=== PATIENT | female | born 1995 | race Caucasian/White ===

== ENCOUNTER 2018-07-03 07:17 | Day surgery (SDC) | payer BC, OTHER, MEDICAID, SELFPAY ==
[2018-06-28 09:46] VITALS: BMI 36.1
[2018-07-03 07:42] VITALS: BP 108/73; PULSE 90; RESP 19; TEMP 36.6; O2SAT 97
[2018-07-03 07:43] VITALS: BMI 36.1
[2018-07-03] MEDS: LACTATED RINGERS 1,000 ML 42 ML IV ×2 (07:55→12:54)
--- NOTE | 2018-07-03 09:00 | PM.PREOP ---
Pre-operative Note Interval Note Pre-op Check: Yes History & Physical Reviewed by Physician Changes: No
--- NOTE | 2018-07-03 09:01 | PM.OP.1 ---
Operative Date/Time/Diagnoses Date of procedure: 07/03/18 Time of procedure: 09:02 Pre-op diagnosis: Left painful recurrent bunion, metatarsalgia Post-op diagnosis: same Procedure & Clinicians Procedure: 1. Left first metatarsophalangeal joint arthrodesis 2. Left second metatarsal osteotomy Same procedure as scheduled: Yes Indications: Ongoing drift with pain to the great toe and ball of the foot. Surgeon: Nandini Albert Click Yes if Unassisted: No Anesthesia Type: General and Peripheral nerve block Operative Notes Closure Type: primary Specimen(s): none sent Implants & Drains: [place] 1st MTP plate, 2.0 (1), 2.7 (3) and 3.5 (3) screws, 4.0 (1) screw Estimated Blood Loss (mL): 30 Blood products transfused: none Tourniquet time (min): 89 Procedure in detail: In the preoperative holding area, a lower extremity block was renedered by the anesthesiologist. Please see separate note for details. The patient was brought to the operating room and placed on the operating table in the supine position. A tourniquet was placed about the patient's thigh on the left. After induction of general anesthesia the foot and ankle were prepped and draped in the usual aseptic manner. The tourniquet was inflated to the left. Incision was made over the dorsal aspect of the left 1st metatarsophalangeal joint. The incision was deepened through subcutaneous tissues being careful to identify and retract all vital neurovascular structures. All bleeders were cauterized and ligated necessary. A significant amount of scar tissue was noted and the prior suture remaining from the distal anchor was removed. Prominent bony exostosis dorsomedial eminence and dorsal MT1 head were noted. The first metatarsophalangeal joint capsule was opened. A saw was used to resect the remaining medial eminence bony enlargement as well as some of the more prominent areas of spurring at the 1st metatarsophalangeal joint. A guidewire was placed in the 1st metatarsal head and a reamer was used to resect the cartilage from the 1st metatarsal head and prepare the joint. The same procedure was performed to the proximal phalanx base. These guidewires were then removed. Subchondral drilling was performed to either side with the guidewire as well as some fish scaling using a small osteotome. The area was irrigated with copious amount of normal sterile saline. Temporary fixation across the joint was placed with a k-wire and this was checked under C-arm to be in appropriate alignment. A plate was chosen and any further reduction of prominences dorsally was performed with a rasp and rongeur. Using the aid of fluoroscopy a guide wire was placed across the reduced joint and then used as cannulation for the drill for a lag screw from the distal medial to proximal lateral 1st metatarsal phalangeal joint. Confirmed appropriate in all 3 planes a partially threaded screw was placed and the guidewire removed. Good alignment and reduction. Plate was placed and with the aid of fluoroscopy the series of locking screws and a nonlocking screw were placed across the plate and steadied the joint well. This was checked on C-arm and there was good compression and alignment. The area was irrigated with copious amounts normal sterile saline. Next attention was directed to the 2nd metatarsal head where an incision was made over the dorsal 2nd metatarsophalangeal joint. The incision was deepened through subcutaneous tissues being careful to identify and retract all vital neural and vascular structures. All bleeders were cauterized and ligated as necessary. Once the capsule was entered the metatarsal head and neck were exposed and using the aid of C-arm, a saw was used to resect the head of the metatarsal and pushed back proximally to a point where there was more of an equal parabola of length. This was temporarily fixated with a guidewire and then using standard AO technique a 2 0 screw was placed across this. Guidewire was removed this was checked under C-arm and strength was good as well as compression. Tourniquet was deflated and prompt hyperemic response was seen to the foot. Deep closure was performed using 3 0 Vicryl, 4- O Vicryl to the subcutaneous tissues and nylon to the skin. She was dressed with a lightly compressive sterile dressing and placed in her postoperative boot. She was transferred to PACU with vital signs stable. Tourniquet was deflated and prompt hyperemic response was seen to the foot. And no motion was noted at the 1st MTPJ. Subcutaneous closure was performed using Vicryl and nylon was used to close the skin. A sterile lightly compressive dressing was placed on the foot and he was placed in his postoperative boot. He was transferred to the PACU with vital signs stable and vascular status intact. Complications: none Condition: stable Disposition: PACU Plan for aftercare: Plan: Following a period of postoperative monitoring, the patient will be discharged to home on written and postoperative instructions including keeping the dressing dry and intact, avoiding ambulation on the foot, icing and elevating the foot when seated home. DVT prevention techniques have been reviewed. For the 1st postoperative visit the dressing will be [changed] and close to the 3rd postoperative week we will likely remove the sutures. X-rays taken generally at the s/p week 4. Weightbearing commencing likely closer to the 4th to 6th week.
[2018-07-03] MEDS: fentaNYL 100 MCG/2 ML INJ 50 MCG IV (09:02)
[2018-07-03] MEDS: MIDAZOLAM 2 MG/2 ML VIAL 1 MG IV (09:03)
[2018-07-03] MEDS: CEFAZOLIN 2 GM/100 ML FROZ.PIGGY IV (09:09)
--- NOTE | 2018-07-03 09:11 | SUR.PREOP ---
Block start time 904[] . Monitoring initiated and maintained throughout procedure. Oxygen and medications given per anesthesiologist instructions. Patient remained stable throughout procedure, no adverse reactions noted. Block end time [907].left popliteal block per protocol - dr santos
--- NOTE | 2018-07-03 09:42 | SUR.OPER ---
Supine on padded OR bed, head on pillow, arms secured on padded arm boards at <90 degrees abduction, legs uncrossed, safety belt at thigh, tape over blanket over lower legs.
[2018-07-03] MEDS: BUPIVACAINE 0.5% (PF) VIAL 30 ML INJ (10:02)
[2018-07-03 11:40] VITALS: BP 116/81; PULSE 85; RESP 16; TEMP 36.3; O2SAT 98
[2018-07-03 11:45] VITALS: BP 114/79; PULSE 69; RESP 22; O2SAT 98
[2018-07-03 11:55] VITALS: BP 116/83; PULSE 80; RESP 16; TEMP 36.3; O2SAT 96
[2018-07-03 12:00] VITALS: BP 114/77; PULSE 89; RESP 12; TEMP 36.4; O2SAT 98
[2018-07-03] MEDS: OXYCODONE/ACETAMINOPHEN 5/325 TABLET 1 TAB PO (12:53)
[2018-07-03 13:03] VITALS: BP 101/63; PULSE 78; RESP 16; TEMP 36.4; O2SAT 98
--- NOTE | 2018-07-03 13:18 | SUR.PHASEII ---
1318: Pt d/c Phase II via W/C with escort and ride home. D/C instructions reviewed, Pt given one Percocet for c/o HENRY and Pt has met discharge criteria and left hospital in stable condition. All questions were answered and post op appointments X [address] Albert have already been made.
== END 2018-07-03 13:19 | disposition home or self-care (01) ==
PROVIDERS: Family Provider Nurse Practitioner Family; PCP Nurse Practitioner Family; Visit Provider Podiatrist
PROC: (CPT 28750; principal; 2018-07-03 08:45)
PROC: 0QBP0ZZ Excision of Left Metatarsal, Open Approach (ICD-10-PCS; CPT 28292; 2018-07-03 08:45)
DX: M20.12 Hallux valgus (acquired), left foot (principal); M19.072 Primary osteoarthritis, left ankle and foot; Z87.891 Personal history of nicotine dependence
CPT/HCPCS: 28750; 28308; 64450; J0690; J1100; J2250; J2405; J2704; J3010

== ENCOUNTER 2019-04-18 06:29 | Day surgery (SDC) | payer BC, OTHER, MEDICAID, SELFPAY ==
[2019-04-04 11:26] VITALS: BMI 36.9
[2019-04-18] VITALS (12 sets, daily range): BP systolic 95–114; BP diastolic 50–70; PULSE 70–100; RESP 12–18; TEMP 36.2–36.7; O2SAT 93–99; BMI 36.6
[2019-04-18] MEDS: LACTATED RINGERS 1,000 ML 100 ML IV ×2 (07:15→10:38)
--- NOTE | 2019-04-18 07:42 | PM.PREOP ---
Pre-operative Note Interval Note History & Physical reviewed/Exam performed by Physician: Yes Changes to H&P: No
--- NOTE | 2019-04-18 07:52 | P.OP_ITS ---
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 Surgeon: Nandini Albert Click Yes if Unassisted: Yes Anesthesia Type: General and Peripheral nerve block Operative Notes Closure Type: primary Specimen(s): none sent Prosthetic devices, grafts, tissues, transplants, or devices: [place] great toe fusion small plate, 4.0 cannulated screw, 3.5 locking screws (2), non-locking (1), 2.7 locking (2), 2.0 cannulated screw. DBM anahi. Estimated Blood Loss (mL): 30 Blood products transfused: none Tourniquet time (min): 90 Procedure in detail: The patient was brought to the operating room and placed on the operating table in the supine position. Prior to this she was given a popliteal block by the anesthesiologist in the pre-operative holding area. A tourniquet was placed about the patient's thigh on the right. After induction of general anesthesia the foot and ankle were prepped and draped in the usual aseptic manner. The tourniquet was inflated to the right thigh. Incision was made over the dorsal aspect of the right 1st metatarsophalangeal joint. The incision was deepened through subcutaneous tissues being careful to identify and retract all vital neurovascular structures. All bleeders were cauterized and ligated necessary. A moderate amount of scar tissue was noted. The first metatarsophalangeal joint capsule was opened. A saw was used to resect a little remaining dorsal eminence/bony enlargement to allow the contour of the dorsal joint to be more even at the 1st metatarsophalangeal joint. A guidewire was placed in the 1st metatarsal head and a reamer was used to resect the cartilage from the 1st metatarsal head and prepare the joint. The same procedure was performed to the proximal phalanx base. A little extra bone was removed plantar first metatarsal head on the medial due to the tight space of the reamer, but did not affect the fusion site. These guidewires were then removed. Subchondral drilling was performed to each side with the guidewire as well as some fish scaling using a small osteotome. The area was irrigated with copious amount of normal sterile saline. Temporary fixation across the joint was placed with a guidewire and this was checked under C-arm to be in appropriate alignment. A plate was chosen and any further reduction of prominences dorsally was performed with a rasp and rongeur. DBM putty was placed in the plantar medial former joint space to aid for small filler on the section that was reduced as mentioned above which filled well. Using the aid of fluoroscopy the guide wire used as cannulation for the drill for a lag screw from the distal medial to proximal lateral 1st metatarsal phalangeal joint. Confirmed appropriate in all 3 planes and a partially threaded screw was placed and the guidewire removed. Good alignment and reduction. Plate was placed and with the aid of fluoroscopy the series of locking screws and a nonlocking screws were placed across the plate and steadied the joint well. This was checked on C-arm and there was good compression and alignment. The area was irrigated with copious amounts normal sterile saline. Next attention was directed to the 2nd metatarsal head where an incision was made over the dorsal 2nd metatarsophalangeal joint. The incision was deepened through subcutaneous tissues being careful to identify and retract all vital neural and vascular structures. All bleeders were cauterized and ligated as necessary. Once the capsule was entered the metatarsal head and neck were exposed and using the aid of C-arm, a saw was used to resect the head of the metatarsal and pushed back proximally to a point where there was more of an equal parabola of length. A second cut was made to take a small wedge out of the metatarsal to further reduce length and height. This was temporarily fixated with a guidewire and then using standard AO technique a 2-0 screw was placed across this. Guidewire was removed this was checked under C-arm and strength was good as well as compression. Tourniquet was deflated and prompt hyperemic response was seen to the foot. Area irrigated with normal saline. Deep closure was performed using 3-0 Vicryl, 4-0 Vicryl to the subcutaneous tissues and nylon to the skin. She was dressed with a lightly compressive sterile dressing and placed in her postoperative boot. She was transferred to PACU with vital signs stable. Complications: none Condition: stable Disposition: PACU Plan for aftercare: Following a period of postoperative monitoring, the patient will be discharged home on written and and oral postoperative instructions including keeping the dressing dry and intact, no ambulation on the operative foot, icing and elevating the foot when seated home. DVT prevention techniques have been reviewed. For the 1st postoperative visit the dressing will be changed and close to the 3rd postoperative week we will likely remove the sutures. Post operative week 4 will be first set of x-rays.
[2019-04-18] MEDS: CEFAZOLIN 2 GM/100 ML FROZ.PIGGY IV (08:21)
--- NOTE | 2019-04-18 08:48 | SUR.OPER ---
Addendum entered by Fausto Mckeon R.N. 04/18/19 08:49: tape over lower left leg, gel bump under right hip Original Note: Supine on padded OR bed, head on pillow, arms secured on padded arm boards at <90 degrees abduction, legs uncrossed, safety belt at thigh, tape over blanket over lower legs.
[2019-04-18] MEDS: BUPIVACAINE 0.5% (PF) VIAL 30 ML INJ (08:59)
[2019-04-18] MEDS: HYDROMORPHONE 2 MG INJ 0.5 MG IV ×8 (11:05→11:55)
[2019-04-18] MEDS: LORazepam 2 MG/ML INJ 0.25 MG IV ×2 (11:06→11:21)
--- NOTE | 2019-04-18 12:21 | SUR.PHASEI ---
Block start time [1158] . Monitoring initiated and maintained throughout procedure. Oxygen and medications given per anesthesiologist instructions. Patient remained stable throughout procedure, no adverse reactions noted. Block end time [1208 ].
--- NOTE | 2019-04-18 14:59 | SUR.PHASEII ---
VS taken by ISRRAEL. WNL.
== END 2019-04-18 13:25 | disposition home or self-care (01) ==
PROVIDERS: Family Provider Nurse Practitioner Family; PCP Nurse Practitioner Family; Visit Provider Podiatrist
PROC: (CPT 26535; principal; 2019-04-18 07:45)
PROC: 0QBN0ZZ Excision of Right Metatarsal, Open Approach (ICD-10-PCS; CPT 28292; 2019-04-18 07:45)
DX: M20.11 Hallux valgus (acquired), right foot (principal); M21.611 Bunion of right foot; M79.674 Pain in right toe(s); G89.18 Other acute postprocedural pain; Z87.891 Personal history of nicotine dependence
CPT/HCPCS: 28750; 28308; 64445; 64450; J0690; J1100; J1170; J2060; J2250; J2405; J2704; J3010

== ENCOUNTER 2019-05-24 14:11 | Emergency (ER) | payer BC, OTHER, MEDICAID, SELFPAY ==
[2019-05-24 14:24] VITALS: BP 117/61; PULSE 102; RESP 15; TEMP 36.6; O2SAT 100; BMI 34.4
--- NOTE | 2019-05-24 14:33 | ED.EXTPRO ---
HPI - Extremity Problem <Tanvi Hurley PA-C - Last Filed: 05/24/19 17:32> General Chief complaint: Extremity Problem,Nontraumatic Stated complaint: Leg pain Time Seen by Provider: 05/24/19 14:14 Source: patient and family Mode of arrival: Ambulatory Limitations: no limitations History of Present Illness HPI Narrative: This 23-year-old female comes to ED due to progressively worsening right lower extremity pain. She had her 9th bunionectomy April 18. She had pain since then, was seen 05/07 due to concern for possible wound infection but was felt to be due to suture irritation. She has had pain in the calf and thigh area as well, had an ultrasound done then as well which may have shown a superficial clot that did not need treatment. She states that pain has continued to worsen radiating up all the way through her calf and thigh up into the gluteal area. She has not had any hip or back pain, but does hurt to move the leg anywhere. She is still using her a knee scooter since the surgery so has not been walking. She states that she was seen at another local ED, not felt to have any clot or infection, then was seen yesterday at Orthopedics and felt possibly infected, started on cephalexin. She states that wound culture was done at the hospital on . She states that pain is even worse today, calf is very painful. She and her mom have noted swelling in the calf. Has had some continued intermittent green/yellow discharge from her wound. She did start cephalexin. She was given a prescription for pain medication yesterday but has not filled that. She has been taking ibuprofen along with Percocet as needed. She denies any other new symptoms in the last 3 days such as paresthesia or weakness in the extremity, fever, chest pain or dyspnea. She denies possibility of Related Data Home Medications Medication Instructions Recorded Confirmed ibuprofen 800 mg PO PRN PRN #0 10/25/12 04/18/19 loratadine [Claritin] 10 mg PO DAILY 04/18/19 04/18/19 Previous Rx's Medication Instructions Recorded gabapentin 300 mg PO Q8H #15 cap 05/24/19 Allergies Allergy/AdvReac Type Severity Reaction Status Date / Time No Known Drug Allergies Allergy Verified 04/18/19 06:51 Review of Systems <Tanvi Hurley PA-C - Last Filed: 05/24/19 17:32> Review of Systems ROS Unobtainable: All systems reviewed & are unremarkable except as noted in HPI and below PFSH <Tanvi Hurley PA-C - Last Filed: 05/24/19 17:32> Medical History Fusion of toes of right foot (Acute) Sebaceous cyst (Acute) Surgical History History of bunionectomy of left great toe (Acute) History of bunionectomy of right great toe (Acute) Hx of cholecystectomy (Acute) Hx of eye surgery (Acute) S/P foot surgery, right (Acute) Social History household members: significant other, family and children Smoking Status: Former smoker Social History household members: significant other, family and children Smoking Status: Former smoker Exam <Tanvi Hurley PA-C - Last Filed: 05/24/19 17:32> Narrative Exam Narrative: GENERAL APPEARANCE: Patient sitting comfortably, in no distress. NECK/THYROID: Neck supple LUNGS: Clear to auscultation bilaterally. HEART: Regular rate and rhythm without murmur, normal S1, S2, no S3 or S4. EXTREMITIES: No cyanosis, trace edema on the right, none on the left. Pedal pulses 2+ bilaterally, feet are warm. Tender throughout the dorsal foot and posterior LE through the thigh, most at the calf NEUROLOGIC: Alert and oriented, normal speech, gait and coordination. Sensation grossly intact throughout the lower extremities DERMATOLOGIC: Multiple surgical scars on the feet. Wound on the right the metatarsal joint is dry, tender surrounding, no significant erythema noted MUSCULOSKELETAL: Right lower extremity no joint effusion, tender throughout with limited passive and active range of motion secondary to tenderness Initial Vital Signs Initial Vital Signs: Vital Signs Temperature 97.8 F 05/24/19 14:24 Pulse Rate 102 H 05/24/19 14:24 Respiratory Rate 15 05/24/19 14:24 Blood Pressure 117/61 05/24/19 14:24 Pulse Oximetry 100 05/24/19 14:24 <Jc Shelton DO - Last Filed: 05/25/19 07:46> Initial Vital Signs Initial Vital Signs: Vital Signs Temperature 97.8 F 05/24/19 14:24 Pulse Rate 102 H 05/24/19 14:24 Respiratory Rate 15 05/24/19 14:24 Blood Pressure 117/61 05/24/19 14:24 Pulse Oximetry 100 05/24/19 14:24 Course <Tanvi Hurley PA-C - Last Filed: 05/24/19 17:32> Course Additional Information: Outside records review, previous ultrasound shows no evidence of DVT. ED notes from earlier this this week reviewed. G stain negative. No culture. Reviewed findings on workup today with patient. She just started antibiotic yesterday, advised to continue this. It appears she may have some neuropathic pain as well so given gabapentin to start over the weekend to see if this is helpful for her pain, and she will follow up with her surgeon 1st of next week for further evaluation. Advised return to ED if acute changes over the weekend, i.e. new fever Orders Ordered: Discontinued Medications Gabapentin (Neurontin) 300 mg PO NOW ONE Stop: 05/24/19 15:41 Last Admin: 05/24/19 16:06 Dose: 300 mg Documented by: KIRA Sodium Chloride (Normal Saline 0.9%) 1,000 mls @ 1,000 mls/hr IV BOLUS ONE Stop: 05/24/19 15:54 Last Admin: 05/24/19 15:12 Dose: 1,000 mls/hr Documented by: TAJ Ketorolac Tromethamine (Toradol) 30 mg IV NOW ONE Stop: 05/24/19 14:56 Last Admin: 05/24/19 15:12 Dose: 30 mg Documented by: TAJ Oxycodone/Acetaminophen (Percocet 5/325) 2 tab PO NOW ONE Stop: 05/24/19 14:56 Last Admin: 05/24/19 15:12 Dose: 2 tab Documented by: TAJ Vital Signs Vital signs: Vital Signs - 8 hr 05/24/19 14:24 05/24/19 15:58 05/24/19 16:55 Temperature 97.8 F Pulse Rate 102 H 78 73 Respiratory Rate 15 16 Blood Pressure 117/61 Blood Pressure [Right Arm] 106/70 107/61 Pulse Oximetry 100 99 98 05/24/19 17:05 Temperature Pulse Rate 57 L Respiratory Rate 17 Blood Pressure Blood Pressure [Right Arm] 121/59 L Pulse Oximetry 98 <Jc Shelton DO - Last Filed: 05/25/19 07:46> Orders Ordered: Discontinued Medications Gabapentin (Neurontin) 300 mg PO NOW ONE Stop: 05/24/19 15:41 Last Admin: 05/24/19 16:06 Dose: 300 mg Documented by: KIRA Sodium Chloride (Normal Saline 0.9%) 1,000 mls @ 1,000 mls/hr IV BOLUS ONE Stop: 05/24/19 15:54 Last Admin: 05/24/19 15:12 Dose: 1,000 mls/hr Documented by: TAJ Ketorolac Tromethamine (Toradol) 30 mg IV NOW ONE Stop: 05/24/19 14:56 Last Admin: 05/24/19 15:12 Dose: 30 mg Documented by: TAJ Oxycodone/Acetaminophen (Percocet 5/325) 2 tab PO NOW ONE Stop: 05/24/19 14:56 Last Admin: 05/24/19 15:12 Dose: 2 tab Documented by: TAJ Vital Signs Vital signs: Vital Signs - 8 hr 05/24/19 14:24 05/24/19 15:58 05/24/19 16:55 Temperature 97.8 F Pulse Rate 102 H 78 73 Respiratory Rate 15 16 Blood Pressure 117/61 Blood Pressure [Right Arm] 106/70 107/61 Pulse Oximetry 100 99 98 05/24/19 17:05 Temperature Pulse Rate 57 L Respiratory Rate 17 Blood Pressure Blood Pressure [Right Arm] 121/59 L Pulse Oximetry 98 MDM - Extremity (Nontraumatic) <Tanvi Hurley PA-C - Last Filed: 05/24/19 17:32> Lab Data Result diagrams: 05/24/19 15:00 05/24/19 15:00 Labs: Lab Results 05/24/19 05/24/19 05/24/19 Range/Units 15:00 15:00 15:00 WBC 5.9 (4.5-11.0) X10^3/uL RBC 4.62 (4.0-5.2) X10^6/uL Hgb 12.8 (12.0-16.0) g/dL Hct 37.9 (36-46) % MCV 82.0 (80-100) fL MCH 27.6 (26-34) PG MCHC 33.7 (30-36) % RDW 14.5 (11.6-14.8) % Plt Count 253 (150-400) X10^3/uL Neut % (Auto) 62.4 (50-75) % Lymph % (Auto) 29.2 (25-40) % Payette % (Auto) 6.3 (3-14) % Eos % (Auto) 1.8 L (2-4) % Baso % (Auto) 0.3 (0-2) % Neut # (Auto) 3700 (9725-3554) /uL Lymph # (Auto) 1700 (1058-5853) /uL Payette # (Auto) 400 (0-900) /uL Eos # (Auto) 100 (0-450) /uL Baso # (Auto) 0 (0-100) /uL Sodium 141 (137-145) mmol/L Potassium 3.8 (3.4-5.1) mmol/L Chloride 103 (98-107) mmol/L Carbon Dioxide 30 (22-32) mmol/L BUN 9 (7-17) mg/dL Creatinine 0.60 (0.52-1.04) mg/dL Estimated GFR > 60.0 (>60) mL/min BUN/Creatinine Ratio 15.0 (6-22) Glucose 93 (70-100) mg/dL Lactate 1.6 (0.7-2.1) mmol/L Calcium 9.7 (8.4-10.2) mg/dL Total Bilirubin 0.4 (0.2-1.3) mg/dL AST 27 (14-36) IU/L ALT 16 (9-52) IU/L Alkaline Phosphatase 67 (38-126) U/L Total Protein 7.7 (6.3-8.2) g/dL Albumin 4.4 (3.5-5.0) g/dL Globulin 3.3 (1.7-4.1) g/dL Albumin/Globulin Ratio 1.3 (1.0-2.8) Imaging Data Venous US: Radiologist's impression: [address] [address] Ultrasound Report Signed Patient: [facility]#: [id number] : 1995Acct:[id number] Age/Sex: 23 / FDate of Service: 05/24/19 Loc: ED Accession Number: [id number] Procedure: US periph venous low extrem rt Ordering Provider: Tanvi Hurley P.A-C PROCEDURE: US PERIPH VENOUS LOW EXTREM RT INDICATIONS: POST OP PAIN/SWELLING/IMMOBILITY TECHNIQUE: Real-time imaging, as well as color and pulse Doppler interrogation, were performed of the lower extremity deep veins from the inguinal ligament to the popliteal fossa. COMPARISON: None. FINDINGS: The common femoral, femoral and popliteal veins are normally compressible, and free of intraluminal thrombus. Color and pulse Doppler demonstrate normal phasic intraluminal flow. There is normal augmentation response to distal compression maneuver. IMPRESSION: 1. No evidence of deep venous thrombosis in the right lower extremity. Dictated by: Joshua Cohen M.D. on 05/24/2019 at 14:36 Approved by: Joshua Cohen M.D. on 05/24/2019 at 14:37 <Jc Shelton DO - Last Filed: 05/25/19 07:46> Lab Data Labs: Lab Results 05/24/19 05/24/19 05/24/19 Range/Units 15:00 15:00 15:00 WBC 5.9 (4.5-11.0) X10^3/uL RBC 4.62 (4.0-5.2) X10^6/uL Hgb 12.8 (12.0-16.0) g/dL Hct 37.9 (36-46) % MCV 82.0 (80-100) fL MCH 27.6 (26-34) PG MCHC 33.7 (30-36) % RDW 14.5 (11.6-14.8) % Plt Count 253 (150-400) X10^3/uL Neut % (Auto) 62.4 (50-75) % Lymph % (Auto) 29.2 (25-40) % Payette % (Auto) 6.3 (3-14) % Eos % (Auto) 1.8 L (2-4) % Baso % (Auto) 0.3 (0-2) % Neut # (Auto) 3700 (0686-4856) /uL Lymph # (Auto) 1700 (9541-1970) /uL Payette # (Auto) 400 (0-900) /uL Eos # (Auto) 100 (0-450) /uL Baso # (Auto) 0 (0-100) /uL Sodium 141 (137-145) mmol/L Potassium 3.8 (3.4-5.1) mmol/L Chloride 103 (98-107) mmol/L Carbon Dioxide 30 (22-32) mmol/L BUN 9 (7-17) mg/dL Creatinine 0.60 (0.52-1.04) mg/dL Estimated GFR > 60.0 (>60) mL/min BUN/Creatinine Ratio 15.0 (6-22) Glucose 93 (70-100) mg/dL Lactate 1.6 (0.7-2.1) mmol/L Calcium 9.7 (8.4-10.2) mg/dL Total Bilirubin 0.4 (0.2-1.3) mg/dL AST 27 (14-36) IU/L ALT 16 (9-52) IU/L Alkaline Phosphatase 67 (38-126) U/L Total Protein 7.7 (6.3-8.2) g/dL Albumin 4.4 (3.5-5.0) g/dL Globulin 3.3 (1.7-4.1) g/dL Albumin/Globulin Ratio 1.3 (1.0-2.8) Discharge Plan Departure Patient Disposition: Home Clinical Impression: Lower extremity pain, right, Cellulitis of foot, right Discharge Date/Time: 05/24/19 17:13 Instructions: DI for Cellulitis -- Adult, Neuropathic Pain Activity Restrictions/Additional Instructions: The source of your pain today is not clear on testing. It could be a combination of nerve pain related to surgery or the nerve block and the wound infection. Your lab work did not show any acute problem, and there was no blood clot found on ultrasound. Since the typical pain medications that you have been taking have not been helpful for you, we have given you a dose of gabapentin here which can be helpful for nerve pain. Please try continuing this at home over the weekend, 300 mg every 8 hours, and you can increase to 600 mg at bedtime if not making you overly sleepy or not helping her pain. You can continue your other medicines as needed, and please continue the cephalexin as prescribed yesterday. Please make sure you call Dr. Albert's office 1st thing on Sunday and let them know you were seen in the emergency room and need to follow up there. As we talked about, please return to the ED if any acutely worsening symptoms or new symptoms over the weekend such as high fever. Prescriptions: New gabapentin 300 mg capsule 300 mg PO Q8H Qty: 15 RF: 0 No Action ibuprofen 200 MG tablet 800 mg PO PRN PRN (Reason: Pain (Scale Score 1-3)) Qty: 0 RF: 0 loratadine [Claritin] 10 mg Tablet 10 mg PO DAILY RF: 0 Referrals: Nandini Albert DPM [Physician] - Brittaney Bae ARNP [Primary Care Provider] - Toro Wheat MD [Non-Staff] -
--- NOTE | 2019-05-24 14:56 | DI.US.S_ITS ---
PROCEDURE: US PERIPH VENOUS LOW EXTREM RT INDICATIONS: POST OP PAIN/SWELLING/IMMOBILITY TECHNIQUE: Real-time imaging, as well as color and pulse Doppler interrogation, were performed of the lower extremity deep veins from the inguinal ligament to the popliteal fossa. COMPARISON: None. FINDINGS: The common femoral, femoral and popliteal veins are normally compressible, and free of intraluminal thrombus. Color and pulse Doppler demonstrate normal phasic intraluminal flow. There is normal augmentation response to distal compression maneuver. IMPRESSION: 1. No evidence of deep venous thrombosis in the right lower extremity. Dictated by: Joshua Cohen M.D. on 05/24/2019 at 14:36 Approved by: Joshua Cohen M.D. on 05/24/2019 at 14:37
--- NOTE | 2019-05-24 15:08 | PC.NURSE ---
Surgery April for bunion. Increase pain, weeping on toe. Increase severity in posterior leg from toe up into groin. Had a small superficial clot post op started on ABX. Received a block for pain, since injection patient has had increase shooting pain up leg into groin
[2019-05-24 15:11] LABS: Add Manual Diff / Slide Review NO; Basophils Absolute Auto 0 /uL (0-100); Basophils Percent Auto 0.3 % (0-2); Eosinophils Absolute Auto 100 /uL (0-450); Eosinophils Percent Auto 1.8 % (2-4); Hematocrit 37.9 % (36-46); Hemoglobin 12.8 g/dL (12.0-16.0); Lymphocytes Absolute Auto 1700 /uL (1100-4500); Lymphocytes Percent Auto 29.2 % (25-40); Mean Corpuscular HGB Conc 33.7 % (30-36); Mean Corpuscular Hemoglobin 27.6 PG (26-34); Monocytes Absolute Auto 400 /uL (0-900); Monocytes Percent Auto 6.3 % (3-14); Neutrophils Absolute Auto 3700 /uL (1500-7000); Neutrophils Percent Auto 62.4 % (50-75); Platelet Count 253 X10^3/uL (150-400); Red Blood Cell Count 4.62 X10^6/uL (4.0-5.2); Red Cell Distribution Width 14.5 % (11.6-14.8); White Blood Cell Count 5.9 X10^3/uL (4.5-11.0)
[2019-05-24] MEDS: OXYCODONE/ACETAMINOPHEN 5/325 TABLET 2 TAB PO (15:12)
[2019-05-24] MEDS: SODIUM CHLORIDE 0.9% 1,000 ML 1000 ML IV (15:12)
[2019-05-24] MEDS: KETOROLAC 60 MG/2 ML VIAL 30 MG IV (15:12)
[2019-05-24 15:48] LABS: Lactate (Lactic Acid) 1.6 mmol/L (0.7-2.1)
[2019-05-24 15:49] LABS: Alanine Aminotransferase 16 IU/L (9-52); Albumin 4.4 g/dL (3.5-5.0); Albumin Globulin Ratio 1.3 (1.0-2.8); Alkaline Phosphatase 67 U/L (38-126); Aspartate Aminotransferase 27 IU/L (14-36); Bilirubin Total 0.4 mg/dL (0.2-1.3); Blood Urea Nitrogen 9 mg/dL (7-17); Calcium 9.7 mg/dL (8.4-10.2); Carbon Dioxide 30 mmol/L (22-32); Chloride 103 mmol/L (98-107); Estimated Glomerular Filt Rate > 60.0 mL/min (>60); Globulin 3.3 g/dL (1.7-4.1); Glucose 93 mg/dL (70-100); HEMOLYSIS < 15 (0-50); Potassium 3.8 mmol/L (3.4-5.1); Sodium 141 mmol/L (137-145); Total Protein 7.7 g/dL (6.3-8.2)
[2019-05-24 15:58] VITALS: BP 106/70; PULSE 78; RESP 16; O2SAT 99
[2019-05-24] MEDS: GABAPENTIN 300 MG CAPSULE PO (16:06)
[2019-05-24 16:55] VITALS: BP 107/61; PULSE 73; O2SAT 98
[2019-05-24 17:05] VITALS: BP 121/59; PULSE 57; RESP 17; O2SAT 98
== END 2019-05-24 17:13 | disposition home or self-care (01) ==
PROVIDERS: Emergency Provider Internal Medicine; PCP Nurse Practitioner Family
DX: M79.661 Pain in right lower leg (principal); L03.115 Cellulitis of right lower limb
CPT/HCPCS: 36591; 80053; 83605; 85025; 93971; 96374; 99283; 99284; J1885

== ENCOUNTER → 2019-06-07 12:45 | Outpatient (CLI) | payer BC, OTHER, MEDICAID, SELFPAY ==
--- NOTE | 2019-06-07 | DI.MRI.S_ITS ---
PROCEDURE: MR KNEE RT WO CON INDICATIONS: Injury of sciatic nerve at hip and thigh level, ri TECHNIQUE: Noncontrast sagittal PD fast spin echo and T2 fast spin echo with fat saturation, sagittal 3-D FLASH with fat saturation; coronal T1 spin echo and PD fast spin echo with fat saturation, and axial PD fast spin echo with fat saturation through the knee. COMPARISON: None. FINDINGS: Image quality: Degraded by motion artifact Menisci: The medial and lateral menisci demonstrate normal morphology and internal signal. The meniscal root ligaments appear intact. Cruciate ligaments: The anterior and posterior cruciate ligaments appear intact. Medial structures: The medial collateral ligament appears intact. The posterior oblique ligament, semimembranosus tendon insertions, oblique popliteal ligament, and meniscocapsular junction appear intact. Visualized portions of the pes anserinus tendons appear normal. No abnormal bursal fluid. Lateral structures: The lateral collateral ligament, long and short heads of the biceps femoris tendon appear intact. The popliteus tendon appears normal; the popliteofibular ligament appears intact. The posterosuperior and anteroinferior popliteomeniscal fascicles appear intact. The arcuate and fabellofibular ligaments appear intact, on either side of the lateral inferior geniculate artery. Iliotibial band appears normal. Anterior structures: Quadriceps tendon intact. Low signal thickening and adjacent edema involving the patellar attachment of the medial patellofemoral ligament. The lateral patellofemoral ligament appears grossly intact There is mild patellar tendinopathy. Pretibial and superficial infrapatellar subcutaneous edema/fluid. Bones and cartilage: No bone marrow contusions or fractures. The cartilage of the medial and lateral femorotibial compartments, as well as the patellofemoral compartment, appears normal in thickness. Joint space: There is physiologic knee joint fluid. No Courtney's cyst. Normal appearing synovial plicae are incidentally noted. IMPRESSION: Patellar tendinopathy. Age-indeterminate sprain/partial tear of the patellar attachment of the medial patellofemoral ligament. This finding may be subacute. Please correlate clinically. Motion degraded examination. Dictated by: Miguelito Pollard M.D. on 06/09/2019 at 9:10 Approved by: Miguelito Pollard M.D. on 06/09/2019 at 9:14
== END ==
PROVIDERS: Family Provider Podiatrist; PCP Family Medicine; Visit Provider Physical Medicine & Rehabilitation
DX: S74.01XA Injury of sciatic nerve at hip and thigh level, right leg, initial encounter (principal); M67.961 Unspecified disorder of synovium and tendon, right lower leg
CPT/HCPCS: 73721

== ENCOUNTER 2019-06-20 23:12 | Emergency (ER) | payer BC, OTHER, MEDICAID, SELFPAY ==
[2019-06-20 23:32] VITALS: BP 131/92; PULSE 74; RESP 15; TEMP 36.4; O2SAT 100; BMI 37.5
[2019-06-21 00:12] LABS: Add Manual Diff / Slide Review NO; Basophils Absolute Auto 0 /uL (0-100); Basophils Percent Auto 0.5 % (0-2); Eosinophils Absolute Auto 0 /uL (0-450); Eosinophils Percent Auto 0.4 % (2-4); Hematocrit 38.4 % (36-46); Lymphocytes Absolute Auto 2600 /uL (1100-4500); Lymphocytes Percent Auto 31.1 % (25-40); Mean Corpuscular HGB Conc 33.8 % (30-36); Mean Corpuscular Hemoglobin 27.6 PG (26-34); Mean Corpuscular Volume 81.7 fL (80-100); Monocytes Absolute Auto 500 /uL (0-900); Monocytes Percent Auto 6.1 % (3-14); Neutrophils Absolute Auto 5200 /uL (1500-7000); Neutrophils Percent Auto 61.9 % (50-75); Platelet Count 265 X10^3/uL (150-400); Red Cell Distribution Width 13.9 % (11.6-14.8); White Blood Cell Count 8.4 X10^3/uL (4.5-11.0)
[2019-06-21 00:13] LABS: Prothrombin Time 11.9 SECONDS (10.1-12.7)
[2019-06-21 00:16] LABS: PTT Partial Thromboplastin Tim 35 SECONDS (26.4-36.2)
[2019-06-21 00:19] LABS: Alanine Aminotransferase 17 IU/L (9-52); Albumin 4.5 g/dL (3.5-5.0); Albumin Globulin Ratio 1.3 (1.0-2.8); Alkaline Phosphatase 83 U/L (38-126); Aspartate Aminotransferase 21 IU/L (14-36); Bilirubin Total 0.4 mg/dL (0.2-1.3); Blood Urea Nitrogen 8 mg/dL (7-17); Calcium 9.7 mg/dL (8.4-10.2); Carbon Dioxide 23 mmol/L (22-32); Chloride 106 mmol/L (98-107); Estimated Glomerular Filt Rate > 60.0 mL/min (>60); Globulin 3.5 g/dL (1.7-4.1); Glucose 91 mg/dL (70-100); HEMOLYSIS < 15 (0-50); Lipase 58 U/L (23-300); Potassium 3.6 mmol/L (3.4-5.1); Sodium 140 mmol/L (137-145)
--- NOTE | 2019-06-21 01:30 | DI.CT.S_ITS ---
PROCEDURE: CT ABDOMEN PELVIS W CON INDICATIONS: severe abdominal pain TECHNIQUE: After the administration of intravenous contrast, 5 mm thick sections acquired from the diaphragm to the symphysis. 5 mm coronal and sagittal reformats were acquired. For radiation dose reduction, the following was used: automated exposure control, adjustment of mA and/or kV according to patient size. COMPARISON: [facility], CT, CT ABDOMEN PELVIS WITH CONTRAST, 08/30/2018, 23:14. FINDINGS: Image quality: Excellent. ABDOMEN: Lung bases: Minimal bibasilar atelectasis. No focal consolidation or pleural effusion. Solid organs: Liver is normal in size and enhancement. Gallbladder is surgically absent. Biliary system is non dilated. Pancreas enhances normally. Spleen is normal in size and enhancement. No adrenal nodules. Kidneys demonstrate normal size and enhancement, without hydronephrosis. Peritoneum and bowel: Bowel loops demonstrate normal wall thickness and caliber. Normal appendix. No free fluid or air. Nodes and vessels: No retroperitoneal or mesenteric adenopathy by size criteria. Aorta and inferior vena cava are normal in size. Miscellaneous: No ventral hernias. Retroaortic left renal vein. PELVIS: Genitourinary: Bladder wall thickness is normal. Miscellaneous: No inguinal hernias or adenopathy. Bones: No suspicious bony lesions. No vertebral body compression fractures. Bilateral L5 pars defects with minimal grade 1 anterolisthesis. IMPRESSION: No acute intra-abdominal abnormality. Bilateral L5 pars defects with minimal grade 1 anterolisthesis. Note: These findings are concordant with the preliminary interpretation. Dictated by: Bill Sherman M.D. on 06/21/2019 at 7:08 Approved by: Bill Sherman M.D. on 06/21/2019 at 7:25
[2019-06-21] MEDS: PANTOPRAZOLE 40 MG VIAL IV (01:47)
[2019-06-21] MEDS: ONDANSETRON 4 MG/2 ML INJ IV (01:47)
[2019-06-21] MEDS: SODIUM CHLORIDE 0.9% 1,000 ML 1000 ML IV (01:48)
[2019-06-21] MEDS: LORazepam 2 MG/ML INJ 0.5 MG IV (01:48)
--- NOTE | 2019-06-21 02:53 | ED_ITS ---
HPI - Nausea/Vomiting/Diarrhea General Chief complaint: Urogenital-Female Stated complaint: throwing up blood/went to [facility]-no help Time Seen by Provider: 06/20/19 23:28 Source: patient Mode of arrival: Ambulatory Limitations: no limitations History of Present Illness HPI Narrative: 23F former smoker with history of abdominal pain presents to the emergency department with her mother in the chief complaint of ongoing, if not worsening generalized abdominal discomfort associated with and vomiting. She has had a few dark blood specks in her vomit. She has been seen and evaluated outside facility was recently diagnosed with pyelonephritis and given antibiotics. Over the course of the day she developed increasing nausea, vomiting and generalized abdominal pain and we turned to that emergency department but the wait was longer than she was comfortable with so she presented here. She denies any provocation, palliation or radiation. She is not dizzy nor weak or lightheaded. She has been taking her meds as directed. She states labs were unremarkable and no imaging was performed when at the [facility] MD complaint: nausea, vomiting and abdominal pain Onset (ago): day(s) Description of Vomiting: food contents Description of Diarrhea: none Associated Abdominal Pain: Yes Location of pain: diffuse Radiation: diffuse Severity: moderate Quality: cramping and aching Pain Consistency: intermittent Relieving factors: none Exacerbating factors: none Related Data Home Medications Medication Instructions Recorded Confirmed ibuprofen 800 mg PO PRN PRN #0 10/25/12 04/18/19 loratadine [Claritin] 10 mg PO DAILY 04/18/19 04/18/19 Previous Rx's Medication Instructions Recorded gabapentin 300 mg PO Q8H #15 cap 05/24/19 hyoscyamine sulfate 0.125 mg PO BID-QID PRN #20 tab 06/21/19 Allergies Allergy/AdvReac Type Severity Reaction Status Date / Time No Known Drug Allergies Allergy Verified 06/20/19 23:32 Review of Systems Constitutional Constitutional: Denies chills, Denies fatigue, Denies fever(s), Denies frequent falls, Denies lethargy and Denies weakness Eyes Eyes: Denies change in vision, Denies eye discharge, Denies irritation and Denies loss of vision ENT Ears, Nose, Mouth, and Throat: Denies change in voice, Denies dizziness, Denies neck pain, Denies sore throat and Denies throat swelling Cardiovascular Cardiovascular: Denies chest pain, Denies irregular heart rhythm, Denies lightheadedness, Denies palpitations, Denies dyspnea, Denies dyspnea on exertion and Denies orthopnea Respiratory Respiratory: Denies cough, Denies dyspnea, Denies dyspnea on exertion and Denies wheezing Gastrointestinal Gastrointestinal: Reports abdominal pain, Denies change in bowel habits, Denies diarrhea, Reports nausea and Reports vomiting Genitourinary Genitourinary: Denies hematuria, Denies flank pain, Denies urinary incontinence and Denies urinary urgency Musculoskeletal Musculoskeletal: Denies back pain, Denies muscle weakness, Denies neck pain, Denies numbness and Denies tingling Integumentary/Breasts Skin/Breast: Denies pruritus, Denies erythema, Denies rash and Denies wounds Neurologic Neurologic: Denies behavioral changes, Denies confusion, Denies dizziness, Denies frequent falls, Denies loss of vision, Denies numbness, Denies tingling and Denies weakness Psychiatric Psychiatric: Denies anxiety, Denies behavioral changes, Denies confusion, Denies depression, Denies homicidal ideation and Denies suicidal ideation Endocrine Endocrine: Denies fatigue, Denies flushing and Denies palpitations Hematologic/Lymphatic Hematologic/Lymphatic: Denies easy bruising Allergic/Immunologic Allergic/Immunologic: Denies urticaria, Denies throat swelling and Denies wheezing Patient History Medical History Fusion of toes of right foot (Acute) Sebaceous cyst (Acute) Surgical History History of bunionectomy of left great toe (Acute) History of bunionectomy of right great toe (Acute) Hx of cholecystectomy (Acute) Hx of eye surgery (Acute) S/P foot surgery, right (Acute) Social History household members: significant other, family and children Smoking Status: Former smoker Social History household members: significant other, family and children Smoking Status: Former smoker alcohol intake frequency: holidays/special occasions only Substance Use Type: marijuana Exam Narrative Exam Narrative: GENERAL: [23] year old patient appears stated age. Well- nourished, well-developed patient, in mild distress. Anxious, tearful, holding an emesis bag HEAD: Atraumatic. Normocephalic. EYES: Pupils equal round and reactive. Extraocular motions intact. No scleral icterus. No injection or drainage. ENT: Nose without bleeding, purulent drainage. Throat without erythema, tonsillar hypertrophy or exudate. Airway patent. NECK: Trachea midline. Non tender CARDIOVASCULAR: Regular rate and rhythm without murmurs, gallops, or rubs. RESPIRATORY: Clear to auscultation. Breath sounds equal bilaterally. No wheezes, rales, or rhonchi. GASTROINTESTINAL: Abdomen soft, mild generalized tenderness, nondistended. EXTREMITIES: No edema or joint tenderness. BACK: Nontender without deformity or crepitance. No flank tenderness. NEURO: AOx3. SKIN: No rash or erythema of visible areas Initial Vital Signs Initial Vital Signs: Vital Signs Temperature 97.5 F L 06/20/19 23:32 Pulse Rate 74 06/20/19 23:32 Respiratory Rate 15 06/20/19 23:32 Blood Pressure 131/92 H 06/20/19 23:32 Pulse Oximetry 100 06/20/19 23:32 Course Orders Ordered: ED Orders 06/21/19 00:03 Complete Blood Count AUTO DIFF Stat Comprehensive Metabolic Panel Stat Lipase Stat Partial Thromboplastin Time Stat Prothrombin Time INR Stat 06/21/19 00:25 EKG-12 Lead Stat 06/21/19 01:30 CT abdomen pelvis w con Stat Ondansetron HCl (Zofran) 4 mg IV Q4HR PRN PRN Reason: Nausea And Vomiting Last Admin: 06/21/19 01:47 Dose: 4 mg Documented by: LEN Discontinued Medications Sodium Chloride (Normal Saline 0.9%) 1,000 mls @ 1,000 mls/hr IV BOLUS ONE Stop: 06/21/19 02:27 Last Admin: 06/21/19 01:48 Dose: 1,000 mls/hr Documented by: LEN Lorazepam (Ativan) 0.5 mg IV NOW ONE Stop: 06/21/19 01:29 Last Admin: 06/21/19 01:48 Dose: 0.5 mg Documented by: LEN Pantoprazole Sodium (Protonix) 40 mg IV NOW ONE Stop: 06/21/19 01:29 Last Admin: 06/21/19 01:47 Dose: 40 mg Documented by: LEN Reevaluation(s) Reevaluation #1: patient has remarkable improvement after above stated medications Vital Signs Vital signs: Vital Signs - 8 hr 06/20/19 23:32 Temperature 97.5 F L Pulse Rate 74 Respiratory Rate 15 Blood Pressure 131/92 H Pulse Oximetry 100 MDM - Nausea/Vomiting/Diarrhea Lab Data Result diagrams: 06/20/19 23:57 06/20/19 23:57 Labs: Lab Results 06/20/19 06/20/19 06/20/19 Range/Units 23:57 23:57 23:57 WBC 8.4 (4.5-11.0) X10^3/uL RBC 4.70 (4.0-5.2) X10^6/uL Hgb 13.0 (12.0-16.0) g/dL Hct 38.4 (36-46) % MCV 81.7 (80-100) fL MCH 27.6 (26-34) PG MCHC 33.8 (30-36) % RDW 13.9 (11.6-14.8) % Plt Count 265 (150-400) X10^3/uL Neut % (Auto) 61.9 (50-75) % Lymph % (Auto) 31.1 (25-40) % Rains % (Auto) 6.1 (3-14) % Eos % (Auto) 0.4 L (2-4) % Baso % (Auto) 0.5 (0-2) % Neut # (Auto) 5200 (2079-3753) /uL Lymph # (Auto) 2600 (1815-0479) /uL Rains # (Auto) 500 (0-900) /uL Eos # (Auto) 0 (0-450) /uL Baso # (Auto) 0 (0-100) /uL PT 11.9 (10.1-12.7) SECONDS INR 1.0 (0.9-1.3) APTT 35 (26.4-36.2) SECONDS Sodium 140 (137-145) mmol/L Potassium 3.6 (3.4-5.1) mmol/L Chloride 106 (98-107) mmol/L Carbon Dioxide 23 (22-32) mmol/L BUN 8 (7-17) mg/dL Creatinine 0.50 L (0.52-1.04) mg/dL Estimated GFR > 60.0 (>60) mL/min BUN/Creatinine Ratio 16.0 (6-22) Glucose 91 (70-100) mg/dL Calcium 9.7 (8.4-10.2) mg/dL Total Bilirubin 0.4 (0.2-1.3) mg/dL AST 21 (14-36) IU/L ALT 17 (9-52) IU/L Alkaline Phosphatase 83 (38-126) U/L Total Protein 8.0 (6.3-8.2) g/dL Albumin 4.5 (3.5-5.0) g/dL Globulin 3.5 (1.7-4.1) g/dL Albumin/Globulin Ratio 1.3 (1.0-2.8) Lipase 58 (23-300) U/L Point of Care Testing Test Results Negative Urine Dip Bedside Urine Glucose Negative Bedside Urine Bilirubin - Negative Bedside Urine Ketone +++ 80 Urine Specific [place] 1.025 Bedside Urine Occult Blood - Negative Bedside Urine pH 6.0 Bedside Urine Protein +/- 15 Bedside Urine Urobilinogen - Negative Bedside Urine Nitrite - Negative Bedside Urine Leukocytes +/- [address] scan - abdomen: Radiologist's impression: No acute disease, no obstruction or free air, normal appendix MDM Narrative Medical decision making narrative: Multiple etiologies for patient's symptoms considered including: [appy vs. bowel obstruction vs. IBS vs. marijuana hyperemesis syndrome vs. other] Patient's symptoms improved or duration of stay with above-stated therapies. Findings and discharge diagnosis discussed with patient/family followed by verbalization of understanding Return precautions discussed with patient/family whom verbalize understanding. Discharge Plan Departure Patient Disposition: Home Clinical Impression: Abdominal pain Qualifiers: Abdominal location: generalized Qualified Code(s): R10.84 - Generalized abdominal pain Instructions: Acute Abdominal Pain Activity Restrictions/Additional Instructions: 1. Drink plenty of fluids with frequent small sips. 2. For the next 24 hours a clear liquid diet is advised. After that please employ a brat diet which would include bananas, rice, apples, toast. 3. Please take medications as directed. 4. Please follow-up with your doctor in the next 1-2 days. Call the office for an appointment. 5. Please return to the emergency Department for any worsening or persistent symptoms, such as increasing pain or fever. Prescriptions: New hyoscyamine sulfate 0.125 mg tablet 0.125 mg PO BID-QID PRN (Reason: dyspepsia) Qty: 20 RF: 0 No Action ibuprofen 200 MG tablet 800 mg PO PRN PRN (Reason: Pain (Scale Score 1-3)) Qty: 0 RF: 0 loratadine [Claritin] 10 mg Tablet 10 mg PO DAILY RF: 0 gabapentin 300 mg capsule 300 mg PO Q8H Qty: 15 RF: 0 Referrals: Toro Wheat MD [Primary Care Provider] -
[2019-06-21 04:49] VITALS: BP 102/54; PULSE 72; RESP 14; O2SAT 99
== END 2019-06-21 04:52 | disposition home or self-care (01) ==
PROVIDERS: Emergency Provider Emergency Medicine; PCP Family Medicine
DX: R10.84 Generalized abdominal pain (principal); R11.2 Nausea with vomiting, unspecified
CPT/HCPCS: 36415; 74177; 80053; 81003; 81025; 83690; 85025; 85610; 85730; 93005; 96361; 96374; 96375; 99283; 99285; C9113; J2060; J2405; Q9967

== ENCOUNTER 2019-09-12 06:00 | Day surgery (SDC) | payer BC, OTHER, MEDICAID, SELFPAY ==
[2019-09-02 15:05] VITALS: BMI 38.2
[2019-09-12] VITALS (8 sets, daily range): BP systolic 100–138; BP diastolic 55–89; PULSE 60–80; RESP 10–18; TEMP 36.3–37.1; O2SAT 97–99; BMI 38.2
[2019-09-12] MEDS: LACTATED RINGERS 1,000 ML 42 ML IV (06:35)
[2019-09-12] MEDS: GABAPENTIN 300 MG CAPSULE PO (07:26)
[2019-09-12] MEDS: ACETAMINOPHEN 325 MG TABLET 975 MG PO (07:26)
[2019-09-12] MEDS: SCOPOLAMINE 1 PATCH TOP (07:26)
--- NOTE | 2019-09-12 07:40 | PM.PREOP ---
Pre-operative Note Interval Note History & Physical reviewed/Exam performed by Physician: Yes Changes to H&P: No
--- NOTE | 2019-09-12 07:41 | PM.OP.1 ---
Operative Date/Time/Diagnoses Date of procedure: 09/12/19 Time of procedure: 07:41 Pre-op diagnosis: Right second and third hammertoes with pain Post-op diagnosis: same Procedure & Clinicians Procedure: Right second and third toes proximal and distal interphalangeal joint fusions Same procedure as scheduled: Yes Indications: Painful contracted hammertoes toes 2,3 right foot. Conservative measures failed to alleviate her pain and she wished to have surgical intervention at this time. Surgeon: Nandini Albert Click Yes if Unassisted: Yes Anesthesia Type: General Operative Notes Closure Type: primary Specimen(s): none sent Prosthetic devices, grafts, tissues, transplants, or devices: [place] 2.0 cannulated partially-threaded screw x 38 (2) Estimated Blood Loss (mL): 20 Blood products transfused: none Tourniquet time (min): 57 Procedure in detail: The patient was brought to the operating room and placed on the operating table in the supine position. A tourniquet was placed about the patient's right ankle. After induction of general anesthesia the foot and ankle were prepped and draped in the usual aseptic manner. The tourniquet was inflated. Incision was made over the dorsal aspect of the right 2nd toe at the level of the proximal and distal interphalangeal joints. The incision was deepened through subcutaneous tissues being careful to identify and retract all vital neurovascular structures. All bleeders were cauterized and ligated necessary. The extensor tendon was transected at each of these joints and reflected distally and proximally to reveal the underlying joints. A saw was used to resect the head of the proximal phalanx and base of the intermediate phalanx, as well as the head of the intermediate phalanx and the base of the distal phalanx. This was checked on C-arm and verified to be appropriate in length as well as alignment. The areas were irrigated with copious amounts of normal sterile saline. A guidewire was placed in the base of the intermediate phalanx and driven out distally through the toe tip. This was then retrograded across the intermediate and proximal phalanges. This was verified on C-arm to be in appropriate alignment. The measurement was taken of the guidewire and using standard AO technique, drilling was performed distal to proximal. The screw was placed and the compression was good. The wire was removed and this was verified to be in good alignment and compression on C-arm. The same procedure was performed to the 3rd toe, keeping sure that the parabola was appropriate. The tourniquet was deflated and prompt hyperemic response was seen to the foot. Extensor tendon repair performed with vicryl, and subcutaneous closure was performed using Vicryl. Nylon was used to close the skin. A sterile lightly compressive dressing was placed on the foot and she was placed in her postoperative shoe. She was transferred to the PACU with vital signs stable and vascular status intact. Complications: none Post-operative Condition: stable Disposition: PACU Plan for aftercare: Following a period of postoperative monitoring, the patient be discharged home on written and oral postoperative instructions including keeping the dressing dry and intact, avoiding ambulation on the foot, icing and elevating the foot when seated home. DVT prevention techniques have been reviewed. For the 1st postoperative visit the dressing will be changed and close to the 4th postoperative week we will likely take the first set of x-rays and begin some gentle weightbearing.
[2019-09-12] MEDS: CEFAZOLIN 2 GM/100 ML FROZ.PIGGY IV (07:43)
--- NOTE | 2019-09-12 08:17 | SUR.OPER ---
Supine on padded OR bed, head on pillow, arms secured on padded arm boards at <90 degrees abduction, legs uncrossed, safety belt at abdomen, gel bump under right hip, tape over blanket over left lower leg.
[2019-09-12] MEDS: BUPIVACAINE 0.5% (PF) VIAL 30 ML INJ (08:24)
[2019-09-12] MEDS: OXYCODONE IR 5 MG TABLET PO (10:01)
== END 2019-09-12 10:22 | disposition home or self-care (01) ==
PROVIDERS: PCP Family Medicine; Visit Provider Podiatrist
PROC: (CPT 28285; principal; 2019-09-12 07:45)
DX: M20.41 Other hammer toe(s) (acquired), right foot (principal)
CPT/HCPCS: 28285 ×2; J0690; J1100; J1885; J2250; J2405; J2704

== ENCOUNTER 2019-10-17 11:52 | Day surgery (SDC) | payer BC, OTHER, MEDICAID, SELFPAY ==
[2019-10-13 15:17] VITALS: BMI 38.2
[2019-10-17] VITALS (7 sets, daily range): BP systolic 88–110; BP diastolic 44–71; PULSE 69–90; RESP 12–20; TEMP 35.9–36.6; O2SAT 96–100; BMI 36.0
[2019-10-17] MEDS: LACTATED RINGERS 1,000 ML 42 ML IV ×2 (12:34→15:44)
--- NOTE | 2019-10-17 14:13 | PM.PREOP ---
Pre-operative Note Interval Note History & Physical reviewed/Exam performed by Physician: Yes Changes to H&P: No
--- NOTE | 2019-10-17 14:14 | PM.OP.1 ---
Operative Date/Time/Diagnoses Date of procedure: 10/17/19 Time of procedure: 14:14 Pre-op diagnosis: Right second toe screw prominent Post-op diagnosis: same Procedure & Clinicians Procedure: Right second toe hardware removal Same procedure as scheduled: Yes Indications: Noticeable screw tip prominent on top of proximal phalanx with pain, swelling, minor drainage. Decision made to remove the screw for safety and culture if any drainage apparent. Surgeon: Nandini Albert Click Yes if Unassisted: Yes Anesthesia Type: General Operative Notes Closure Type: primary Specimen(s): other (Culture aerobic/anaerobic swabs from dorsal second toe suture abscess) Estimated Blood Loss (mL): 5 Blood products transfused: none Procedure in detail: The patient was brought to the operating room and placed on the operating table in the supine position. Patient is well-padded and appropriately supported. After induction of general anesthesia the right foot and ankle were prepped and draped in the usual aseptic manner. After check of anesthesia, the dorsal 2 areas on the 2nd toe that she saw some drainage from were investigated and found to be little pieces of suture that were coming up that had not yet dissolved. There was a little bit of moisture from the most proximal 1 although it did not probe. This was where the swab was taken. She had an area she was questioning on the same foot on the 3rd toe and there was 1 stitch trying to come up there which I also was able to pick away the small piece of erupted suture but this was very superficial and did not open the area. These instruments were then passed from the area and the antibiotic was then given by IV. An Incision was made over the tip of the 2nd toe distally. The incision was deepened through subcutaneous tissues gently. All bleeders were cauterized and ligated as necessary. The head of the screw was easily seen and there was little bit of soft tissue in its center which was easily removed. The screw was then removed in total and passed from the field. No damage was noted to the screw. The toe was irrigated with copious amounts of normal sterile saline. The tip was closed with 4 0 nylon to the skin. a bandage was placed over the toes and feet. Under fluoroscopy I am moved the 2nd toe and attempted to move the joints at the proximal and distal interphalangeal. They were immobile and straight with good strength and no motion. Patient was then placed in a postoperative boot and transferred to PACU with vital signs stable. Complications: none Post-operative Condition: stable Disposition: PACU Plan for aftercare: Patient was given at her postoperative medication for pain control Percocet 7.5/325 mg tabs to be taken 1 every 6 hours as needed for pain postsurgically. I spoke with her mother about the surgery and reviewed that she was okay to put some weight on the foot this 1st week although I would not walk on it significantly due to the suture in place. We will review once again at her postoperative appointment, but if it appears that the toe itself is not showing any motion at the proximal or distal interphalangeal joints, it is okay to remove the suture when it is ready and she may begin weight-bearing. We will have the cultures back and if she shows any sign of outward infection, we can use that to help guide our treatment, but it appears that it was likely a suture abscess. We will likely begin gentle 2nd toe wrapping to reduce any swelling and certainly have her less prominently on the foot if it appears that there is motion at the former joint spaces.
--- NOTE | 2019-10-17 15:06 | SUR.OPER ---
Supine on padded OR bed, head on pillow, arms secured on padded arm boards at <90 degrees abduction, legs uncrossed, safety belt at abdomen, tape over blanket over nonoperative leg, bump under right hip.
[2019-10-17] MEDS: CEFAZOLIN 2 GM/100 ML FROZ.PIGGY IV (15:08)
[2019-10-17] MEDS: BUPIVACAINE 0.5% (PF) VIAL 30 ML INJ (15:13)
[2019-10-17] MEDS: OXYCODONE/ACETAMINOPHEN 5/325 TABLET 1 TAB PO (16:27)
--- NOTE | 2019-10-17 16:33 | SUR.PHASEII ---
Dr. Albert discussed in depth discharge instructions with patient's mother. Mother states she has all of the discharge teaching paperwork at home. Dr. Albert gave verbal order that patient may now discharge home. All instructions gone over with patient and mother. Both patient and mother deny any questions. All belongings returned to patient. Patient discharged home in good condition.
== END 2019-10-17 16:30 | disposition home or self-care (01) ==
PROVIDERS: PCP Family Medicine; Referring Provider Family Medicine; Visit Provider Podiatrist
PROC: (CPT 20680; principal; 2019-10-17 13:15)
DX: T84.84XA Pain due to internal orthopedic prosthetic devices, implants and grafts, initial encounter (principal); T84.126A Displacement of internal fixation device of bone of right lower leg, initial encounter
CPT/HCPCS: 20680; 87070; 87075; 87077; 87186; 87205; J0690; J1100; J1885; J2250; J2405; J2704; J3010

== ENCOUNTER 2019-12-31 23:02 | Emergency (ER) | payer BC, OTHER, MEDICAID, SELFPAY ==
--- NOTE | 2019-12-31 23:07 | DI.RAD.S_ITS ---
PROCEDURE: XR FOOT LT MIN 3V INDICATIONS: fall with pain, great toe TECHNIQUE: 3 views of the foot were acquired. COMPARISON: [facility], CR, XR FOOT 3 VIEWS WEIGHT BEARING LEFT, 07/11/2019, 10:15. FINDINGS: Bones: Extensive post fusion changes at first MTP joint, first TMT joint, and second PIP joint are again seen. Surgical hardware is also seen in second metatarsal head, unchanged from prior study. No gross hardware loosening or failure is noted. Alignment of left foot is not significantly changed from prior study. No gross acute fracture or dislocation. Moderate to severe osteoarthritic changes involving first interphalangeal joint is seen of the not significantly changed from previous study Soft tissues: No tibiotalar joint effusion. Achilles tendon appears normal. IMPRESSION: 1. No gross acute left foot fracture or dislocation. 2. Extensive post surgical changes in left great toe and second toe with complete bony fusion at first MTP joint, first TMT joint, and second PIP joint. 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 Dictated by: Adalberto Stacy M.D. on 01/01/2020 at 8:30 Approved by: Adalberto Stacy M.D. on 01/01/2020 at 8:33
[2019-12-31 23:10] VITALS: BP 139/90; PULSE 120; RESP 20; TEMP 36.8; O2SAT 99
--- NOTE | 2019-12-31 23:23 | ED_ITS ---
HPI - Extremity Injury (Lower) General Chief Complaint: Extremity Injury, Lower Stated Complaint: Left foot injury Time Seen by Provider: 12/31/19 23:03 Source: patient Mode of arrival: Ambulatory Limitations: no limitations History of Present Illness HPI Narrative: 24F nonsmoker with history of multiple foot surgeries presents with an injury to her left great toe just prior to arrival. She was walking down some stairs and had poor footwear on and she slipped, injuring her foot. She denies any other injury. She's had no numbness or tingling. She claims her toe is crooked. She has increased pain with ambulation and improvement with rest. MD complaint: foot injury Onset (ago): hour(s) Type of Injury: blunt Place: home Severity: moderate Relieving factors: rest Exacerbating factors: weight bearing and movement Context: fall and direct blow Other symptoms: none Related Data Home Medications Medication Instructions Recorded Confirmed ibuprofen 800 mg PO PRN PRN #0 10/25/12 10/17/19 oxycodone-acetaminophen [Percocet] 1 tab PO Q6H PRN 10/17/19 10/17/19 Previous Rx's Medication Instructions Recorded gabapentin 300 mg PO Q8H #15 cap 05/24/19 Allergies Allergy/AdvReac Type Severity Reaction Status Date / Time No Known Drug Allergies Allergy Verified 10/17/19 12:22 Review of Systems Constitutional Constitutional: Denies chills, Denies fatigue, Denies fever(s), Denies frequent falls, Denies lethargy and Denies weakness Eyes Eyes: Denies change in vision, Denies eye discharge, Denies irritation and Denies loss of vision ENT Ears, Nose, Mouth, and Throat: Denies change in voice, Denies dizziness, Denies neck pain, Denies sore throat and Denies throat swelling Cardiovascular Cardiovascular: Denies chest pain, Denies irregular heart rhythm, Denies lightheadedness, Denies palpitations, Denies dyspnea, Denies dyspnea on exertion and Denies orthopnea Respiratory Respiratory: Denies cough, Denies dyspnea, Denies dyspnea on exertion and Denies wheezing Gastrointestinal Gastrointestinal: Denies abdominal pain, Denies change in bowel habits, Denies diarrhea, Denies nausea and Denies vomiting Genitourinary Genitourinary: Denies hematuria, Denies flank pain, Denies urinary incontinence and Denies urinary urgency Musculoskeletal Musculoskeletal: Denies back pain, Reports joint swelling, Reports limited range of motion, Denies muscle weakness, Denies neck pain, Denies numbness and Denies tingling Integumentary/Breasts Skin/Breast: Denies pruritus, Denies erythema, Denies rash and Denies wounds Neurologic Neurologic: Denies behavioral changes, Denies confusion, Denies dizziness, Denies frequent falls, Denies loss of vision, Denies numbness, Denies tingling and Denies weakness Psychiatric Psychiatric: Denies anxiety, Denies behavioral changes, Denies confusion, Denies depression, Denies homicidal ideation and Denies suicidal ideation Endocrine Endocrine: Denies fatigue, Denies flushing and Denies palpitations Hematologic/Lymphatic Hematologic/Lymphatic: Denies easy bruising Allergic/Immunologic Allergic/Immunologic: Denies urticaria, Denies throat swelling and Denies wheezing Patient History Medical History Fusion of toes of right foot (Acute) Pyelonephritis (Acute ~06/2019) Sebaceous cyst (Acute) Surgical History History of bunionectomy of left great toe (Acute) History of bunionectomy of right great toe (Acute) Hx of cholecystectomy (Acute) Hx of eye surgery (Acute) S/P foot surgery, right (Acute) S/P foot surgery, right (Acute 09/12/19) Social History household members: family and children Smoking Status: Current some day smoker alcohol intake: current Smoking Status: Current some day smoker alcohol intake frequency: holidays/special occasions only Substance Use Type: marijuana Exam Narrative Exam Narrative: GEN: AOx3 and in mild distress EYES: Pupils are equal, round, and reactive to light and accommodation. Extraoccular muscles are intact bilaterally. There is no subconjunctival hemorrhage or exudate. CHEST: Lungs are clear to auscultation bilaterally and free of wheezes, rales, or rhonchi. Heart rate is regular rhythm, there are no murmurs, clicks, rubs, or gallops. There is no chest wall tenderness. ABD: Abdomen is soft and nontender. There is no guarding or rebound. Bowel sounds are normal in all 4 quadrants. There is no mass or organomegaly. EXT: Left great toe tender to palpation, no redness or warmth. Possible abnormal anatomic alignment per patient with lateral deviation of distal phalanx. Otherwise Full painless ROM of all extremities with no loss of sensation or strength. SKIN: Warm, pink, and dry. No erythema or rash Initial Vital Signs Initial Vital Signs: Vital Signs Temperature 98.3 F 12/31/19 23:10 Pulse Rate 120 H 12/31/19 23:10 Respiratory Rate 12/31/19 23:10 Blood Pressure 139/90 12/31/19 23:10 Pulse Oximetry 99 12/31/19 23:10 Procedures Nerve Block Nerve Block 1: Time out performed: Yes Local Anesthetic: bupivacaine 0.25% Amount of anesthesia used (mL): 6 Side: left Nerve Blocks: digital Complications: pain with procedure and inadequate anesthesia Orthopedic Splinting/Casting Injury #1: Side: left Lower Extremity Injury Location: foot Lower Extremity Immobilizer: post-op shoe Post splinting neuro exam: intact Post splinting vascular exam: intact Placed by: Nursing Course Course Course Narrative: discussed with vice president investor relations ortho, Dr. Pearce, who was able to view images and agrees that there is no obvious fracture, dislocation or problem with hardware. He does state that there is no reason not to attempt reduction of possible subluxation of distal phalanx Discussed digital block of toe with patient and she agrees. The procedure was very painful and she did not tolerate it and there is no attempt at reduction. This is reasonable as there is no neurovascular compromise and xray considered normal by ortho, and radiology. 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 Orders Ordered: ED Orders 12/31/19 23:07 XR foot LT min 3V Stat Discontinued Medications Hydrocodone Bitart/Acetaminophen (Vicodin 5/325 Prepack) 1 bottle MISC SEEINSTR ONE Stop: 01/01/20 00:08 Last Admin: 01/01/20 00:15 Dose: 1 bottle Documented by: HYUN Bupivacaine HCl (Sensorcaine 0.5% (Pf)) 5 ml SUBCUT NOW ONE Stop: 12/31/19 23:33 Last Admin: 01/01/20 00:17 Dose: 5 ml Documented by: HYUN Vital Signs Vital signs: Vital Signs - 8 hr 12/31/19 23:10 Temperature 98.3 F Pulse Rate 120 H Respiratory Rate 20 Blood Pressure [Left Arm] 139/90 Pulse Oximetry 99 MDM - Extremity Injury (Lower) Imaging Data Extremity x-ray #1: Attestation: I personally reviewed and interpreted this imaging study as follows: My Impression: No fracture or disclocation Radiologist's Impression: No fracture Discharge Plan Departure Patient Disposition: Home Clinical Impression: Great toe pain Qualifiers: Laterality: left Qualified Code(s): M79.675 - Pain in left toe(s) Discharge Date/Time: 01/01/20 00:20 Instructions: DI for Toe Sprain Activity Restrictions/Additional Instructions: *You have been diagnosed with [ left great toe injury ] *What to do: *Take medications as directed *Follow up with Dr. Albert, call tomorrow for an *Return to ER if you should have any new, worsening or concerning symptoms Prescriptions: No Action ibuprofen 200 MG tablet 800 mg PO PRN PRN (Reason: Pain (Scale Score 1-3)) Qty: 0 RF: 0 oxycodone-acetaminophen [Percocet] 5-325 mg Tablet 1 tab PO Q6H PRN (Reason: Pain (Scale Score 4-6)) RF: 0 gabapentin 300 mg capsule 300 mg PO Q8H Qty: 15 RF: 0 Referrals: Nandini Albert DPM [Physician] - Toro Wheat MD [Primary Care Provider] -
[2020-01-01] MEDS: HYDROCODONE/ACET 5/325 PREPACK 1 BOTTLE MISC (00:15)
[2020-01-01] MEDS: BUPIVACAINE 0.5% (PF) VIAL 5 ML SUBCUT (00:17)
== END 2020-01-01 00:20 | disposition home or self-care (01) ==
PROVIDERS: Emergency Provider Emergency Medicine; PCP Family Medicine
DX: S99.922A Unspecified injury of left foot, initial encounter (principal); M79.675 Pain in left toe(s); W19.XXXA Unspecified fall, initial encounter
CPT/HCPCS: 64450; 73630; 99283

== ENCOUNTER → 2020-01-12 11:40 | Outpatient (CLI) | payer BC, OTHER, MEDICAID, SELFPAY ==
[2020-01-12 13:34] LABS: COVID19 -Nasal RAPID Negative (Negative)
== END ==
PROVIDERS: PCP Family Medicine; Visit Provider Registered Nurse
DX: Z01.812 Encounter for preprocedural laboratory examination (principal)
CPT/HCPCS: 87635

== ENCOUNTER 2020-01-15 06:31 | Day surgery (SDC) | payer BC, OTHER, MEDICAID, SELFPAY ==
[2020-01-13 10:36] VITALS: BMI 38.2
[2020-01-15] VITALS (12 sets, daily range): BP systolic 108–131; BP diastolic 74–90; PULSE 79–102; RESP 12–20; TEMP 36–36.6; O2SAT 94–100; BMI 36.1
[2020-01-15] MEDS: LACTATED RINGERS 1,000 ML 42 ML IV ×2 (07:33→10:23)
--- NOTE | 2020-01-15 07:49 | PM.PREOP ---
Pre-operative Note COVID-19 COVID-19 status: Negative Result date/Date tested (Pos, Neg/Pending): 01/12/20 Interval Note History & Physical reviewed/Exam performed by Physician: Yes Changes to H&P: No
--- NOTE | 2020-01-15 07:50 | PM.OP.1 ---
Operative Date/Time/Diagnoses Date of procedure: 01/15/20 Time of procedure: 07:50 Pre-op diagnosis: Left hallux interphalangeal arthrodesis fracture Left first metatarsophalangeal joint retained hardware Post-op diagnosis: same Procedure & Clinicians Procedure: Left hallux interphalangeal arthrodesis fracture revision fusion Left first metatarsophalangeal joint hardware removal Same procedure as scheduled: Yes Indications: Painful fracture and sprain across the left hallux interphalangeal joint which was formally fused. Retained hardware in the area. Conservative measures failed to alleviate her pain and she wished to have surgical intervention at this time. We spoke of the risks potential complications as well as expected outcomes. Her COVID test was negative and she has met the surgical scheduling guidelines. Consent was reviewed and signed, no contraindication to the procedure at this time. Surgeon: Nandini Albert Click Yes if Unassisted: Yes Anesthesia Type: General Operative Notes Closure Type: primary Specimen(s): none sent Prosthetic devices, grafts, tissues, transplants, or devices: Hancock 3.0 partially-threaded cannulated screws x2 1cc DBM Estimated Blood Loss (mL): 30 Blood products transfused: none Tourniquet time (min): 78 Procedure in detail: The patient was brought to the operating room and placed on the operating table in the supine position. A tourniquet was placed about her left thigh. She was well padded and appropriately aligned. After induction of general anesthesia the foot was prepped and anesthesia using the recorded injectables was delivered to the foot. Foot and ankle were then prepped and draped in the usual aseptic manner. After performing a time-out, the tourniquet was inflated after exsanguination of the left leg. After check of anesthesia incision was made over the dorsal medial aspect of the 1st metatarsal phalangeal joint into the interphalangeal joint. The incision was deepened through subcutaneous tissues being careful to identify and retract all vital neural and vascular structures. All bleeders were cauterized and ligated as necessary. There was a fair amount of scar tissue present but as it went distally along the incision, there was more scar tissue with portion of bone spurring and some fragmentation of the former arthrodesis and now fracture site of the hallux interphalangeal joint. I encountered plate and 6 screws within the plate at the 1st metatarsophalangeal joint as well as the medial lag screw. These were all able to be removed in total with no areas that appeared broken. This was passed from the field. The arthrodesis site had healed well and the anchor stayed buried within the bone. Fibrous scar tissue was removed and former attachment site of the edge of the extensor was also removed from its place from the buried anchor. There was a significant amount of clearance that needed to be done but once this was accomplished I was able to see better the contour of the remaining bone. It appeared that the length was actually be pretty good and keeping in with the contour it was going to be the safer to not use a cortical graft and that would allow better coaptation especially with the amount of geography I had for the screw placement on the distal phalanx. After removal of any remaining fibrous scar tissue or bone from the base of the distal phalanx which was fairly chronically shaped as well as the head of the metatarsal, I was able to realign the toe. This also helped by reshaping the metatarsal head somewhat to allow for more conical shape. The area was irrigated with copious amounts of normal sterile saline and gentle subchondral drilling to place on either side of the preparing joint. 1 cc of DBM putty was placed in the former joint area and under the use of C-arm, the guidewires were placed down the medial and lateral aspect of the former interphalangeal joint percutaneously. In order to get the best purchase this had to be revised after reviewing all of the views on the various planes. Once this was appropriate following standard AO technique the lateral was drilled and placed and then the medial. Good coaptation appeared upon compression and alignment was good. Final views were taken under C-arm and the K-wires were removed. Any further lingering bony prominences were removed that may have been aspects of the sharp edge now that the hardware was removed. The area was irrigated with a copious amounts of normal sterile saline. The tourniquet was deflated, prompt hyperemic response was seen to the foot. Deep closure was performed using 3 0 Vicryl 4 0 Vicryl subcutaneously and 3 0 nylon to the skin. The foot was dressed with a sterile lightly compressive dressing and she was placed in her postsurgical boot. She was transferred to the PACU with vital signs stable and vascular status intact. Complications: none Post-operative Condition: stable Disposition: PACU Plan for aftercare: Following a period of postoperative monitoring, the patient will be discharged to home on written and oral postoperative instructions in the care of her mother. She understands to keep the dressing dry and intact, nonweightbearing to the left foot for approximately 6 weeks however range of motion techniques have been reviewed and should be started to the ankle and knee today. Ice and elevate when seated at home as well. She was given a prescription for Percocet 7.5/325 dispensed 45 today, instructions have been written and reviewed. For her 1st postoperative visit she will have a dressing change and likely her sutures will be removed closer to the 2nd to 3rd week or as healing permits. X-rays will be taken around the 3rd to 4th week and then around the 7th to 8th week.
[2020-01-15] MEDS: CEFAZOLIN 2 GM/100 ML FROZ.PIGGY IV (07:51)
[2020-01-15] MEDS: SCOPOLAMINE 1 PATCH TOP (08:00)
[2020-01-15] MEDS: BUPIVACAINE 0.5% (PF) VIAL 30 ML INJ (08:42)
--- NOTE | 2020-01-15 10:12 | DI.RAD.S_ITS ---
PROCEDURE: XR FOOT LT MIN 3V INDICATIONS: L HALLUX INTEL PHALENGEAL FRACTURE REVISION TECHNIQUE: Fluoroscopic images were obtained during an operative procedure and submitted for interpretation following the completion of the procedure. COMPARISON: [facility], , XR FOOT LT MIN 3V, 12/31/2019, 23:11. FINDINGS: These fluoroscopic images were performed for intraoperative localization. On these images, there is been removal of the previous fixation of the 1st metatarsophalangeal joint. Screw fixation is seen through the great toe. Please correlate with intraoperative findings. IMPRESSION: Normal intraoperative examination. Dictated by: Andrew Hodges M.D. on 01/15/2020 at 10:08 Approved by: Andrew Hodges M.D. on 01/15/2020 at 10:10
[2020-01-15] MEDS: fentaNYL 100 MCG/2 ML INJ IV ×2 (11:04→11:10)
[2020-01-15] MEDS: HYDROMORPHONE 2 MG INJ IV ×2 (11:15→11:25)
[2020-01-15] MEDS: OXYCODONE/ACETAMINOPHEN 5/325 TABLET 1 TAB PO (11:31)
== END 2020-01-15 12:33 | disposition home or self-care (01) ==
PROVIDERS: PCP Family Medicine; Referring Provider Podiatrist; Visit Provider Podiatrist
PROC: (CPT 28755; principal; 2020-01-15 07:45)
DX: S92.412K Displaced fracture of proximal phalanx of left great toe, subsequent encounter for fracture with nonunion (principal); S93.512A Sprain of interphalangeal joint of left great toe, initial encounter; T84.099A Other mechanical complication of unspecified internal joint prosthesis, initial encounter; M19.079 Primary osteoarthritis, unspecified ankle and foot
CPT/HCPCS: 28755; 20680; 73630; 76000; J0690; J1100; J1170; J2405; J2704; J3010

== ENCOUNTER 2020-02-22 14:55 | Emergency (ER) | payer BC, OTHER, MEDICAID, SELFPAY ==
[2020-02-22 15:14] VITALS: BP 161/107; PULSE 120; RESP 19; TEMP 36.9; O2SAT 98; BMI 35.2
--- NOTE | 2020-02-22 15:39 | DI.RAD.S_ITS ---
PROCEDURE: XR FOOT LT MIN 3V INDICATIONS: right great toe s/p surgery, concerns for infection TECHNIQUE: 3 views of the foot were acquired. [facility] FO[facility] 3+ VIEWS LEFT, 02/10/2020, 10:11. FINDINGS: Bones: Postoperative changes are present related to fusion of the interphalangeal joint of the great toe and the 1st tarsometatarsal joint. Prior bony fusion of the 1st metatarsophalangeal joint is evident. There is also orthopedic fusion of the proximal interphalangeal joint of the 2nd toe. Post surgical changes of the head of the 2nd toe are also evident. Orthopedic hardware appears to be intact and unchanged. No acute fractures or dislocations are identified. No suspicious osseous lesions are evident. No osseous erosions are appreciated. Soft tissues: Mild soft tissue swelling about the dorsal aspect of the foot is evident. No unexpected radiopaque foreign bodies are identified. IMPRESSION: 1. Expected postoperative changes of the left forefoot. 2. No fractures. 2. Mild soft tissue swelling of the forefoot. Dictated by: Oliver Vang M.D. on 02/22/2020 at 15:07 Approved by: Oliver Vang M.D. on 02/22/2020 at 15:09
[2020-02-22 16:39] LABS: Add Manual Diff / Slide Review NO; Basophils Absolute Auto 0 /uL (0-100); Basophils Percent Auto 0.4 % (0-2); Eosinophils Absolute Auto 100 /uL (0-450); Hemoglobin 13.5 g/dL (12.0-16.0); Lymphocytes Absolute Auto 1900 /uL (1100-4500); Lymphocytes Percent Auto 20.1 % (25-40); Mean Corpuscular HGB Conc 34.5 % (30-36); Mean Corpuscular Hemoglobin 28.6 PG (26-34); Mean Corpuscular Volume 82.9 fL (80-100); Monocytes Absolute Auto 600 /uL (0-900); Monocytes Percent Auto 6.5 % (3-14); Neutrophils Absolute Auto 6900 /uL (1500-7000); Platelet Count 241 X10^3/uL (150-400); Red Cell Distribution Width 13.9 % (11.6-14.8); White Blood Cell Count 9.5 X10^3/uL (4.5-11.0)
[2020-02-22 16:51] LABS: Lactate (Lactic Acid) 0.8 mmol/L (0.7-2.1)
[2020-02-22 16:55] LABS: C-Reactive Protein Quant 1.5 mg/dL (<1.0)
[2020-02-22 16:57] LABS: Erythrocyte Sedimentation Rate 20 MM/HR (0-20)
[2020-02-22 17:08] LABS: Procalcitonin < 0.05 ng/mL (<0.5)
[2020-02-22] MEDS: OXYCODONE/ACETAMINOPHEN 5/325 TABLET 2 TAB PO (17:29)
[2020-02-22 17:40] VITALS: BP 132/69; PULSE 85; RESP 16; O2SAT 99
--- NOTE | 2020-02-22 17:53 | ED.EXTPRO ---
HPI - Extremity Problem <PANCHO Herring - Last Filed: 02/22/20 23:36> General Chief complaint: Extremity Problem,Nontraumatic Stated complaint: states left foot pain, recent surgery, infection Time Seen by Provider: 02/22/20 15:04 Source: patient Mode of arrival: Family Vehicle Limitations: no limitations History of Present Illness HPI Narrative: This is a 24 year female, nonsmoker, who has history of multiple bunion surgeries in bilateral great toe presents to ED with chief complain increasing left great toe pain, warmth, redness. She had surgery done on 01/15/[address] Nandini Albert from fracture then this got infected and she was on Augmentin for 10 day course which she completed 3 days ago. Patient noticed since last night has recurring increasing redness travel up about 2-3 cm, severe pain, and warmth. Patient denies fever, chills, nausea or vomiting. Patient reports when she had completed antibiotic medication the redness, pain, warmth was minimal. Now the pain is very severe which she rates as 8/10 and she has been taking 2 Percocet instead of ibuprofen. Related Data Home Medications Medication Instructions Recorded Confirmed ibuprofen 1,200 mg PO Q6H PRN #0 10/25/12 01/13/20 acetaminophen [Tylenol Extra 1,000 mg PO Q6H PRN 01/13/20 01/13/20 Strength] gabapentin 300 mg PO DAILY 01/13/20 01/13/20 Previous Rx's Medication Instructions Recorded oxycodone-acetaminophen [Percocet] 1 tab PO Q6H PRN #45 tab 01/15/20 doxycycline hyclate 100 mg PO BID 7 Days #14 cap 02/22/20 oxycodone-acetaminophen [Percocet] 1 tab PO Q6H PRN #10 tab 02/22/20 Allergies Allergy/AdvReac Type Severity Reaction Status Date / Time No Known Drug Allergies Allergy Verified 02/22/20 15:06 Review of Systems <PANCHO Herring - Last Filed: 02/22/20 23:36> Review of Systems Narrative: General: Denies fever, chills, fatigue, malaise, sweats. HEENT: Denies sinus pain, ear pain, sore throat, difficulty swallowing, dizziness. Respiratory: Denies dyspnea, cough, wheezing, hemoptysis, sputum. Cardiovascular: Denies chest pain, palpitations, orthopnea, edema. Gastrointestinal: Denies nausea, vomiting, abdominal pain, diarrhea, constipation, melena. : Denies dysuria, frequency, incontinence, hematuria, urinary retention. Musculoskeletal: See HPI Skin: See HPI Neurologic: Denies weakness, headache, numbness, change in speech, confusion, seizures, incoordination. Psychiatric: No concerning psychosocial issues. 12-point review of systems is negative except for those stated above. Patient History <PANCHO Herring - Last Filed: 02/22/20 23:36> Medical History Fusion of toes of right foot (Acute) Pyelonephritis (Acute ~06/2019) Sebaceous cyst (Acute) Surgical History History of bunionectomy of left great toe (Acute) History of bunionectomy of right great toe (Acute) Hx of cholecystectomy (Acute) Hx of eye surgery (Acute) Hx of foot surgery (Acute) S/P foot surgery, right (Acute) S/P foot surgery, right (Acute 09/12/19) S/P hardware removal (Acute) Social History household members: family and children Smoking Status: Former smoker alcohol intake: current Smoking Status: Former smoker alcohol intake frequency: 0-2 drinks per day Substance Use Type: marijuana Exam <PANCHO Herring - Last Filed: 02/22/20 23:36> Narrative Exam Narrative: General appearance: well developed, well nourished, in no acute distress. Head: normocephalic, atraumatic, no scalp lesions, non-tender. ENT: Hearing grossly intact. Nose without bleeding, purulent discharge. Airway patent. Neck/Thyroid: neck supple, full range of motion, no visible masses or meningeal signs. No JVD, non-tender without lymphadenopathy. Skin: no suspicious rashes, lesions over visible areas. Warm and dry and appropriate color for ethnicity. Heart: no clubbing, no cyanosis, no edema. Lungs: Breathing even and unlabored. No stridor. No accessory muscles used. Able to speak in full sentences. Chest: normal shape and expansion. Abdomen: non-obese, non-distended. Neurologic: alert and oriented. Cognitive exam, LOSS PREVENTION LEAD and PNS grossly intact on informal exam. Psych: good eye contact, normal affect. Initial Vital Signs Initial Vital Signs: Vital Signs Temperature 98.5 F 02/22/20 15:14 Pulse Rate 120 H 02/22/20 15:14 Respiratory Rate 19 02/22/20 15:14 Blood Pressure 161/107 H 02/22/20 15:14 Pulse Oximetry 98 02/22/20 15:14 Extrem Left lower extremity: foot Details: normal capillary refill, abnormal to inspection, tenderness Location: of the great toe, abnormal ROM of toe Details: pain with active ROM and pain with passive ROM, warmth Location: of the great toe Location: at the MTP joint, at the proximal phalanx and along the dorsal aspect, edema, vascular exam Details: dorsalis pedis pulse present and posterior tibial pulse present and other (vertical surgical incision intact without drainage); no ecchymosis <Maxi Quigley MD - Last Filed: 02/23/20 08:07> Initial Vital Signs Initial Vital Signs: Vital Signs Temperature 98.5 F 02/22/20 15:14 Pulse Rate 120 H 02/22/20 15:14 Respiratory Rate 19 02/22/20 15:14 Blood Pressure 161/107 H 02/22/20 15:14 Pulse Oximetry 98 02/22/20 15:14 Scores <PANCHO Herring - Last Filed: 02/22/20 23:36> GCS [place] coma scale eye opening: Spontaneous Ricki coma scale verbal response: Orientated [place] coma scale motor response: Obey commands Ricki coma scale total score: 15 qSOFA Altered Mental Status (GCS <15): No Respiratory rate greater than/equal to 22: No Systolic blood pressure less than or equal to 100: No qSOFA Total: 0 0-1 Not High Risk 1-3 High risk Course <PANCHO Herring - Last Filed: 02/22/20 23:36> Orders Ordered: Discontinued Medications Doxycycline Hyclate (Vibramycin) 100 mg PO NOW ONE Stop: 02/22/20 18:06 Last Admin: 02/22/20 18:11 Dose: 100 mg Documented by: SUKHDEEP Oxycodone/Acetaminophen (Percocet 5/325) 2 tab PO NOW ONE Stop: 02/22/20 17:23 Last Admin: 02/22/20 17:29 Dose: 2 tab Documented by: SUKHDEEP Consultations Consultation #1: Dr. Albert consulted over the phone with physical exam fidings and test results. She agreed with antibiotic medication coverage with doxycycline 100 mg b.i.d. dose for 7 day course and to follow-up at the office on Sunday or Sunday. Time: 18:05 Vital Signs Vital signs: Vital Signs - 8 hr 02/22/20 17:40 Pulse Rate 85 Respiratory Rate 16 Blood Pressure [Right Arm] 132/69 Pulse Oximetry 99 <Maxi Quigley MD - Last Filed: 02/23/20 08:07> Orders Ordered: Discontinued Medications Doxycycline Hyclate (Vibramycin) 100 mg PO NOW ONE Stop: 02/22/20 18:06 Last Admin: 02/22/20 18:11 Dose: 100 mg Documented by: SUKHDEEP Oxycodone/Acetaminophen (Percocet 5/325) 2 tab PO NOW ONE Stop: 02/22/20 17:23 Last Admin: 02/22/20 17:29 Dose: 2 tab Documented by: SUKHDEEP Vital Signs Vital signs: Vital Signs - 8 hr 02/22/20 17:40 Pulse Rate 85 Respiratory Rate 16 Blood Pressure [Right Arm] 132/69 Pulse Oximetry 99 MDM - Extremity (Nontraumatic) <PANCHO Herring - Last Filed: 02/22/20 23:36> Differential Diagnosis Differential diagnosis: Likely gout, cellulitis and other (Post surgical infection in left great toe) Medical Records Attestation: I reviewed the patient's medical records. Lab Data Attestation: I reviewed the patient's lab results. Result diagrams: 02/22/20 16:30 Labs: Lab Results 02/22/20 02/22/20 02/22/20 Range/Units 16:30 16:30 16:30 WBC 9.5 (4.5-11.0) X10^3/uL RBC 4.70 (4.0-5.2) X10^6/uL Hgb 13.5 (12.0-16.0) g/dL Hct 39.0 (36-46) % MCV 82.9 (80-100) fL MCH 28.6 (26-34) PG MCHC 34.5 (30-36) % RDW 13.9 (11.6-14.8) % Plt Count 241 (150-400) X10^3/uL Neut % (Auto) 72.0 (50-75) % Lymph % (Auto) 20.1 L (25-40) % [place] % (Auto) 6.5 (3-14) % Eos % (Auto) 1.0 L (2-4) % Baso % (Auto) 0.4 (0-2) % Neut # (Auto) 6900 (9038-0632) /uL Lymph # (Auto) 1900 (8239-8246) /uL [place] # (Auto) 600 (0-900) /uL Eos # (Auto) 100 (0-450) /uL Baso # (Auto) 0 (0-100) /uL ESR 20 (0-20) MM/HR Lactate 0.8 (0.7-2.1) mmol/L Uric Acid (2.5-6.2) mg/dL Magnesium C-Reactive Protein (<1.0) mg/dL Procalcitonin < 0.05 (<0.5) ng/mL 02/22/20 02/22/20 02/22/20 Range/Units 16:30 16:30 16:36 WBC (4.5-11.0) X10^3/uL RBC (4.0-5.2) X10^6/uL Hgb (12.0-16.0) g/dL Hct (36-46) % MCV (80-100) fL MCH (26-34) PG MCHC (30-36) % RDW (11.6-14.8) % Plt Count (150-400) X10^3/uL Neut % (Auto) (50-75) % Lymph % (Auto) (25-40) % [place] % (Auto) (3-14) % Eos % (Auto) (2-4) % Baso % (Auto) (0-2) % Neut # (Auto) (5544-1167) /uL Lymph # (Auto) (4391-7350) /uL [place] # (Auto) (0-900) /uL Eos # (Auto) (0-450) /uL Baso # (Auto) (0-100) /uL ESR (0-20) MM/HR Lactate (0.7-2.1) mmol/L Uric Acid 5.9 (2.5-6.2) mg/dL Magnesium Cancelled C-Reactive Protein 1.5 H (<1.0) mg/dL Procalcitonin (<0.5) ng/mL Imaging Data XR-Foot LT: Radiologist's Impression: [address] [address] XRay Report Signed Patient: Asia Vera MMR#: [id number] : 1995Acct:[id number] Age/Sex: 24 / FDate of Service: 02/22/20 Loc: ED Accession Number: [id number] Procedure: XR foot LT min 3V Ordering Provider: Edson Bowman PROCEDURE: XR FOOT LT MIN 3V INDICATIONS: right great toe s/p surgery, concerns for infection TECHNIQUE: 3 views of the foot were acquired. COMPARISON: [facility], , XR FOOT 3+ VIEWS LEFT, 02/10/2020, 10:11. FINDINGS: Bones: Postoperative changes are present related to fusion of the interphalangeal joint of the great toe and the 1st tarsometatarsal joint. Prior bony fusion of the 1st metatarsophalangeal joint is evident. There is also orthopedic fusion of the proximal interphalangeal joint of the 2nd toe. Post surgical changes of the head of the 2nd toe are also evident. Orthopedic hardware appears to be intact and unchanged. No acute fractures or dislocations are identified. No suspicious osseous lesions are evident. No osseous erosions are appreciated. Soft tissues: Mild soft tissue swelling about the dorsal aspect of the foot is evident. No unexpected radiopaque foreign bodies are identified. IMPRESSION: 1. Expected postoperative changes of the left forefoot. 2. No fractures. 2. Mild soft tissue swelling of the forefoot. Dictated by: Oliver Vang M.D. on 02/22/2020 at 15:07 Approved by: Oliver Vang M.D. on 02/22/2020 at 15:09 [facility] Narrative Medical decision making narrative: Left foot x-ray shows postoperative changes of the interphalangeal joint of the great toe and the 1st tarsometatarsal joint. Orthopedic hardware appears to be intact without changes. There is no acute fractures or dislocations were appreciated. No suspicious osseous lesions are evident. No osseous erosions were appreciated. There is mild soft tissue swelling about the dorsal aspect of the foot without radio plaque foreign bodies identified. Normal lactate of 0.8 with normal procalcitonin < 0.05. CRP was mildly elevated as 1.5 with normal ESR of 20. Uric acid was 5.9 (2.5-6.2) which was within normal limits. The patient was medicated with 2 tabs of Percocet while she was waiting for lab results. Physical finding is consistent with cellulitis/postop infection with increased redness, exquisite tenderness, and warmth. Dr. Albert was consulted over the phone with physical findings and test results. Plan of treatment discussed with Dr. Albert of treating patient with doxycycline 100 mg b.i.d. for 7 day course and to have patient follow-up with her at the office in 2-3 days with her agreements. Return precautions were discussed with patient and patient discharged to home with remaining course of doxycycline after 1st dose was given in ED, higher strength of Percocet which patient advised to take only 1 tab or with additional 1 regular strength of Tylenol, ibuprofen, nonweightbearing on affected leg. Patient verbalized understanding and in agreement with treatment plan. <Maxi Quigley MD - Last Filed: 02/23/20 08:07> Lab Data Labs: Lab Results 02/22/20 02/22/20 02/22/20 Range/Units 16:30 16:30 16:30 WBC 9.5 (4.5-11.0) X10^3/uL RBC 4.70 (4.0-5.2) X10^6/uL Hgb 13.5 (12.0-16.0) g/dL Hct 39.0 (36-46) % MCV 82.9 (80-100) fL MCH 28.6 (26-34) PG MCHC 34.5 (30-36) % RDW 13.9 (11.6-14.8) % Plt Count 241 (150-400) X10^3/uL Neut % (Auto) 72.0 (50-75) % Lymph % (Auto) 20.1 L (25-40) % [place] % (Auto) 6.5 (3-14) % Eos % (Auto) 1.0 L (2-4) % Baso % (Auto) 0.4 (0-2) % Neut # (Auto) 6900 (1707-5489) /uL Lymph # (Auto) 1900 (1374-5253) /uL [place] # (Auto) 600 (0-900) /uL Eos # (Auto) 100 (0-450) /uL Baso # (Auto) 0 (0-100) /uL ESR 20 (0-20) MM/HR Lactate 0.8 (0.7-2.1) mmol/L Uric Acid (2.5-6.2) mg/dL Magnesium C-Reactive Protein (<1.0) mg/dL Procalcitonin < 0.05 (<0.5) ng/mL 02/22/20 02/22/20 02/22/20 Range/Units 16:30 16:30 16:36 WBC (4.5-11.0) X10^3/uL RBC (4.0-5.2) X10^6/uL Hgb (12.0-16.0) g/dL Hct (36-46) % MCV (80-100) fL MCH (26-34) PG MCHC (30-36) % RDW (11.6-14.8) % Plt Count (150-400) X10^3/uL Neut % (Auto) (50-75) % Lymph % (Auto) (25-40) % [place] % (Auto) (3-14) % Eos % (Auto) (2-4) % Baso % (Auto) (0-2) % Neut # (Auto) (1406-1657) /uL Lymph # (Auto) (5575-8670) /uL [place] # (Auto) (0-900) /uL Eos # (Auto) (0-450) /uL Baso # (Auto) (0-100) /uL ESR (0-20) MM/HR Lactate (0.7-2.1) mmol/L Uric Acid 5.9 (2.5-6.2) mg/dL Magnesium Cancelled C-Reactive Protein 1.5 H (<1.0) mg/dL Procalcitonin (<0.5) ng/mL Discharge Plan Departure Patient Disposition: Home Clinical Impression: Wound, surgical, infected Discharge Date/Time: 02/22/20 18:51 Instructions: DI for Wound Infection Activity Restrictions/Additional Instructions: You have been diagnosed with [surgical infection on left great toe. Lab tests were unremarkable except mildly elevated CRP. Normal lactate and procalcitonin without increased in white count. ESR was within normal limits. You were treated with 1st dose of doxycycline while in ED which is antibiotic medication. Please continue doxycycline twice a day for next 7 days.]. What to do: *Take your medications as directed. Dr. Albert recommended taking Vistaril as needed for pain management. This medication can cause drowsiness so please take precautions especially when her taking this medicine with narcotic pain medication. Doxycycline and Percocet have been transmitted to [facility] in [place]. This time, Percocet strength is stronger dose than previous Percocet. Please take only 1 tab up to 4 times a day as needed with additional 1 Tylenol. Narcotic medication can cause drowsiness so please do not drive, drink alcohol, operate heavy equipments. It Can also cause constipation so please take precautions. You can continue to take ibuprofen 400 mg to 600 mg up to 3 times a day as needed for pain. Please take it with food to decrease GI irritation. Nonweightbearing on affected leg. *Follow up with your primary care provider in 2-3 days, call for an appointment. Dr. Albert will be working on Sunday and Sunday this week. Please contact the office to make follow-up appointment. Let them know you were seen in the ED and that we asked you to be seen in follow up. *Return to ED if you have any new, worsening, or concerning symptoms, such as [worsening pain, fever, chest pain, breathing difficulty, unable to tolerate fluids or any acute concerns.]. Prescriptions: New doxycycline hyclate 100 mg capsule 100 mg PO BID 7 Days Qty: 14 RF: 0 oxycodone-acetaminophen [Percocet] 7.5-325 mg tablet 1 tab PO Q6H PRN (Reason: pain) Qty: 10 RF: 0 No Action ibuprofen 200 MG tablet 1,200 mg PO Q6H PRN (Reason: Pain (Scale Score 1-3)) Qty: 0 RF: 0 acetaminophen [Tylenol Extra Strength] 500 mg Tablet 1,000 mg PO Q6H PRN (Reason: Pain) RF: 0 gabapentin 300 mg capsule 300 mg PO DAILY RF: 0 oxycodone-acetaminophen [Percocet] 7.5-325 mg tablet 1 tab PO Q6H PRN (Reason: pain) Qty: 45 RF: 0 Referrals: Nandini Albert DPM [Physician] - Toro Wheat MD [Primary Care Provider] -
[2020-02-22 17:56] LABS: Uric Acid 5.9 mg/dL (2.5-6.2)
[2020-02-22] MEDS: DOXYCYCLINE HYCLATE 100 MG TABLET PO (18:11)
== END 2020-02-22 18:51 | disposition home or self-care (01) ==
PROVIDERS: Emergency Provider Nurse Practitioner Family; PCP Family Medicine
DX: T81.49XA Infection following a procedure, other surgical site, initial encounter (principal)
CPT/HCPCS: 36415; 73630; 83605; 84145; 84550; 85025; 85651; 86140; 99283

== ENCOUNTER 2020-02-26 08:25 | Day surgery (SDC) | payer BC, OTHER, MEDICAID, SELFPAY ==
[2020-02-24 12:38] VITALS: BMI 38.2
--- NOTE | 2020-02-25 14:55 | SUR.PREOP ---
spoke with pt regarding test. She stated test was done at [facility] office. I checked with them and they are waiting on results and will fax as soon as they get them.
[2020-02-26] VITALS (8 sets, daily range): BP systolic 101–122; BP diastolic 41–75; PULSE 71–87; RESP 10–24; TEMP 35.7–36.4; O2SAT 93–99; BMI 38.2
[2020-02-26] MEDS: LACTATED RINGERS 1,000 ML 42 ML IV (09:03)
--- NOTE | 2020-02-26 09:11 | PM.PREOP ---
Pre-operative Note COVID-19 COVID-19 status: Negative Result date/Date tested (Pos, Neg/Pending): 02/24/20 Interval Note History & Physical reviewed/Exam performed by Physician: Yes Changes to H&P: No
--- NOTE | 2020-02-26 09:22 | PM.OP.1 ---
Operative Date/Time/Diagnoses Date of procedure: 02/26/20 Time of procedure: 09:23 Pre-op diagnosis: Left great toe cellulitis Post-op diagnosis: same Procedure & Clinicians Procedure: Left great toe incision and drainage Left great toenail avulsion Same procedure as scheduled: No (Additional procedure was added) Indications: Redness and pain along the great toe along incision of recent surgery where a interphalangeal fusion was performed with hardware removal of the hallux and first metatarsophalangeal joint. Conservative measures do not appear to be reducing the pain or symptoms and desired to perform and open evaluation and irrigation, possible debridement/biopsy. Consent is signed. Surgeon: Nandini Albert Click Yes if Unassisted: Yes Anesthesia Type: General Operative Notes Closure Type: primary Specimen(s): other (culture aerobic/anaerobic of the deep tissue in the hallux interphalangeal joint and first metatarsophalangeal joint area) Estimated Blood Loss (mL): 10 Blood products transfused: none Tourniquet time (min): 0 Procedure in detail: The patient was brought to the operating room and placed on the operating table in the supine position. Well padded appropriately aligned. After induction of general anesthesia the 1st metatarsophalangeal joint and hallux was prepped and injected with 12 cc of 0.5% Marcaine plain. Foot and ankle were prepped and draped in the usual aseptic manner. After noting the looseness of the hallux nail and the discharge from the medial aspect of the nail, the decision was made to perform an avulsion of the nail. After checking for anesthesia to the digit, a [place] elevator was used to remove the nail from the hallux in total. The base of proximal nail fold is clean and clear and no hardware is noted in the area exposed. No tunneling and no additional purulence is noted. Next following the former surgical incisional scar, an incision was made over the dorsal interphalangeal joint fusion extending just into the former metatarsophalangeal joint fusion. The incision was deepened through subcutaneous tissues being careful to identify and retract neurovascular structures. All bleeders were cauterized and ligated as necessary. There was little bit of thickened scar tissue present but no purulent discharge was noted. Getting down to the bone itself there was no crepitus and no abscess noted. I did not note any areas that were feeling loose and at this time and aerobic and anaerobic culture was performed. This was then passed from the field. Pressure from the hallux and also pressure from the proximal aspect of the 1st ray was provided and no purulent discharge noted. The area was irrigated with copious amounts of normal sterile saline. Closure was performed using subcutaneous 5 0 Vicryl and a running suture technique and 3 0 nylon to the skin. The area was dressed with triple antibiotic ointment and a little bit of Xeroform to the former nail area and Adaptic to the incision. Sterile lightly compressive dressing is placed and she is also placed in her postoperative boot. She is transferred to the PACU with vital signs stable and vascular status intact. Complications: none Post-operative Condition: stable Disposition: PACU Plan for aftercare: Following a period of postoperative monitoring, the patient will be discharged home on written and oral postoperative instructions including keeping the dressing dry and intact, avoiding ambulation to the foot, elevating the foot when seated at home. DVT prevention techniques have been reviewed. She shall continue along with her medication for the course of her antibiotics that she was originally given and then we will await the culture results and healing to see if additional medication is needed in that realm. She is given a refill prescription for Percocet 5/325 mg tabs with safety instructions given. Her 1st postoperative visit will be a dressing change next week and plans beyond that for removal of suture and monitoring her continued progress on healing of her arthrodesis. No weight-bearing until further healing has been determined.
[2020-02-26] MEDS: SCOPOLAMINE 1 PATCH TOP (10:56)
[2020-02-26] MEDS: BUPIVACAINE 0.5% W/ EPI (PF) 10 ML VIAL INJ (11:51)
[2020-02-26] MEDS: fentaNYL 100 MCG/2 ML INJ IV ×2 (12:25→12:30)
[2020-02-26] MEDS: OXYCODONE/ACETAMINOPHEN 5/325 TABLET 1 TAB PO ×2 (12:34→13:20)
--- NOTE | 2020-02-26 12:54 | SUR.PHASEI ---
Bedside report given to Linette Velasquez RN at this time. Pt sitting up in bed resting at this time. pt denies any nausea. Transferred care of pt to Linette Velasquez RN at this time.
== END 2020-02-26 13:45 | disposition home or self-care (01) ==
PROVIDERS: PCP Family Medicine; Referring Provider Podiatrist; Visit Provider Podiatrist
PROC: (CPT 10060; principal; 2020-02-26 09:45)
DX: L03.032 Cellulitis of left toe (principal)
CPT/HCPCS: 10060; 11730; 87070; 87075; 87077; 87147; 87186; 87205; J1100; J2250; J2405; J2704; J3010

== ENCOUNTER 2020-05-23 22:36 | Emergency (ER) | payer BC, OTHER, MEDICAID, SELFPAY ==
[2020-05-23 22:48] VITALS: BP 125/75; PULSE 103; RESP 18; TEMP 37; O2SAT 99; BMI 38.3
--- NOTE | 2020-05-23 23:45 | ED.LOWEXIN ---
HPI - Extremity Injury (Lower) General Chief Complaint: Extremity Injury, Lower Stated Complaint: Ripped off toenail, R foot, big toe, bleeding Time Seen by Provider: 05/23/20 23:21 Source: patient Mode of arrival: Ambulatory Limitations: no limitations History of Present Illness HPI Narrative: Patient complains of injury to the right big toe/toenail 2 days ago. Her large dog stepped on it. Patient does have the supervisor billposting in sees regularly, Dr. Nandini Albert, has not called the office. No fever chills. Able to ambulate and bear weight. Related Data Home Medications Medication Instructions Recorded Confirmed ibuprofen 800 mg PO Q6H PRN #0 10/25/12 02/26/20 acetaminophen [Tylenol Extra 1,000 mg PO Q6H PRN 01/13/20 02/26/20 Strength] gabapentin 300 mg PO DAILY 01/13/20 02/26/20 oxycodone-acetaminophen [Percocet] 1 tab PO Q4H PRN 02/26/20 02/26/20 Previous Rx's Medication Instructions Recorded cephalexin 500 mg PO QID #28 cap 05/23/20 Allergies Allergy/AdvReac Type Severity Reaction Status Date / Time No Known Drug Allergies Allergy Verified 05/23/20 22:48 Review of Systems Review of Systems Narrative: GENERAL: Denies chills, fatigue, malaise, fever, sweats. . MUSCULOSKELETAL: denies weakness, joint pain, complains bony pain SKIN: Denies rash, skin lesions NEUROLOGIC: Denies weakness, headache, numbness, change in speech, confusion, seizures, incoordination. PSYCHIATRIC: No concerning psychosocial issues. ROS Unobtainable: All systems reviewed & are unremarkable except as noted in HPI and below Patient History Medical History Fusion of toes of right foot (Acute) Pyelonephritis (Acute ~06/2019) Sebaceous cyst (Acute) Surgical History History of bunionectomy of left great toe (Acute) History of bunionectomy of right great toe (Acute) Hx of cholecystectomy (Acute) Hx of eye surgery (Acute) Hx of foot surgery (Acute) S/P foot surgery, right (Acute) S/P foot surgery, right (Acute 09/12/19) S/P hardware removal (Acute) Social History household members: family and children Smoking Status: Former smoker alcohol intake: current Smoking Status: Former smoker alcohol intake frequency: a few times a week Substance Use Type: marijuana Exam Narrative Exam Narrative: GENERAL: patient appears stated age. Well-nourished, well-developed patient, in no distress, not toxic HEAD: Atraumatic. Normocephalic. . EXTREMITIES: Examination right foot. There is avulsion of the toenail of the great toe. No active bleeding no discharge. Mild tenderness to the toe. Toe was otherwise warm soft and pink. NEURO: AOx4. SKIN: No rash or erythema of visible areas PSYCH: Not anxious, is cooperative Initial Vital Signs Initial Vital Signs: Vital Signs Temperature 98.6 F 05/23/20 22:48 Pulse Rate 103 H 05/23/20 22:48 Respiratory Rate 18 05/23/20 22:48 Blood Pressure 125/75 05/23/20 22:48 Pulse Oximetry 99 05/23/20 22:48 Course Orders Ordered: ED Orders 05/23/20 23:46 XR toe RT min 2V Stat Discontinued Medications Bacitracin (Bacitracin) 1 applic TOP NOW ONE Stop: 05/24/20 00:40 Cephalexin HCl (Keflex) 500 mg PO NOW ONE Stop: 05/23/20 23:46 Last Admin: 05/23/20 23:52 Dose: 500 mg Documented by: HYUN Reevaluation(s) Reevaluation #1: Toe has been clean and irrigated. Patient agrees with treatment plan and follow-up with her supervisor [employer] for toe nail removal Time: 00:37 Vital Signs Vital signs: Vital Signs - 8 hr 05/23/20 22:48 Temperature 98.6 F Pulse Rate 103 H Respiratory Rate 18 Blood Pressure 125/75 Pulse Oximetry 99 MDM - Extremity Injury (Lower) Imaging Data Extremity x-ray #1: My Impression: X-ray right great toe, no acute process. Hardware intact MDM Narrative Medical decision making narrative: Appropriate for discharge home. Patient does have established supervisor billposting. Discharge Plan Departure Patient Disposition: Home Clinical Impression: Avulsed toenail Qualifiers: Encounter type: initial encounter Qualified Code(s): S91.209A - Unspecified open wound of unspecified toe(s) with damage to nail, initial encounter Discharge Date/Time: 05/24/20 00:44 Instructions: DI for Wound Infection Activity Restrictions/Additional Instructions: Call your supervisor [employer]post[employer] in the morning for office recheck this week. You will need to have the toenail removed in the office. Prescription has been sent to your pharmacy of choice. Change dressing twice a day with warm soap and water. Return if worse or if any questions concerns. Prescriptions: New cephalexin 500 mg capsule 500 mg PO QID Qty: 28 RF: 0 No Action ibuprofen 200 MG tablet 800 mg PO Q6H PRN (Reason: Pain (Scale Score 1-3)) Qty: 0 RF: 0 acetaminophen [Tylenol Extra Strength] 500 mg Tablet 1,000 mg PO Q6H PRN (Reason: Pain) RF: 0 gabapentin 300 mg capsule 300 mg PO DAILY RF: 0 oxycodone-acetaminophen [Percocet] 5-325 mg Tablet 1 tab PO Q4H PRN (Reason: Pain, Mild) RF: 0 Referrals: Toro Wheat MD [Primary Care Provider] -
--- NOTE | 2020-05-23 23:46 | DI.RAD.S_ITS ---
PROCEDURE: XR TOE RT MIN 2V INDICATIONS: Pain/injury to right 1st digit TECHNIQUE: 3 views of the right 1st toe(s) acquired. [facility] FOOT 3+ VIEWS RIGHT, 10/08/2019, 9:30. FINDINGS: Bones: Postsurgical changes compatible with 1st MTP, 1st DIP, 2nd PIP, 2nd DIP, 3rd PIP and 3rd DIP arthrodesis. Postsurgical changes compatible with 2nd metatarsal osteotomy. Orthopedic hardware is intact. No lucencies at the bone hardware interface. No fracture or dislocation. Cortical irregularity noted in the 1st MTP joint which could represent chronic reactive change or osteomyelitis. Soft tissues: No suspicious soft tissue densities. IMPRESSION: 1. Postsurgical changes. 2. Cortical irregularity involving the 1st MTP joint which could represent osteoarthritis versus osteomyelitis. Please correlate with clinical findings. 3. No fracture. No acute osseous lesion. If symptoms and/or clinical suspicion for pathology persists, further assessment with repeat radiographs (7-10 days) or advanced imaging (e.g. CT, MRI or bone scan) may be helpful. Dictated by: Mildred Rodríguez MD, PhD on 05/24/2020 at 8:45 Approved by: Mildred Rodríguez MD, PhD on 05/24/2020 at 8:49
[2020-05-23] MEDS: cephALEXin 250 MG CAPSULE 500 MG PO (23:52)
--- NOTE | 2020-05-24 00:08 | PC.NURSE ---
Toe cleaned with CHG
== END 2020-05-24 00:44 | disposition home or self-care (01) ==
PROVIDERS: Emergency Provider Emergency Medicine; PCP Family Medicine
DX: S91.209A Unspecified open wound of unspecified toe(s) with damage to nail, initial encounter (principal); W54.8XXA Other contact with dog, initial encounter
CPT/HCPCS: 73660; 99283

== ENCOUNTER → 2020-08-23 15:45 | Outpatient (CLI) | payer BC, OTHER, MEDICAID, SELFPAY ==
[2020-08-23 16:51] LABS: COVID19 -Nasal RAPID Negative (Negative)
== END ==
PROVIDERS: PCP Family Medicine; Visit Provider Nurse Practitioner
DX: Z20.828 Contact with and (suspected) exposure to other viral communicable diseases (principal)
CPT/HCPCS: 87635

== ENCOUNTER 2020-08-25 07:45 | Day surgery (SDC) | payer BC, OTHER, MEDICAID, SELFPAY ==
[2020-08-23 12:08] VITALS: BMI 38.7
[2020-08-25] VITALS (13 sets, daily range): BP systolic 100–123; BP diastolic 62–74; PULSE 60–83; RESP 9–19; TEMP 36.8–37; O2SAT 95–100; BMI 38.7
[2020-08-25] MEDS: LACTATED RINGERS 1,000 ML 100 ML IV ×3 (08:48→13:13)
--- NOTE | 2020-08-25 09:21 | PM.PREOP ---
Pre-operative Note COVID-19 COVID-19 status: Negative Interval Note History & Physical reviewed/Exam performed by Physician: Yes Changes to H&P: No
[2020-08-25] MEDS: SCOPOLAMINE 1 PATCH TOP (09:30)
[2020-08-25] MEDS: CEFAZOLIN 2 GM/100 ML FROZ.PIGGY IV (09:32)
--- NOTE | 2020-08-25 09:32 | PM.OP.1 ---
Operative Date/Time/Diagnoses Date of procedure: 08/25/20 Time of procedure: 09:33 Pre-op diagnosis: Right first metatarsophalangeal joint broken hardware, nonunion versus fracture Post-op diagnosis: same Procedure & Clinicians Procedure: Right first metatarsophalangeal joint revision arthrodesis with broken hardware removal Same procedure as scheduled: Yes Indications: Painful broken hardware with suspected nonunion first metatarsophalangeal joint right foot. Surgeon: Nandini Albert Click Yes if Unassisted: Yes Anesthesia Type: General Operative Notes Closure Type: primary Specimen(s): none sent Prosthetic devices, grafts, tissues, transplants, or devices: PRO3-C Amniotic membrane graft, [employer] DBM putty, [place] 4.0 (1), 3.5 (5) screws, [place] revision MTP plate Estimated Blood Loss (mL): 30 Blood products transfused: none Tourniquet time (min): 89 Procedure in detail: The patient was brought to the operating room and placed on the operating table in the supine position. A tourniquet was placed about the patient's right thigh. After induction of general anesthesia the foot and ankle were prepped and draped in the usual aseptic manner. The tourniquet was inflated. Local anesthesia was rendered to the first ray. Incision was made over the dorsal aspect of the right 1st metatarsophalangeal joint. The incision was deepened through subcutaneous tissues being careful to identify and retract all vital neurovascular structures. All bleeders were cauterized and ligated necessary. A significant amount of scarring was apparent to the soft tissues at the first metatarsophalangeal joint and distal and proximal along the ray. The tissues themselves were also just enlarged in general and the extensor was mostly invested within the scar tissue. The plate had bony covering over much of the dorsal portion of it, which was champfered away and gently removed which showed the underlying screws and the broken plate. The plate and screws were removed, and the medial lag screw appeared to have also broken with the plate at the runout. I resected either side of the former first metatarsophalangeal joint down to clean and bleeding bone. The first metatarsal shaft contained the remainder of the screw but it was not in the way of the resection and it was buried enough that it was appropriate to leave in place. Either side of the former joint was drilled a few times just a couple mm to allow for enhanced healing. A saw was also used to plane and resect some spurring from the dorsal 1st metatarsal shaft where the plate was and buildup of bone around it's edges and end, and the same to the proximal phalanx. Once the appropriate alignment was noted for the joint, it was checked under fluoroscopy and appeared to not require a cortical graft. The length was minorly short, but the ability to achieve a higher potential of union of the bone outweighed the very small amount of shortening seen. Area was irrigiated with normal saline. Demineralized bone putty was placed in the area of the new MTPJ. Temporary fixation across the joint was placed with a guidewire and this was checked under C-arm to be in appropriate alignment. A plate was chosen and any further reduction of prominences dorsally was performed with a rasp and rongeur. Using the aid of fluoroscopy, the guide wire was used as cannulation for the drill for a lag screw from the proximal medial to distal lateral 1st metatarsal phalangeal joint. Confirmed appropriate in all 3 planes, a partially threaded screw was placed and the guidewire removed. Good strength and reduction of the former joint. The tourniquet was deflated and prompt hyperemic response was seen to the foot. Plate was placed and with the aid of fluoroscopy a series of locking screws and a nonlocking screw were placed across the plate once again the joint showed no motion and good strength and alignment. This was checked on C-arm. The area is irrigated with copious amounts normal sterile saline. Reduction of significantly thickened subcutaneous tissue performed sharply. Addition of soft tissue graft placed dorsally over the plate prior to closure. Subcutaneous closure was performed using Vicryl and nylon was used to close the skin. A sterile lightly compressive dressing was placed on the foot and she was placed in the postoperative boot. Transferred to the PACU with vital signs stable and vascular status intact. Complications: none Post-operative Condition: stable Disposition: PACU Plan for aftercare: Following a period of postoperative monitoring, the patient be discharged home on written and oral postoperative instructions including keeping the dressing dry and intact, no weight on the foot, icing and elevating the foot when seated home. DVT prevention techniques have been reviewed. For the 1st postoperative visit the dressing will be changed and close to the 3rd postoperative week we will likely remove the sutures. First x-rays approx s/p 4 weeks, and some initial WB may occur s/p week six, dependent onrecovery status.
--- NOTE | 2020-08-25 10:04 | SUR.OPER ---
Supine on padded OR bed, head on pillow, arms secured on padded arm boards at <90 degrees abduction, bump under right hip, legs uncrossed, right leg under control of surgeon, safety belt at thigh, tape over blanket over left lower leg.
[2020-08-25] MEDS: BUPIVACAINE 0.5% (PF) VIAL 30 ML INJ (10:15)
[2020-08-25] MEDS: LIDOCAINE 2% INJ SDV 5 ML INJ (10:16)
--- NOTE | 2020-08-25 12:22 | SUR.OPER ---
Patient has an abrasion on the back of her right lower leg which was observed after induction, during prep, after positioning.
[2020-08-25] MEDS: fentaNYL 100 MCG/2 ML INJ IV (13:44)
[2020-08-25] MEDS: HYDROMORPHONE 2 MG INJ IV (13:46)
--- NOTE | 2020-08-25 14:13 | SUR.PHASEI ---
Pt arrived to PACU s\p R foot surger. VSS. Pt very active and squirming on arrival. C/O significant pain, unable to hold still. Medicated with fentqanyl & dilaudid with good relief. Able to eat snack and drink fluids without difficulty. No problems to report. Plan: Discuss discharge instructions and discharge pt to home.
[2020-08-25] MEDS: OXYCODONE/ACETAMINOPHEN 5/325 TABLET 1 TAB PO (14:17)
== END 2020-08-25 14:41 | disposition home or self-care (01) ==
PROVIDERS: PCP Family Medicine; Referring Provider Podiatrist; Visit Provider Podiatrist
PROC: (CPT 28750; principal; 2020-08-25 09:15)
DX: T84.498A Other mechanical complication of other internal orthopedic devices, implants and grafts, initial encounter (principal); M96.0 Pseudarthrosis after fusion or arthrodesis; E66.9 Obesity, unspecified; Z68.38 Body mass index [BMI] 38.0-38.9, adult
CPT/HCPCS: 28750; J0690; J1100; J1170; J1885; J2250; J2405; J2704; J3010

== ENCOUNTER → 2021-04-27 09:33 | Outpatient (CLI) | payer BC, OTHER, MEDICAID, SELFPAY ==
[2021-04-27 11:08] LABS: COVID19 -Nasal RAPID Negative (Negative)
== END ==
PROVIDERS: PCP Family Medicine; Visit Provider Physician Assistant
DX: Z20.822 Contact with and (suspected) exposure to COVID-19 (principal); Z01.812 Encounter for preprocedural laboratory examination
CPT/HCPCS: 87635

== ENCOUNTER 2021-04-29 06:03 | Day surgery (SDC) | payer BC, OTHER, MEDICAID, SELFPAY ==
[2021-04-25 08:22] VITALS: BMI 36.8
[2021-04-29] VITALS (9 sets, daily range): BP systolic 106–135; BP diastolic 64–83; PULSE 72–87; RESP 12–24; TEMP 36.4–36.8; O2SAT 98–99; BMI 36.8
[2021-04-29] MEDS: LACTATED RINGERS 1,000 ML 100 ML IV (07:07)
[2021-04-29] MEDS: SCOPOLAMINE 1 PATCH TOP (07:30)
--- NOTE | 2021-04-29 07:40 | PM.PREOP ---
Pre-operative Note COVID-19 COVID-19 status: Negative Interval Note History & Physical reviewed/Exam performed by Physician: Yes Changes to H&P: No
[2021-04-29] MEDS: CEFAZOLIN 1 GM VIAL 2 GM IV (07:52)
--- NOTE | 2021-04-29 08:03 | SUR.OPER ---
Supine on padded OR bed, head on pillow, arms secured on padded arm boards at <90 degrees abduction, legs uncrossed, safety belt at thigh, tape over blanket over lower legs.
[2021-04-29] MEDS: BUPIVACAINE 0.5% (PF) VIAL 30 ML INJ (08:11)
--- NOTE | 2021-04-29 10:16 | P.OP_ITS ---
Operative Date/Time/Diagnoses Date of procedure: 04/29/21 Time of procedure: 10:16 Pre-op diagnosis: Right great toe painful retained orthopedic hardware Post-op diagnosis: same Procedure & Clinicians Procedure: Right first toe and metatarsophalangeal joint partial hardware removal Same procedure as scheduled: Yes Indications: Pain in the area of the great toe right foot, suspected to be the retained hardware in this location. Conservative measures failed to alleviate her pain and she wished to have surgical intervention at this time. No c ontraindications to the procedure at this time. Surgeon: Nandini Albert Click Yes if Unassisted: Yes Anesthesia Type: General Operative Notes Closure Type: primary Specimen(s): none sent Estimated Blood Loss (mL): 20 Blood products transfused: none Tourniquet time (min): 88 Procedure in detail: The patient was brought to the operating room and placed on the operating table in a supine position. A tourniquet was placed about her right ankle. She was well padded and appropriately aligned. After induction of general anesthesia the foot was prepped and draped in the usual aseptic manner. The tourniquet was inflated. After a check of anesthesia and incision was made over the dorsal medial 1st metatarsal in the region of screw that we were to remove. The incision was deepened through subcutaneous tissues being careful to identify and retract all vital neural and vascular structures. All bleeders were cauterized and ligated as necessary. Preparation around the screw at the bone was used to secure a clean way of removing the screw. I was able to remove it only just about half a cm and it would not move anymore. We attempted using a guidewire and checked under fluoroscopy to determine if there was anything impinging this but we could not see anything. The decision was made at that point to return to it and instead focus on the staple in the hallux. An incision was made over the dorsal hallux and into the former metatarsophalangeal joint. The most central lateral staple at the hallux was shown to be having s ome bone up and around it as well as scar tissue which was reduced for easier access. The most proximal aspect of that staple was next to the plate but was not pressured by the plate. Due to the amount of bone under and around the area it took quite some time to gently remove the staple but it was able to be removed and could have been 1 of the reasons why she was feeling the discomfort she complained about as to why she wanted the surgery. Looking into the interspace I did not note any unusual prominences or fluid collections, and the hallux IPJ fusion was solid as was the metatarsophalangeal joint fusion. I was still unable to retrieve the screw so the decision was made to take 2 of the screws near by the course of 4-0 screw, and partially loosen them. It was at that point that very slowly and carefully we were able to remove the entirety of the 4-0 screw. As it was removed, it appeared that the screw was slightly bent and did have some markings on it to suggest that it had been up against other hardware but was intact. The decision was made at that point to not remove the 2nd staple as it did not appear to be an influence to why she was having some of the soreness but also it was at an access point that was more difficult to retrieve. The 2 screws were then tightened back into secure positions and the plate was secure and a mobile. The area was irrigated with copious amounts of normal sterile saline and final pictures on C-arm were taken. The tourniquet was deflated, a prompt hyperemic response was seen to the foot. Subcutaneous closure was performed with 4-0 Vicryl and skin was closed with 3-0 nylon. The foot was dressed with a sterile lightly compressive dressing and she was placed in her postoperative shoe and transferred to the PACU with vital signs stable and vascular status intact foot. Post-operative Condition: stable Disposition: PACU Plan for aftercare: Following a period of postoperative monitoring, the patient be discharged home on written and oral postoperative instructions including keeping the dressing dry and intact, avoiding significant ambulation on the foot, icing and elevating the foot when seated home. DVT prevention techniques have been reviewed. For the 1st postoperative visit the dressing will be changed and close to the 3rd postoperative week we will likely remove the sutures.
[2021-04-29] MEDS: OXYCODONE IR 5 MG TABLET PO (10:20)
[2021-04-29] MEDS: METOCLOPRAMIDE 10 MG/2 ML INJ IV (10:20)
[2021-04-29] MEDS: hydrOXYzine 50 MG/ML INJ 25 MG IM (10:21)
[2021-04-29] MEDS: ACETAMINOPHEN 325 MG TABLET 975 MG PO (10:21)
[2021-04-29] MEDS: fentaNYL 100 MCG/2 ML INJ IV (10:30)
[2021-04-29] MEDS: ONDANSETRON 4 MG/2 ML INJ IV (10:36)
--- NOTE | 2021-04-29 12:05 | SUR.PHASEII ---
Pt remained in here pending arrival of her ride. D/C'd to ED entrance via wc in stable condition.
== END 2021-04-29 11:58 | disposition home or self-care (01) ==
PROVIDERS: PCP Family Medicine; Referring Provider Podiatrist; Visit Provider Podiatrist
PROC: (CPT 20680; principal; 2021-04-29 07:45)
DX: T84.84XA Pain due to internal orthopedic prosthetic devices, implants and grafts, initial encounter (principal); Z98.1 Arthrodesis status
CPT/HCPCS: 20680; 81025; J0690; J1100; J2250; J2405; J2704; J2765; J3010; J3410

== ENCOUNTER 2021-05-27 14:35 | Emergency (ER) | payer BC, OTHER, MEDICAID, SELFPAY ==
[2021-05-27] VITALS (12 sets, daily range): BP systolic 107–122; BP diastolic 55–78; PULSE 48–96; RESP 20; TEMP 36.3–37.2; O2SAT 96–100; BMI 41.7
[2021-05-27] MEDS: ONDANSETRON 4 MG/2 ML INJ IV (14:59)
[2021-05-27] MEDS: SODIUM CHLORIDE 0.9% 1,000 ML 125 ML IV (14:59)
--- NOTE | 2021-05-27 15:01 | ED.GENADULT ---
HPI - General Adult General Chief complaint: Fever Stated complaint: Kidney Stone, Can't Keep Anything Down, Fever Time Seen by Provider: 05/27/21 14:51 Source: patient Mode of arrival: Wheelchair Limitations: no limitations History of Present Illness HPI narrative: Patient is a 25-year-old female. A couple days ago she started to develop right-sided abdominal/flank pain. She went to an outside facility. Had labs drawn and a CT scan performed. She states she was told that she potentially had passed a kidney stone. She was told she had blood in her urine. States that her right kidney was swollen. She was sent home with nausea medicine and pain medicine. She was also sent home with Flomax. States that since that time she has had continued discomfort. Quite a bit of dysuria. Feel that she is not emptying her bladder. Increasing pain in the right abdomen and in her right flank. Had subjective fevers yesterday. No vaginal bleeding. No discharge. Reports no concern about sexually transmitted infections. No change in bowel habits. No rashes. Related Data Home Medications Medication Instructions Recorded Confirmed acetaminophen 500 mg tablet 1,000 mg PO Q6H PRN 01/13/20 05/27/21 (Tylenol Extra Strength) ketorolac 10 mg tablet 10 mg PO TID PRN 05/27/21 05/27/21 ondansetron 4 mg disintegrating 4 mg PO TID PRN 05/27/21 05/27/21 tablet tamsulosin 0.4 mg capsule 0.4 mg PO DAILY 05/27/21 05/27/21 Previous Rx's Medication Instructions Recorded metoclopramide HCl 10 mg tablet 10 mg PO Q6H PRN #12 tab 05/27/21 (Reglan) Allergies Allergy/AdvReac Type Severity Reaction Status Date / Time No Known Drug Allergies Allergy Verified 05/27/21 14:53 Review of Systems Constitutional Constitutional: Reports as per HPI and Reports system reviewed and no additional complaints, except as documented Cardiovascular Cardiovascular: Reports system reviewed and no additional complaints, except as documented Respiratory Respiratory: Reports system reviewed and no additional complaints, except as documented Gastrointestinal Gastrointestinal: Reports as per HPI and Reports system reviewed and no additional complaints, except as documented Genitourinary Genitourinary: Reports system reviewed and no additional complaints, except as documented and Reports as per HPI Musculoskeletal Musculoskeletal: Reports back pain Integumentary/Breasts Skin/Breast: Reports system reviewed and no additional complaints, except as documented Neurologic Neurologic: Reports system reviewed and no additional complaints, except as documented Hematologic/Lymphatic On Anticoagulants: No Patient History Medical History Fusion of toes of right foot Pyelonephritis (~06/2019) Sebaceous cyst Surgical History (Updated 04/25/21 @ 08:26 by Carol Alfaro RN) History of bunionectomy of left great toe History of bunionectomy of right great toe Hx of cholecystectomy Hx of eye surgery Hx of foot surgery Hx of foot surgery (08/25/20) S/P foot surgery, right S/P foot surgery, right (09/12/19) S/P hardware removal Social History household members: family and children Smoking Status: Former smoker alcohol intake: current Smoking Status: Former smoker alcohol intake frequency: a few times a week Substance Use Type: marijuana Exam Initial Vital Signs Initial Vital Signs: Vital Signs Temperature 98.9 F 05/27/21 14:45 Pulse Rate 96 H 05/27/21 14:45 Respiratory Rate 20 05/27/21 14:45 Blood Pressure 122/74 05/27/21 14:45 Pulse Oximetry 99 05/27/21 14:45 Const General: cooperative HENMT Head: normal to inspection and normocephalic Resp Effort & Inspection: normal respiratory effort Auscultation: clear to auscultation bilaterally Cardio Rate: regular rate Rhythm: regular rhythm GI Inspection: normal to inspection Palpation: soft and tender (Right-sided abdomen) Back/Spine/Pelvis Back: CVA tenderness right Skin General: no rashes or lesions noted Neuro General: patient alert, patient awake and moves all extremities Extrem General: normal to inspection and capillary refill normal Psych Appearance: grossly normal and well kempt Course Orders Ordered: ED Orders 05/27/21 15:00 Complete Blood Count AUTO DIFF Stat Comprehensive Metabolic Panel Stat Lactate (Lactic Acid) Stat Lipase Stat 05/27/21 15:17 CT abdomen pelvis w con Stat 05/27/21 15:30 Urinalysis and Microscopic Stat Urine Culture Stat 05/27/21 15:40 Blood Culture Stat Sodium Chloride (Normal Saline 0.9%) 1,000 mls @ 125 mls/hr IV CONT MARÍA Last Admin: 05/27/21 14:59 Dose: 125 mls/hr Documented by: MARK Discontinued Medications Ketorolac Tromethamine (Ketorolac 30 Mg/Ml Vial) 30 mg IV NOW ONE Stop: 05/27/21 15:03 Last Admin: 05/27/21 15:15 Dose: 30 mg Documented by: BREE Metoclopramide HCl (Metoclopramide 10 Mg/2 Ml Inj) 10 mg IV NOW ONE Stop: 05/27/21 15:36 Last Admin: 05/27/21 15:39 Dose: 10 mg Documented by: BREE Ondansetron HCl (Ondansetron 4 Mg/2 Ml Inj) 4 mg IV NOW ONE Stop: 05/27/21 14:53 Last Admin: 05/27/21 14:59 Dose: 4 mg Documented by: MARK Vital Signs Vital signs: Vital Signs - 8 hr 05/27/21 14:45 05/27/21 14:49 05/27/21 14:50 Temperature 98.9 F Pulse Rate 96 H 86 82 Respiratory Rate 20 Blood Pressure 122/74 122/74 Pulse Oximetry 99 98 98 05/27/21 15:00 05/27/21 15:56 05/27/21 15:59 Temperature Pulse Rate 91 H 65 78 Respiratory Rate Blood Pressure 122/78 107/55 L Pulse Oximetry 96 99 98 05/27/21 16:00 05/27/21 16:30 05/27/21 16:31 Temperature Pulse Rate 66 64 64 Respiratory Rate Blood Pressure 108/61 118/63 Pulse Oximetry 98 99 98 Medical Decision Making Lab Data Lab results reviewed: Yes I reviewed the patient's lab results. Result diagrams: 05/27/21 15:00 05/27/21 15:00 Labs: Lab Results 05/27/21 05/27/21 05/27/21 Range/Units 15:00 15:00 15:00 WBC 7.4 (4.5-11.0) X10^3/uL RBC 4.59 (4.0-5.2) X10^6/uL Hgb 12.8 (12.0-16.0) g/dL Hct 39.0 (36-46) % MCV 85.0 (80-100) fL MCH 27.9 (26-34) PG MCHC 32.8 (30-36) % RDW 14.7 (11.6-14.8) % Plt Count 238 (150-400) X10^3/uL Neut % (Auto) 75.3 H (50-75) % Lymph % (Auto) 19.6 L (25-40) % Glenn % (Auto) 4.5 (3-14) % Eos % (Auto) 0.3 L (2-4) % Baso % (Auto) 0.3 (0-2) % Neut # (Auto) 5600 (5190-1957) /uL Lymph # (Auto) 1500 (9087-9160) /uL Glenn # (Auto) 300 (0-900) /uL Eos # (Auto) 0 (0-450) /uL Baso # (Auto) 0 (0-100) /uL Sodium 140 (137-145) mmol/L Potassium 4.7 (3.4-5.1) mmol/L Chloride 109 H (98-107) mmol/L Carbon Dioxide 25 (22-32) mmol/L BUN 8 (7-17) mg/dL Creatinine 0.57 (0.52-1.04) mg/dL Estimated GFR > 60.0 (>60) mL/min BUN/Creatinine Ratio 14.0 (6-22) Glucose 104 H (70-100) mg/dL Lactate 0.8 (0.7-2.1) mmol/L Calcium 9.5 (8.4-10.2) mg/dL Total Bilirubin 0.6 (0.2-1.3) mg/dL AST 38 H (14-36) IU/L ALT 21 (<35) IU/L Alkaline Phosphatase 65 (38-126) U/L Total Protein 7.7 (6.3-8.2) g/dL Albumin 4.4 (3.5-5.0) g/dL Globulin 3.3 (1.7-4.1) g/dL Albumin/Globulin Ratio 1.3 (1.0-2.8) Lipase (23-300) U/L Serum , Qual Urine Color Urine Appearance Urine pH (4.5-8.0) Ur Specific Rincon (1.000-1.035) Urine Protein (Negative) Urine Glucose (UA) (Negative) g/dL Urine Ketones (NEGATIVE) Urine Occult Blood (Negative) Urine Nitrate (Negative) Urine Bilirubin (NEGATIVE) Urine Urobilinogen (0.2) E.U./dL Ur Leukocyte Esterase (NEGATIVE) Urine RBC (0-5/HPF) Urine WBC (0-5/HPF) Ur Squamous Epith Cells (0-5/HPF) Urine Bacteria (None) Ur Culture Indicated? 05/27/21 05/27/21 05/27/21 Range/Units 15:00 15:30 15:35 WBC (4.5-11.0) X10^3/uL RBC (4.0-5.2) X10^6/uL Hgb (12.0-16.0) g/dL Hct (36-46) % MCV (80-100) fL MCH (26-34) PG MCHC (30-36) % RDW (11.6-14.8) % Plt Count (150-400) X10^3/uL Neut % (Auto) (50-75) % Lymph % (Auto) (25-40) % Glenn % (Auto) (3-14) % Eos % (Auto) (2-4) % Baso % (Auto) (0-2) % Neut # (Auto) (7163-0000) /uL Lymph # (Auto) (8682-5418) /uL Glenn # (Auto) (0-900) /uL Eos # (Auto) (0-450) /uL Baso # (Auto) (0-100) /uL Sodium (137-145) mmol/L Potassium (3.4-5.1) mmol/L Chloride (98-107) mmol/L Carbon Dioxide (22-32) mmol/L BUN (7-17) mg/dL Creatinine (0.52-1.04) mg/dL Estimated GFR (>60) mL/min BUN/Creatinine Ratio (6-22) Glucose (70-100) mg/dL Lactate (0.7-2.1) mmol/L Calcium (8.4-10.2) mg/dL Total Bilirubin (0.2-1.3) mg/dL AST (14-36) IU/L ALT (<35) IU/L Alkaline Phosphatase (38-126) U/L Total Protein (6.3-8.2) g/dL Albumin (3.5-5.0) g/dL Globulin (1.7-4.1) g/dL Albumin/Globulin Ratio (1.0-2.8) Lipase 50 (23-300) U/L Serum , Qual Cancelled Urine Color Yellow Urine Appearance Clear Urine pH 7.0 (4.5-8.0) Ur Specific Rincon 1.010 (1.000-1.035) Urine Protein Negative (Negative) Urine Glucose (UA) Negative (Negative) g/dL Urine Ketones Negative (NEGATIVE) Urine Occult Blood Negative (Negative) Urine Nitrate Negative (Negative) Urine Bilirubin Negative (NEGATIVE) Urine Urobilinogen 0.2 (0.2) E.U./dL Ur Leukocyte Esterase Negative (NEGATIVE) Urine RBC None seen (0-5/HPF) Urine WBC 1-5/hpf (0-5/HPF) Ur Squamous Epith Cells 1-5 /hpf (0-5/HPF) Urine Bacteria Occasional (0-1) (None) Ur Culture Indicated? Culture not indicate Point of Care Testing Test Results Negative Point of care testing: Point of Care Testing Test Results Negative Imaging Data CT scan - abdomen/pelvis: Radiologist's Impression: [address] [address] [address] Scan Report Signed Patient: Asia Vera MR#: [id number] : 1995 Acct:[id number] Age/Sex: 25 / F Date of Service: 05/27/21 Loc: ED Accession Number: [id number] ?? Procedure: CT abdomen pelvis w con Ordering Provider: Jaswant Sethi D.O. PROCEDURE:? CT ABDOMEN PELVIS W CON ? INDICATIONS:? Right-sided pain ? TECHNIQUE:? After the administration of oral and IV contrast, axial sections were acquired from the lung bases to the pubic symphysis.? Coronal and sagittal reformats were performed.? For radiation dose reduction, the following was used:? automated exposure control, adjustment of mA and/or kV according to patient size. ? COMPARISON:? [facility], CT, CT ABDOMEN PELVIS W CON, 06/21/2019, 1:31. ? FINDINGS: ? Lower thorax: The lung bases are clear.? Heart size normal.? No hiatal hernia. ? Liver:? Normal in size and attenuation. No contour deformity present. ? Biliary system:? Cholecystectomy.? No intra or extrahepatic bile duct dilation. ? Pancreas:? Unremarkable without mass or inflammation evident. ? Spleen:? The spleen is enlarged at 13.2 cm.? No intrinsic mass lesion. ? Adrenals:? Normal morphology and density. ? Reproductive system:? Unremarkable as visualized. ? Urinary system:? Normal renal size and attenuation. No renal calculi, hydronephrosis, or solid mass present.? Urinary bladder unremarkable. ? Gastrointestinal system:? The bowel appears unremarkable with no evidence of bowel obstruction or inflammation. The stomach appears unremarkable. ? Appendix:? Normal appendix identified.? No evidence of appendicitis. ? Peritoneal spaces:? No mesenteric or retroperitoneal adenopathy.? No free air.? No free fluid.? ? Vasculature:? The IVC, aorta and iliac vasculature are unremarkable. ? Musculoskeletal:? Normal bone mineralization.? No acute fractures.? Abdominal wall intact without evidence of ventral or inguinal hernias.? Incidental L5 spondylolysis, disc bulge and severe right L5 foraminal stenosis ? IMPRESSION: ? 1. No acute CT findings in the abdomen and pelvis. 2. Cholecystectomy and L5-S1 degenerative disc disease ? ? Approved by: Alfred Duff M.D. on 05/27/2021 at 15:14? MDM Narrative Medical decision making narrative: Labs and CT scan oral reassuring. No signs of kidney stone. No signs of pyelonephritis. No signs of appendicitis. I was able to eventually review the CT scan from a couple days ago. There were no ureteral/kidney stones noted however she did have right-sided hydroureter and hydronephrosis. She also had microscopic hematuria. This is consistent with a recently passed stone. All of that is now resolved. She reports and almost complete resolution of her symptoms after having Reglan. Considered other etiologies such as and PID but the patient declined any possibility of a sexually transmitted infection in her test was negative. I feel that we can hold on further workup for now. Will send home with a prescription for Reglan. She was given return precautions. She expressed understanding and agreement. Discharge Plan Departure Patient Disposition: Home Clinical Impression: Abdominal pain, Nausea Instructions: DI for Abdominal Pain-Adult, DI for Nausea -- Adult Activity Restrictions/Additional Instructions: Your CT scan and labs today are all reassuring. There is no signs of any kidney stone. You can stop taking the tamsulosin that was prescribed to you a couple days ago. There is also no signs of a urinary tract infection. There was a urine culture pending at the time your discharge we will contact you if this is positive we need to start you on antibiotics. Contact your primary doctor for a follow-up. Return to the emergency department for any new or worsening symptoms. Prescriptions: New metoclopramide HCl [Reglan] 10 mg tablet 10 mg PO Q6H PRN (Reason: nausea and vomiting) Qty: 12 RF: 0 No Action acetaminophen [Tylenol Extra Strength] 500 mg Tablet 1,000 mg PO Q6H PRN (Reason: Pain) RF: 0 ketorolac 10 mg tablet 10 mg PO TID PRN (Reason: Pain (Scale Score 7-10)) RF: 0 tamsulosin 0.4 mg capsule 0.4 mg PO DAILY RF: 0 ondansetron 4 mg tablet,disintegrating 4 mg PO TID PRN (Reason: nausea/vomiting) RF: 0 Referrals: Toro Wheat MD [Primary Care Provider] -
[2021-05-27 15:10] LABS: Add Manual Diff / Slide Review NO; Basophils Absolute Auto 0 /uL (0-100); Basophils Percent Auto 0.3 % (0-2); Eosinophils Absolute Auto 0 /uL (0-450); Eosinophils Percent Auto 0.3 % (2-4); Hemoglobin 12.8 g/dL (12.0-16.0); Lymphocytes Absolute Auto 1500 /uL (1100-4500); Lymphocytes Percent Auto 19.6 % (25-40); Mean Corpuscular HGB Conc 32.8 % (30-36); Mean Corpuscular Hemoglobin 27.9 PG (26-34); Monocytes Absolute Auto 300 /uL (0-900); Monocytes Percent Auto 4.5 % (3-14); Neutrophils Absolute Auto 5600 /uL (1500-7000); Neutrophils Percent Auto 75.3 % (50-75); Platelet Count 238 X10^3/uL (150-400); Red Blood Cell Count 4.59 X10^6/uL (4.0-5.2); Red Cell Distribution Width 14.7 % (11.6-14.8); White Blood Cell Count 7.4 X10^3/uL (4.5-11.0)
[2021-05-27] MEDS: KETOROLAC 30 MG/ML VIAL IV (15:15)
--- NOTE | 2021-05-27 15:17 | DI.CT.S_ITS ---
PROCEDURE: CT ABDOMEN PELVIS W CON INDICATIONS: Right-sided pain TECHNIQUE: After the administration of oral and IV contrast, axial sections were acquired from the lung bases to the pubic symphysis. Coronal and sagittal reformats were performed. For radiation dose reduction, the following was used: automated exposure control, adjustment of mA and/or kV according to patient size. COMPARISON: [facility], CT, CT ABDOMEN PELVIS W CON, 06/21/2019, 1:31. FINDINGS: Lower thorax: The lung bases are clear. Heart size normal. No hiatal hernia. Liver: Normal in size and attenuation. No contour deformity present. Biliary system: Cholecystectomy. No intra or extrahepatic bile duct dilation. Pancreas: Unremarkable without mass or inflammation evident. Spleen: The spleen is enlarged at 13.2 cm. No intrinsic mass lesion. Adrenals: Normal morphology and density. Reproductive system: Unremarkable as visualized. Urinary system: Normal renal size and attenuation. No renal calculi, hydronephrosis, or solid mass present. Urinary bladder unremarkable. Gastrointestinal system: The bowel appears unremarkable with no evidence of bowel obstruction or inflammation. The stomach appears unremarkable. Appendix: Normal appendix identified. No evidence of appendicitis. Peritoneal spaces: No mesenteric or retroperitoneal adenopathy. No free air. No free fluid. Vasculature: The IVC, aorta and iliac vasculature are unremarkable. Musculoskeletal: Normal bone mineralization. No acute fractures. Abdominal wall intact without evidence of ventral or inguinal hernias. Incidental L5 spondylolysis, disc bulge and severe right L5 foraminal stenosis IMPRESSION: 1. No acute CT findings in the abdomen and pelvis. 2. Cholecystectomy and L5-S1 degenerative disc disease Approved by: Alfred Duff M.D. on 05/27/2021 at 15:14
[2021-05-27 15:24] LABS: Lipase 50 U/L (23-300)
[2021-05-27 15:25] LABS: Lactate (Lactic Acid) 0.8 mmol/L (0.7-2.1)
[2021-05-27 15:26] LABS: Alanine Aminotransferase 21 IU/L (<35); Albumin 4.4 g/dL (3.5-5.0); Albumin Globulin Ratio 1.3 (1.0-2.8); Alkaline Phosphatase 65 U/L (38-126); Aspartate Aminotransferase 38 IU/L (14-36); Bilirubin Total 0.6 mg/dL (0.2-1.3); Blood Urea Nitrogen 8 mg/dL (7-17); Calcium 9.5 mg/dL (8.4-10.2); Carbon Dioxide 25 mmol/L (22-32); Chloride 109 mmol/L (98-107); Estimated Glomerular Filt Rate > 60.0 mL/min (>60); Globulin 3.3 g/dL (1.7-4.1); Glucose 104 mg/dL (70-100); Sodium 140 mmol/L (137-145); Total Protein 7.7 g/dL (6.3-8.2)
[2021-05-27 15:28] LABS: HEMOLYSIS 104 (0-50); Potassium 4.7 mmol/L (3.4-5.1)
[2021-05-27] MEDS: METOCLOPRAMIDE 10 MG/2 ML INJ IV (15:39)
[2021-05-27 15:46] LABS: Appearance Urine UA CLEAR; Bilirubin Urine UA NEGATIVE (NEGATIVE); Color Urine UA YELLOW; Glucose Urine UA NEGATIVE (Negative); Ketones Urine UA NEGATIVE (NEGATIVE); Leukocyte Esterase Urine UA NEGATIVE (NEGATIVE); Nitrite Urine UA NEGATIVE (Negative); Occult Blood Urine UA NEGATIVE (Negative); Protein Urine UA NEGATIVE (Negative); Urobilinogen Urine UA 0.2 E.U./dL (0.2)
--- NOTE | 2021-05-27 15:59 | PC.NURSE ---
VOmting resolved after Reglan, pt still endorses nausea.
[2021-05-27 16:09] LABS: Bacteria Urine Occasional (0-1); RBC Urine None Seen (0-5/HPF); Squamous Epithelial Cell Urine 1-5 /HPF (0-5/HPF); WBC Urine 1-5/HPF (0-5/HPF)
== END 2021-05-27 17:35 | disposition home or self-care (01) ==
PROVIDERS: Emergency Provider Emergency Medicine; PCP Family Medicine
DX: R10.9 Unspecified abdominal pain (principal); R11.0 Nausea; R30.0 Dysuria; R50.9 Fever, unspecified; Z87.442 Personal history of urinary calculi
CPT/HCPCS: 36415; 74177; 80053; 81001; 81025; 83605; 83690; 85025; 87040; 87077; 87086; 87147; 96361; 96374; 96375; 99284; 99285; J1885; J2405; J2765; Q9967

== ENCOUNTER 2021-11-24 22:42 | Emergency (ER) | payer OTHER, SELFPAY ==
[2021-11-24 22:51] VITALS: BP 135/78; PULSE 130; RESP 16; TEMP 37.1; O2SAT 99; BMI 38.3
[2021-11-24 23:10] VITALS: PULSE 112
[2021-11-24 23:48] VITALS: PULSE 94; RESP 21; O2SAT 96
[2021-11-25] VITALS: PULSE 96; RESP 25; O2SAT 97
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
[2021-11-25 01:54] VITALS: BP 148/78; PULSE 92; RESP 16; O2SAT 98
== END 2021-11-25 01:55 | disposition home or self-care (01) ==
PROVIDERS: Emergency Provider Emergency Medicine; PCP Family Medicine
DX: S00.33XA Contusion of nose, initial encounter (principal); Z87.891 Personal history of nicotine dependence; W50.0XXA Accidental hit or strike by another person, initial encounter; Y93.89 Activity, other specified; Y92.128 Other place in nursing home as the place of occurrence of the external cause; Y99.0 Civilian activity done for income or pay
CPT/HCPCS: 93005; 99281

== ENCOUNTER 2021-12-31 21:08 | Emergency (ER) | payer OTHER, MEDICAID, SELFPAY ==
[2021-12-31] VITALS (9 sets, daily range): BP systolic 110–139; BP diastolic 58–77; PULSE 73–141; RESP 18–37; TEMP 36.8; O2SAT 97–100; BMI 42.3
[2021-12-31 21:38] LABS: Add Manual Diff / Slide Review NO; Basophils Absolute Auto 0 /uL (0-100); Basophils Percent Auto 0.5 % (0-2); Eosinophils Absolute Auto 100 /uL (0-450); Eosinophils Percent Auto 0.7 % (2-4); Hematocrit 39.9 % (36-46); Hemoglobin 13.3 g/dL (12.0-16.0); Lymphocytes Absolute Auto 2300 /uL (1100-4500); Lymphocytes Percent Auto 23.4 % (25-40); Mean Corpuscular HGB Conc 33.3 % (30-36); Mean Corpuscular Hemoglobin 27.7 PG (26-34); Monocytes Absolute Auto 500 /uL (0-900); Monocytes Percent Auto 4.9 % (3-14); Neutrophils Absolute Auto 6800 /uL (1500-7000); Neutrophils Percent Auto 70.5 % (50-75); Platelet Count 285 X10^3/uL (150-400); Red Cell Distribution Width 13.9 % (11.6-14.8); White Blood Cell Count 9.7 X10^3/uL (4.5-11.0)
[2021-12-31] MEDS: LACTATED RINGERS 1,000 ML 1000 ML IV (21:39)
[2021-12-31] MEDS: ONDANSETRON 4 MG/2 ML INJ IV (21:40)
[2021-12-31 21:42] LABS: Alanine Aminotransferase 21 IU/L (<35); Albumin 4.6 g/dL (3.5-5.0); Albumin Globulin Ratio 1.3 (1.0-2.8); Alkaline Phosphatase 72 U/L (38-126); Aspartate Aminotransferase 26 IU/L (14-36); BUN Creatinine Ratio 10.5 (6-22); Bilirubin Total 0.5 mg/dL (0.2-1.3); Blood Urea Nitrogen 8 mg/dL (7-17); Calcium 9.4 mg/dL (8.4-10.2); Carbon Dioxide 26 mmol/L (22-32); Chloride 105 mmol/L (98-107); Estimated Glomerular Filt Rate > 60 mL/min (>60); Globulin 3.6 g/dL (1.7-4.1); Glucose 106 mg/dL (70-100); HEMOLYSIS < 15 (0-50); Lactate (Lactic Acid) 0.7 mmol/L (0.7-2.1); Potassium 3.5 mmol/L (3.4-5.1); Sodium 141 mmol/L (137-145); Total Protein 8.2 g/dL (6.3-8.2)
--- NOTE | 2021-12-31 21:53 | ED.ABDPAIN ---
HPI - Abdominal Pain General Chief Complaint: Abdominal Pain Stated Complaint: pain in sides, dizzy, shaky Time Seen by Provider: 12/31/21 21:13 Source: patient Mode of arrival: Ambulatory History of Present Illness HPI narrative: 26-year-old female nonsmoker without any significant medical history presents with a chief complaint of a few days of urinary frequency, urgency and dysuria and now complains of body aches and bilateral flank pain. She is nauseated but denies any vomiting. She denies any change in bowel habits such as diarrhea or constipation. She denies any vaginal bleeding or discharge. She is actively trying to become but thinks she currently is not. She denies any headache, blurred vision or trouble speech but does admit to being dizzy, particularly upon standing, she does admit to a poor appetite. She denies any injury or trauma. She denies recent antibiotic use or exposure to ill persons. She denies midline back pain, radiation of pain into her lower extremities, loss of control of bowel or bladder or lower extremity numbness, tingling or weakness. Related Data Home Medications Medication Instructions Recorded Confirmed acetaminophen 500 mg tablet 1,000 mg PO Q6H PRN 01/13/20 05/27/21 (Tylenol Extra Strength) ketorolac 10 mg tablet 10 mg PO TID PRN 05/27/21 05/27/21 ondansetron 4 mg disintegrating 4 mg PO TID PRN 05/27/21 05/27/21 tablet tamsulosin 0.4 mg capsule 0.4 mg PO DAILY 05/27/21 05/27/21 Previous Rx's Medication Instructions Recorded metoclopramide HCl 10 mg tablet 10 mg PO Q6H PRN #12 tab 05/27/21 (Reglan) cefpodoxime 200 mg tablet 200 mg PO BID 10 Days #20 tab 01/01/22 hydrocodone 5 mg-acetaminophen 325 1 tab PO Q4-6H PRN #10 tab 01/01/22 mg tablet ondansetron 4 mg disintegrating 4 mg PO TID-QID PRN #10 tab 01/01/22 tablet Allergies Allergy/AdvReac Type Severity Reaction Status Date / Time No Known Drug Allergies Allergy Verified 05/27/21 14:53 Review of Systems Review of Systems Narrative: GENERAL: See HPI HEENT: Denies sinus pain, ear pain, sore throat, difficulty swallowing, dizziness. RESPIRATORY: Denies dyspnea, cough, wheezing, hemoptysis, sputum. CARDIOVASCULAR: Denies chest pain, palpitations, orthopnea, edema, GASTROINTESTINAL: See HPI : See HPI MUSCULOSKELETAL: denies weakness, joint pain, or bony pain SKIN: Denies rash, skin lesions, or other NEUROLOGIC: Denies weakness, headache, numbness, change in speech, confusion, seizures, incoordination. PSYCHIATRIC: No concerning psychosocial issues. 12 point review of systems is negative except for those stated above Patient History Medical History Fusion of toes of right foot Pyelonephritis (~06/2019) Sebaceous cyst Surgical History History of bunionectomy of left great toe History of bunionectomy of right great toe Hx of cholecystectomy Hx of eye surgery Hx of foot surgery Hx of foot surgery (08/25/20) S/P foot surgery, right S/P foot surgery, right (09/12/19) S/P hardware removal Social History household members: family and children Smoking Status: Former smoker alcohol intake: current Smoking Status: Former smoker alcohol intake frequency: a few times a week Substance Use Type: marijuana Exam Narrative Exam Narrative: GENERAL: [26] year old patient appears stated age. Well-developed patient, in mild distress. HEAD: Atraumatic. Normocephalic. EYES: Pupils equal round and reactive. Extraocular motions intact. No scleral icterus. No injection or drainage. ENT: Nose without bleeding, purulent drainage. Throat without erythema, tonsillar hypertrophy or exudate. Airway patent. NECK: Trachea midline. Non tender CARDIOVASCULAR: Tachycardic but regular rhythm without murmurs, gallops, or rubs. RESPIRATORY: Clear to auscultation. Breath sounds equal bilaterally. No wheezes, rales, or rhonchi. GASTROINTESTINAL: Abdomen soft, suprapubic tenderness, nondistended. Bowel sounds present EXTREMITIES: No edema or joint tenderness. BACK: Bilateral CVA tenderness, no midline tenderness, step-offs or crepitance NEURO: AOx3. SKIN: No rash or erythema of visible areas Initial Vital Signs Initial Vital Signs: Vital Signs Pulse Rate 113 H 12/31/21 21:14 Pulse Oximetry 99 12/31/21 21:14 Course Orders Ordered: ED Orders 12/31/21 21:15 Complete Blood Count AUTO DIFF Stat Comprehensive Metabolic Panel Stat Lactate (Lactic Acid) Stat 12/31/21 21:40 Urine Microscopic Stat 12/31/21 21:44 Blood Culture Stat 12/31/21 23:02 CT abdomen pelvis w con Stat Discontinued Medications Hydrocodone Bitart/Acetaminophen (Hydrocodone/Acet 5/325 Prepack) 1 bottle MISC SEEINSTR ONE Stop: 01/01/22 00:39 Last Admin: 01/01/22 00:47 Dose: 1 bottle Documented by: KAYLIN Hydromorphone HCl (Hydromorphone 0.5 Mg Inj) 0.5 mg IV NOW ONE Stop: 12/31/21 23:03 Last Admin: 12/31/21 23:06 Dose: 0.5 mg Documented by: JUAN Hydromorphone HCl (Hydromorphone 0.5 Mg Inj) 0.5 mg IV NOW ONE Stop: 01/01/22 00:39 Last Admin: 01/01/22 00:47 Dose: 0.5 mg Documented by: KAYLIN Lactated Ringer's (Lactated Ringers) 1,000 mls @ 1,000 mls/hr IV BOLUS ONE Stop: 12/31/21 22:27 Last Infusion: 12/31/21 23:23 Dose: 0 mls/hr Documented by: Admin: 12/31/21 21:39 Dose: 1,000 mls/hr Documented by: JUAN Ceftriaxone Sodium 2,000 mg/ (Sodium Chloride) 100 mls @ 200 mls/hr IV NOW ONE Stop: 12/31/21 21:57 Last Infusion: 12/31/21 22:41 Dose: 0 mls/hr Documented by: Admin: 12/31/21 22:01 Dose: 200 mls/hr Documented by: PURA Lidocaine HCl 9.2 ml/ Sodium (Chloride) 59.2 mls @ 355.2 mls/hr IV NOW ONE Stop: 12/31/21 22:40 Last Infusion: 12/31/21 23:01 Dose: 0 mls/hr Documented by: Admin: 12/31/21 22:46 Dose: 355.2 mls/hr Documented by: JUAN Lactated Ringer's (Lactated Ringers) 1,000 mls @ 1,000 mls/hr IV BOLUS ONE Stop: 01/01/22 00:01 Last Infusion: 01/01/22 00:54 Dose: 0 mls/hr Documented by: Admin: 01/01/22 00:03 Dose: 1,000 mls/hr Documented by: KAYLIN Ketorolac Tromethamine (Ketorolac 30 Mg/Ml Vial) 15 mg IV NOW ONE Stop: 12/31/21 21:46 Last Admin: 12/31/21 21:58 Dose: 15 mg Documented by: PURA Metoclopramide HCl (Metoclopramide 10 Mg/2 Ml Inj) 10 mg IV NOW ONE Stop: 12/31/21 23:03 Last Admin: 12/31/21 23:06 Dose: 10 mg Documented by: JUAN Ondansetron HCl (Ondansetron 4 Mg/2 Ml Inj) 4 mg IV NOW ONE Stop: 12/31/21 21:29 Last Admin: 12/31/21 21:40 Dose: 4 mg Documented by: JUAN Ondansetron HCl (Ondansetron 4 Mg Odt Prepack) 1 bottle [facility] [place] Stop: 01/01/22 00:39 Last Admin: 01/01/22 00:47 Dose: 1 bottle Documented by: KAYLIN Vital Signs Vital signs: Vital Signs - 8 hr 12/31/21 21:14 12/31/21 21:15 12/31/21 21:30 Temperature 98.3 F Pulse Rate 113 H 141 H 99 H Respiratory Rate 18 27 H Blood Pressure 139/77 Pulse Oximetry 99 100 98 12/31/21 22:00 12/31/21 22:30 12/31/21 23:00 Temperature Pulse Rate 76 84 73 Respiratory Rate 23 24 26 H Blood Pressure Pulse Oximetry 97 98 99 12/31/21 23:18 12/31/21 23:34 12/31/21 23:37 Temperature Pulse Rate 91 H 83 87 Respiratory Rate 31 H 37 H Blood Pressure 114/75 110/58 L Pulse Oximetry 97 98 97 01/01/22 00:05 01/01/22 00:06 01/01/22 00:30 Temperature Pulse Rate 82 68 Respiratory Rate 18 25 H Blood Pressure 114/59 L 132/64 Pulse Oximetry 97 97 98 MDM - Abdominal Pain Lab Data Result diagrams: 12/31/21 21:15 12/31/21 21:15 Labs: Lab Results 12/31/21 12/31/21 12/31/21 Range/Units 21:15 21:15 21:15 WBC 9.7 (4.5-11.0) X10^3/uL RBC 4.80 (4.0-5.2) X10^6/uL Hgb 13.3 (12.0-16.0) g/dL Hct 39.9 (36-46) % MCV 83.0 (80-100) fL MCH 27.7 (26-34) PG MCHC 33.3 (30-36) % RDW 13.9 (11.6-14.8) % Plt Count 285 (150-400) X10^3/uL Neut % (Auto) 70.5 (50-75) % Lymph % (Auto) 23.4 L (25-40) % Edmunds % (Auto) 4.9 (3-14) % Eos % (Auto) 0.7 L (2-4) % Baso % (Auto) 0.5 (0-2) % Neut # (Auto) 6800 (8475-1699) /uL Lymph # (Auto) 2300 (9563-9354) /uL Edmunds # (Auto) 500 (0-900) /uL Eos # (Auto) 100 (0-450) /uL Baso # (Auto) 0 (0-100) /uL Sodium 141 (137-145) mmol/L Potassium 3.5 (3.4-5.1) mmol/L Chloride 105 (98-107) mmol/L Carbon Dioxide 26 (22-32) mmol/L BUN 8 (7-17) mg/dL Creatinine 0.76 (0.52-1.04) mg/dL Estimated GFR > 60 (>60) mL/min BUN/Creatinine Ratio 10.5 (6-22) Glucose 106 H (70-100) mg/dL Lactate 0.7 (0.7-2.1) mmol/L Calcium 9.4 (8.4-10.2) mg/dL Total Bilirubin 0.5 (0.2-1.3) mg/dL AST 26 (14-36) IU/L ALT 21 (<35) IU/L Alkaline Phosphatase 72 (38-126) U/L Total Protein 8.2 (6.3-8.2) g/dL Albumin 4.6 (3.5-5.0) g/dL Globulin 3.6 (1.7-4.1) g/dL Albumin/Globulin Ratio 1.3 (1.0-2.8) Urine RBC (0-5/HPF) Urine WBC (0-5/HPF) Ur Squamous Epith Cells (0-5/HPF) Urine Bacteria (None) Hyaline Casts (None) Urine Mucus (Negative) Ur Culture Indicated? 12/31/21 Range/Units 21:40 WBC (4.5-11.0) X10^3/uL RBC (4.0-5.2) X10^6/uL Hgb (12.0-16.0) g/dL Hct (36-46) % MCV (80-100) fL MCH (26-34) PG MCHC (30-36) % RDW (11.6-14.8) % Plt Count (150-400) X10^3/uL Neut % (Auto) (50-75) % Lymph % (Auto) (25-40) % Edmunds % (Auto) (3-14) % Eos % (Auto) (2-4) % Baso % (Auto) (0-2) % Neut # (Auto) (3739-2913) /uL Lymph # (Auto) (0618-2591) /uL Edmunds # (Auto) (0-900) /uL Eos # (Auto) (0-450) /uL Baso # (Auto) (0-100) /uL Sodium (137-145) mmol/L Potassium (3.4-5.1) mmol/L Chloride (98-107) mmol/L Carbon Dioxide (22-32) mmol/L BUN (7-17) mg/dL Creatinine (0.52-1.04) mg/dL Estimated GFR (>60) mL/min BUN/Creatinine Ratio (6-22) Glucose (70-100) mg/dL Lactate (0.7-2.1) mmol/L Calcium (8.4-10.2) mg/dL Total Bilirubin (0.2-1.3) mg/dL AST (14-36) IU/L ALT (<35) IU/L Alkaline Phosphatase (38-126) U/L Total Protein (6.3-8.2) g/dL Albumin (3.5-5.0) g/dL Globulin (1.7-4.1) g/dL Albumin/Globulin Ratio (1.0-2.8) Urine RBC 1-5/hpf (0-5/HPF) Urine WBC 10-30/hpf H (0-5/HPF) Ur Squamous Epith Cells 10-30 /hpf H D (0-5/HPF) Urine Bacteria Many (>30) H (None) Hyaline Casts 0-1/lpf (None) Urine Mucus 3+ H (Negative) Ur Culture Indicated? Cult not indicated Point of care testing: Point of Care Testing Test Results Negative Urine Dip Bedside Urine Glucose Negative Bedside Urine Bilirubin - Negative Bedside Urine Ketone - Negative Urine Specific [place] 1.030 Bedside Urine Occult Blood +++ Bedside Urine pH 6.0 Bedside Urine Protein + 30 Bedside Urine Urobilinogen - Negative Bedside Urine Nitrite - Negative Bedside Urine Leukocytes + [address] scan - abdomen/pelvis: Radiologist's Impression: Launch?[place] [address] CT Scan Report Signed Patient: Asia Vera MR#: [id number] : 1995 Acct:[id number] Age/Sex: 26 / F Date of Service: 12/31/21 Loc: ED Accession Number: [id number] ?? Procedure: CT abdomen pelvis w con Ordering Provider: Jc Shelton D.O. PROCEDURE:? CT ABDOMEN PELVIS W CON ? INDICATIONS:? severe abdominal pain, N/V, septic ? TECHNIQUE:? After the administration of intravenous contrast, axial sections acquired from the lung bases to the pubic symphysis.? Coronal and sagittal reformats were performed.? For radiation dose reduction, the following was used:? automated exposure control, adjustment of mA and/or kV according to patient size.? ? COMPARISON:? [facility], CT, CT ABDOMEN PELVIS W CON, 05/27/2021, 15:50.? [facility], CT, CT ABDOMEN PELVIS W CON, 06/21/2019, 1:31. ? FINDINGS:? Image quality:? Excellent.? ? Lung bases:? Unremarkable. Heart:? No significant findings. ? ABDOMEN: Liver:? Unremarkable.? ? Gallbladder:? Previously resected.? ? Biliary ducts:? Unremarkable.? ? Pancreas:? Unremarkable.? ? Spleen:? Unremarkable.? ? Adrenal Glands:? Unremarkable.? ? Kidneys and Ureters:? Unremarkable.? ? ? Stomach and Bowel:? Stomach, small bowel loops, and colon are unremarkable.? Peritoneum:? No abnormal intraperitoneal fluid.? No free air.? ? Ventral Wall: ? No hernias.? Abdominal Nodes:? No retroperitoneal or mesenteric adenopathy by size criteria.? Vessels:? Aorta and inferior vena cava are normal in size.? ? PELVIS: Pelvic Organs:? Unremarkable.? ? Bladder:? Unremarkable.? ? Pelvic Nodes: No enlarged lymph nodes.? Miscellaneous: No hernias are seen. ? ? ? Bones:? Unremarkable.? IMPRESSION:? Prior cholecystectomy.? No acute disease found.? Source of sepsis syndrome is not identified. ? ? Dictated by: Saul Villavicencio M.D. on 01/01/2022 at 0:10 ? ? Approved by: Saul Villavicencio M.D. on 01/01/2022 at 0:11 ? MDM Narrative Medical decision making narrative: History and physical exam are very reassuring. Patient has had urinary frequency, urgency and dysuria for the past few days and now bilateral flank pain. Labs are reassuring and response to therapy is appropriate. She had little relief after Toradol and lidocaine but symptoms were greatly improved and pain was well controlled with opioids which included dilaudid and a prepack of hydrocodone. Though still nauseated she is tolerating oral hydration. There is no evidence of an obstructive uropathy or other significant findings on imaging, she is not septic, as stated pain well controlled tolerating orals, so she has been given extensive return precautions and questions have been answered to her apparent satisfaction Discharge Plan Departure Patient Disposition: Home Clinical Impression: Pyelonephritis Instructions: DI for Kidney Infection Activity Restrictions/Additional Instructions: *You have been diagnosed with [Pyelonephritis ] *What to do: *Please continue to take your regular medications as directed. [x ] New medication prescriptions sent to your pharmacy: [[facility] ] [ ] New medication written as a paper prescription [ ] No new medications given *Please follow up with your primary care provider in 2-3 days, call for an appointment. Let them know you were seen in the Emergency Department and that we ask that you be seen in follow up. We will electronically transmit a record of today's note if your PCP is in our system *If you do not have a primary care provider please contact the [facility] Resource line at [phone]. They will ask some questions about your medical history and help get you set up with a doctor in the community. *Return to Emergency Department if you should have any new, worsening or concerning symptoms, such as [fever greater than 101 F, shaking chills, worsening pain, persistent vomiting or other bothersome symptoms] You have been prescribed a short course of narcotic medications. These are potentially dangerous and addictive medications that should be used carefully. While on these medications you cannot drive or operate heavy machinery. Additionally, you cannot sign legal documents or perform any duties such as this. 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 Please understand that we cannot provide further refills of narcotics or controlled substances through the ED and your pain management will need to be through your Primary Care Provider Prescriptions: New cefpodoxime 200 mg tablet 200 mg PO BID 10 Days Qty: 20 0RF Rx Instructions: must administer with a meal/food hydrocodone-acetaminophen 5-325 mg tablet 1 tab PO Q4-6H PRN (Reason: pain) Qty: 10 0RF ondansetron 4 mg tablet,disintegrating 4 mg PO TID-QID PRN (Reason: nausea and vomiting) Qty: 10 0RF No Action acetaminophen [Tylenol Extra Strength] 500 mg Tablet 1,000 mg PO Q6H PRN (Reason: Pain) 0RF ketorolac 10 mg tablet 10 mg PO TID PRN (Reason: Pain (Scale Score 7-10)) 0RF tamsulosin 0.4 mg capsule 0.4 mg PO DAILY 0RF Rx Instructions: x 14 days ondansetron 4 mg tablet,disintegrating 4 mg PO TID PRN (Reason: nausea/vomiting) 0RF metoclopramide HCl [Reglan] 10 mg tablet 10 mg PO Q6H PRN (Reason: nausea and vomiting) Qty: 12 0RF Referrals: Ploudre,Toro, MD [Primary Care Provider] - Stand Alone Forms: Work Release Note
[2021-12-31] MEDS: KETOROLAC 30 MG/ML VIAL 15 MG IV (21:58)
[2021-12-31 22:01] LABS: RBC Urine 1-5/HPF (0-5/HPF)
[2021-12-31] MEDS: cefTRIAXone 2,000 MG in SODIUM CHLORIDE 0.9% 100 ML 200 ML IV (22:01)
[2021-12-31 22:02] LABS: Bacteria Urine Many (>30); Culture Indicated Urine Cult Not Indicated; Hyaline Casts Urine 0-1/LPF; Mucus Urine 3+ (Negative); Squamous Epithelial Cell Urine 10-30 /HPF (0-5/HPF); WBC Urine 10-30/HPF (0-5/HPF)
[2021-12-31] MEDS: SODIUM CHLORIDE 0.9% IV (22:46)
[2021-12-31] MEDS: LIDOCAINE 2% IV (22:46)
--- NOTE | 2021-12-31 23:02 | DI.CT.S_ITS ---
PROCEDURE: CT ABDOMEN PELVIS W CON INDICATIONS: severe abdominal pain, N/V, septic TECHNIQUE: After the administration of intravenous contrast, axial sections acquired from the lung bases to the pubic symphysis. Coronal and sagittal reformats were performed. For radiation dose reduction, the following was used: automated exposure control, adjustment of mA and/or kV according to patient size. COMPARISON: [facility], CT, CT ABDOMEN PELVIS W CON, 05/27/2021, 15:50. [facility], CT, CT ABDOMEN PELVIS W CON, 06/21/2019, 1:31. FINDINGS: Image quality: Excellent. Lung bases: Unremarkable. Heart: No significant findings. ABDOMEN: Liver: Unremarkable. Gallbladder: Previously resected. Biliary ducts: Unremarkable. Pancreas: Unremarkable. Spleen: Unremarkable. Adrenal Glands: Unremarkable. Kidneys and Ureters: Unremarkable. Stomach and Bowel: Stomach, small bowel loops, and colon are unremarkable. Peritoneum: No abnormal intraperitoneal fluid. No free air. Ventral Wall: No hernias. Abdominal Nodes: No retroperitoneal or mesenteric adenopathy by size criteria. Vessels: Aorta and inferior vena cava are normal in size. PELVIS: Pelvic Organs: Unremarkable. Bladder: Unremarkable. Pelvic Nodes: No enlarged lymph nodes. Miscellaneous: No hernias are seen. Bones: Unremarkable. IMPRESSION: Prior cholecystectomy. No acute disease found. Source of sepsis syndrome is not identified. Dictated by: Saul Villavicencio M.D. on 01/01/2022 at 0:10 Approved by: Saul Villavicencio M.D. on 01/01/2022 at 0:11
[2021-12-31] MEDS: METOCLOPRAMIDE 10 MG/2 ML INJ IV (23:06)
[2021-12-31] MEDS: HYDROMORPHONE 0.5 MG INJ IV (23:06)
[2022-01-01] MEDS: LACTATED RINGERS 1,000 ML 1000 ML IV (00:03)
[2022-01-01 00:05] VITALS: O2SAT 97
[2022-01-01 00:06] VITALS: BP 114/59; PULSE 82; RESP 18; O2SAT 97
[2022-01-01 00:30] VITALS: BP 132/64; PULSE 68; RESP 25; O2SAT 98
[2022-01-01] MEDS: HYDROCODONE/ACET 5/325 PREPACK 1 BOTTLE MISC (00:47)
[2022-01-01] MEDS: HYDROMORPHONE 0.5 MG INJ IV (00:47)
[2022-01-01] MEDS: ONDANSETRON 4 MG ODT PREPACK 1 BOTTLE MISC (00:47)
== END 2022-01-01 00:57 | disposition home or self-care (01) ==
PROVIDERS: Emergency Provider Emergency Medicine; PCP Family Medicine
DX: N12 Tubulo-interstitial nephritis, not specified as acute or chronic (principal); R00.0 Tachycardia, unspecified
CPT/HCPCS: 36415; 74177; 80053; 81003; 81015; 81025; 83605; 85025; 87040; 93005; 93010; 96365; 96375; 96376; 99284; J0696; J1170; J1885; J2405; J2765; Q9967

== ENCOUNTER 2022-01-07 23:23 | Emergency (ER) | payer OTHER, MEDICAID, SELFPAY ==
[2022-01-07 23:34] VITALS: BP 138/90; PULSE 80; RESP 18; TEMP 36.9; O2SAT 100; BMI 37.5
--- NOTE | 2022-01-07 23:48 | ED.GENADULT ---
HPI - General Adult General Chief complaint: Urogenital-Female Stated complaint: X7 days kidney pain w/medicine Time Seen by Provider: 01/07/22 23:30 Source: patient Mode of arrival: Ambulatory History of Present Illness HPI narrative: Patient is a 26-year-old female who is here in the emergency department for evaluation of continued kidney pain and abdominal pain. She was seen here in the emergency department several days ago. Was diagnosed with pyelonephritis. Was sent home with antibiotics. His taking the antibiotics as directed however she states that her symptoms are still present. She is still having urinary frequency and urgency. Has having back pain and now lower abdominal pain. Is also having nausea and vomiting. No subjective fevers. She did take all the antibiotics as directed. Related Data Home Medications Medication Instructions Recorded Confirmed acetaminophen 500 mg tablet 1,000 mg PO Q6H PRN 01/13/20 05/27/21 (Tylenol Extra Strength) ketorolac 10 mg tablet 10 mg PO TID PRN 05/27/21 05/27/21 ondansetron 4 mg disintegrating 4 mg PO TID PRN 05/27/21 05/27/21 tablet tamsulosin 0.4 mg capsule 0.4 mg PO DAILY 05/27/21 05/27/21 Previous Rx's Medication Instructions Recorded metoclopramide HCl 10 mg tablet 10 mg PO Q6H PRN #12 tab 05/27/21 (Reglan) cefpodoxime 200 mg tablet 200 mg PO BID 10 Days #20 tab 01/01/22 hydrocodone 5 mg-acetaminophen 325 1 tab PO Q4-6H PRN #10 tab 01/01/22 mg tablet ondansetron 4 mg disintegrating 4 mg PO TID-QID PRN #10 tab 01/01/22 tablet Allergies Allergy/AdvReac Type Severity Reaction Status Date / Time No Known Drug Allergies Allergy Verified 01/07/22 23:34 Review of Systems Constitutional Constitutional: Reports system reviewed and no additional complaints, except as documented Cardiovascular Cardiovascular: Reports system reviewed and no additional complaints, except as documented Respiratory Respiratory: Reports system reviewed and no additional complaints, except as documented Gastrointestinal Gastrointestinal: Reports system reviewed and no additional complaints, except as documented Genitourinary Genitourinary: Reports system reviewed and no additional complaints, except as documented Musculoskeletal Musculoskeletal: Reports system reviewed and no additional complaints, except as documented Integumentary/Breasts Skin/Breast: Reports system reviewed and no additional complaints, except as documented Hematologic/Lymphatic On Anticoagulants: No Patient History Medical History Fusion of toes of right foot Pyelonephritis (~06/2019) Sebaceous cyst Surgical History History of bunionectomy of left great toe History of bunionectomy of right great toe Hx of cholecystectomy Hx of eye surgery Hx of foot surgery Hx of foot surgery (08/25/20) S/P foot surgery, right S/P foot surgery, right (09/12/19) S/P hardware removal Social History household members: family and children Smoking Status: Former smoker alcohol intake: current Smoking Status: Former smoker alcohol intake frequency: a few times a week Substance Use Type: marijuana Exam Initial Vital Signs Initial Vital Signs: Vital Signs Temperature 98.4 F 01/07/22 23:34 Pulse Rate 80 01/07/22 23:34 Respiratory Rate 18 01/07/22 23:34 Blood Pressure 138/90 01/07/22 23:34 Pulse Oximetry 100 01/07/22 23:34 Const General: cooperative and healthy appearing HENMT Head: normal to inspection and normocephalic Resp Effort & Inspection: normal respiratory effort Auscultation: clear to auscultation bilaterally Cardio Rate: regular rate Rhythm: regular rhythm GI Inspection: non-distended Palpation: soft, No firm and tender Back/Spine/Pelvis Back: CVA tenderness Skin General: no rashes or lesions noted Neuro General: patient alert, patient awake and moves all extremities Extrem General: normal to inspection and capillary refill normal Course Orders Ordered: ED Orders 01/07/22 23:46 Urine Culture Stat Urine Microscopic Stat 01/07/22 23:49 CT abdomen pelvis w con Stat Complete Blood Count AUTO DIFF Stat Comprehensive Metabolic Panel Stat Lipase Stat Discontinued Medications Sodium Chloride (Normal Saline 0.9%) 1,000 mls @ 1,000 mls/hr IV BOLUS ONE Stop: 01/08/22 00:47 Last Admin: 01/08/22 00:07 Dose: 1,000 mls/hr Documented by: LIA Ketorolac Tromethamine (Ketorolac 30 Mg/Ml Vial) 30 mg IV NOW ONE Stop: 01/07/22 23:49 Last Admin: 01/08/22 00:07 Dose: 30 mg Documented by: LIA Ondansetron HCl (Ondansetron 4 Mg/2 Ml Inj) 4 mg IV NOW ONE Stop: 01/07/22 23:49 Last Admin: 01/08/22 00:07 Dose: 4 mg Documented by: LIA Ondansetron HCl (Ondansetron 4 Mg/2 Ml Inj) 4 mg IV NOW ONE Stop: 01/08/22 00:49 Last Admin: 01/08/22 00:54 Dose: 4 mg Documented by: GINETTE Vital Signs Vital signs: Vital Signs - 8 hr 01/07/22 23:34 Temperature 98.4 F Pulse Rate 80 Respiratory Rate 18 Blood Pressure 138/90 Pulse Oximetry 100 Medical Decision Making Medical Records Medical records reviewed: Yes I reviewed the patient's medical records. Lab Data Lab results reviewed: Yes I reviewed the patient's lab results. Result diagrams: 01/08/22 00:05 01/08/22 00:05 Labs: Lab Results 01/07/22 01/08/22 01/08/22 Range/Units 23:46 00:05 00:05 WBC 6.9 (4.5-11.0) X10^3/uL RBC 4.60 (4.0-5.2) X10^6/uL Hgb 12.9 (12.0-16.0) g/dL Hct 37.8 (36-46) % MCV 82.1 (80-100) fL MCH 28.1 (26-34) PG MCHC 34.2 (30-36) % RDW 14.0 (11.6-14.8) % Plt Count 246 (150-400) X10^3/uL Neut % (Auto) 63.9 (50-75) % Lymph % (Auto) 26.8 (25-40) % [place] % (Auto) 7.3 (3-14) % Eos % (Auto) 1.6 L (2-4) % Baso % (Auto) 0.4 (0-2) % Neut # (Auto) 4400 (0912-3664) /uL Lymph # (Auto) 1800 (2574-6875) /uL [place] # (Auto) 500 (0-900) /uL Eos # (Auto) 100 (0-450) /uL Baso # (Auto) 0 (0-100) /uL Sodium 139 (137-145) mmol/L Potassium 3.8 (3.4-5.1) mmol/L Chloride 106 (98-107) mmol/L Carbon Dioxide 25 (22-32) mmol/L BUN 8 (7-17) mg/dL Creatinine 0.66 (0.52-1.04) mg/dL Estimated GFR > 60 (>60) mL/min BUN/Creatinine Ratio 12.1 (6-22) Glucose 122 H (70-100) mg/dL Calcium 9.2 (8.4-10.2) mg/dL Total Bilirubin 0.7 (0.2-1.3) mg/dL AST 26 (14-36) IU/L ALT 22 (<35) IU/L Alkaline Phosphatase 71 (38-126) U/L Total Protein 7.8 (6.3-8.2) g/dL Albumin 4.3 (3.5-5.0) g/dL Globulin 3.5 (1.7-4.1) g/dL Albumin/Globulin Ratio 1.2 (1.0-2.8) Lipase 57 (23-300) U/L Urine RBC None seen (0-5/HPF) Urine WBC 0-1/hpf (0-5/HPF) Ur Squamous Epith Cells 10-30 /hpf H (0-5/HPF) Urine Bacteria Few (2-10) H (None) Urine Mucus 2+ H (Negative) Ur Culture Indicated? Culture not indicate Micro UA Comment * Point of Care Testing Test Results Negative Urine Dip Bedside Urine Glucose Negative Bedside Urine Bilirubin - Negative Bedside Urine Ketone - Negative Urine Specific [place] 1.03 Bedside Urine Occult Blood - Negative Bedside Urine pH 6 Bedside Urine Protein + 30 Bedside Urine Urobilinogen - Negative Bedside Urine Nitrite - Negative Bedside Urine Leukocytes - Negative Esterase Point of care testing: Point of Care Testing Test Results Negative Urine Dip Bedside Urine Glucose Negative Bedside Urine Bilirubin - Negative Bedside Urine Ketone - Negative Urine Specific [place] 1.03 Bedside Urine Occult Blood - Negative Bedside Urine pH 6 Bedside Urine Protein + 30 Bedside Urine Urobilinogen - Negative Bedside Urine Nitrite - Negative Bedside Urine Leukocytes - Negative Esterase Imaging Data CT scan - abdomen/pelvis: Radiologist's Impression: [address] [address] [address] Scan Report Signed Patient: Asia Vera MR#: [id number] : 1995 Acct:[id number] Age/Sex: 26 / F Date of Service: 01/07/22 Loc: ED Accession Number: [id number] ?? Procedure: CT abdomen pelvis w con Ordering Provider: Jaswant Sethi D.O. PROCEDURE:? CT ABDOMEN PELVIS W CON ? INDICATIONS:? Bilateral back and lower abdominal pain ? TECHNIQUE:? After the administration of intravenous contrast, axial sections acquired from the lung bases to the pubic symphysis.? Coronal and sagittal reformats were performed.? For radiation dose reduction, the following was used:? automated exposure control, adjustment of mA and/or kV according to patient size.? ? COMPARISON:? [facility], CT, CT ABDOMEN PELVIS W CON, 12/31/2021, 23:32.? [facility], CT, CT ABDOMEN PELVIS W CON, 05/27/2021, 15:50. ? FINDINGS:? Image quality:? Excellent.? ? Lung bases:? Unremarkable. Heart:? No significant findings. ? ABDOMEN: Liver:? Unremarkable.? ? Gallbladder:? Previously resected? ? Biliary ducts:? Unremarkable.? ? Pancreas:? Unremarkable.? ? Spleen:? Unremarkable.? ? Adrenal Glands:? Unremarkable.? ? Kidneys and Ureters:? Unremarkable.? ? ? Stomach and Bowel:? Stomach, small bowel loops, and colon are unremarkable.? Peritoneum:? No abnormal intraperitoneal fluid.? No free air.? ? Ventral Wall: ? No hernias.? Abdominal Nodes:? No retroperitoneal or mesenteric adenopathy by size criteria.? Vessels:? Aorta and inferior vena cava are normal in size.? ? PELVIS: Pelvic Organs:? Unremarkable.? ? Bladder:? Unremarkable.? ? Pelvic Nodes: No enlarged lymph nodes.? Miscellaneous: No hernias are seen. ? ? ? Bones:? Unremarkable except for moderate degenerative disc disease with mild grade 1 anterolisthesis of L5 on S1..? IMPRESSION:? Prior cholecystectomy, no acute disease. Chronic L5-S1 degenerative disc disease that is moderate, with associated grade 1 anterolisthesis of L5 in relationship to S1.? ? Dictated by: Saul Villavicencio M.D. on 01/08/2022 at 1:21 ? ? Approved by: Saul Villavicencio M.D. on 01/08/2022 at 1:23?? [facility] Narrative Medical decision making narrative: Patient's urinalysis today does have bacteria but also has quite a few epi cells. It was cultured today. The CT scan of her abdomen pelvis shows no acute pathology. I do have low suspicion for pyelonephritis. Patient states she has no concern about sexually transmitted infections. Review of her record shows that in May last year she presents with very similar symptoms as today. I did discuss this with the patient he stated that she has had abdominal pain for some time. She has seen Gastroenterology. She states she has not had a colonoscopy. I did inform her of the lack of a definitive diagnosis today. We did discuss her labs. Told her that I did not think that she had a urinary tract infection or kidney infection. No indication for surgical consultation. 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 She will also contact her primary doctor for follow-up. Discharge Plan Departure Patient Disposition: Home Clinical Impression: Abdominal pain Instructions: DI for Abdominal Pain-Adult Activity Restrictions/Additional Instructions: Your workup today is very reassuring. There is no signs of any infection or surgical process. I do recommend that you contact the GI doctor who you of seen in the past to discuss a follow-up appointment. Also contact your primary doctor for follow-up as well. Prescriptions: No Action acetaminophen [Tylenol Extra Strength] 500 mg Tablet 1,000 mg PO Q6H PRN (Reason: Pain) 0RF ketorolac 10 mg tablet 10 mg PO TID PRN (Reason: Pain (Scale Score 7-10)) 0RF tamsulosin 0.4 mg capsule 0.4 mg PO DAILY 0RF Rx Instructions: x 14 days ondansetron 4 mg tablet,disintegrating 4 mg PO TID PRN (Reason: nausea/vomiting) 0RF metoclopramide HCl [Reglan] 10 mg tablet 10 mg PO Q6H PRN (Reason: nausea and vomiting) Qty: 12 0RF cefpodoxime 200 mg tablet 200 mg PO BID 10 Days Qty: 20 0RF Rx Instructions: must administer with a meal/food hydrocodone-acetaminophen 5-325 mg tablet 1 tab PO Q4-6H PRN (Reason: pain) Qty: 10 0RF ondansetron 4 mg tablet,disintegrating 4 mg PO TID-QID PRN (Reason: nausea and vomiting) Qty: 10 0RF Referrals: Toro Wheat MD [Primary Care Provider] -
--- NOTE | 2022-01-07 23:49 | DI.CT.S_ITS ---
PROCEDURE: CT ABDOMEN PELVIS W CON INDICATIONS: Bilateral back and lower abdominal pain TECHNIQUE: After the administration of intravenous contrast, axial sections acquired from the lung bases to the pubic symphysis. Coronal and sagittal reformats were performed. For radiation dose reduction, the following was used: automated exposure control, adjustment of mA and/or kV according to patient size. COMPARISON: [facility], CT, CT ABDOMEN PELVIS W CON, 12/31/2021, 23:32. [facility], CT, CT ABDOMEN PELVIS W CON, 05/27/2021, 15:50. FINDINGS: Image quality: Excellent. Lung bases: Unremarkable. Heart: No significant findings. ABDOMEN: Liver: Unremarkable. Gallbladder: Previously resected Biliary ducts: Unremarkable. Pancreas: Unremarkable. Spleen: Unremarkable. Adrenal Glands: Unremarkable. Kidneys and Ureters: Unremarkable. Stomach and Bowel: Stomach, small bowel loops, and colon are unremarkable. Peritoneum: No abnormal intraperitoneal fluid. No free air. Ventral Wall: No hernias. Abdominal Nodes: No retroperitoneal or mesenteric adenopathy by size criteria. Vessels: Aorta and inferior vena cava are normal in size. PELVIS: Pelvic Organs: Unremarkable. Bladder: Unremarkable. Pelvic Nodes: No enlarged lymph nodes. Miscellaneous: No hernias are seen. Bones: Unremarkable except for moderate degenerative disc disease with mild grade 1 anterolisthesis of L5 on S1.. IMPRESSION: Prior cholecystectomy, no acute disease. Chronic L5-S1 degenerative disc disease that is moderate, with associated grade 1 anterolisthesis of L5 in relationship to S1. Dictated by: Saul Villavicencio M.D. on 01/08/2022 at 1:21 Approved by: Saul Villavicencio M.D. on 01/08/2022 at 1:23
[2022-01-08] MEDS: SODIUM CHLORIDE 0.9% 1,000 ML 1000 ML IV (00:07)
[2022-01-08] MEDS: ONDANSETRON 4 MG/2 ML INJ IV ×2 (00:07→00:54)
[2022-01-08] MEDS: KETOROLAC 30 MG/ML VIAL IV (00:07)
[2022-01-08 00:10] LABS: RBC Urine None Seen (0-5/HPF); Squamous Epithelial Cell Urine 10-30 /HPF (0-5/HPF); WBC Urine 0-1/HPF (0-5/HPF)
[2022-01-08 00:11] LABS: Bacteria Urine Few (2-10); Mucus Urine 2+ (Negative)
[2022-01-08 00:23] LABS: Add Manual Diff / Slide Review NO; Basophils Absolute Auto 0 /uL (0-100); Basophils Percent Auto 0.4 % (0-2); Eosinophils Absolute Auto 100 /uL (0-450); Eosinophils Percent Auto 1.6 % (2-4); Hematocrit 37.8 % (36-46); Hemoglobin 12.9 g/dL (12.0-16.0); Lymphocytes Absolute Auto 1800 /uL (1100-4500); Lymphocytes Percent Auto 26.8 % (25-40); Mean Corpuscular HGB Conc 34.2 % (30-36); Mean Corpuscular Hemoglobin 28.1 PG (26-34); Mean Corpuscular Volume 82.1 fL (80-100); Monocytes Absolute Auto 500 /uL (0-900); Monocytes Percent Auto 7.3 % (3-14); Neutrophils Absolute Auto 4400 /uL (1500-7000); Neutrophils Percent Auto 63.9 % (50-75); Platelet Count 246 X10^3/uL (150-400); White Blood Cell Count 6.9 X10^3/uL (4.5-11.0)
[2022-01-08 00:32] LABS: Alanine Aminotransferase 22 IU/L (<35); Albumin 4.3 g/dL (3.5-5.0); Albumin Globulin Ratio 1.2 (1.0-2.8); Alkaline Phosphatase 71 U/L (38-126); Aspartate Aminotransferase 26 IU/L (14-36); BUN Creatinine Ratio 12.1 (6-22); Bilirubin Total 0.7 mg/dL (0.2-1.3); Blood Urea Nitrogen 8 mg/dL (7-17); Calcium 9.2 mg/dL (8.4-10.2); Carbon Dioxide 25 mmol/L (22-32); Chloride 106 mmol/L (98-107); Estimated Glomerular Filt Rate > 60 mL/min (>60); Globulin 3.5 g/dL (1.7-4.1); Glucose 122 mg/dL (70-100); HEMOLYSIS < 15 (0-50); Lipase 57 U/L (23-300); Potassium 3.8 mmol/L (3.4-5.1); Sodium 139 mmol/L (137-145); Total Protein 7.8 g/dL (6.3-8.2)
[2022-01-08 01:44] VITALS: BP 122/84; PULSE 74; RESP 18; O2SAT 100
== END 2022-01-08 01:45 | disposition home or self-care (01) ==
PROVIDERS: Emergency Provider Emergency Medicine; PCP Family Medicine
DX: R10.30 Lower abdominal pain, unspecified (principal); R35.0 Frequency of micturition; R39.15 Urgency of urination; R11.2 Nausea with vomiting, unspecified; R82.71 Bacteriuria
CPT/HCPCS: 36415; 74177; 80053; 81003; 81015; 81025; 83690; 85025; 87086; 96374; 96375; 96376; 99284; J1885; J2405

== ENCOUNTER 2022-01-14 23:04 | Emergency (ER) | payer OTHER, MEDICAID, SELFPAY ==
[2022-01-14 23:14] VITALS: BP 143/69; PULSE 117; RESP 18; TEMP 36.8; O2SAT 98; BMI 41.5
[2022-01-14 23:24] LABS: Add Manual Diff / Slide Review NO; Basophils Absolute Auto 0 /uL (0-100); Basophils Percent Auto 0.6 % (0-2); Eosinophils Absolute Auto 100 /uL (0-450); Eosinophils Percent Auto 1.5 % (2-4); Hematocrit 38.2 % (36-46); Hemoglobin 12.8 g/dL (12.0-16.0); Lymphocytes Absolute Auto 2300 /uL (1100-4500); Lymphocytes Percent Auto 28.7 % (25-40); Mean Corpuscular HGB Conc 33.6 % (30-36); Mean Corpuscular Hemoglobin 27.8 PG (26-34); Mean Corpuscular Volume 82.8 fL (80-100); Monocytes Absolute Auto 600 /uL (0-900); Monocytes Percent Auto 7.3 % (3-14); Neutrophils Absolute Auto 5000 /uL (1500-7000); Neutrophils Percent Auto 61.9 % (50-75); Platelet Count 255 X10^3/uL (150-400); Red Blood Cell Count 4.62 X10^6/uL (4.0-5.2); Red Cell Distribution Width 14.2 % (11.6-14.8)
[2022-01-14 23:33] VITALS: PULSE 104; O2SAT 99
[2022-01-14 23:34] VITALS: BP 149/77; PULSE 105; O2SAT 99
[2022-01-14 23:34] LABS: Lactate (Lactic Acid) 1.4 mmol/L (0.7-2.1)
[2022-01-14] MEDS: SODIUM CHLORIDE 0.9% 1,000 ML 1000 ML IV (23:35)
[2022-01-14] MEDS: ONDANSETRON 4 MG/2 ML INJ IV (23:35)
[2022-01-14 23:36] LABS: Alanine Aminotransferase 22 IU/L (<35); Albumin 4.4 g/dL (3.5-5.0); Albumin Globulin Ratio 1.2 (1.0-2.8); Alkaline Phosphatase 62 U/L (38-126); Aspartate Aminotransferase 28 IU/L (14-36); BUN Creatinine Ratio 16.1 (6-22); Bilirubin Total 0.3 mg/dL (0.2-1.3); Blood Urea Nitrogen 14 mg/dL (7-17); Calcium 9.4 mg/dL (8.4-10.2); Carbon Dioxide 25 mmol/L (22-32); Chloride 105 mmol/L (98-107); Estimated Glomerular Filt Rate > 60 mL/min (>60); Globulin 3.7 g/dL (1.7-4.1); Glucose 116 mg/dL (70-100); HEMOLYSIS < 15 (0-50); Lipase 88 U/L (23-300); Sodium 139 mmol/L (137-145); Total Protein 8.1 g/dL (6.3-8.2)
[2022-01-14] MEDS: PANTOPRAZOLE 40 MG VIAL IV (23:36)
--- NOTE | 2022-01-14 23:36 | ED_ITS ---
HPI - Abdominal Pain General Chief Complaint: Abdominal Pain Stated Complaint: Severe pain Time Seen by Provider: 01/14/22 23:07 Source: patient Mode of arrival: Ambulatory History of Present Illness HPI narrative: 26-year-old female former smoker presents for the 3rd time to evaluate severe left lower quadrant and left flank pain. She states that her symptoms continue to be present if not worse. She has pain in her left lower quadrant and along her left flank into her left upper back. She denies any trauma or injury. She has had no fever or chills. She has a poor appetite and complains that any motion causes her significant pain. She has had the occasional cough but denies any chest pain or production of sputum. She states that she recently had her menses that lasted 2 days which is normal for her. She denies any ongoing vaginal bleeding or discharge. She denies any obvious dysuria, frequency or urgency. Had been treated for suspected pyelonephritis initially and had been on a 10 day course of cefdinir, urine culture subsequently developed findings consistent with presumptive Gardnerella and a prescription of Flagyl was called in. She has taken all these medications as directed and has no improvement in her symptoms. She denies any rash or discoloration of the skin but states very subtle palpation of the skin causes a burning pain on her left side. She had extensive workup including CT scan for both of her previous visits Related Data Home Medications Medication Instructions Recorded Confirmed acetaminophen 500 mg tablet 1,000 mg PO Q6H PRN 01/13/20 05/27/21 (Tylenol Extra Strength) ketorolac 10 mg tablet 10 mg PO TID PRN 05/27/21 05/27/21 ondansetron 4 mg disintegrating 4 mg PO TID PRN 05/27/21 05/27/21 tablet tamsulosin 0.4 mg capsule 0.4 mg PO DAILY 05/27/21 05/27/21 Previous Rx's Medication Instructions Recorded metoclopramide HCl 10 mg tablet 10 mg PO Q6H PRN #12 tab 05/27/21 (Reglan) hydrocodone 5 mg-acetaminophen 325 1 tab PO Q4-6H PRN #10 tab 01/01/22 mg tablet ondansetron 4 mg disintegrating 4 mg PO TID-QID PRN #10 tab 01/01/22 tablet metronidazole 500 mg tablet 500 mg PO BID #14 tab 01/10/22 gabapentin 300 mg capsule 300 mg PO BEDTIME #14 cap 01/15/22 lidocaine 5 % topical patch 1 patch TOP DAILY #15 each 01/15/22 (Lidoderm) Allergies Allergy/AdvReac Type Severity Reaction Status Date / Time No Known Drug Allergies Allergy Verified 01/07/22 23:34 Review of Systems Review of Systems Narrative: GENERAL: Denies chills, fatigue, malaise, fever, sweats. HEENT: Denies sinus pain, ear pain, sore throat, difficulty swallowing, dizziness. RESPIRATORY: Denies dyspnea, cough, wheezing, hemoptysis, sputum. CARDIOVASCULAR: See HPI GASTROINTESTINAL: See HPI : Denies dysuria, frequency, incontinence, hematuria, urinary retention. MUSCULOSKELETAL: denies weakness, joint pain, or bony pain SKIN: Denies rash, skin lesions, or other NEUROLOGIC: Denies weakness, headache, numbness, change in speech, confusion, seizures, incoordination. PSYCHIATRIC: No concerning psychosocial issues. 12 point review of systems is negative except for those stated above Patient History Medical History Fusion of toes of right foot Pyelonephritis (~06/2019) Sebaceous cyst Surgical History History of bunionectomy of left great toe History of bunionectomy of right great toe Hx of cholecystectomy Hx of eye surgery Hx of foot surgery Hx of foot surgery (08/25/20) S/P foot surgery, right S/P foot surgery, right (09/12/19) S/P hardware removal Social History household members: family and children Smoking Status: Former smoker alcohol intake: current Smoking Status: Former smoker alcohol intake frequency: a few times a week Substance Use Type: marijuana Exam Narrative Exam Narrative: GENERAL: [26 year old patient appears stated age. Well-developed patient, in mild distress. Obviously in discomfort, rubbing her left side HEAD: Atraumatic. Normocephalic. EYES: Pupils equal round and reactive. Extraocular motions intact. No scleral icterus. No injection or drainage. ENT: Nose without bleeding, purulent drainage. Throat without erythema, tonsillar hypertrophy or exudate. Airway patent. NECK: Trachea midline. Non tender CARDIOVASCULAR: Regular rate and rhythm without murmurs, gallops, or rubs. RESPIRATORY: Clear to auscultation. Breath sounds equal bilaterally. No wheezes, rales, or rhonchi. GASTROINTESTINAL: Abdomen soft, n to palpation in the left lower quadrant, left flank with left CVA tenderness. No obvious external manifestation, no rash, erythema but very light touch illicits pain PELVIC: No discharge or cervical motion tenderness, no pain on bimanual. Performed with female nursing concrete wall grinder operator at the bedside and patient permission EXTREMITIES: No edema or joint tenderness. BACK: Nontender without deformity or crepitance. No flank tenderness. NEURO: AOx3. SKIN: No rash or erythema of visible areas Initial Vital Signs Initial Vital Signs: Vital Signs Temperature 98.2 F 01/14/22 23:14 Pulse Rate 117 H 01/14/22 23:14 Respiratory Rate 18 01/14/22 23:14 Blood Pressure 143/69 H 01/14/22 23:14 Pulse Oximetry 98 01/14/22 23:14 Course Orders Ordered: ED Orders 01/14/22 23:13 EKG-12 Lead Stat 01/14/22 23:15 Complete Blood Count AUTO DIFF Stat Comprehensive Metabolic Panel Stat Lactate (Lactic Acid) Stat Lipase Stat Magnesium Stat 01/14/22 23:26 Blood Culture Stat 01/15/22 00:06 COVID19 -Nasal RAPID/Pre-Proc Stat 01/15/22 01:42 Genital Culture Stat Wet Prep Tric BV Anitra Stat Discontinued Medications Hydrocodone Bitart/Acetaminophen (Hydrocodone/Acet 5/325 Prepack) 1 bottle MISC SEEINSTR ONE Stop: 01/15/22 01:42 Gabapentin (Gabapentin 300 Mg Capsule) 300 mg PO NOW ONE Stop: 01/15/22 00:59 Last Admin: 01/15/22 01:02 Dose: 300 mg Documented by: YSABEL Sodium Chloride (Normal Saline 0.9%) 1,000 mls @ 1,000 mls/hr IV BOLUS ONE Stop: 01/15/22 00:11 Last Infusion: 01/15/22 01:08 Dose: 0 mls/hr Documented by: Admin: 01/14/22 23:35 Dose: 1,000 mls/hr Documented by: YSABEL Lidocaine (Lidocaine Patch 1 Each Adh..Patch) 1 each TOP NOW ONE Stop: 01/15/22 00:59 Last Admin: 01/15/22 01:02 Dose: 1 each Documented by: YSABEL Ondansetron HCl (Ondansetron 4 Mg/2 Ml Inj) 4 mg IV NOW ONE Stop: 01/14/22 23:13 Last Admin: 01/14/22 23:35 Dose: 4 mg Documented by: YSABEL Pantoprazole Sodium (Pantoprazole 40 Mg Vial) 40 mg IV NOW ONE Stop: 01/14/22 23:13 Last Admin: 01/14/22 23:36 Dose: 40 mg Documented by: YSABEL Vital Signs Vital signs: Vital Signs - 8 hr 01/14/22 23:14 01/14/22 23:33 01/14/22 23:34 Temperature 98.2 F Pulse Rate 117 H 104 H 105 H Respiratory Rate 18 Blood Pressure 143/69 H 149/77 H Pulse Oximetry 98 99 99 01/15/22 00:00 01/15/22 00:01 01/15/22 00:30 Temperature Pulse Rate 95 H 95 H 92 H Respiratory Rate Blood Pressure 139/65 Pulse Oximetry 96 97 99 01/15/22 01:00 Temperature Pulse Rate 94 H Respiratory Rate Blood Pressure Pulse Oximetry 98 MDM - Abdominal Pain Lab Data Result diagrams: 01/14/22 23:15 01/14/22 23:15 Labs: Lab Results 01/14/22 01/14/22 01/14/22 Range/Units 23:15 23:15 23:15 WBC 8.0 (4.5-11.0) X10^3/uL RBC 4.62 (4.0-5.2) X10^6/uL Hgb 12.8 (12.0-16.0) g/dL Hct 38.2 (36-46) % MCV 82.8 (80-100) fL MCH 27.8 (26-34) PG MCHC 33.6 (30-36) % RDW 14.2 (11.6-14.8) % Plt Count 255 (150-400) X10^3/uL Neut % (Auto) 61.9 (50-75) % Lymph % (Auto) 28.7 (25-40) % [place] % (Auto) 7.3 (3-14) % Eos % (Auto) 1.5 L (2-4) % Baso % (Auto) 0.6 (0-2) % Neut # (Auto) 5000 (0064-8723) /uL Lymph # (Auto) 2300 (0313-1883) /uL [place] # (Auto) 600 (0-900) /uL Eos # (Auto) 100 (0-450) /uL Baso # (Auto) 0 (0-100) /uL Sodium 139 (137-145) mmol/L Potassium 4.0 (3.4-5.1) mmol/L Chloride 105 (98-107) mmol/L Carbon Dioxide 25 (22-32) mmol/L BUN 14 (7-17) mg/dL Creatinine 0.87 (0.52-1.04) mg/dL Estimated GFR > 60 (>60) mL/min BUN/Creatinine Ratio 16.1 (6-22) Glucose 116 H (70-100) mg/dL Lactate 1.4 (0.7-2.1) mmol/L Calcium 9.4 (8.4-10.2) mg/dL Magnesium (1.6-2.3) mg/dL Total Bilirubin 0.3 (0.2-1.3) mg/dL AST 28 (14-36) IU/L ALT 22 (<35) IU/L Alkaline Phosphatase 62 (38-126) U/L Total Protein 8.1 (6.3-8.2) g/dL Albumin 4.4 (3.5-5.0) g/dL Globulin 3.7 (1.7-4.1) g/dL Albumin/Globulin Ratio 1.2 (1.0-2.8) Lipase (23-300) U/L SARS-CoV-2 (PCR) (Negative) 01/14/22 01/15/22 Range/Units 23:15 00:06 WBC (4.5-11.0) X10^3/uL RBC (4.0-5.2) X10^6/uL Hgb (12.0-16.0) g/dL Hct (36-46) % MCV (80-100) fL MCH (26-34) PG MCHC (30-36) % RDW (11.6-14.8) % Plt Count (150-400) X10^3/uL Neut % (Auto) (50-75) % Lymph % (Auto) (25-40) % [place] % (Auto) (3-14) % Eos % (Auto) (2-4) % Baso % (Auto) (0-2) % Neut # (Auto) (1163-6359) /uL Lymph # (Auto) (0211-7036) /uL [place] # (Auto) (0-900) /uL Eos # (Auto) (0-450) /uL Baso # (Auto) (0-100) /uL Sodium (137-145) mmol/L Potassium (3.4-5.1) mmol/L Chloride (98-107) mmol/L Carbon Dioxide (22-32) mmol/L BUN (7-17) mg/dL Creatinine (0.52-1.04) mg/dL Estimated GFR (>60) mL/min BUN/Creatinine Ratio (6-22) Glucose (70-100) mg/dL Lactate (0.7-2.1) mmol/L Calcium (8.4-10.2) mg/dL Magnesium 2.0 (1.6-2.3) mg/dL Total Bilirubin (0.2-1.3) mg/dL AST (14-36) IU/L ALT (<35) IU/L Alkaline Phosphatase (38-126) U/L Total Protein (6.3-8.2) g/dL Albumin (3.5-5.0) g/dL Globulin (1.7-4.1) g/dL Albumin/Globulin Ratio (1.0-2.8) Lipase 88 D (23-300) U/L SARS-CoV-2 (PCR) Negative (Negative) Point of care testing: Point of Care Testing Test Results Negative Urine Dip Bedside Urine Glucose Negative Bedside Urine Bilirubin - Negative Bedside Urine Ketone - Negative Urine Specific [place] 1.025 Bedside Urine Occult Blood - Negative Bedside Urine pH 6.0 Bedside Urine Protein - Negative Bedside Urine Urobilinogen - Negative Bedside Urine Nitrite - Negative Bedside Urine Leukocytes - Negative Esterase MDM Narrative Medical decision making narrative: Patient returns with ongoing, if not worse left flank pain in the absence of injury or trauma. She denies systemic findings such as fever chills nor nausea or vomiting. She denies dysuria, frequency, vaginal bleeding or discharge. She had been seen a few times recently, initially thought to have pyelonephritis and put on antibiotics, culture showed potential Gardnerella and a prescription for Flagyl was called in. Her labs are very reassuring, urine shows no sign of infection. Her pain is very superficial and elicited by even the most subtle touch of her skin, it wraps around her flank and though no rash is noted elements of this are consistent with shingles or post herpetic type pain. Her abdomen is soft, repeat imaging in the setting of this presentation seems unwarranted and given multiple recent CT scans could even put her at risk. We talked at length about my concern about neuropathic type pain, she feels signi ficant improvement after lidocaine and gabapentin, she is taking gabapentin before and tolerated well. I stressed the importance of close follow-up with her primary care provider and talked about elements that would prompt a return to the emergency department. Return precautions discussed and questions answered to her apparent satisfaction Discharge Plan Departure Patient Disposition: Home Clinical Impression: Acute flank pain, Nerve pain Instructions: Neuropathic Pain Activity Restrictions/Additional Instructions: *You have been diagnosed with [left flank pain, possibly due to neuropathic pain. As we discussed your labs, history and physical continued to be very reassuring. *What to do: *Please continue to take your regular medications as directed. [x ] New medication prescriptions sent to your pharmacy: [ [facility]] [ ] New medication written as a paper prescription [ ] No new medications given *Please follow up with your primary care provider in 2-3 days, call for an appointment. Let them know you were seen in the Emergency Department and that we ask that you be seen in follow up. We will electronically transmit a record of today's note if your PCP is in our system *If you do not have a primary care provider please contact the [facility] Resource line at [phone]. They will ask some questions about your medical history and help get you set up with a doctor in the community. *Return to Emergency Department if you should have any new, worsening or concerning symptoms, such as [fever greater than 101 F, shaking chills, worsening pain, persistent vomiting or other bothersome symptoms] Prescriptions: New lidocaine [Lidoderm] 5 % adhesive patch,medicated 1 patch TOP DAILY Qty: 15 0RF Rx Instructions: leave on most painful area for 12 hrs gabapentin 300 mg capsule 300 mg PO BEDTIME Qty: 14 0RF No Action acetaminophen [Tylenol Extra Strength] 500 mg Tablet 1,000 mg PO Q6H PRN (Reason: Pain) 0RF ketorolac 10 mg tablet 10 mg PO TID PRN (Reason: Pain (Scale Score 7-10)) 0RF tamsulosin 0.4 mg capsule 0.4 mg PO DAILY 0RF Rx Instructions: x 14 days ondansetron 4 mg tablet,disintegrating 4 mg PO TID PRN (Reason: nausea/vomiting) 0RF metoclopramide HCl [Reglan] 10 mg tablet 10 mg PO Q6H PRN (Reason: nausea and vomiting) Qty: 12 0RF hydrocodone-acetaminophen 5-325 mg tablet 1 tab PO Q4-6H PRN (Reason: pain) Qty: 10 0RF ondansetron 4 mg tablet,disintegrating 4 mg PO TID-QID PRN (Reason: nausea and vomiting) Qty: 10 0RF metronidazole 500 mg tablet 500 mg PO BID Qty: 14 0RF Referrals: Toro Wheat MD [Primary Care Provider] -
[2022-01-15] VITALS: PULSE 95; O2SAT 96
[2022-01-15 00:01] VITALS: BP 139/65; PULSE 95; O2SAT 97
[2022-01-15 00:24] LABS: COVID19 -Nasal RAPID Negative (Negative)
[2022-01-15 00:30] VITALS: PULSE 92; O2SAT 99
[2022-01-15 01:00] VITALS: PULSE 94; O2SAT 98
[2022-01-15] MEDS: LIDOCAINE PATCH 1 EACH ADH..PATCH TOP (01:02)
[2022-01-15] MEDS: GABAPENTIN 300 MG CAPSULE PO (01:02)
[2022-01-15 01:54] VITALS: BP 117/60; PULSE 84; O2SAT 99
[2022-01-15] MEDS: HYDROCODONE/ACET 5/325 PREPACK 1 BOTTLE MISC (01:58)
== END 2022-01-15 02:01 | disposition home or self-care (01) ==
PROVIDERS: Emergency Provider Emergency Medicine; PCP Family Medicine
DX: R10.9 Unspecified abdominal pain (principal); M79.2 Neuralgia and neuritis, unspecified; M54.6 Pain in thoracic spine; Z20.822 Contact with and (suspected) exposure to COVID-19
CPT/HCPCS: 36415; 80053; 81003; 81025; 83605; 83690; 83735; 85025; 87040; 87070; 87205; 87252; 87635; 93005; 96374; 96375; 99284; 99285; C9803; C9113; J2405

== ENCOUNTER 2022-02-04 01:30 | Emergency (ER) | payer OTHER, MEDICAID, SELFPAY ==
[2022-02-04 01:39] VITALS: BP 124/87; PULSE 95; RESP 20; TEMP 36.3; O2SAT 95; BMI 41.5
--- NOTE | 2022-02-04 01:53 | ED_ITS ---
HPI - URI/Sore Throat General Chief Complaint: Upper Respiratory Symptoms Stated Complaint: COUGHING, SORE THROAT Time Seen by Provider: 02/04/22 01:41 Source: patient Mode of arrival: Ambulatory History of Present Illness HPI Narrative: Patient is a 26-year-old female who presents with sore throat and cough. She says been ongoing for couple of weeks. However tonight she can not sleep because the coughing so bad in her throat hurts.i fever chills. She has been using her mother's nebulizer machine which sometimes helps. She has also tried multiple [id number] medications to also help with her sore throat and cough. She says nothing is working. She does admit to smoking to marijuana but not not tobacco. His Related Data Home Medications Medication Instructions Recorded Confirmed acetaminophen 500 mg tablet 1,000 mg PO Q6H PRN 01/13/20 05/27/21 (Tylenol Extra Strength) ketorolac 10 mg tablet 10 mg PO TID PRN 05/27/21 05/27/21 ondansetron 4 mg disintegrating 4 mg PO TID PRN 05/27/21 05/27/21 tablet tamsulosin 0.4 mg capsule 0.4 mg PO DAILY 05/27/21 05/27/21 Previous Rx's Medication Instructions Recorded metoclopramide HCl 10 mg tablet 10 mg PO Q6H PRN #12 tab 05/27/21 (Reglan) hydrocodone 5 mg-acetaminophen 325 1 tab PO Q4-6H PRN #10 tab 01/01/22 mg tablet ondansetron 4 mg disintegrating 4 mg PO TID-QID PRN #10 tab 01/01/22 tablet metronidazole 500 mg tablet 500 mg PO BID #14 tab 01/10/22 gabapentin 300 mg capsule 300 mg PO BEDTIME #14 cap 01/15/22 lidocaine 5 % topical patch 1 patch TOP DAILY #15 each 01/15/22 (Lidoderm) Allergies Allergy/AdvReac Type Severity Reaction Status Date / Time No Known Drug Allergies Allergy Verified 01/07/22 23:34 Review of Systems Review of Systems Narrative: GENERAL: Denies chills, fatigue, malaise, fever, sweats, travel HEENT: See HPI RESPIRATORY: Denies dyspnea, cough, wheezing, hemoptysis, sputum. CARDIOVASCULAR: Denies chest pain, palpitations, orthopnea, edema GASTROINTESTINAL: Denies nausea, vomiting, abdominal pain, diarrhea, constipation, melena. : Denies dysuria, frequency, incontinence, hematuria, urinary retention, flank pain. MUSCULOSKELETAL: Denies weakness, joint pain, or bony pain SKIN: No rash, no erythema, no pruritus NEUROLOGIC: Denies weakness, dizziness, headache, numbness, change in speech, confusion PSYCHIATRIC: No concerning psychosocial issues. 12 point review of systems is negative except for those stated above and HPI Patient History Medical History Fusion of toes of right foot Pyelonephritis (~06/2019) Sebaceous cyst Surgical History History of bunionectomy of left great toe History of bunionectomy of right great toe Hx of cholecystectomy Hx of eye surgery Hx of foot surgery Hx of foot surgery (08/25/20) S/P foot surgery, right S/P foot surgery, right (09/12/19) S/P hardware removal Social History household members: family and children Smoking Status: Former smoker alcohol intake: current Smoking Status: Former smoker alcohol intake frequency: a few times a week Substance Use Type: marijuana Exam Initial Vital Signs Initial Vital Signs: Vital Signs Temperature 97.4 F L 02/04/22 01:39 Pulse Rate 95 H 02/04/22 01:39 Respiratory Rate 20 02/04/22 01:39 Blood Pressure 124/87 02/04/22 01:39 Pulse Oximetry 95 02/04/22 01:39 GENERAL: A well-appearing 26-year-old female and in no acute distress. HEENT: Head atraumatic,EOMI, pupils reactive, face symmetric, moist mucous membranes PHARYNX: Mild erythema no exudate no uvula deviation airway intact CARDIOVASCULAR: Regular rate and rhythm without murmurs, rubs or gallops. RESPIRATORY: Breath sounds equal bilaterally, no wheezes rales or rhonchi. EXTREMITIES: Normal range of motion, no clubbing or edema. Neurovascularly intact NEUROLOGICAL: Alert and oriented x4.N SKIN: Warm, dry, no laceration, no petechiae, no rashes or lesions. Course Orders Ordered: ED Orders 02/04/22 01:40 Covid-19 + FLU A/B by PCR Stat Discontinued Medications Albuterol (Albuterol Hfa Prepack) 1 box MISC SEEINSTR ONE Stop: 02/04/22 02:48 Last Admin: 02/04/22 02:54 Dose: 1 box Documented by: Albuterol/Ipratropium (Albuterol/Ipratropium 3 Ml Ampul) 3 ml INH NOW ONE Stop: 02/04/22 01:42 Last Admin: 02/04/22 02:54 Dose: 3 ml Documented by: Vital Signs Vital signs: Vital Signs - 8 hr 02/04/22 01:39 02/04/22 02:55 Temperature 97.4 F L Pulse Rate 95 H Respiratory Rate 20 Blood Pressure 124/87 Pulse Oximetry 95 94 MDM - URI/Sore Throat Lab Data Labs: Lab Results 02/04/22 Range/Units 01:40 SARS-CoV-2 (PCR) Negative (Negative) Influenza A (RT-PCR) Flu a negative (NEGATIVE) Influenza B (RT-PCR) Flu b negative (NEGATIVE) Point of Care Testing Rapid Strep A Negative MDM Narrative Medical decision making narrative: Patient overall appears well. Testing here in the emergency department is negative. No indication for antibiotics. Discussed with her supportive care only. She did have some mild improvement with albuterol. She is given an in haler and spacer. Discharge Plan Departure Patient Disposition: Home Clinical Impression: Upper respiratory infection Instructions: DI for Viral Upper Respiratory Infection -- Adult Activity Restrictions/Additional Instructions: *You have been diagnosed with upper respiratory infection *What to do: At this time no need for antibiotics. Please continue supportive care. Try honey and [id number] medications for your sore throat. *Continue to take medications as directed Tylenol 1000 mg every 6 hours if needed for [id number]-[id number] Albuterol inhaler 1-2 puffs every 4 hours if needed for coughing spell *Follow up with your primary care provider in 2-3 days or call [phone] *Return to ER if you should have increasing shortness of breath, fever or any new, worsening or concerning symptoms Prescriptions: No Action acetaminophen [Tylenol Extra Strength] 500 mg Tablet 1,000 mg PO Q6H PRN (Reason: Pain) 0RF ketorolac 10 mg tablet 10 mg PO TID PRN (Reason: Pain (Scale Score 7-10)) 0RF tamsulosin 0.4 mg capsule 0.4 mg PO DAILY 0RF Rx Instructions: x 14 days ondansetron 4 mg tablet,disintegrating 4 mg PO TID PRN (Reason: nausea/vomiting) 0RF metoclopramide HCl [Reglan] 10 mg tablet 10 mg PO Q6H PRN (Reason: nausea and vomiting) Qty: 12 0RF hydrocodone-acetaminophen 5-325 mg tablet 1 tab PO Q4-6H PRN (Reason: pain) Qty: 10 0RF ondansetron 4 mg tablet,disintegrating 4 mg PO TID-QID PRN (Reason: nausea and vomiting) Qty: 10 0RF metronidazole 500 mg tablet 500 mg PO BID Qty: 14 0RF lidocaine [Lidoderm] 5 % adhesive patch,medicated 1 patch TOP DAILY Qty: 15 0RF Rx Instructions: leave on most painful area for 12 hrs gabapentin 300 mg capsule 300 mg PO BEDTIME Qty: 14 0RF Referrals: Toro Wheat MD [Primary Care Provider] - Stand Alone Forms: Work Release Note
[2022-02-04 02:30] LABS: Influenza A - CEPHEID Flu A NEGATIVE (NEGATIVE); Influenza B - CEPHEID Flu B NEGATIVE (NEGATIVE)
[2022-02-04 02:43] LABS: COVID-19 CEPHEID PCR (VTM/NP) Negative (Negative)
[2022-02-04] MEDS: ALBUTEROL/IPRATROPIUM 3 ML AMPUL INH (02:54)
[2022-02-04] MEDS: ALBUTEROL HFA PREPACK 1 BOX MISC (02:54)
[2022-02-04 02:55] VITALS: O2SAT 94
[2022-02-04 03:02] VITALS: PULSE 87; RESP 18; O2SAT 95
== END 2022-02-04 03:03 | disposition home or self-care (01) ==
PROVIDERS: Emergency Provider Emergency Medicine; PCP Family Medicine
DX: J06.9 Acute upper respiratory infection, unspecified (principal); R05.9 Cough, unspecified; Z20.822 Contact with and (suspected) exposure to COVID-19
CPT/HCPCS: 87635; 87880; 94640; 99283; C9803

== ENCOUNTER 2022-02-23 22:45 | Emergency (ER) | payer OTHER, MEDICAID, SELFPAY ==
[2022-02-23 22:50] VITALS: BP 143/70; PULSE 101; RESP 18; TEMP 36.4; O2SAT 100; BMI 41.5
--- NOTE | 2022-02-24 00:01 | ED.SKABFB ---
HPI - Skin/Abscess/Foreign Bdy General Chief complaint: Skin/Abscess/Foreign Body Stated complaint: painful lump on lt inner thigh Time Seen by Provider: 02/23/22 23:54 Source: patient Mode of arrival: Ambulatory Limitations: no limitations History of Present Illness HPI narrative: Patient denies does not want a test. Patient states she does have a family doctor. Patient complains redness swelling and pain to the left upper medial thigh that started today. No prior history of cellulitis or abscess or MRSA. Denies any skin injury. Related Data Home Medications Medication Instructions Recorded Confirmed acetaminophen 500 mg tablet 1,000 mg PO Q6H PRN Pain 01/13/20 05/27/21 (Tylenol Extra Strength) ketorolac 10 mg tablet 10 mg PO TID PRN Pain (Scale Score 05/27/21 05/27/21 7-10) ondansetron 4 mg disintegrating 4 mg PO TID PRN nausea/vomiting 05/27/21 05/27/21 tablet tamsulosin 0.4 mg capsule 0.4 mg PO DAILY 05/27/21 05/27/21 Previous Rx's Medication Instructions Recorded metoclopramide HCl 10 mg tablet 10 mg PO Q6H PRN nausea and 05/27/21 (Reglan) vomiting #12 tabs hydrocodone 5 mg-acetaminophen 325 1 tab PO Q4-6H PRN pain #10 tabs 01/01/22 mg tablet ondansetron 4 mg disintegrating 4 mg PO TID-QID PRN nausea and 01/01/22 tablet vomiting #10 tabs metronidazole 500 mg tablet 500 mg PO BID #14 tabs 01/10/22 gabapentin 300 mg capsule 300 mg PO BEDTIME #14 caps 01/15/22 lidocaine 5 % topical patch 1 patch topical DAILY #15 ea 01/15/22 (Lidoderm) doxycycline monohydrate 100 mg 100 mg PO BID #14 caps 02/24/22 capsule cetirizine 10 mg tablet 10 mg PO BEDTIME #30 tabs 02/27/22 mupirocin 2 % topical ointment 1 applic topical BID 1 week #15 02/27/22 grams ondansetron 4 mg disintegrating 4 mg PO Q8H PRN nausea and 02/27/22 tablet vomiting #10 tabs pseudoephedrine HCl 30 mg tablet 30 mg PO Q8HR #14 tabs 02/27/22 (Sudafed) Allergies Allergy/AdvReac Type Severity Reaction Status Date / Time No Known Drug Allergies Allergy Verified 02/27/22 17:57 Review of Systems Review of Systems Narrative: GENERAL: Denies chills, fatigue, malaise, fever, sweats. HEENT: Denies sinus pain, ear pain, sore throat RESPIRATORY: Denies dyspnea, cough CARDIOVASCULAR: Denies chest pain, palpitations GASTROINTESTINAL: Denies nausea, vomiting, abdominal pain : Denies dysuria, frequency, hematuria MUSCULOSKELETAL: denies muscle or bony pain SKIN: Denies rash, skin lesions, positive for skin wound/erythema NEUROLOGIC: Denies weakness, numbness ROS Unobtainable: All systems reviewed & are unremarkable except as noted in HPI and below Patient History Medical History Fusion of toes of right foot Pyelonephritis (~06/2019) Sebaceous cyst Surgical History History of bunionectomy of left great toe History of bunionectomy of right great toe Hx of cholecystectomy Hx of eye surgery Hx of foot surgery Hx of foot surgery (08/25/20) S/P foot surgery, right S/P foot surgery, right (09/12/19) S/P hardware removal Social History household members: family and children Smoking Status: Former smoker alcohol intake: current Smoking Status: Former smoker alcohol intake frequency: a few times a week Substance Use Type: marijuana Exam Narrative Exam Narrative: GENERAL: in no distress, not toxic not dyspneic HEAD: Normocephalic. EYES: Pupils equal round No scleral icterus. EXTREMITIES: No gross deformities. Nurse Hannah, at bedside to pediatric neuropsychologist. There is area of erythema measuring 4 cm in diameter with central induration but no fluctuance on the medial upper left thigh. No red streaking. NEURO: AOx4. SKIN: Warm and dry PSYCH: Not anxious, is cooperative Initial Vital Signs Initial Vital Signs: Vital Signs Temperature 97.6 F 02/23/22 22:50 Pulse Rate 101 H 02/23/22 22:50 Respiratory Rate 18 02/23/22 22:50 Blood Pressure 143/70 H 02/23/22 22:50 Pulse Oximetry 100 02/23/22 22:50 Oxygen Delivery Method 02/23/22 22:50 Course Course Course Narrative: No new issues during course of stay Orders Ordered: Discontinued Medications Doxycycline Hyclate (Doxycycline Hyclate 100 Mg Tablet) 100 mg PO NOW ONE Stop: 02/24/22 00:02 Last Admin: 02/24/22 00:07 Dose: 100 mg Documented By: STELLA Reevaluation(s) Reevaluation #1: Return precautions reviewed patient. Patient agrees with treatment plan. She does have a family doctor to follow up with. Time: 00:07 Vital Signs Vital signs: Vital Signs - 8 hr 02/23/22 22:50 Temperature 97.6 F Pulse Rate 101 H Respiratory Rate 18 Blood Pressure 143/70 H Pulse Oximetry 100 Oxygen Delivery Method Room Air MDM - Skin/Abscess/Foreign Bdy Differential Diagnosis Differential diagnosis: Likely abscess of skin or subcutaneous tissue, cellulitis, eczema, insect bites and contact dermatitis MDM Narrative Medical decision making narrative: Appropriate for discharge home. Surgical pen used to outline margins for today. Antibiotics started. No incision drainage indicated at this time as no fluctuance to drain. Return precautions reviewed with patient. Antibiotics started here. Patient does have a family doctor follow-up with. No blood work indicated. Exam reassuring. Discharge Plan Departure Patient Disposition: Home Clinical Impression: Cellulitis Instructions: DI for Cellulitis -- Adult Activity Restrictions/Additional Instructions: See your family doctor next week for recheck of your skin wound. Be sure to continue antibiotic today. Be sure to complete the prescribed doxycycline prescription. May use warm compresses 20 minutes at a time as needed for pain and swelling. May use [id number] Tylenol or ibuprofen for pain. Return if worse if any questions or concerns or increase pain or redness to the skin area. Prescriptions: New doxycycline monohydrate 100 mg capsule 100 mg PO BID Qty: 14 0RF No Action acetaminophen [Tylenol Extra Strength] 500 mg Tablet 1,000 mg PO Q6H PRN (Reason: Pain) ketorolac 10 mg tablet 10 mg PO TID PRN (Reason: Pain (Scale Score 7-10)) tamsulosin 0.4 mg capsule 0.4 mg PO DAILY Rx Instructions: x 14 days ondansetron 4 mg tablet,disintegrating 4 mg PO TID PRN (Reason: nausea/vomiting) metoclopramide HCl [Reglan] 10 mg tablet 10 mg PO Q6H PRN (Reason: nausea and vomiting) Qty: 12 0RF hydrocodone-acetaminophen 5-325 mg tablet 1 tab PO Q4-6H PRN (Reason: pain) Qty: 10 0RF ondansetron 4 mg tablet,disintegrating 4 mg PO TID-QID PRN (Reason: nausea and vomiting) Qty: 10 0RF metronidazole 500 mg tablet 500 mg PO BID Qty: 14 0RF lidocaine [Lidoderm] 5 % adhesive patch,medicated 1 patch TOP DAILY Qty: 15 0RF Rx Instructions: leave on most painful area for 12 hrs gabapentin 300 mg capsule 300 mg PO BEDTIME Qty: 14 0RF mupirocin 2 % ointment 1 applic topical BID 7 Days Qty: 15 0RF pseudoephedrine HCl [Sudafed] 30 mg tablet 30 mg PO Q8HR Qty: 14 0RF cetirizine 10 mg tablet 10 mg PO BEDTIME Qty: 30 0RF ondansetron 4 mg tablet,disintegrating 4 mg PO Q8H PRN (Reason: nausea and vomiting) Qty: 10 0RF Referrals: Toro Wheat MD [Primary Care Provider] - Visit Report Forms: Patient Portal/API
[2022-02-24] MEDS: DOXYCYCLINE HYCLATE 100 MG TABLET PO (00:07)
--- NOTE | 2022-02-24 00:08 | PC.NURSE ---
reddened area to left inner thigh marked
== END 2022-02-24 00:09 | disposition home or self-care (01) ==
PROVIDERS: Emergency Provider Emergency Medicine; PCP Family Medicine
DX: L03.116 Cellulitis of left lower limb (principal)
CPT/HCPCS: 99283

== ENCOUNTER 2022-02-27 17:06 | Emergency (ER) | payer OTHER, MEDICAID, SELFPAY ==
[2022-02-27 17:54] VITALS: BP 129/82; PULSE 88; RESP 18; TEMP 36.7; O2SAT 99; BMI 41.5
[2022-02-27] MEDS: ONDANSETRON 4 MG ODT SL (18:47)
[2022-02-27 19:00] LABS: COVID19 -Nasal RAPID Negative (Negative)
[2022-02-27 19:36] VITALS: BP 124/77; PULSE 75; O2SAT 100
--- NOTE | 2022-02-27 21:16 | ED_ITS ---
HPI - Nausea/Vomiting/Diarrhea <Zeynep Arteaga, [facility] - Last Filed: 02/27/22 21:23> General Chief complaint: Nausea/Vomiting/Diarrhea Stated complaint: SOB THROAT HURTS EAR PAIN FEVER Time Seen by Provider: 02/27/22 19:13 History of Present Illness HPI Narrative: This is a 26 year female presents to the emergency department for upper respiratory illness symptoms which started yesterday and concern for COVID. Patient states that both of her ears her, she has felt hot and cold without measured fever, sore throat, muscle aches, and headache. She states that she has had a cough for about two weeks, has not had any of the symptoms until yesterday other than the cough, came into the emergency department for concern about nausea vomiting today, diarrhea, congestion and she is currently on antibiotics for a left groin abscess which is draining. She states that she is on doxycycline, day four, states that her wound is still draining, she is doing warm compresses without any worsening of it at this time. She states it is still painful. Patient denies any wheezing, chest tightness, difficulty breathing but states that she is winded easily and short of breath after simple exertion. Patient states that she has small children, one of them has had a vi ral illness and a cough. Related Data Home Medications Medication Instructions Recorded Confirmed acetaminophen 500 mg tablet 1,000 mg PO Q6H PRN Pain 01/13/20 05/27/21 (Tylenol Extra Strength) ketorolac 10 mg tablet 10 mg PO TID PRN Pain (Scale Score 05/27/21 05/27/21 7-10) ondansetron 4 mg disintegrating 4 mg PO TID PRN nausea/vomiting 05/27/21 05/27/21 tablet tamsulosin 0.4 mg capsule 0.4 mg PO DAILY 05/27/21 05/27/21 Previous Rx's Medication Instructions Recorded metoclopramide HCl 10 mg tablet 10 mg PO Q6H PRN nausea and 05/27/21 (Reglan) vomiting #12 tabs hydrocodone 5 mg-acetaminophen 325 1 tab PO Q4-6H PRN pain #10 tabs 01/01/22 mg tablet ondansetron 4 mg disintegrating 4 mg PO TID-QID PRN nausea and 01/01/22 tablet vomiting #10 tabs metronidazole 500 mg tablet 500 mg PO BID #14 tabs 01/10/22 gabapentin 300 mg capsule 300 mg PO BEDTIME #14 caps 01/15/22 lidocaine 5 % topical patch 1 patch topical DAILY #15 ea 01/15/22 (Lidoderm) doxycycline monohydrate 100 mg 100 mg PO BID #14 caps 02/24/22 capsule cetirizine 10 mg tablet 10 mg PO BEDTIME #30 tabs 02/27/22 mupirocin 2 % topical ointment 1 applic topical BID 1 week #15 02/27/22 grams ondansetron 4 mg disintegrating 4 mg PO Q8H PRN nausea and 02/27/22 tablet vomiting #10 tabs pseudoephedrine HCl 30 mg tablet 30 mg PO Q8HR #14 tabs 02/27/22 (Sudafed) Allergies Allergy/AdvReac Type Severity Reaction Status Date / Time No Known Drug Allergies Allergy Verified 02/27/22 17:57 Review of Systems <PANCHO Weinstein - Last Filed: 02/27/22 21:23> Review of Systems Narrative: General: denies fever, chills, malaise, sweats, fatigue Head/Neck: denies headache, neck pain, dizziness Eyes: denies visual changes, eye pain Cardio: denies chest pain, palpitations, edema Respiratory: Endorses shortness of breath with exertion, dyspnea, cough, denies any orthopnea GI: denies abdominal pain, endorses nausea vomiting, and diarrhea today : denies dysuria, hematuria, urinary retention, frequency or incontinence MSK: denies joint pain, muscle weakness Skin: denies rash, itching, skin lesions or other Neuro: denies numbness, tingling Patient History <PANCHO Weinsetin - Last Filed: 02/27/22 21:23> Medical History Fusion of toes of right foot Pyelonephritis (~06/2019) Sebaceous cyst Surgical History History of bunionectomy of left great toe History of bunionectomy of right great toe Hx of cholecystectomy Hx of eye surgery Hx of foot surgery Hx of foot surgery (08/25/20) S/P foot surgery, right S/P foot surgery, right (09/12/19) S/P hardware removal Social History household members: family and children Smoking Status: Former smoker alcohol intake: current Smoking Status: Former smoker alcohol intake frequency: a few times a week Substance Use Type: does not use Exam <PANCHO Weinstein - Last Filed: 02/27/22 21:23> Narrative Exam Narrative: Independently reviewed vitals signs and nursing notes. General: cooperative, comfortable, in no acute distress, well groomed Head: atraumatic, symmetrical facial expressions Neck: supple Eyes: equal round and reactive, EOMI, conjunctiva normal Nose: nares patent, no rhinorrhea Mouth/Throat: moist mucus membranes Cardiovascular: regular rate and rhythm, no peripheral edema, warm extremities Respiratory: normal effort, able to speak in complete sentences, no audible wheezing, stridor, or rales. No retractions, hypoxia, increased respiratory effort but she is mildly tachypneic. GI: abdomen soft, nontender to palpation, nondistended, no masses, no exquisite tenderness with exam, without guarding or rebound. MSK: moves all extremities, neurovascularly intact, no weakness, normal tone Skin: brisk capillary refill, no rash, no erythema Neuro: normal speech and cognition, A&O x3 Psych: mental status is grossly normal, congruent mood, normal affect, pleasant and cooperative Initial Vital Signs Initial Vital Signs: Vital Signs Temperature 98.0 F 02/27/22 17:54 Pulse Rate 88 02/27/22 17:54 Respiratory Rate 18 02/27/22 17:54 Blood Pressure 129/82 02/27/22 17:54 Pulse Oximetry 99 02/27/22 17:54 Oxygen Delivery Method 02/27/22 17:54 <Gerda Jennings DO - Last Filed: 02/28/22 08:47> Initial Vital Signs Initial Vital Signs: Vital Signs Temperature 98.0 F 02/27/22 17:54 Pulse Rate 88 02/27/22 17:54 Respiratory Rate 18 02/27/22 17:54 Blood Pressure 129/82 02/27/22 17:54 Pulse Oximetry 99 02/27/22 17:54 Oxygen Delivery Method 02/27/22 17:54 Course <PANCHO Weinstein - Last Filed: 02/27/22 21:23> Orders Ordered: Discontinued Medications Ondansetron HCl (Ondansetron 4 Mg Odt) 4 mg SL NOW ONE Stop: 02/27/22 17:58 Last Admin: 02/27/22 18:47 Dose: 4 mg Documented By: [facility] Vital Signs Vital signs: Vital Signs - 8 hr 02/27/22 17:54 02/27/22 19:36 Temperature 98.0 F Pulse Rate 88 75 Respiratory Rate 18 Blood Pressure 129/82 124/77 Pulse Oximetry 99 100 Oxygen Delivery Method Room Air Room Air <Gerda Jennings DO - Last Filed: 02/28/22 08:47> Orders Ordered: Discontinued Medications Ondansetron HCl (Ondansetron 4 Mg Odt) 4 mg SL NOW ONE Stop: 02/27/22 17:58 Last Admin: 02/27/22 18:47 Dose: 4 mg Documented By: [facility] Vital Signs Vital signs: Vital Signs - 8 hr 02/27/22 17:54 02/27/22 19:36 Temperature 98.0 F Pulse Rate 88 75 Respiratory Rate 18 Blood Pressure 129/82 124/77 Pulse Oximetry 99 100 Oxygen Delivery Method Room Air Room Air MDM - Nausea/Vomiting/Diarrhea <PANCHO Weinstein - Last Filed: 02/27/22 21:23> Lab Data Labs: Lab Results 02/27/22 Range/Units 17:58 SARS-CoV-2 (PCR) Negative (Negative) MDM Narrative Medical decision making narrative: This is a 26-year-old female presents to the emergency department on day two over upper respiratory symptoms and reports that she has had a cough for two weeks, felt hot and cold, had nausea, vomiting, diarrhea since yesterday, endorses a sore throat, muscle aches, and shortness of breath with exertion. She states that one of her children has a upper respiratory viral illness and is starting to get better from her cough now. Patient took a COVID test at home and this is negative, COVID PCR is negative here, she is without any hypoxia, fever, tachycardia, she is mildly tachypneic when she is talking but this may be related to exertion. Breath sounds are clear throughout all [place] without any adventitious sounds. Discussed symptomatic treatment and care at home with Zyrtec, Sudafed, Tylenol, ibuprofen as needed for her symptoms. She was given Zofran in the emergency department without any further vomiting, she was prescribed Zofran for home, cetirizine for congestion, Sudafed for signs symptoms and encouraged to stay hydrated, take Tylenol and ibuprofen as needed for her symptoms. Continue retesting for the next few days and return to the emergency department for any new or worsening symptoms, shortness of breath, chest pain or difficulty breathing. Patient is appropriate and amenable to dis charge home. Vital signs are stable on repeat examination is unremarkable. Patient has been informed of results. Patient has been given strict return to ER precautions for any new or worsening symptoms. Patient understands to follow up closely with outpatient providers as instructed. Patient understands plan and agrees to discharge home. All questions and concerns answered at this time. <Gerda Jennings DO - Last Filed: 02/28/22 08:47> Lab Data Labs: Lab Results 02/27/22 Range/Units 17:58 SARS-CoV-2 (PCR) Negative (Negative) Discharge Plan Departure Patient Disposition: Home Clinical Impression: Upper respiratory infection, viral Instructions: DI for Viral Upper Respiratory Infection -- Adult, DI for Vomiting -- Adult Activity Restrictions/Additional Instructions: *You have been diagnosed with a viral upper respiratory infection that did not test positive for COVID. Please continue to test herself for the next two or three days for COVID. Please stay hydrated, take Zofran as needed for nausea vomiting, take Zyrtec at night, Sudafed decongestant during the day, Tylenol and ibuprofen as needed for fever and chills for pain. Hydrate frequently, rest 20 any two, continue warm compresses on your left thigh and use the mupirocin ointment twice a day until it improves. It appears that you are getting better slowly with a few hiccups. Hope you feel better soon. *What to do: *Please continue to take your regular medications as directed. [ x] New medication prescriptions sent to your pharmacy: [[facility] ] [ ] New medication written as a paper prescription [ ] No new medications given *Please follow up with your primary care provider in 2-3 days, call for an appointment. Let them know you were seen in the Emergency Department and that we asked that you be seen for follow-up. We will electronically transmit a record of today's note if your PCP is in our system *If you do not have a primary care provider please contact [phone] to establish care with one of the [facility] primary care providers. *Return to Emergency Department if you should have any new, worsening or concerning symptoms, such as [fever greater than 101F, chills, worsening pain, persistent vomiting or other bothersome symptoms] Prescriptions: New mupirocin 2 % ointment 1 applic topical BID 7 Days Qty: 15 0RF pseudoephedrine HCl [Sudafed] 30 mg tablet 30 mg PO Q8HR Qty: 14 0RF cetirizine 10 mg tablet 10 mg PO BEDTIME Qty: 30 0RF ondansetron 4 mg tablet,disintegrating 4 mg PO Q8H PRN (Reason: nausea and vomiting) Qty: 10 0RF No Action acetaminophen [Tylenol Extra Strength] 500 mg Tablet 1,000 mg PO Q6H PRN (Reason: Pain) ketorolac 10 mg tablet 10 mg PO TID PRN (Reason: Pain (Scale Score 7-10)) tamsulosin 0.4 mg capsule 0.4 mg PO DAILY Rx Instructions: x 14 days ondansetron 4 mg tablet,disintegrating 4 mg PO TID PRN (Reason: nausea/vomiting) metoclopramide HCl [Reglan] 10 mg tablet 10 mg PO Q6H PRN (Reason: nausea and vomiting) Qty: 12 0RF hydrocodone-acetaminophen 5-325 mg tablet 1 tab PO Q4-6H PRN (Reason: pain) Qty: 10 0RF ondansetron 4 mg tablet,disintegrating 4 mg PO TID-QID PRN (Reason: nausea and vomiting) Qty: 10 0RF metronidazole 500 mg tablet 500 mg PO BID Qty: 14 0RF lidocaine [Lidoderm] 5 % adhesive patch,medicated 1 patch TOP DAILY Qty: 15 0RF Rx Instructions: leave on most painful area for 12 hrs gabapentin 300 mg capsule 300 mg PO BEDTIME Qty: 14 0RF doxycycline monohydrate 100 mg capsule 100 mg PO BID Qty: 14 0RF Referrals: Toro Wheat MD [Primary Care Provider] - Stand Alone Forms: Work Release Note Visit Report Forms: Patient Portal/API <Gerda Jennings DO - Last Filed: 02/28/22 08:47> Cosign ED Attending Cosrohithature Attestation: I was immediately available in the department for consultation. Documentation has been reviewed. I agree with assessment and plan.
== END 2022-02-27 19:54 | disposition home or self-care (01) ==
PROVIDERS: Emergency Medicine; Emergency Provider Nurse Practitioner Critical Care Medicine; PCP Family Medicine
DX: J06.9 Acute upper respiratory infection, unspecified (principal); R11.2 Nausea with vomiting, unspecified; Z20.822 Contact with and (suspected) exposure to COVID-19
CPT/HCPCS: 87635; 99282; 99283; C9803

== ENCOUNTER 2022-03-13 03:55 | Emergency (ER) | payer OTHER, MEDICAID, SELFPAY ==
[2022-03-13 04:11] VITALS: BP 168/88; PULSE 109; RESP 16; TEMP 37.1; O2SAT 97; BMI 40.1
--- NOTE | 2022-03-13 04:19 | ED_ITS ---
HPI - Fall General Chief Complaint: Fall Stated Complaint: stomach hurts right side slipped and fell Time Seen by Provider: 03/13/22 03:57 Source: patient Mode of arrival: Ambulatory History of Present Illness HPI Narrative: 26-year-old female who is here for evaluation of injuries that she sustained earlier this evening when she slipped in the bathroom and landing on the corner of the tub. She sustained some bruising to her right lower abdomen and discomfort in this area since that time. She is had issues with abdominal pain in the past but this is different than her normal abdominal pain. No other injuries from the event. Has not tried anything for the symptoms prior to arrival. Related Data Home Medications Medication Instructions Recorded Confirmed acetaminophen 500 mg tablet 1,000 mg PO Q6H PRN Pain 01/13/20 05/27/21 (Tylenol Extra Strength) ketorolac 10 mg tablet 10 mg PO TID PRN Pain (Scale Score 05/27/21 05/27/21 7-10) ondansetron 4 mg disintegrating 4 mg PO TID PRN nausea/vomiting 05/27/21 05/27/21 tablet tamsulosin 0.4 mg capsule 0.4 mg PO DAILY 05/27/21 05/27/21 Previous Rx's Medication Instructions Recorded metoclopramide HCl 10 mg tablet 10 mg PO Q6H PRN nausea and 05/27/21 (Reglan) vomiting #12 tabs hydrocodone 5 mg-acetaminophen 325 1 tab PO Q4-6H PRN pain #10 tabs 01/01/22 mg tablet ondansetron 4 mg disintegrating 4 mg PO TID-QID PRN nausea and 01/01/22 tablet vomiting #10 tabs metronidazole 500 mg tablet 500 mg PO BID #14 tabs 01/10/22 gabapentin 300 mg capsule 300 mg PO BEDTIME #14 caps 01/15/22 lidocaine 5 % topical patch 1 patch topical DAILY #15 ea 01/15/22 (Lidoderm) doxycycline monohydrate 100 mg 100 mg PO BID #14 caps 02/24/22 capsule cetirizine 10 mg tablet 10 mg PO BEDTIME #30 tabs 02/27/22 ondansetron 4 mg disintegrating 4 mg PO Q8H PRN nausea and 02/27/22 tablet vomiting #10 tabs pseudoephedrine HCl 30 mg tablet 30 mg PO Q8HR #14 tabs 02/27/22 (Sudafed) Allergies Allergy/AdvReac Type Severity Reaction Status Date / Time No Known Drug Allergies Allergy Verified 02/27/22 17:57 Review of Systems Constitutional Constitutional: Reports system reviewed and no additional complaints, except as documented Gastrointestinal Gastrointestinal: Reports system reviewed and no additional complaints, except as documented Integumentary/Breasts Comments: Bruising right lower abdomen Hematologic/Lymphatic On Anticoagulants: No Patient History Medical History Fusion of toes of right foot Pyelonephritis (~06/2019) Sebaceous cyst Surgical History History of bunionectomy of left great toe History of bunionectomy of right great toe Hx of cholecystectomy Hx of eye surgery Hx of foot surgery Hx of foot surgery (08/25/20) S/P foot surgery, right S/P foot surgery, right (09/12/19) S/P hardware removal Social History household members: family and children Smoking Status: Former smoker alcohol intake: current Smoking Status: Former smoker alcohol intake frequency: a few times a week Substance Use Type: former substance user and marijuana Exam Initial Vital Signs Initial Vital Signs: Vital Signs Temperature 98.8 F 03/13/22 04:11 Pulse Rate 109 H 03/13/22 04:11 Respiratory Rate 16 03/13/22 04:11 Blood Pressure 168/88 H 03/13/22 04:11 Pulse Oximetry 97 03/13/22 04:11 Oxygen Delivery Method 03/13/22 04:11 HENTX Head: normal to inspection Resp Effort & Inspection: normal respiratory effort Cardio Rate: regular rate GI Other: Tenderness to palpation right lower abdomen over the areas of the bruising. Skin Other: Areas of bruising in her right lower abdomen that is tender to palpation. There are no breaks in the skin. Neuro General: patient alert, patient awake, patient oriented x3 and moves all extremities Procedures FAST Exam FAST Exam 1: Fluid in Morison's pouch: No Fluid in Splenorenal Junction: No Fluid around bladder, Transverse view: No Fluid around bladder, Sagittal view: No Fluid in Pericardial Sac: No Gross Wall Motion Abnormality: No Study normal for this patient: Yes Images saved for further review: No Course Vital Signs Vital signs: Vital Signs - 8 hr 03/13/22 04:11 03/13/22 04:48 Temperature 98.8 F Pulse Rate 109 H 92 H Respiratory Rate 16 16 Blood Pressure 168/88 H Pulse Oximetry 97 98 Oxygen Delivery Method Room Air Room Air MDM - Fall MDM Narrative Medical decision making narrative: Patient does have bruising in her right lower abdomen on the skin which she states happened this evening however they do have some periods of potentially being older than just a few hours. There is no signs of any infection. She is tender with very superficial palpation to her abdomen. Fast exam is negative. She reports no other injuries from the event. Patient has had multiple CT scans in the past of her abdomen given her prior GI issues. Given the fact that the discomfort seems to be very superficial and with a negative fast exam in the nature of her injury I feel holding on a CT scan for now is appropriate. I discussed this with her and she expressed agreement with this. We will hold on further workup for now. She was given return precautions and follow-up instructions. She expressed understanding and agreement. Discharge Plan Departure Patient Disposition: Home Clinical Impression: Abdominal wall contusion Instructions: DI for Abdominal Pain-Adult Activity Restrictions/Additional Instructions: You can take Tylenol/ibuprofen for any discomfort. I would not be surprised if you get some continued bruising your abdomen over the next couple days. Contact your primary doctor for follow-up. Return to the emergency department for any new or worsening symptoms. Prescriptions: No Action acetaminophen [Tylenol Extra Strength] 500 mg Tablet 1,000 mg PO Q6H PRN (Reason: Pain) ketorolac 10 mg tablet 10 mg PO TID PRN (Reason: Pain (Scale Score 7-10)) tamsulosin 0.4 mg capsule 0.4 mg PO DAILY Rx Instructions: x 14 days ondansetron 4 mg tablet,disintegrating 4 mg PO TID PRN (Reason: nausea/vomiting) metoclopramide HCl [Reglan] 10 mg tablet 10 mg PO Q6H PRN (Reason: nausea and vomiting) Qty: 12 0RF hydrocodone-acetaminophen 5-325 mg tablet 1 tab PO Q4-6H PRN (Reason: pain) Qty: 10 0RF ondansetron 4 mg tablet,disintegrating 4 mg PO TID-QID PRN (Reason: nausea and vomiting) Qty: 10 0RF metronidazole 500 mg tablet 500 mg PO BID Qty: 14 0RF lidocaine [Lidoderm] 5 % adhesive patch,medicated 1 patch TOP DAILY Qty: 15 0RF Rx Instructions: leave on most painful area for 12 hrs gabapentin 300 mg capsule 300 mg PO BEDTIME Qty: 14 0RF doxycycline monohydrate 100 mg capsule 100 mg PO BID Qty: 14 0RF pseudoephedrine HCl [Sudafed] 30 mg tablet 30 mg PO Q8HR Qty: 14 0RF cetirizine 10 mg tablet 10 mg PO BEDTIME Qty: 30 0RF ondansetron 4 mg tablet,disintegrating 4 mg PO Q8H PRN (Reason: nausea and vomiting) Qty: 10 0RF Referrals: Toro Wheat MD [Primary Care Provider] - Visit Report Forms: Patient Portal/API
[2022-03-13 04:48] VITALS: PULSE 92; RESP 16; O2SAT 98
== END 2022-03-13 04:49 | disposition home or self-care (01) ==
PROVIDERS: Emergency Provider Emergency Medicine; PCP Family Medicine
DX: S30.1XXA Contusion of abdominal wall, initial encounter (principal); W01.198A Fall on same level from slipping, tripping and stumbling with subsequent striking against other object, initial encounter
CPT/HCPCS: 99281

== ENCOUNTER 2022-04-08 18:25 | Emergency (ER) | payer OTHER, MEDICAID, SELFPAY ==
[2022-04-08 18:36] VITALS: BP 137/67; PULSE 98; RESP 18; TEMP 36.9; O2SAT 100; BMI 42.3
--- NOTE | 2022-04-08 18:39 | ED.BURNSMOKE ---
HPI - Burn/Smoke Inhalation General Chief complaint: Burn/Smoke Inhalation Stated complaint: Burn Right Hand, Can't Bend Time Seen by Provider: 04/08/22 18:28 Source: patient Mode of arrival: Ambulatory History of Present Illness HPI Narrative: 26-year-old female nonsmoker with noncontributory medical history presents with a chief complaint of an accidental burn to her right hand. She was reaching and an of an and grabbed a hot ross and now has pain on the volar surface the fingers of her right hand. She is right-hand dominant. The case are not circumferential, did not cross the joint and there are no blisters that have developed. She immediately cooled it with cold water and a bag of frozen vegetables. Her tetanus is up-to-date. She denies any other case and is otherwise well and free of complaint Related Data Home Medications Medication Instructions Recorded Confirmed acetaminophen 500 mg tablet 1,000 mg PO Q6H PRN Pain 01/13/20 05/27/21 (Tylenol Extra Strength) ketorolac 10 mg tablet 10 mg PO TID PRN Pain (Scale Score 05/27/21 05/27/21 7-10) ondansetron 4 mg disintegrating 4 mg PO TID PRN nausea/vomiting 05/27/21 05/27/21 tablet tamsulosin 0.4 mg capsule 0.4 mg PO DAILY 05/27/21 05/27/21 Previous Rx's Medication Instructions Recorded metoclopramide HCl 10 mg tablet 10 mg PO Q6H PRN nausea and 05/27/21 (Reglan) vomiting #12 tabs hydrocodone 5 mg-acetaminophen 325 1 tab PO Q4-6H PRN pain #10 tabs 01/01/22 mg tablet ondansetron 4 mg disintegrating 4 mg PO TID-QID PRN nausea and 01/01/22 tablet vomiting #10 tabs metronidazole 500 mg tablet 500 mg PO BID #14 tabs 01/10/22 gabapentin 300 mg capsule 300 mg PO BEDTIME #14 caps 01/15/22 lidocaine 5 % topical patch 1 patch topical DAILY #15 ea 01/15/22 (Lidoderm) doxycycline monohydrate 100 mg 100 mg PO BID #14 caps 02/24/22 capsule cetirizine 10 mg tablet 10 mg PO BEDTIME #30 tabs 02/27/22 ondansetron 4 mg disintegrating 4 mg PO Q8H PRN nausea and 02/27/22 tablet vomiting #10 tabs pseudoephedrine HCl 30 mg tablet 30 mg PO Q8HR #14 tabs 02/27/22 (Sudafed) hydrocodone 5 mg-acetaminophen 325 1 tab PO Q4-6H PRN pain #20 tabs 04/08/22 mg tablet Allergies Allergy/AdvReac Type Severity Reaction Status Date / Time No Known Drug Allergies Allergy Verified 04/08/22 18:39 Review of Systems Review of Systems Narrative: GENERAL: Denies chills, fatigue, malaise, fever, sweats. HEENT: Denies sinus pain, ear pain, sore throat, difficulty swallowing, dizziness. RESPIRATORY: Denies dyspnea, cough, wheezing, hemoptysis, sputum. CARDIOVASCULAR: Denies chest pain, palpitations, orthopnea, edema, GASTROINTESTINAL: Denies nausea, vomiting, abdominal pain, diarrhea, constipation, melena. : Denies dysuria, frequency, incontinence, hematuria, urinary retention. MUSCULOSKELETAL: denies weakness, joint pain, or bony pain SKIN: See HPI NEUROLOGIC: Denies weakness, headache, numbness, change in speech, confusion, seizures, incoordination. PSYCHIATRIC: No concerning psychosocial issues. 12 point review of systems is negative except for those stated above Patient History Medical History Fusion of toes of right foot Pyelonephritis (~06/2019) Sebaceous cyst Surgical History History of bunionectomy of left great toe History of bunionectomy of right great toe Hx of cholecystectomy Hx of eye surgery Hx of foot surgery Hx of foot surgery (08/25/20) S/P foot surgery, right S/P foot surgery, right (09/12/19) S/P hardware removal Social History household members: family and children Smoking Status: Former smoker alcohol intake: current Smoking Status: Former smoker alcohol intake frequency: a few times a week Substance Use Type: former substance user and marijuana Exam Narrative Exam Narrative: GEN: AOx3 and in mild distress EYES: Pupils are equal, round, and reactive to light and accommodation. Extraoccular muscles are intact bilaterally. There is no subconjunctival hemorrhage or exudate. CHEST: Lungs are clear to auscultation bilaterally and free of wheezes, rales, or rhonchi. Heart rate is regular rhythm, there are no murmurs, clicks, rubs, or gallops. There is no chest wall tenderness. ABD: Abdomen is soft and nontender. There is no guarding or rebound. Bowel sounds are normal in all 4 quadrants. There is no mass or organomegaly. EXT: Minimal erythema on volar surface of right hand, most notably 1st 2nd and 3rd fingers there is apparent sparing the joints, there is no circumferential involvement, minimal if any swelling and no blisters. SKIN: Warm, pink, and dry. No erythema or rash Initial Vital Signs Initial Vital Signs: Vital Signs Temperature 98.5 F 04/08/22 18:36 Pulse Rate 98 H 04/08/22 18:36 Respiratory Rate 18 04/08/22 18:36 Blood Pressure 137/67 04/08/22 18:36 Pulse Oximetry 100 04/08/22 18:36 Oxygen Delivery Method 04/08/22 18:36 Course Vital Signs Vital signs: Vital Signs - 8 hr 04/08/22 18:36 Temperature 98.5 F Pulse Rate 98 H Respiratory Rate 18 Blood Pressure 137/67 Pulse Oximetry 100 Oxygen Delivery Method Room Air Discharge Plan Departure Patient Disposition: Home Clinical Impression: Burn of upper extremity, Burn of hand Instructions: DI for Case Activity Restrictions/Additional Instructions: *You have been diagnosed with [minimal superficial partial-thickness case to right hand. As we discussed your history and physical exam are reassuring and thankfully there are no circumferential case or blisters developing.] *What to do: *Please continue to take your regular medications as directed. [x ] New medication prescriptions sent to your pharmacy: [ [facility]] [ ] New medication written as a paper prescription [ ] No new medications given *Please follow up with your primary care provider in 2-3 days, call for an appointment. Let them know you were seen in the Emergency Department and that we ask that you be seen in follow up. We will electronically transmit a record of today's note if your PCP is in our system *If you do not have a primary care provider please contact the [facility] Resource line at [phone]. They will ask some questions about your medical history and help get you set up with a doctor in the community. * as we discussed please go to you tube and search for Case [id number]. This will take it to a video that has been put out by the [facility] and [facility] Burn unit and shows stretches that can help maintain the range of motion of your hand. * please wash your hand daily with warm soapy water and gently blot dry. *Return to Emergency Department if you should have any new, worsening or concerning symptoms, such as [fever greater than 101 F, shaking chills, worsening pain, persistent vomiting, development of large fluid-filled blisters or other bothersome symptoms] You have been prescribed a short course of narcotic medications. These are potentially dangerous and addictive medications that should be used carefully. While on these medications you cannot drive or operate heavy machinery. Additionally, you cannot sign legal documents or perform any duties such as this. Many people get constipated on narcotic medications so it would be advisable to discuss stool softeners with the pharmacist when you product picker your prescription. Please understand that we cannot provide further refills of narcotics or controlled substances through the ED and your pain management will need to be through your Primary Care Provider Prescriptions: New hydrocodone-acetaminophen 5-325 mg tablet 1 tab PO Q4-6H PRN (Reason: pain) Qty: 20 0RF No Action acetaminophen [Tylenol Extra Strength] 500 mg Tablet 1,000 mg PO Q6H PRN (Reason: Pain) ketorolac 10 mg tablet 10 mg PO TID PRN (Reason: Pain (Scale Score 7-10)) tamsulosin 0.4 mg capsule 0.4 mg PO DAILY Rx Instructions: x 14 days ondansetron 4 mg tablet,disintegrating 4 mg PO TID PRN (Reason: nausea/vomiting) metoclopramide HCl [Reglan] 10 mg tablet 10 mg PO Q6H PRN (Reason: nausea and vomiting) Qty: 12 0RF hydrocodone-acetaminophen 5-325 mg tablet 1 tab PO Q4-6H PRN (Reason: pain) Qty: 10 0RF ondansetron 4 mg tablet,disintegrating 4 mg PO TID-QID PRN (Reason: nausea and vomiting) Qty: 10 0RF metronidazole 500 mg tablet 500 mg PO BID Qty: 14 0RF lidocaine [Lidoderm] 5 % adhesive patch,medicated 1 patch TOP DAILY Qty: 15 0RF Rx Instructions: leave on most painful area for 12 hrs gabapentin 300 mg capsule 300 mg PO BEDTIME Qty: 14 0RF doxycycline monohydrate 100 mg capsule 100 mg PO BID Qty: 14 0RF pseudoephedrine HCl [Sudafed] 30 mg tablet 30 mg PO Q8HR Qty: 14 0RF cetirizine 10 mg tablet 10 mg PO BEDTIME Qty: 30 0RF ondansetron 4 mg tablet,disintegrating 4 mg PO Q8H PRN (Reason: nausea and vomiting) Qty: 10 0RF Referrals: Miscellaneous,Doctor, MD [Primary Care Provider] - Visit Report Forms: Patient Portal/API
== END 2022-04-08 19:12 | disposition home or self-care (01) ==
PROVIDERS: Emergency Provider Emergency Medicine
DX: T23.001A Burn of unspecified degree of right hand, unspecified site, initial encounter (principal); X16.XXXA Contact with hot heating appliances, radiators and pipes, initial encounter
CPT/HCPCS: 99282

== ENCOUNTER 2022-06-01 16:08 | Emergency (ER) | payer OTHER, MEDICAID, SELFPAY ==
[2022-06-01] VITALS (9 sets, daily range): BP systolic 109–134; BP diastolic 56–84; PULSE 59–80; RESP 18; TEMP 36.8; O2SAT 96–100; BMI 43.0
[2022-06-01] MEDS: ONDANSETRON 4 MG/2 ML INJ IV (16:40)
[2022-06-01 16:48] LABS: Add Manual Diff / Slide Review NO; Basophils Absolute Auto 0 /uL (0-100); Basophils Percent Auto 0.4 % (0-2); Eosinophils Absolute Auto 300 /uL (0-450); Eosinophils Percent Auto 3.3 % (2-4); Hematocrit 38.9 % (36-46); Hemoglobin 13.2 g/dL (12.0-16.0); Lymphocytes Absolute Auto 2300 /uL (1100-4500); Lymphocytes Percent Auto 27.9 % (25-40); Mean Corpuscular HGB Conc 33.9 % (30-36); Mean Corpuscular Hemoglobin 27.5 PG (26-34); Mean Corpuscular Volume 81.1 fL (80-100); Monocytes Absolute Auto 500 /uL (0-900); Monocytes Percent Auto 6.1 % (3-14); Neutrophils Absolute Auto 5100 /uL (1500-7000); Neutrophils Percent Auto 62.3 % (50-75); Platelet Count 251 X10^3/uL (150-400); Red Blood Cell Count 4.79 X10^6/uL (4.0-5.2); Red Cell Distribution Width 13.8 % (11.6-14.8); White Blood Cell Count 8.2 X10^3/uL (4.5-11.0)
[2022-06-01 17:02] LABS: Alanine Aminotransferase 16 IU/L (<35); Albumin 4.2 g/dL (3.5-5.0); Albumin Globulin Ratio 1.1 (1.0-2.8); Alkaline Phosphatase 68 U/L (38-126); Aspartate Aminotransferase 22 IU/L (14-36); BUN Creatinine Ratio 16.7 (6-22); Bilirubin Total 0.3 mg/dL (0.2-1.3); Blood Urea Nitrogen 10 mg/dL (7-17); Calcium 9.5 mg/dL (8.4-10.2); Carbon Dioxide 26 mmol/L (22-32); Chloride 106 mmol/L (98-107); Estimated Glomerular Filt Rate > 60 mL/min (>60); Globulin 3.7 g/dL (1.7-4.1); Glucose 101 mg/dL (70-100); HEMOLYSIS < 15 (0-50); Lipase 54 U/L (23-300); Potassium 4.3 mmol/L (3.4-5.1); Sodium 140 mmol/L (137-145); Total Protein 7.9 g/dL (6.3-8.2)
--- NOTE | 2022-06-01 17:08 | ED.GENADULT ---
HPI - General Adult General Chief complaint: Abdominal Pain Stated complaint: stomach pain, vomiting Time Seen by Provider: 06/01/22 17:00 Source: patient Mode of arrival: Ambulatory History of Present Illness HPI narrative: Patient is a 26-year-old female who is here for evaluation of stomach discomfort for the past 4 days and diarrhea for the past 4 days but now has developed vomiting. She is had symptoms similar to this in the past. In the past month she was seen by a GI provider. Had a colonoscopy and an upper endoscopy. She was told everything appeared normal. She was referred to another specialist to evaluate for endometriosis. She has GI medications at home and also Zofran. A couple days ago she started to have abdominal discomfort that is similar to her prior discomfort however has persisted longer than what it normally does she started vomiting this morning. She denies any urinary symptoms. No vaginal bleeding. No blood in her stool. No recent travel. She states she is still nauseous. Sharp discomfort left side of abdomen. Related Data Previous Rx's Medication Instructions Recorded metoclopramide HCl 10 mg tablet 10 mg PO Q6H PRN nausea and 06/01/22 (Reglan) vomiting #20 tabs Allergies Allergy/AdvReac Type Severity Reaction Status Date / Time No Known Drug Allergies Allergy Verified 06/01/22 16:29 Review of Systems Constitutional Constitutional: Reports system reviewed and no additional complaints, except as documented Cardiovascular Cardiovascular: Reports as per HPI and Reports system reviewed and no additional complaints, except as documented Respiratory Respiratory: Reports as per HPI and Reports system reviewed and no additional complaints, except as documented Gastrointestinal Gastrointestinal: Reports as per HPI and Reports system reviewed and no additional complaints, except as documented Genitourinary Genitourinary: Reports system reviewed and no additional complaints, except as documented and Reports as per HPI Integumentary/Breasts Skin/Breast: Reports system reviewed and no additional complaints, except as documented Neurologic Neurologic: Reports system reviewed and no additional complaints, except as documented Hematologic/Lymphatic On Anticoagulants: No Patient History Medical History Abdominal pain Social History Smoking Status: Never smoker Smoking Status: Never smoker alcohol intake frequency: holidays/special occasions only Substance Use Type: does not use Exam Initial Vital Signs Initial Vital Signs: Vital Signs Temperature 98.3 F 06/01/22 16:25 Pulse Rate 80 06/01/22 16:25 Respiratory Rate 18 06/01/22 16:25 Blood Pressure 112/66 06/01/22 16:25 Pulse Oximetry 97 06/01/22 16:25 Oxygen Delivery Method 06/01/22 16:25 [facility] Head: normal to inspection and normocephalic Resp Effort & Inspection: normal respiratory effort Auscultation: clear to auscultation bilaterally Cardio Rate: regular rate Rhythm: regular rhythm GI Inspection: normal to inspection Palpation: soft, No firm, No guarding and tender (The side of abdomen) Back/Spine/Pelvis Back: No CVA tenderness Skin General: no rashes or lesions noted Neuro General: patient alert, patient awake, patient oriented x3 and moves all extremities Cognition: normal cognition Speech: speech normal Extrem General: normal to inspection and capillary refill normal Psych Appearance: grossly normal and well kempt Course Orders Ordered: ED Orders 06/01/22 16:36 Complete Blood Count AUTO DIFF Stat Comprehensive Metabolic Panel Stat Lipase Stat Discontinued Medications Sodium Chloride (Normal Saline 0.9%) 1,000 mls @ 1,000 mls/hr IV BOLUS ONE Stop: 06/01/22 18:11 Last Admin: 06/01/22 17:20 Dose: 1,000 mls/hr Documented By: DEYVI Metoclopramide HCl (Metoclopramide 10 Mg/2 Ml Inj) 10 mg IV NOW ONE Stop: 06/01/22 17:10 Last Admin: 06/01/22 17:20 Dose: 10 mg Documented By: DEYVI Ondansetron HCl (Ondansetron 4 Mg/2 Ml Inj) 4 mg IV NOW ONE Stop: 06/01/22 16:30 Last Admin: 06/01/22 16:40 Dose: 4 mg Documented By: ZYARA Vital Signs Vital signs: Vital Signs - 8 hr 06/01/22 16:25 06/01/22 16:54 06/01/22 16:53 Temperature 98.3 F Pulse Rate 80 80 72 Respiratory Rate 18 18 Blood Pressure 112/66 130/78 Pulse Oximetry 97 99 98 Oxygen Delivery Method Room Air Room Air Room Air 06/01/22 17:00 06/01/22 17:01 06/01/22 17:01 Temperature Pulse Rate 64 67 Respiratory Rate Blood Pressure 134/60 Pulse Oximetry 96 96 Oxygen Delivery Method Room Air Room Air 06/01/22 17:30 06/01/22 17:30 06/01/22 18:00 Temperature Pulse Rate 65 73 Respiratory Rate Blood Pressure 128/84 Pulse Oximetry 97 98 Oxygen Delivery Method Room Air Room Air 06/01/22 18:01 06/01/22 18:01 Temperature Pulse Rate 73 Respiratory Rate Blood Pressure 109/56 L Pulse Oximetry 97 Oxygen Delivery Method Room Air Medical Decision Making Lab Data Lab results reviewed: Yes I reviewed the patient's lab results. Result diagrams: 06/01/22 16:36 06/01/22 16:36 Labs: Lab Results 06/01/22 06/01/22 Range/Units 16:36 16:36 WBC 8.2 (4.5-11.0) X10^3/uL RBC 4.79 (4.0-5.2) X10^6/uL Hgb 13.2 (12.0-16.0) g/dL Hct 38.9 (36-46) % MCV 81.1 (80-100) fL MCH 27.5 (26-34) PG MCHC 33.9 (30-36) % RDW 13.8 (11.6-14.8) % Plt Count 251 (150-400) X10^3/uL Neut % (Auto) 62.3 (50-75) % Lymph % (Auto) 27.9 (25-40) % [place] % (Auto) 6.1 (3-14) % Eos % (Auto) 3.3 (2-4) % Baso % (Auto) 0.4 (0-2) % Neut # (Auto) 5100 (1133-6259) /uL Lymph # (Auto) 2300 (7810-6191) /uL [place] # (Auto) 500 (0-900) /uL Eos # (Auto) 300 (0-450) /uL Baso # (Auto) 0 (0-100) /uL Sodium 140 (137-145) mmol/L Potassium 4.3 (3.4-5.1) mmol/L Chloride 106 (98-107) mmol/L Carbon Dioxide 26 (22-32) mmol/L BUN 10 (7-17) mg/dL Creatinine 0.60 (0.52-1.04) mg/dL Estimated GFR > 60 (>60) mL/min BUN/Creatinine Ratio 16.7 (6-22) Glucose 101 H (70-100) mg/dL Calcium 9.5 (8.4-10.2) mg/dL Total Bilirubin 0.3 (0.2-1.3) mg/dL AST 22 (14-36) IU/L ALT 16 (<35) IU/L Alkaline Phosphatase 68 (38-126) U/L Total Protein 7.9 (6.3-8.2) g/dL Albumin 4.2 (3.5-5.0) g/dL Globulin 3.7 (1.7-4.1) g/dL Albumin/Globulin Ratio 1.1 (1.0-2.8) Lipase 54 (23-300) U/L Point of Care Testing Test Results Negative Urine Dip Bedside Urine Glucose Negative Bedside Urine Bilirubin - Negative Bedside Urine Ketone - Negative Urine Specific [place] 1.01 Bedside Urine Occult Blood - Negative Bedside Urine pH 6.5 Bedside Urine Protein - Negative Bedside Urine Urobilinogen +/- 1mg Bedside Urine Nitrite - Negative Bedside Urine Leukocytes - Negative Esterase Point of care testing: Point of Care Testing Test Results Negative Urine Dip Bedside Urine Glucose Negative Bedside Urine Bilirubin - Negative Bedside Urine Ketone - Negative Urine Specific [place] 1.01 Bedside Urine Occult Blood - Negative Bedside Urine pH 6.5 Bedside Urine Protein - Negative Bedside Urine Urobilinogen +/- 1mg Bedside Urine Nitrite - Negative Bedside Urine Leukocytes - Negative Esterase MDM Narrative Medical decision making narrative: Benign abdominal exam. Labs unremarkable. Patient has had multiple CT scans in the past and within the past month has had an upper endoscopy and colonoscopy. I do have low suspicion for an intra-abdominal surgical issue going on today given her presentation so we will hold on any radiologic studies. The patient agrees with this. She does feel better after Reglan. Will discharge home with a prescription for Reglan. She was given return precautions. She expressed understanding and agreement. Discharge Plan Departure Patient Disposition: Home Clinical Impression: Abdominal pain, Vomiting Instructions: DI for Abdominal Pain-Adult Activity Restrictions/Additional Instructions: I do recommend that you continue all medications as directed. A prescription for a 2nd nausea medication was sent to [facility] per your request. You can use this as needed. Contact your primary doctor for a follow-up. Return to the emergency department for any new or worsening symptoms. Prescriptions: New metoclopramide HCl [Reglan] 10 mg tablet 10 mg PO Q6H PRN (Reason: nausea and vomiting) Qty: 20 0RF
[2022-06-01] MEDS: METOCLOPRAMIDE 10 MG/2 ML INJ IV (17:20)
[2022-06-01] MEDS: SODIUM CHLORIDE 0.9% 1,000 ML 1000 ML IV (17:20)
== END 2022-06-01 18:32 | disposition home or self-care (01) ==
PROVIDERS: Emergency Provider Emergency Medicine
DX: R10.9 Unspecified abdominal pain (principal); R11.10 Vomiting, unspecified; R19.7 Diarrhea, unspecified
CPT/HCPCS: 36415; 80053; 81003; 81025; 83690; 85025; 96361; 96374; 96375; 99284; J2405; J2765

== ENCOUNTER 2022-06-22 10:52 | Emergency (ER) | payer OTHER, MEDICAID, SELFPAY ==
[2022-06-22 10:55] VITALS: BP 125/67; PULSE 91; RESP 15; TEMP 37.3; O2SAT 98; BMI 36.0
[2022-06-22] MEDS: ONDANSETRON 4 MG ODT SL (11:03)
[2022-06-22 11:47] LABS: Amorphous Sediment Urine 2+; Bacteria Urine Few (2-10); Mucus Urine 1+ (Negative); RBC Urine None Seen (0-5/HPF); Squamous Epithelial Cell Urine 10-30 /HPF (0-5/HPF); WBC Urine 1-5/HPF (0-5/HPF)
--- NOTE | 2022-06-22 14:05 | PC.NURSE ---
pt not found in either waiting area.
== END 2022-06-22 14:05 | disposition left against medical advice (07) ==
PROVIDERS: Emergency Provider Emergency Medicine
DX: R11.2 Nausea with vomiting, unspecified (principal); R10.9 Unspecified abdominal pain; R35.0 Frequency of micturition
CPT/HCPCS: 81003; 81015; 81025; 87086; 99283

== ENCOUNTER 2022-06-28 01:23 | Emergency (ER) | payer OTHER, MEDICAID, SELFPAY ==
[2022-06-28 01:33] VITALS: BP 134/74; PULSE 118; RESP 22; TEMP 36.7; O2SAT 100; BMI 42.3
[2022-06-28 01:48] LABS: Add Manual Diff / Slide Review NO; Basophils Absolute Auto 0 /uL (0-100); Basophils Percent Auto 0.5 % (0-2); Eosinophils Absolute Auto 200 /uL (0-450); Eosinophils Percent Auto 2.6 % (2-4); Hematocrit 37.8 % (36-46); Hemoglobin 12.7 g/dL (12.0-16.0); Lymphocytes Absolute Auto 3000 /uL (1100-4500); Lymphocytes Percent Auto 34.6 % (25-40); Mean Corpuscular HGB Conc 33.5 % (30-36); Mean Corpuscular Hemoglobin 27.3 PG (26-34); Mean Corpuscular Volume 81.3 fL (80-100); Monocytes Absolute Auto 500 /uL (0-900); Monocytes Percent Auto 5.7 % (3-14); Neutrophils Absolute Auto 5000 /uL (1500-7000); Neutrophils Percent Auto 56.6 % (50-75); Platelet Count 283 X10^3/uL (150-400); Red Blood Cell Count 4.64 X10^6/uL (4.0-5.2); Red Cell Distribution Width 13.7 % (11.6-14.8); White Blood Cell Count 8.8 X10^3/uL (4.5-11.0)
[2022-06-28 01:55] LABS: Alanine Aminotransferase 27 IU/L (<35); Albumin 4.3 g/dL (3.5-5.0); Albumin Globulin Ratio 1.1 (1.0-2.8); Alkaline Phosphatase 80 U/L (38-126); Aspartate Aminotransferase 29 IU/L (14-36); BUN Creatinine Ratio 15.9 (6-22); Bilirubin Total 0.2 mg/dL (0.2-1.3); Blood Urea Nitrogen 11 mg/dL (7-17); Calcium 9.1 mg/dL (8.4-10.2); Carbon Dioxide 23 mmol/L (22-32); Chloride 105 mmol/L (98-107); Estimated Glomerular Filt Rate > 60 mL/min (>60); Globulin 3.8 g/dL (1.7-4.1); Glucose 130 mg/dL (70-100); HEMOLYSIS < 15 (0-50); Lipase 89 U/L (23-300); Potassium 3.7 mmol/L (3.4-5.1); Sodium 140 mmol/L (137-145); Total Protein 8.1 g/dL (6.3-8.2)
[2022-06-28 01:57] LABS: Pregnancy Test Serum,Qual Negative (Negative)
--- NOTE | 2022-06-28 02:15 | DI.CT.S_ITS ---
PROCEDURE: CT ABDOMEN PELVIS W CON INDICATIONS: IV contrast only/umbilical pain TECHNIQUE: After the administration of intravenous contrast, axial sections acquired from the lung bases to the pubic symphysis. Coronal and sagittal reformats were performed. For radiation dose reduction, the following was used: automated exposure control, adjustment of mA and/or kV according to patient size. COMPARISON: [facility], CT, CT ABDOMEN PELVIS W CON, 01/08/2022, 0:36. FINDINGS: Image quality: Excellent. Lung bases: Lung bases are clear. Heart: No significant findings. ABDOMEN: Liver: Unremarkable. Gallbladder: Status post cholecystectomy. Biliary ducts: Unremarkable. Pancreas: Unremarkable. Spleen: Unremarkable. Adrenal Glands: Unremarkable. Kidneys and Ureters: Kidneys are symmetric in size and enhancement, and there is no obstructive uropathy. No perinephric inflammatory changes. Ureters are normal in course and caliber. Stomach and Bowel: Stomach, small bowel loops, and colon are unremarkable. Normal appendix. Peritoneum: No abnormal intraperitoneal fluid. No free air. Ventral Wall: There is a fat-containing umbilical hernia without acute inflammation. Abdominal Nodes: No retroperitoneal or mesenteric adenopathy by size criteria. Vessels: Aorta and inferior vena cava are normal in size. PELVIS: Pelvic Organs: Unremarkable. Bladder: Unremarkable. Pelvic Nodes: No enlarged lymph nodes. Miscellaneous: No hernias are seen. Bones: No acute compression fracture. Stable appearance grade 1 anterolisthesis of L5 on S1 secondary to bilateral L5 pars defects. Associated spondylosis. No suspicious osseous lesions. IMPRESSION: CT abdomen and pelvis without acute abnormalities to explain patient's symptoms. Normal appendix. Small fat containing umbilical hernia without acute inflammation. Other chronic findings as above. No significant discrepancy with the steward/stewardess night radiology preliminary report. Dictated by: Joel Kellogg M.D. on 06/28/2022 at 7:15 Approved by: Joel Kellogg M.D. on 06/28/2022 at 7:19
[2022-06-28] MEDS: KETOROLAC 30 MG/ML VIAL 15 MG IV (02:26)
[2022-06-28] MEDS: SODIUM CHLORIDE 0.9% 1,000 ML 1000 ML IV (02:26)
[2022-06-28 02:42] LABS: COVID19 -Nasal RAPID Negative (Negative)
--- NOTE | 2022-06-28 02:45 | ED.ABDPAIN ---
HPI - Abdominal Pain General Chief Complaint: Abdominal Pain Stated Complaint: ABD PAIN Time Seen by Provider: 06/28/22 01:38 Source: patient Mode of arrival: Ambulatory History of Present Illness HPI narrative: Patient brought here by boyfriend from work. Just prior to arrival had periumbilical sharp pain. Worse with movement and walking. Never had this pain before. No nausea or vomiting. No diarrhea. No urinary complaints. No chest pain or back pain. History of cholecystectomy in the past. No appendectomy. Denies . Related Data Previous Rx's Medication Instructions Recorded metoclopramide HCl 10 mg tablet 10 mg PO Q6H PRN nausea and 06/01/22 (Reglan) vomiting #20 tabs Allergies Allergy/AdvReac Type Severity Reaction Status Date / Time No Known Drug Allergies Allergy Verified 06/28/22 01:33 Review of Systems Review of Systems Narrative: GENERAL: Denies chills, fatigue, malaise, fever, sweats. HEENT: Denies sinus pain, ear pain, sore throat RESPIRATORY: Denies dyspnea, cough CARDIOVASCULAR: Denies chest pain, palpitations GASTROINTESTINAL: Denies nausea, vomiting, positive abdominal pain : Denies dysuria, frequency, hematuria MUSCULOSKELETAL: denies muscle or bony pain SKIN: Denies rash, skin lesions NEUROLOGIC: Denies weakness, numbness ROS Unobtainable: All systems reviewed & are unremarkable except as noted in HPI and below Patient History Medical History Abdominal pain Social History Smoking Status: Never smoker Smoking Status: Never smoker alcohol intake frequency: holidays/special occasions only Substance Use Type: does not use Exam Narrative Exam Narrative: GENERAL: in no distress, not toxic not dyspneic HEAD: Normocephalic. EYES: Pupils equal round No scleral icterus. ENT: Mucous membranes moist. NECK: Trachea midline. CARDIOVASCULAR: Regular rate and rhythm without murmurs RESPIRATORY: Clear to auscultation. Breath sounds equal bilaterally. No wheezes, rales, or rhonchi. GASTROINTESTINAL: Abdomen soft, reproducible periumbilical tenderness, no peritoneal signs, bowel sounds are present. No CVA tenderness. EXTREMITIES: No gross deformities. BACK: No flank tenderness. NEURO: AOx4. SKIN: Warm and dry PSYCH: Not anxious, is cooperative Initial Vital Signs Initial Vital Signs: Vital Signs Temperature 98.0 F 06/28/22 01:33 Pulse Rate 118 H 06/28/22 01:33 Respiratory Rate 22 06/28/22 01:33 Blood Pressure 134/74 06/28/22 01:33 Pulse Oximetry 100 06/28/22 01:33 Oxygen Delivery Method 06/28/22 01:33 Course Course Course Narrative: No new issues during course of stay Orders Ordered: ED Orders 06/28/22 01:30 COVID19 -Nasal RAPID/Pre-Proc Stat 06/28/22 01:35 Complete Blood Count AUTO DIFF Stat Comprehensive Metabolic Panel Stat Lipase Stat Test Serum,Qual Stat 06/28/22 02:15 CT abdomen pelvis w con Stat 06/28/22 03:55 Urinalysis and Microscopic Stat Discontinued Medications Sodium Chloride (Normal Saline 0.9%) 1,000 mls @ 1,000 mls/hr IV BOLUS ONE Stop: 06/28/22 03:14 Last Infusion: 06/28/22 03:50 Dose: 0 mls/hr Documented By: Admin: 06/28/22 02:26 Dose: 1,000 mls/hr Documented By: SU Ketorolac Tromethamine (Ketorolac 30 Mg/Ml Vial) 15 mg IV NOW ONE Stop: 06/28/22 02:16 Last Admin: 06/28/22 02:26 Dose: 15 mg Documented By: SU Morphine Sulfate (Morphine 4 Mg/Ml Inj) 4 mg IV NOW ONE Stop: 06/28/22 03:43 Last Admin: 06/28/22 03:48 Dose: 4 mg Documented By: SU Reevaluation(s) Reevaluation #1: Reviewed results with patient. At this time laboratory studies and imaging are reassuring. Work note provided for patient. Morphine has been ordered for pain. 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 Return precautions reviewed patient Time: 03:49 Vital Signs Vital signs: Vital Signs - 8 hr 06/28/22 01:33 06/28/22 03:39 06/28/22 03:39 Temperature 98.0 F Pulse Rate 118 H 80 Respiratory Rate 22 Blood Pressure 134/74 127/76 Pulse Oximetry 100 99 Oxygen Delivery Method Room Air MDM - Abdominal Pain Differential Diagnosis Differential diagnosis: Likely abdominal pain, acute appendicitis, calculus of kidney, constipation, diverticulitis, pancreatitis and small bowel obstruction Lab Data Result diagrams: 06/28/22 01:35 06/28/22 01:35 Labs: Lab Results 06/28/22 06/28/22 06/28/22 Range/Units 01:30 01:35 01:35 WBC 8.8 (4.5-11.0) X10^3/uL RBC 4.64 (4.0-5.2) X10^6/uL Hgb 12.7 (12.0-16.0) g/dL Hct 37.8 (36-46) % MCV 81.3 (80-100) fL MCH 27.3 (26-34) PG MCHC 33.5 (30-36) % RDW 13.7 (11.6-14.8) % Plt Count 283 (150-400) X10^3/uL Neut % (Auto) 56.6 (50-75) % Lymph % (Auto) 34.6 (25-40) % [place] % (Auto) 5.7 (3-14) % Eos % (Auto) 2.6 (2-4) % Baso % (Auto) 0.5 (0-2) % Neut # (Auto) 5000 (3517-2666) /uL Lymph # (Auto) 3000 (0909-5171) /uL [place] # (Auto) 500 (0-900) /uL Eos # (Auto) 200 (0-450) /uL Baso # (Auto) 0 (0-100) /uL Sodium 140 (137-145) mmol/L Potassium 3.7 (3.4-5.1) mmol/L Chloride 105 (98-107) mmol/L Carbon Dioxide 23 (22-32) mmol/L BUN 11 (7-17) mg/dL Creatinine 0.69 (0.52-1.04) mg/dL Estimated GFR > 60 (>60) mL/min BUN/Creatinine Ratio 15.9 (6-22) Glucose 130 H (70-100) mg/dL Calcium 9.1 (8.4-10.2) mg/dL Total Bilirubin 0.2 (0.2-1.3) mg/dL AST 29 (14-36) IU/L ALT 27 (<35) IU/L Alkaline Phosphatase 80 (38-126) U/L Total Protein 8.1 (6.3-8.2) g/dL Albumin 4.3 (3.5-5.0) g/dL Globulin 3.8 (1.7-4.1) g/dL Albumin/Globulin Ratio 1.1 (1.0-2.8) Lipase 89 (23-300) U/L Serum , Qual (Negative) Urine Color Urine Appearance Urine pH (4.5-8.0) Ur Specific [place] (1.000-1.035) Urine Protein (Negative) Urine Glucose (UA) (Negative) g/dL Urine Ketones (NEGATIVE) Urine Occult Blood (Negative) Urine Nitrate (Negative) Urine Bilirubin (NEGATIVE) Urine Urobilinogen (0.2) E.U./dL Ur Leukocyte Esterase (NEGATIVE) SARS-CoV-2 (PCR) Negative (Negative) 06/28/22 06/28/22 Range/Units 01:35 03:55 WBC (4.5-11.0) X10^3/uL RBC (4.0-5.2) X10^6/uL Hgb (12.0-16.0) g/dL Hct (36-46) % MCV (80-100) fL MCH (26-34) PG MCHC (30-36) % RDW (11.6-14.8) % Plt Count (150-400) X10^3/uL Neut % (Auto) (50-75) % Lymph % (Auto) (25-40) % [place] % (Auto) (3-14) % Eos % (Auto) (2-4) % Baso % (Auto) (0-2) % Neut # (Auto) (2528-4843) /uL Lymph # (Auto) (7949-0775) /uL [place] # (Auto) (0-900) /uL Eos # (Auto) (0-450) /uL Baso # (Auto) (0-100) /uL Sodium (137-145) mmol/L Potassium (3.4-5.1) mmol/L Chloride (98-107) mmol/L Carbon Dioxide (22-32) mmol/L BUN (7-17) mg/dL Creatinine (0.52-1.04) mg/dL Estimated GFR (>60) mL/min BUN/Creatinine Ratio (6-22) Glucose (70-100) mg/dL Calcium (8.4-10.2) mg/dL Total Bilirubin (0.2-1.3) mg/dL AST (14-36) IU/L ALT (<35) IU/L Alkaline Phosphatase (38-126) U/L Total Protein (6.3-8.2) g/dL Albumin (3.5-5.0) g/dL Globulin (1.7-4.1) g/dL Albumin/Globulin Ratio (1.0-2.8) Lipase (23-300) U/L Serum , Qual Negative (Negative) Urine Color Yellow Urine Appearance Clear Urine pH 5.0 (4.5-8.0) Ur Specific [place] <=1.005 (1.000-1.035) Urine Protein Negative (Negative) Urine Glucose (UA) Negative (Negative) g/dL Urine Ketones Negative (NEGATIVE) Urine Occult Blood Negative (Negative) Urine Nitrate Negative (Negative) Urine Bilirubin Negative (NEGATIVE) Urine Urobilinogen 0.2 (0.2) E.U./dL Ur Leukocyte Esterase Negative (NEGATIVE) SARS-CoV-2 (PCR) (Negative) Imaging Data CT scan - abdomen/pelvis: Radiologist's Impression: No evidence of colitis diverticulitis bowel obstruction obstructive uropathy or appendicitis MDM Narrative Medical decision making narrative: Appropriate for discharge home. Exam and laboratory studies and imaging are reassuring. Reviewed with patient could be early appendicitis home observation return instructions provided. 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 Not toxic at discharge. Discharge Plan Departure Patient Disposition: Home Clinical Impression: Abdominal pain Activity Restrictions/Additional Instructions: No driving or operating machinery tonight. Please see family doctor or call provided general surgery office tomorrow for re-evaluation of your abdominal pain. Keep well hydrated. Return if worse or for any questions or concerns. Call provided primary care referral phone number to establish family doctor. Call [phone] Prescriptions: No Action metoclopramide HCl [Reglan] 10 mg tablet 10 mg PO Q6H PRN (Reason: nausea and vomiting) Qty: 20 0RF Referrals: Marcelino Williamson MD [Physician] - Stand Alone Forms: Work Release Note
[2022-06-28 03:39] VITALS: BP 127/76; PULSE 80; O2SAT 99
[2022-06-28] MEDS: MORPHINE 4 MG/ML INJ IV (03:48)
[2022-06-28 04:35] LABS: Appearance Urine UA CLEAR; Bilirubin Urine UA NEGATIVE (NEGATIVE); Color Urine UA YELLOW; Glucose Urine UA NEGATIVE (Negative); Ketones Urine UA NEGATIVE (NEGATIVE); Leukocyte Esterase Urine UA NEGATIVE (NEGATIVE); Nitrite Urine UA NEGATIVE (Negative); Occult Blood Urine UA NEGATIVE (Negative); Protein Urine UA NEGATIVE (Negative); Specific Gravity Urine UA <=1.005 (1.000-1.035); Urobilinogen Urine UA 0.2 E.U./dL (0.2)
[2022-06-28 04:40] LABS: Bacteria Urine None Seen; Culture Indicated Urine Cult Not Indicated; RBC Urine None Seen (0-5/HPF); Squamous Epithelial Cell Urine 0-1 /HPF (0-5/HPF); WBC Urine None Seen (0-5/HPF)
== END 2022-06-28 03:55 | disposition home or self-care (01) ==
PROVIDERS: Emergency Provider Emergency Medicine
DX: R10.33 Periumbilical pain (principal); Z20.822 Contact with and (suspected) exposure to COVID-19
CPT/HCPCS: 36415; 74177; 80053; 81001; 83690; 84703; 85025; 87635; 96361; 96374; 96375; 99284; C9803; J1885; J2270; Q9967

== ENCOUNTER 2022-07-02 18:46 | Emergency (ER) | payer OTHER, MEDICAID, SELFPAY ==
[2022-07-02 18:53] VITALS: BP 160/90; PULSE 115; RESP 22; TEMP 36.4; O2SAT 98
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
[2022-07-02] MEDS: KETOROLAC 30 MG/ML VIAL IM (21:28)
== END 2022-07-02 21:34 | disposition home or self-care (01) ==
PROVIDERS: Emergency Provider Emergency Medicine
DX: M54.50 Low back pain, unspecified (principal); V89.2XXA Person injured in unspecified motor-vehicle accident, traffic, initial encounter
CPT/HCPCS: 96372; 99283; J1885

== ENCOUNTER 2022-07-16 23:01 | Emergency (ER) | payer OTHER, MEDICAID, SELFPAY ==
[2022-07-16 23:05] VITALS: BP 132/77; PULSE 95; RESP 28; TEMP 35.8; O2SAT 98; BMI 42.3
--- NOTE | 2022-07-16 23:19 | ED.GENADULT ---
HPI - General Adult General Chief complaint: Abdominal Pain Stated complaint: vomiting , abd pain, can't keep food down Time Seen by Provider: 07/16/22 23:16 Source: patient Mode of arrival: Ambulatory History of Present Illness HPI narrative: 26-year-old female who has been seen in the emergency department in the past for abdominal pain and vomiting who is here for evaluation of abdominal pain and also vomiting. Symptoms started earlier today. She did try her home Zofran and suppositories without any improvement. Did have some diarrhea earlier today. No urinary symptoms. Related Data Home Medications Medication Instructions Recorded Confirmed acetaminophen 500 mg tablet 1,000 mg PO Q6H PRN Pain 01/13/20 05/27/21 (Tylenol Extra Strength) ketorolac 10 mg tablet 10 mg PO TID PRN Pain (Scale Score 05/27/21 05/27/21 7-10) ondansetron 4 mg disintegrating 4 mg PO TID PRN nausea/vomiting 05/27/21 05/27/21 tablet tamsulosin 0.4 mg capsule 0.4 mg PO DAILY 05/27/21 05/27/21 Previous Rx's Medication Instructions Recorded metoclopramide HCl 10 mg tablet 10 mg PO Q6H PRN nausea and 05/27/21 (Reglan) vomiting #12 tabs hydrocodone 5 mg-acetaminophen 325 1 tab PO Q4-6H PRN pain #10 tabs 01/01/22 mg tablet ondansetron 4 mg disintegrating 4 mg PO TID-QID PRN nausea and 01/01/22 tablet vomiting #10 tabs metronidazole 500 mg tablet 500 mg PO BID #14 tabs 01/10/22 gabapentin 300 mg capsule 300 mg PO BEDTIME #14 caps 01/15/22 lidocaine 5 % topical patch 1 patch topical DAILY #15 ea 01/15/22 (Lidoderm) doxycycline monohydrate 100 mg 100 mg PO BID #14 caps 02/24/22 capsule cetirizine 10 mg tablet 10 mg PO BEDTIME #30 tabs 02/27/22 ondansetron 4 mg disintegrating 4 mg PO Q8H PRN nausea and 02/27/22 tablet vomiting #10 tabs pseudoephedrine HCl 30 mg tablet 30 mg PO Q8HR #14 tabs 02/27/22 (Sudafed) hydrocodone 5 mg-acetaminophen 325 1 tab PO Q4-6H PRN pain #20 tabs 04/08/22 mg tablet metoclopramide HCl 10 mg tablet 10 mg PO Q6H PRN nausea and 06/01/22 (Reglan) vomiting #20 tabs diazepam 5 mg tablet (Valium) 5 mg PO TID PRN muscle spasm #10 07/02/22 tabs metoclopramide HCl 10 mg tablet 10 mg PO Q6H PRN nausea and 07/17/22 (Reglan) vomiting #14 tabs Allergies Allergy/AdvReac Type Severity Reaction Status Date / Time No Known Drug Allergies Allergy Verified 06/28/22 07:30 Review of Systems Constitutional Constitutional: Reports system reviewed and no additional complaints, except as documented Gastrointestinal Gastrointestinal: Reports system reviewed and no additional complaints, except as documented Genitourinary Genitourinary: Reports system reviewed and no additional complaints, except as documented Integumentary/Breasts Skin/Breast: Reports system reviewed and no additional complaints, except as documented Patient History Medical History Abdominal pain Fusion of toes of right foot Pyelonephritis (~06/2019) Sebaceous cyst Surgical History History of bunionectomy of left great toe History of bunionectomy of right great toe Hx of cholecystectomy Hx of eye surgery Hx of foot surgery Hx of foot surgery (08/25/20) S/P foot surgery, right S/P foot surgery, right (09/12/19) S/P hardware removal Social History household members: family and children Smoking Status: Former smoker alcohol intake: current Smoking Status: Former smoker alcohol intake frequency: a few times a week Substance Use Type: does not use, former substance user and marijuana Exam Initial Vital Signs Initial Vital Signs: Vital Signs Temperature 96.4 F L 07/16/22 23:05 Pulse Rate 95 H 07/16/22 23:05 Respiratory Rate 28 H 07/16/22 23:05 Blood Pressure 132/77 07/16/22 23:05 Pulse Oximetry 98 07/16/22 23:05 Oxygen Delivery Method 07/16/22 23:05 HENNM Head: normal to inspection and normocephalic Resp Effort & Inspection: normal respiratory effort Auscultation: clear to auscultation bilaterally Cardio Rate: regular rate Rhythm: regular rhythm GI Inspection: non-distended Palpation: soft Skin General: no rashes or lesions noted Course Orders Ordered: ED Orders 07/16/22 23:15 Urine Culture Stat Urine Microscopic Stat 07/16/22 23:17 Complete Blood Count AUTO DIFF Stat Comprehensive Metabolic Panel Stat Lipase Stat Discontinued Medications Sodium Chloride (Normal Saline 0.9%) 1,000 mls @ 1,000 mls/hr IV BOLUS ONE Stop: 07/17/22 00:17 Last Infusion: 07/17/22 01:38 Dose: 0 mls/hr Documented By: Admin: 07/16/22 23:24 Dose: 1,000 mls/hr Documented By: BRII Lorazepam (Lorazepam 2 Mg/Ml Inj) 1 mg IV NOW ONE Stop: 07/17/22 00:21 Last Admin: 07/17/22 00:26 Dose: 1 mg Documented By: BRII Metoclopramide HCl (Metoclopramide 10 Mg/2 Ml Inj) 10 mg IV NOW ONE Stop: 07/16/22 23:19 Last Admin: 07/16/22 23:23 Dose: 10 mg Documented By: BRII Vital Signs Vital signs: Vital Signs - 8 hr 07/16/22 23:05 07/17/22 00:31 Temperature 96.4 F L Pulse Rate 95 H 85 Respiratory Rate 28 H 18 Blood Pressure 132/77 122/73 Pulse Oximetry 98 95 Oxygen Delivery Method Room Air Room Air Medical Decision Making Lab Data Result diagrams: 07/16/22 23:17 07/16/22 23:17 Labs: Lab Results 07/16/22 07/16/22 07/16/22 Range/Units 23:15 23:17 23:17 WBC 12.5 H (4.5-11.0) X10^3/uL RBC 5.30 H (4.0-5.2) X10^6/uL Hgb 14.4 (12.0-16.0) g/dL Hct 42.8 (36-46) % MCV 80.7 (80-100) fL MCH 27.2 (26-34) PG MCHC 33.7 (30-36) % RDW 14.4 (11.6-14.8) % Plt Count 303 (150-400) X10^3/uL Neut % (Auto) 92.3 H (50-75) % Lymph % (Auto) 4.2 L (25-40) % [place] % (Auto) 2.4 L (3-14) % Eos % (Auto) 0.4 L (2-4) % Baso % (Auto) 0.7 (0-2) % Neut # (Auto) 78859 H (7274-9252) /uL Lymph # (Auto) 500 L (1690-2470) /uL [place] # (Auto) 300 (0-900) /uL Eos # (Auto) 100 (0-450) /uL Baso # (Auto) 100 (0-100) /uL Sodium 138 (137-145) mmol/L Potassium 4.3 (3.4-5.1) mmol/L Chloride 106 (98-107) mmol/L Carbon Dioxide 20 L (22-32) mmol/L BUN 9 (7-17) mg/dL Creatinine 0.62 (0.52-1.04) mg/dL Estimated GFR > 60 (>60) mL/min BUN/Creatinine Ratio 14.5 (6-22) Glucose 143 H (70-100) mg/dL Calcium 9.4 (8.4-10.2) mg/dL Total Bilirubin 0.4 (0.2-1.3) mg/dL AST 23 (14-36) IU/L ALT 26 (<35) IU/L Alkaline Phosphatase 89 (38-126) U/L Total Protein 8.6 H (6.3-8.2) g/dL Albumin 4.6 (3.5-5.0) g/dL Globulin 4.0 (1.7-4.1) g/dL Albumin/Globulin Ratio 1.2 (1.0-2.8) Lipase 50 (23-300) U/L Urine RBC None seen (0-5/HPF) Urine WBC 0-1/hpf (0-5/HPF) Ur Squamous Epith Cells 10-30 /hpf H D (0-5/HPF) Amorphous Sediment 3+ Urine Bacteria Few (2-10) H (None) Urine Mucus 1+ H (Negative) Point of Care Testing Test Results Negative Urine Dip Bedside Urine Glucose Negative Bedside Urine Bilirubin - Negative Bedside Urine Ketone +++ 80 Urine Specific [place] 1.030 Bedside Urine Occult Blood - Negative Bedside Urine pH 6.0 Bedside Urine Protein + 30 Bedside Urine Urobilinogen - Negative Bedside Urine Nitrite - Negative Bedside Urine Leukocytes + 70 Esterase Point of care testing: Point of Care Testing Test Results Negative Urine Dip Bedside Urine Glucose Negative Bedside Urine Bilirubin - Negative Bedside Urine Ketone +++ 80 Urine Specific [place] 1.030 Bedside Urine Occult Blood - Negative Bedside Urine pH 6.0 Bedside Urine Protein + 30 Bedside Urine Urobilinogen - Negative Bedside Urine Nitrite - Negative Bedside Urine Leukocytes + 70 Esterase MDM Narrative Medical decision making narrative: Improvement of symptoms after above treatments. Hold on any radiologic studies for now given her presenting symptoms and also her history. Will send home with a prescription for Reglan as the Reglan and Ativan seem to improve her symptoms here. She was tolerating oral intake. She was given return precautions. Discharge Plan Departure Patient Disposition: Home Clinical Impression: Abdominal pain, Nausea and vomiting Instructions: DI for Abdominal Pain-Adult, Nausea and Vomiting-Adult Activity Restrictions/Additional Instructions: I do recommend a bland diet for the next couple days and using the medication as needed. Contact your primary doctor for a follow-up. Prescriptions: New metoclopramide HCl [Reglan] 10 mg tablet 10 mg PO Q6H PRN (Reason: nausea and vomiting) Qty: 14 0RF No Action acetaminophen [Tylenol Extra Strength] 500 mg Tablet 1,000 mg PO Q6H PRN (Reason: Pain) ketorolac 10 mg tablet 10 mg PO TID PRN (Reason: Pain (Scale Score 7-10)) tamsulosin 0.4 mg capsule 0.4 mg PO DAILY Rx Instructions: x 14 days ondansetron 4 mg tablet,disintegrating 4 mg PO TID PRN (Reason: nausea/vomiting) metoclopramide HCl [Reglan] 10 mg tablet 10 mg PO Q6H PRN (Reason: nausea and vomiting) Qty: 12 0RF hydrocodone-acetaminophen 5-325 mg tablet 1 tab PO Q4-6H PRN (Reason: pain) Qty: 10 0RF ondansetron 4 mg tablet,disintegrating 4 mg PO TID-QID PRN (Reason: nausea and vomiting) Qty: 10 0RF metronidazole 500 mg tablet 500 mg PO BID Qty: 14 0RF hydrocodone-acetaminophen 5-325 mg tablet 1 tab PO Q4-6H PRN (Reason: pain) Qty: 20 0RF lidocaine [Lidoderm] 5 % adhesive patch,medicated 1 patch TOP DAILY Qty: 15 0RF Rx Instructions: leave on most painful area for 12 hrs gabapentin 300 mg capsule 300 mg PO BEDTIME Qty: 14 0RF doxycycline monohydrate 100 mg capsule 100 mg PO BID Qty: 14 0RF pseudoephedrine HCl [Sudafed] 30 mg tablet 30 mg PO Q8HR Qty: 14 0RF cetirizine 10 mg tablet 10 mg PO BEDTIME Qty: 30 0RF ondansetron 4 mg tablet,disintegrating 4 mg PO Q8H PRN (Reason: nausea and vomiting) Qty: 10 0RF metoclopramide HCl [Reglan] 10 mg tablet 10 mg PO Q6H PRN (Reason: nausea and vomiting) Qty: 20 0RF diazepam [Valium] 5 mg tablet 5 mg PO TID PRN (Reason: muscle spasm) Qty: 10 0RF Referrals: Miscellaneous,Doctor, MD [Primary Care Provider] -
[2022-07-16] MEDS: METOCLOPRAMIDE 10 MG/2 ML INJ IV (23:23)
[2022-07-16] MEDS: SODIUM CHLORIDE 0.9% 1,000 ML 1000 ML IV (23:24)
[2022-07-16 23:28] LABS: Add Manual Diff / Slide Review NO; Basophils Absolute Auto 100 /uL (0-100); Basophils Percent Auto 0.7 % (0-2); Eosinophils Absolute Auto 100 /uL (0-450); Eosinophils Percent Auto 0.4 % (2-4); Hematocrit 42.8 % (36-46); Hemoglobin 14.4 g/dL (12.0-16.0); Lymphocytes Absolute Auto 500 /uL (1100-4500); Lymphocytes Percent Auto 4.2 % (25-40); Mean Corpuscular HGB Conc 33.7 % (30-36); Mean Corpuscular Hemoglobin 27.2 PG (26-34); Mean Corpuscular Volume 80.7 fL (80-100); Monocytes Absolute Auto 300 /uL (0-900); Monocytes Percent Auto 2.4 % (3-14); Neutrophils Absolute Auto 11500 /uL (1500-7000); Neutrophils Percent Auto 92.3 % (50-75); Platelet Count 303 X10^3/uL (150-400); Red Cell Distribution Width 14.4 % (11.6-14.8); White Blood Cell Count 12.5 X10^3/uL (4.5-11.0)
[2022-07-16 23:39] LABS: Amorphous Sediment Urine 3+; Bacteria Urine Few (2-10); RBC Urine None Seen (0-5/HPF); Squamous Epithelial Cell Urine 10-30 /HPF (0-5/HPF); WBC Urine 0-1/HPF (0-5/HPF)
[2022-07-16 23:40] LABS: Alanine Aminotransferase 26 IU/L (<35); Albumin 4.6 g/dL (3.5-5.0); Albumin Globulin Ratio 1.2 (1.0-2.8); Alkaline Phosphatase 89 U/L (38-126); Aspartate Aminotransferase 23 IU/L (14-36); BUN Creatinine Ratio 14.5 (6-22); Bilirubin Total 0.4 mg/dL (0.2-1.3); Blood Urea Nitrogen 9 mg/dL (7-17); Calcium 9.4 mg/dL (8.4-10.2); Carbon Dioxide 20 mmol/L (22-32); Chloride 106 mmol/L (98-107); Estimated Glomerular Filt Rate > 60 mL/min (>60); Glucose 143 mg/dL (70-100); HEMOLYSIS < 15 (0-50); Lipase 50 U/L (23-300); Potassium 4.3 mmol/L (3.4-5.1); Sodium 138 mmol/L (137-145); Total Protein 8.6 g/dL (6.3-8.2)
[2022-07-16 23:40] LABS: Mucus Urine 1+ (Negative)
[2022-07-17] MEDS: LORazepam 2 MG/ML INJ 1 MG IV (00:26)
[2022-07-17 00:31] VITALS: BP 122/73; PULSE 85; RESP 18; O2SAT 95
[2022-07-17 01:59] VITALS: BP 115/74; PULSE 85; RESP 18; O2SAT 100
== END 2022-07-17 02:03 | disposition home or self-care (01) ==
PROVIDERS: Emergency Provider Emergency Medicine
DX: R10.9 Unspecified abdominal pain (principal); R11.2 Nausea with vomiting, unspecified
CPT/HCPCS: 36415; 80053; 81003; 81015; 81025; 83690; 85025; 87086; 87147; 96361; 96374; 96375; 99284; J2060; J2765

== ENCOUNTER 2022-07-19 11:20 | Emergency (ER) | payer OTHER, MEDICAID, SELFPAY ==
[2022-07-19 11:49] VITALS: BP 120/68; PULSE 74; RESP 15; TEMP 36.6; O2SAT 99; BMI 42.3
[2022-07-19] MEDS: ONDANSETRON 4 MG/2 ML INJ IV (11:56)
[2022-07-19 12:13] LABS: Add Manual Diff / Slide Review NO; Basophils Absolute Auto 0 /uL (0-100); Basophils Percent Auto 0.3 % (0-2); Eosinophils Absolute Auto 200 /uL (0-450); Eosinophils Percent Auto 1.9 % (2-4); Hematocrit 39.7 % (36-46); Hemoglobin 13.3 g/dL (12.0-16.0); Lymphocytes Absolute Auto 1600 /uL (1100-4500); Lymphocytes Percent Auto 16.6 % (25-40); Mean Corpuscular HGB Conc 33.6 % (30-36); Mean Corpuscular Hemoglobin 27.1 PG (26-34); Mean Corpuscular Volume 80.6 fL (80-100); Monocytes Absolute Auto 700 /uL (0-900); Monocytes Percent Auto 7.2 % (3-14); Neutrophils Absolute Auto 7200 /uL (1500-7000); Platelet Count 267 X10^3/uL (150-400); Red Blood Cell Count 4.92 X10^6/uL (4.0-5.2); Red Cell Distribution Width 13.9 % (11.6-14.8); White Blood Cell Count 9.7 X10^3/uL (4.5-11.0)
[2022-07-19 12:23] LABS: Alanine Aminotransferase 25 IU/L (<35); Albumin 4.4 g/dL (3.5-5.0); Albumin Globulin Ratio 1.1 (1.0-2.8); Alkaline Phosphatase 69 U/L (38-126); Aspartate Aminotransferase 26 IU/L (14-36); BUN Creatinine Ratio 14.5 (6-22); Bilirubin Total 0.3 mg/dL (0.2-1.3); Blood Urea Nitrogen 9 mg/dL (7-17); Carbon Dioxide 21 mmol/L (22-32); Chloride 105 mmol/L (98-107); Estimated Glomerular Filt Rate > 60 mL/min (>60); Globulin 3.9 g/dL (1.7-4.1); Glucose 108 mg/dL (70-100); HEMOLYSIS < 15 (0-50); Lipase 55 U/L (23-300); Potassium 3.9 mmol/L (3.4-5.1); Sodium 139 mmol/L (137-145); Total Protein 8.3 g/dL (6.3-8.2)
[2022-07-19 12:30] LABS: Bacteria Urine Few (2-10); Culture Indicated Urine Specimen Cultured; RBC Urine 1-5/HPF (0-5/HPF); WBC Urine 1-5/HPF (0-5/HPF)
--- NOTE | 2022-07-19 14:28 | ED_ITS ---
HPI - Nausea/Vomiting/Diarrhea General Chief complaint: Nausea/Vomiting/Diarrhea Stated complaint: abdominal pain, extreme diarrhea, vomiting Time Seen by Provider: 07/19/22 14:15 Source: patient Mode of arrival: Ambulatory History of Present Illness HPI Narrative: 26-year-old female former smoker with history of chronic abdominal pain is currently being worked up for endometriosis presents with a chief complaint of generalized abdominal cramping and pain and frequent loose stools. She had C diff about 2 years ago and states this feels quite similar. She was recently seen and evaluated in our emergency department and found to have urinary tract infection and that started Keflex. She states that she has no urinary symptoms, just abdominal pain and cramping. She denies any blood in her stool. She is had no fever but does have chills. Related Data Home Medications Medication Instructions Recorded Confirmed acetaminophen 500 mg tablet 1,000 mg PO Q6H PRN Pain 01/13/20 05/27/21 (Tylenol Extra Strength) ketorolac 10 mg tablet 10 mg PO TID PRN Pain (Scale Score 05/27/21 05/27/21 7-10) ondansetron 4 mg disintegrating 4 mg PO TID PRN nausea/vomiting 05/27/21 05/27/21 tablet tamsulosin 0.4 mg capsule 0.4 mg PO DAILY 05/27/21 05/27/21 Previous Rx's Medication Instructions Recorded metoclopramide HCl 10 mg tablet 10 mg PO Q6H PRN nausea and 05/27/21 (Reglan) vomiting #12 tabs hydrocodone 5 mg-acetaminophen 325 1 tab PO Q4-6H PRN pain #10 tabs 01/01/22 mg tablet ondansetron 4 mg disintegrating 4 mg PO TID-QID PRN nausea and 01/01/22 tablet vomiting #10 tabs metronidazole 500 mg tablet 500 mg PO BID #14 tabs 01/10/22 gabapentin 300 mg capsule 300 mg PO BEDTIME #14 caps 01/15/22 lidocaine 5 % topical patch 1 patch topical DAILY #15 ea 01/15/22 (Lidoderm) doxycycline monohydrate 100 mg 100 mg PO BID #14 caps 02/24/22 capsule cetirizine 10 mg tablet 10 mg PO BEDTIME #30 tabs 02/27/22 ondansetron 4 mg disintegrating 4 mg PO Q8H PRN nausea and 02/27/22 tablet vomiting #10 tabs pseudoephedrine HCl 30 mg tablet 30 mg PO Q8HR #14 tabs 02/27/22 (Sudafed) hydrocodone 5 mg-acetaminophen 325 1 tab PO Q4-6H PRN pain #20 tabs 04/08/22 mg tablet metoclopramide HCl 10 mg tablet 10 mg PO Q6H PRN nausea and 06/01/22 (Reglan) vomiting #20 tabs diazepam 5 mg tablet (Valium) 5 mg PO TID PRN muscle spasm #10 07/02/22 tabs metoclopramide HCl 10 mg tablet 10 mg PO Q6H PRN nausea and 07/17/22 (Reglan) vomiting #14 tabs hyoscyamine sulfate 0.125 mg tablet 0.125 mg PO BID-QID PRN dyspepsia 07/19/22 #20 tabs ondansetron 4 mg disintegrating 4 mg PO TID-QID PRN nausea and 07/19/22 tablet vomiting #10 tabs Allergies Allergy/AdvReac Type Severity Reaction Status Date / Time No Known Drug Allergies Allergy Verified 07/19/22 11:49 Review of Systems Review of Systems Narrative: GENERAL: See HPI HEENT: Denies sinus pain, ear pain, sore throat, difficulty swallowing, dizziness. RESPIRATORY: Denies dyspnea, cough, wheezing, hemoptysis, sputum. CARDIOVASCULAR: Denies chest pain, palpitations, orthopnea, edema, GASTROINTESTINAL: See HPI : Denies dysuria, frequency, incontinence, hematuria, urinary retention. MUSCULOSKELETAL: denies weakness, joint pain, or bony pain SKIN: Denies rash, skin lesions, or other NEUROLOGIC: Denies weakness, headache, numbness, change in speech, confusion, seizures, incoordination. PSYCHIATRIC: No concerning psychosocial issues. 12 point review of systems is negative except for those stated above Patient History Medical History Abdominal pain Fusion of toes of right foot Pyelonephritis (~06/2019) Sebaceous cyst Surgical History History of bunionectomy of left great toe History of bunionectomy of right great toe Hx of cholecystectomy Hx of eye surgery Hx of foot surgery Hx of foot surgery (08/25/20) S/P foot surgery, right S/P foot surgery, right (09/12/19) S/P hardware removal Social History household members: family and children Smoking Status: Former smoker alcohol intake: current Smoking Status: Former smoker alcohol intake frequency: a few times a week Substance Use Type: does not use and former substance user Exam Narrative Exam Narrative: GENERAL: 26 year old patient appears stated age. Well-developed patient, in mild distress. HEAD: Atraumatic. Normocephalic. EYES: Pupils equal round and reactive. Extraocular motions intact. No scleral icterus. No injection or drainage. ENT: Nose without bleeding, purulent drainage. Throat without erythema, tonsillar hypertrophy or exudate. Airway patent. NECK: Trachea midline. Non tender CARDIOVASCULAR: Regular rate and rhythm without murmurs, gallops, or rubs. RESPIRATORY: Clear to auscultation. Breath sounds equal bilaterally. No wheezes, rales, or rhonchi. GASTROINTESTINAL: Abdomen soft, generalized abdominal discomfort, no rebound r, nondistended. Bowel sounds present in all 4 quadrants EXTREMITIES: No edema or joint tenderness. BACK: Nontender without deformity or crepitance. No flank tenderness. NEURO: AOx3. SKIN: No rash or erythema of visible areas Initial Vital Signs Initial Vital Signs: Vital Signs Temperature 97.9 F 07/19/22 11:49 Pulse Rate 74 07/19/22 11:49 Respiratory Rate 15 07/19/22 11:49 Blood Pressure 120/68 07/19/22 11:49 Pulse Oximetry 99 07/19/22 11:49 Oxygen Delivery Method 07/19/22 11:49 Course Orders Ordered: ED Orders 07/19/22 11:58 Urine Culture Stat Urine Microscopic Stat 07/19/22 12:00 Complete Blood Count AUTO DIFF Stat Comprehensive Metabolic Panel Stat Lipase Stat 07/19/22 13:51 GI Panel (Film Array) Stat 07/19/22 14:01 COVID19 -Nasal RAPID/Pre-Proc Stat Discontinued Medications Ondansetron HCl (Ondansetron 4 Mg/2 Ml Inj) 4 mg IV NOW ONE Stop: 07/19/22 11:53 Last Admin: 07/19/22 11:56 Dose: 4 mg Documented By: ASIM Vital Signs Vital signs: Vital Signs - 8 hr 11/16/22 11:49 07/19/22 14:41 07/19/22 16:33 Temperature 97.9 F Pulse Rate 74 81 61 Respiratory Rate 15 12 23 Blood Pressure 120/68 118/67 114/69 Pulse Oximetry 99 98 99 Oxygen Delivery Method Room Air Room Air Room Air MDM - Nausea/Vomiting/Diarrhea Lab Data Result diagrams: 07/19/22 12:00 07/19/22 12:00 Labs: Lab Results 07/19/22 07/19/22 07/19/22 Range/Units 11:58 12:00 12:00 WBC 9.7 (4.5-11.0) X10^3/uL RBC 4.92 (4.0-5.2) X10^6/uL Hgb 13.3 (12.0-16.0) g/dL Hct 39.7 (36-46) % MCV 80.6 (80-100) fL MCH 27.1 (26-34) PG MCHC 33.6 (30-36) % RDW 13.9 (11.6-14.8) % Plt Count 267 (150-400) X10^3/uL Neut % (Auto) 74.0 (50-75) % Lymph % (Auto) 16.6 L (25-40) % [place] % (Auto) 7.2 (3-14) % Eos % (Auto) 1.9 L (2-4) % Baso % (Auto) 0.3 (0-2) % Neut # (Auto) 7200 H (6206-6177) /uL Lymph # (Auto) 1600 (0074-2734) /uL [place] # (Auto) 700 (0-900) /uL Eos # (Auto) 200 (0-450) /uL Baso # (Auto) 0 (0-100) /uL Sodium 139 (137-145) mmol/L Potassium 3.9 (3.4-5.1) mmol/L Chloride 105 (98-107) mmol/L Carbon Dioxide 21 L (22-32) mmol/L BUN 9 (7-17) mg/dL Creatinine 0.62 (0.52-1.04) mg/dL Estimated GFR > 60 (>60) mL/min BUN/Creatinine Ratio 14.5 (6-22) Glucose 108 H (70-100) mg/dL Calcium 9.0 (8.4-10.2) mg/dL Total Bilirubin 0.3 (0.2-1.3) mg/dL AST 26 (14-36) IU/L ALT 25 (<35) IU/L Alkaline Phosphatase 69 (38-126) U/L Total Protein 8.3 H (6.3-8.2) g/dL Albumin 4.4 (3.5-5.0) g/dL Globulin 3.9 (1.7-4.1) g/dL Albumin/Globulin Ratio 1.1 (1.0-2.8) Lipase 55 (23-300) U/L Urine RBC 1-5/hpf (0-5/HPF) Urine WBC 1-5/hpf (0-5/HPF) Urine Bacteria Few (2-10) H (None) Ur Culture Indicated? Specimen cultured Stl C. cayetanensis PCR (Not Detect) Stool Rotavirus (PCR) (Not Detect) Stool Adenovirus (PCR) (Not Detect) Stool Astrovirus (PCR) (Not Detect) Stool Cryptosporidium PCR (Not Detect) Stl E.coli Shiga Tox PCR (Not Detect) St Sh/Enteroin Ecoli PCR (Not Detect) Stool E coli O157 PCR Stl Enterotoxigenic E PCR (Not Detect) Stool EPEC (PCR) (Not Detect) Stl E. histolytica PCR (Not Detect) Stool Giardia Lamblia PCR (Not Detect) Stool Sapovirus (PCR) (Not Detect) Stl P. shigelloides PCR (Not Detect) St Y.enterocolitica PCR (Not Detect) Stool Vibrio (PCR) (Not Detect) Stl Vibrio cholerae PCR (Not Detect) Stl Enteroaggr Ecoli PCR (Not Detect) Stl Norovirus GI/GII PCR (Not Detect) Campylobacter (PCR) (Not Detect) C. difficile Tox (PCR) (Not Detect) SARS-CoV-2 (PCR) (Negative) Salmonella (PCR) (Not Detect) 07/19/22 07/19/22 Range/Units 13:51 14:01 WBC (4.5-11.0) X10^3/uL RBC (4.0-5.2) X10^6/uL Hgb (12.0-16.0) g/dL Hct (36-46) % MCV (80-100) fL MCH (26-34) PG MCHC (30-36) % RDW (11.6-14.8) % Plt Count (150-400) X10^3/uL Neut % (Auto) (50-75) % Lymph % (Auto) (25-40) % [place] % (Auto) (3-14) % Eos % (Auto) (2-4) % Baso % (Auto) (0-2) % Neut # (Auto) (2002-2665) /uL Lymph # (Auto) (7470-5218) /uL [place] # (Auto) (0-900) /uL Eos # (Auto) (0-450) /uL Baso # (Auto) (0-100) /uL Sodium (137-145) mmol/L Potassium (3.4-5.1) mmol/L Chloride (98-107) mmol/L Carbon Dioxide (22-32) mmol/L BUN (7-17) mg/dL Creatinine (0.52-1.04) mg/dL Estimated GFR (>60) mL/min BUN/Creatinine Ratio (6-22) Glucose (70-100) mg/dL Calcium (8.4-10.2) mg/dL Total Bilirubin (0.2-1.3) mg/dL AST (14-36) IU/L ALT (<35) IU/L Alkaline Phosphatase (38-126) U/L Total Protein (6.3-8.2) g/dL Albumin (3.5-5.0) g/dL Globulin (1.7-4.1) g/dL Albumin/Globulin Ratio (1.0-2.8) Lipase (23-300) U/L Urine RBC (0-5/HPF) Urine WBC (0-5/HPF) Urine Bacteria (None) Ur Culture Indicated? Stl C. cayetanensis PCR Not detected (Not Detect) Stool Rotavirus (PCR) Not detected (Not Detect) Stool Adenovirus (PCR) Not detected (Not Detect) Stool Astrovirus (PCR) Not detected (Not Detect) Stool Cryptosporidium PCR Not detected (Not Detect) Stl E.coli Shiga Tox PCR Not detected (Not Detect) St Sh/Enteroin Ecoli PCR Not detected (Not Detect) Stool E coli O157 PCR Not Reportable Stl Enterotoxigenic E PCR Not detected (Not Detect) Stool EPEC (PCR) Not detected (Not Detect) Stl E. histolytica PCR Not detected (Not Detect) Stool Giardia Lamblia PCR Not detected (Not Detect) Stool Sapovirus (PCR) Detected H (Not Detect) Stl P. shigelloides PCR Not detected (Not Detect) St Y.enterocolitica PCR Not detected (Not Detect) Stool Vibrio (PCR) Not detected (Not Detect) Stl Vibrio cholerae PCR Not detected (Not Detect) Stl Enteroaggr Ecoli PCR Not detected (Not Detect) Stl Norovirus GI/GII PCR Not detected (Not Detect) Campylobacter (PCR) Not detected (Not Detect) C. difficile Tox (PCR) Not detected (Not Detect) SARS-CoV-2 (PCR) Negative (Negative) Salmonella (PCR) Not detected (Not Detect) Point of Care Testing Test Results Negative Urine Dip Bedside Urine Glucose Negative Bedside Urine Bilirubin - Negative Bedside Urine Ketone - Negative Urine Specific [facility] 1.03 Bedside Urine Occult Blood - Negative Bedside Urine pH 6.0 Bedside Urine Protein +/- 15 Bedside Urine Urobilinogen - Negative Bedside Urine Nitrite - Negative Bedside Urine Leukocytes - Negative Esterase MDM Narrative Medical decision making narrative: Multiple etiologies for patient's symptoms considered include, but not limited to: [Bowel obstruction versus kidney stone versus diverticulitis versus other Patient's symptoms improved over duration of stay with above-stated therapies. History, physical exam, labs, and response to therapies have been reassuring. Findings and discharge diagnosis discussed with patient/family followed by verbalization of understanding Return precautions discussed with patient/family whom verbalize understanding. Pain has been well controlled and patient is tolerating oral hydration. Discharge Plan Departure Patient Disposition: Home Clinical Impression: Abdominal pain, Diarrhea Instructions: Diarrhea Activity Restrictions/Additional Instructions: *You have been diagnosed with [abdominal pain due to diarrhea, as we discussed your C diff test was negative] * As we discussed your history and physical exam as well as labs and imaging are very reassuring. There is no evidence of any severe diagnoses that would require a specific or immediate intervention. *What to do: *Please continue to take your regular medications as directed. [x ] New medication prescriptions sent to your pharmacy: [[facility] ] *Please follow up with your primary care provider in 2-3 days, call for an appointment. Let them know you were seen in the Emergency Department and that we ask that you be seen in follow up. We will electronically transmit a record of today's note if your PCP is in our system *Please consider a clear liquid diet for the next 24-48 hours and then slowly advance to regular as tolerated. Also, try to avoid alcohol, nicotine, caffeine, spicy, acidic or fatty foods as this may worsen your symptoms *If you do not have a primary care provider please contact the [facility] Resource line at [phone]. They will ask some questions about your medical history and help get you set up with a doctor in the community. *Return to Emergency Department if you should have any new, worsening or concerning symptoms, such as [fever greater than 101 F, shaking chills, worsening pain, persistent vomiting or other bothersome symptoms] Prescriptions: New hyoscyamine sulfate 0.125 mg tablet 0.125 mg PO BID-QID PRN (Reason: dyspepsia) Qty: 20 0RF ondansetron 4 mg tablet,disintegrating 4 mg PO TID-QID PRN (Reason: nausea and vomiting) Qty: 10 0RF No Action acetaminophen [Tylenol Extra Strength] 500 mg Tablet 1,000 mg PO Q6H PRN (Reason: Pain) ketorolac 10 mg tablet 10 mg PO TID PRN (Reason: Pain (Scale Score 7-10)) tamsulosin 0.4 mg capsule 0.4 mg PO DAILY Rx Instructions: x 14 days ondansetron 4 mg tablet,disintegrating 4 mg PO TID PRN (Reason: nausea/vomiting) metoclopramide HCl [Reglan] 10 mg tablet 10 mg PO Q6H PRN (Reason: nausea and vomiting) Qty: 12 0RF hydrocodone-acetaminophen 5-325 mg tablet 1 tab PO Q4-6H PRN (Reason: pain) Qty: 10 0RF ondansetron 4 mg tablet,disintegrating 4 mg PO TID-QID PRN (Reason: nausea and vomiting) Qty: 10 0RF metronidazole 500 mg tablet 500 mg PO BID Qty: 14 0RF hydrocodone-acetaminophen 5-325 mg tablet 1 tab PO Q4-6H PRN (Reason: pain) Qty: 20 0RF metoclopramide HCl [Reglan] 10 mg tablet 10 mg PO Q6H PRN (Reason: nausea and vomiting) Qty: 14 0RF lidocaine [Lidoderm] 5 % adhesive patch,medicated 1 patch TOP DAILY Qty: 15 0RF Rx Instructions: leave on most painful area for 12 hrs gabapentin 300 mg capsule 300 mg PO BEDTIME Qty: 14 0RF doxycycline monohydrate 100 mg capsule 100 mg PO BID Qty: 14 0RF pseudoephedrine HCl [Sudafed] 30 mg tablet 30 mg PO Q8HR Qty: 14 0RF cetirizine 10 mg tablet 10 mg PO BEDTIME Qty: 30 0RF ondansetron 4 mg tablet,disintegrating 4 mg PO Q8H PRN (Reason: nausea and vomiting) Qty: 10 0RF metoclopramide HCl [Reglan] 10 mg tablet 10 mg PO Q6H PRN (Reason: nausea and vomiting) Qty: 20 0RF diazepam [Valium] 5 mg tablet 5 mg PO TID PRN (Reason: muscle spasm) Qty: 10 0RF Referrals: Miscellaneous,Doctor, MD [Primary Care Provider] - Visit Report Forms: Patient Portal/API
[2022-07-19 14:41] VITALS: BP 118/67; PULSE 81; RESP 12; O2SAT 98
[2022-07-19 15:37] LABS: COVID19 -Nasal RAPID Negative (Negative)
[2022-07-19 16:10] LABS: Campylobacter Not Detected (Not Detect); Clostridium difficile toxin AB Not Detected (Not Detect); Enteroaggregative E.coli Not Detected (Not Detect); Enteropathogenic E.coli Not Detected (Not Detect); Enterotoxigenic E.coli It/st Not Detected (Not Detect); Plesiomonsa shigelloides Not Detected (Not Detect); Salmonella Not Detected (Not Detect); Shiga-like toxin-prod E.coli Not Detected (Not Detect); Vibrio Not Detected (Not Detect); Vibrio cholerae Not Detected (Not Detect); Yersinia enterocolitica Not Detected (Not Detect)
[2022-07-19 16:11] LABS: Adenovirus F 40/41 Not Detected (Not Detect); Astrovirus Not Detected (Not Detect); Cryptosporidium Not Detected (Not Detect); Cyclospora cayetanensis Not Detected (Not Detect); Entamoeba histolytica Not Detected (Not Detect); Giardia lamblia Not Detected (Not Detect); Norovirus GI/GII Not Detected (Not Detect); Rotavirus A Not Detected (Not Detect); Sapovirus Detected (Not Detect); Shigella/Enteroinvasive E.coli Not Detected (Not Detect)
[2022-07-19 16:33] VITALS: BP 114/69; PULSE 61; RESP 23; O2SAT 99
== END 2022-07-19 16:35 | disposition home or self-care (01) ==
PROVIDERS: Emergency Provider Emergency Medicine
DX: R10.84 Generalized abdominal pain (principal); R19.7 Diarrhea, unspecified; Z20.822 Contact with and (suspected) exposure to COVID-19
CPT/HCPCS: 36415; 80053; 81003; 81015; 81025; 83690; 85025; 87077; 87086; 87186; 87507; 87635; 96374; 99284; C9803; J2405

== ENCOUNTER 2022-08-10 02:58 | Emergency (ER) | payer OTHER, MEDICAID, SELFPAY ==
[2022-08-10 03:09] VITALS: BP 149/65; PULSE 120; RESP 20; TEMP 37.4; O2SAT 98; BMI 42.3
--- NOTE | 2022-08-10 03:17 | DI.RAD.S_ITS ---
PROCEDURE: XR ANKLE LT MIN 3V INDICATIONS: injury and pain TECHNIQUE: Three views of the ankle were acquired. COMPARISON: None. FINDINGS: Bones: No acute fractures or dislocation. There is smooth undulation of the medial talar dome margin with questionable slight flattening. Mild spurring at the tibiotalar articulation. Soft tissues: No tibiotalar joint effusion. Achilles tendon appears normal. Mild lateral soft tissue swelling. IMPRESSION: 1. No acute fracture or joint effusion. 2. Mild lateral soft tissue swelling. 3. Mild marginal spurring and possible medial talar dome flattening. Changes appear chronic. Correlate clinically and consider MRI on a routine basis if potentially significant. Dictated by: Cecy Kent M.D. on 08/10/2022 at 9:30 Approved by: Cecy Kent M.D. on 08/10/2022 at 9:33
--- NOTE | 2022-08-10 03:17 | DI.RAD.S_ITS ---
PROCEDURE: XR FOOT LT MIN 3V INDICATIONS: injury and pain TECHNIQUE: Three views of the foot were acquired. COMPARISON: [facility], , XR FOOT LT MIN 3V, 02/22/2020, 15:46. FINDINGS: Bones: No acute fracture or dislocation. There are chronic, healed surgical changes of 1st digit bunionectomy, arthrodesis, fusion, and hallux valgus correction. Surgical changes of 2nd digit arthrodesis. No hardware abnormalities. Soft tissues: No tibiotalar joint effusion. Achilles tendon appears normal. IMPRESSION: 1. No acute fracture or hardware failure. 2. Healed surgical changes in the 1st and 2nd digit as described. 3. Final interpretation is concordant with preliminary report. Dictated by: Cecy Kent M.D. on 08/10/2022 at 9:28 Approved by: Cecy Kent M.D. on 08/10/2022 at 9:30
--- NOTE | 2022-08-10 03:17 | DI.RAD.S_ITS ---
PROCEDURE: XR TIBIA FIBULA LT 2V INDICATIONS: injury and pain TECHNIQUE: 2 views of the tibia and fibula were acquired. COMPARISON: None. FINDINGS: Bones: No fractures or dislocations. No suspicious bony lesions. Soft tissues: No suspicious soft tissue calcifications or masses. Mild swelling of the lateral malleolus. IMPRESSION: 1. Mild lateral ankle swelling without underlying fracture visible. 2. Final interpretation is concordant with preliminary report. Dictated by: Cecy Kent M.D. on 08/10/2022 at 9:27 Approved by: Cecy Kent M.D. on 08/10/2022 at 9:28
[2022-08-10] MEDS: OXYCODONE IR 5 MG TABLET 10 MG PO (05:48)
--- NOTE | 2022-08-10 05:51 | ED_ITS ---
HPI - Extremity Injury (Lower) General Chief Complaint: Extremity Injury, Lower Stated Complaint: SLIPPED LEFT ANKLE SNAPPED Time Seen by Provider: 08/10/22 05:28 Source: patient Mode of arrival: Ambulatory History of Present Illness HPI Narrative: 26-year-old woman with a history of multiple foot surgeries was stepping off a stair lost her footing had an inward role of her foot felt a snap on the lateral aspect and is experiencing enough pain that she is having difficulty placing any weight on her foot. She noticed swelling immediately without any obvious bruising. She comes in for further evaluation. Related Data Home Medications Medication Instructions Recorded Confirmed acetaminophen 500 mg tablet 1,000 mg PO Q6H PRN Pain 01/13/20 05/27/21 (Tylenol Extra Strength) ketorolac 10 mg tablet 10 mg PO TID PRN Pain (Scale Score 05/27/21 05/27/21 7-10) ondansetron 4 mg disintegrating 4 mg PO TID PRN nausea/vomiting 05/27/21 05/27/21 tablet tamsulosin 0.4 mg capsule 0.4 mg PO DAILY 05/27/21 05/27/21 Previous Rx's Medication Instructions Recorded metoclopramide HCl 10 mg tablet 10 mg PO Q6H PRN nausea and 05/27/21 (Reglan) vomiting #12 tabs hydrocodone 5 mg-acetaminophen 325 1 tab PO Q4-6H PRN pain #10 tabs 01/01/22 mg tablet ondansetron 4 mg disintegrating 4 mg PO TID-QID PRN nausea and 01/01/22 tablet vomiting #10 tabs metronidazole 500 mg tablet 500 mg PO BID #14 tabs 01/10/22 gabapentin 300 mg capsule 300 mg PO BEDTIME #14 caps 01/15/22 lidocaine 5 % topical patch 1 patch topical DAILY #15 ea 01/15/22 (Lidoderm) doxycycline monohydrate 100 mg 100 mg PO BID #14 caps 02/24/22 capsule cetirizine 10 mg tablet 10 mg PO BEDTIME #30 tabs 02/27/22 ondansetron 4 mg disintegrating 4 mg PO Q8H PRN nausea and 02/27/22 tablet vomiting #10 tabs pseudoephedrine HCl 30 mg tablet 30 mg PO Q8HR #14 tabs 02/27/22 (Sudafed) hydrocodone 5 mg-acetaminophen 325 1 tab PO Q4-6H PRN pain #20 tabs 04/08/22 mg tablet metoclopramide HCl 10 mg tablet 10 mg PO Q6H PRN nausea and 06/01/22 (Reglan) vomiting #20 tabs diazepam 5 mg tablet (Valium) 5 mg PO TID PRN muscle spasm #10 07/02/22 tabs metoclopramide HCl 10 mg tablet 10 mg PO Q6H PRN nausea and 07/17/22 (Reglan) vomiting #14 tabs hyoscyamine sulfate 0.125 mg tablet 0.125 mg PO BID-QID PRN dyspepsia 07/19/22 #20 tabs ondansetron 4 mg disintegrating 4 mg PO TID-QID PRN nausea and 07/19/22 tablet vomiting #10 tabs oxycodone-acetaminophen 5 mg-325 1 tab PO Q6H PRN pain #14 tabs 08/10/22 mg tablet Allergies Allergy/AdvReac Type Severity Reaction Status Date / Time No Known Drug Allergies Allergy Verified 07/19/22 11:49 Review of Systems Review of Systems Narrative: Pertinent positive and negative findings as per HPI Remainder of review of systems is otherwise unremarkable for Constitutional: Fevers, chills, weakness ENT: No sore throat, neck pain, ear pain CV: Chest pain, palpitations, Respiratory: Cough, wheeze, Patient History Medical History Abdominal pain Fusion of toes of right foot Pyelonephritis (~06/2019) Sebaceous cyst Surgical History History of bunionectomy of left great toe History of bunionectomy of right great toe Hx of cholecystectomy Hx of eye surgery Hx of foot surgery Hx of foot surgery (08/25/20) S/P foot surgery, right S/P foot surgery, right (09/12/19) S/P hardware removal Social History household members: family and children Smoking Status: Former smoker alcohol intake: current Smoking Status: Former smoker alcohol intake frequency: a few times a week Substance Use Type: does not use and former substance user Exam Initial Vital Signs Initial Vital Signs: Vital Signs Temperature 99.3 F 08/10/22 03:09 Pulse Rate 120 H 08/10/22 03:09 Respiratory Rate 20 08/10/22 03:09 Blood Pressure 149/65 H 08/10/22 03:09 Pulse Oximetry 98 08/10/22 03:09 Oxygen Delivery Method 08/10/22 03:09 General: Alert appropriate in no acute distress Respiratory: Able to speak in full sentences, no obvious respiratory distress Skin: No obvious rashes, warm and dry Neurologic: Grossly intact no obvious asymmetries or abnormalities Psych: appropriate insight and affect, cooperative Extremity: Left ankle has moderate amount of swelling over the lateral malleolus without significant bruising appreciated. She is tender to the touch however does not have any bony point tenderness. She is not able to bear weight. She has multiple well-healed surgical scars over the dorsum of the foot. She is neurovascularly intact. Course Orders Ordered: ED Orders 08/10/22 03:17 XR ankle LT min 3V Stat XR foot LT min 3V Stat XR tibia fibula LT 2V Stat Discontinued Medications Oxycodone HCl (Oxycodone Ir 5 Mg Tablet) 10 mg PO NOW ONE Stop: 08/10/22 05:36 Last Admin: 08/10/22 05:48 Dose: 10 mg Documented By: BRII Vital Signs Vital signs: Vital Signs - 8 hr 08/10/22 03:09 Temperature 99.3 F Pulse Rate 120 H Respiratory Rate 20 Blood Pressure 149/65 H Pulse Oximetry 98 Oxygen Delivery Method Room Air MDM - Extremity Injury (Lower) Imaging Data X-rays of left tib-fib, ankle and foot: Radiologist's Impression: Soft tissue swelling overlying the lateral malleolus without fracture, Destini Silva.MD [facility] Narrative Medical decision making narrative: 26-year-old woman with an inversion ankle injury no bony abnormalities a ppreciated but quite a bit of swelling over the lateral malleolus with significant tenderness. An Shorty wrap is placed. She has already taken ibuprofen and Tylenol so she is given a dose of oxycodone to complement that. She is fitted with crutches. Explain the nature an ankle sprain, reviewed negative x- rays, reviewed anticipated course of recovery and questions are answered. She is safe for discharge home Discharge Plan Departure Patient Disposition: Home Clinical Impression: Ankle sprain and strain Instructions: DI for Ankle Sprain Activity Restrictions/Additional Instructions: Thank you for coming in today Your x-rays did not show any broken bones. Clearly you have a significant sprained her ankle with the swelling appreciated. I have given you an Shorty wrap to help with support and try to reduce swelling a bit. Keeping the foot elevated as much as possible will help. Using 400 mg of ibuprofen (2 [id number] pills) and 1 Tylenol every 6 hours can be very helpful in controlling pain. For severe pain using 400 mg of ibuprofen and 1 Percocet may be helpful. Please do expect the pain to be worse over the next 48 hours and then continue to improve. Use the crutches in the Shorty wrap as needed for pain control. Prescription for Percocet has been electronically transmitted to [facility] for you to machine pecan picker later today. If you are continuing to have ankle issues or feel that you are experiencing ankle instability, I would encourage you to follow-up with your primary care doctor. Prescriptions: New oxycodone-acetaminophen 5-325 mg tablet 1 tab PO Q6H PRN (Reason: pain) Qty: 14 0RF No Action acetaminophen [Tylenol Extra Strength] 500 mg Tablet 1,000 mg PO Q6H PRN (Reason: Pain) ketorolac 10 mg tablet 10 mg PO TID PRN (Reason: Pain (Scale Score 7-10)) tamsulosin 0.4 mg capsule 0.4 mg PO DAILY Rx Instructions: x 14 days ondansetron 4 mg tablet,disintegrating 4 mg PO TID PRN (Reason: nausea/vomiting) metoclopramide HCl [Reglan] 10 mg tablet 10 mg PO Q6H PRN (Reason: nausea and vomiting) Qty: 12 0RF hydrocodone-acetaminophen 5-325 mg tablet 1 tab PO Q4-6H PRN (Reason: pain) Qty: 10 0RF ondansetron 4 mg tablet,disintegrating 4 mg PO TID-QID PRN (Reason: nausea and vomiting) Qty: 10 0RF metronidazole 500 mg tablet 500 mg PO BID Qty: 14 0RF hydrocodone-acetaminophen 5-325 mg tablet 1 tab PO Q4-6H PRN (Reason: pain) Qty: 20 0RF metoclopramide HCl [Reglan] 10 mg tablet 10 mg PO Q6H PRN (Reason: nausea and vomiting) Qty: 14 0RF lidocaine [Lidoderm] 5 % adhesive patch,medicated 1 patch TOP DAILY Qty: 15 0RF Rx Instructions: leave on most painful area for 12 hrs gabapentin 300 mg capsule 300 mg PO BEDTIME Qty: 14 0RF doxycycline monohydrate 100 mg capsule 100 mg PO BID Qty: 14 0RF pseudoephedrine HCl [Sudafed] 30 mg tablet 30 mg PO Q8HR Qty: 14 0RF cetirizine 10 mg tablet 10 mg PO BEDTIME Qty: 30 0RF ondansetron 4 mg tablet,disintegrating 4 mg PO Q8H PRN (Reason: nausea and vomiting) Qty: 10 0RF metoclopramide HCl [Reglan] 10 mg tablet 10 mg PO Q6H PRN (Reason: nausea and vomiting) Qty: 20 0RF diazepam [Valium] 5 mg tablet 5 mg PO TID PRN (Reason: muscle spasm) Qty: 10 0RF hyoscyamine sulfate 0.125 mg tablet 0.125 mg PO BID-QID PRN (Reason: dyspepsia) Qty: 20 0RF ondansetron 4 mg tablet,disintegrating 4 mg PO TID-QID PRN (Reason: nausea and vomiting) Qty: 10 0RF Referrals: Miscellaneous,Doctor, MD [Primary Care Provider] -
[2022-08-10 06:14] VITALS: BP 124/76; PULSE 87; RESP 18; O2SAT 98
== END 2022-08-10 06:15 | disposition home or self-care (01) ==
PROVIDERS: Emergency Provider Emergency Medicine
DX: S93.402A Sprain of unspecified ligament of left ankle, initial encounter (principal); X50.1XXA Overexertion from prolonged static or awkward postures, initial encounter
CPT/HCPCS: 73590; 73610; 73630; 99283

== ENCOUNTER 2022-08-16 17:11 | Emergency (ER) | payer OTHER, MEDICAID, SELFPAY ==
[2022-08-16 17:35] VITALS: BP 159/78; PULSE 102; RESP 20; TEMP 37.1; O2SAT 97; BMI 42.3
[2022-08-16 18:52] LABS: COVID-19 CEPHEID 4-PLEX PCR Negative (Negative); Influenza A - CEPHEID Flu A POSITIVE (NEGATIVE); Influenza B - CEPHEID Flu B NEGATIVE (NEGATIVE); Respiratory Syncytial Virus Negative (Negative)
--- NOTE | 2022-08-16 21:13 | PC.NURSE ---
called for pt twice in waiting room, no answer. called pt cell phone, she said she went home, gave her the swab results.
== END 2022-08-16 21:15 | disposition left against medical advice (07) ==
PROVIDERS: Emergency Medicine; Emergency Provider Emergency Medicine
DX: J11.1 Influenza due to unidentified influenza virus with other respiratory manifestations (principal); Z20.822 Contact with and (suspected) exposure to COVID-19
CPT/HCPCS: 0241U; 99281

== ENCOUNTER 2022-08-18 19:29 | Emergency (ER) | payer OTHER, MEDICAID, SELFPAY ==
[2022-08-18 19:39] VITALS: BP 119/58; PULSE 95; RESP 18; TEMP 37.6; O2SAT 98; BMI 42.3
--- NOTE | 2022-08-18 20:45 | DI.RAD.S_ITS ---
PROCEDURE: XR CHEST 1V INDICATIONS: Flu like symptoms TECHNIQUE: One view of the chest was acquired. COMPARISON: [facility], CR, XR CHEST 2 VIEWS, 05/16/2022, 18:24. FINDINGS: Surgical changes and devices: None. Lungs and pleura: Lungs are clear. No pleural effusions or pneumothorax. Mediastinum: Mediastinal contours appear normal. Heart size is normal. Bones and chest wall: No suspicious bony lesions. Overlying soft tissues appear unremarkable. IMPRESSION: 1. No acute cardiopulmonary disease. Dictated by: Joshua Cohen M.D. on 08/18/2022 at 21:16 Approved by: Joshua Cohen M.D. on 08/18/2022 at 21:20
[2022-08-18 20:52] LABS: Add Manual Diff / Slide Review NO; Basophils Absolute Auto 0 /uL (0-100); Basophils Percent Auto 0.4 % (0-2); Eosinophils Absolute Auto 0 /uL (0-450); Eosinophils Percent Auto 0.2 % (2-4); Hematocrit 41.5 % (36-46); Lymphocytes Absolute Auto 1800 /uL (1100-4500); Lymphocytes Percent Auto 31.2 % (25-40); Mean Corpuscular HGB Conc 33.8 % (30-36); Mean Corpuscular Hemoglobin 27.1 PG (26-34); Mean Corpuscular Volume 80.2 fL (80-100); Monocytes Absolute Auto 500 /uL (0-900); Monocytes Percent Auto 9.3 % (3-14); Neutrophils Absolute Auto 3400 /uL (1500-7000); Neutrophils Percent Auto 58.9 % (50-75); Platelet Count 249 X10^3/uL (150-400); Red Blood Cell Count 5.17 X10^6/uL (4.0-5.2); Red Cell Distribution Width 14.4 % (11.6-14.8); White Blood Cell Count 5.8 X10^3/uL (4.5-11.0)
[2022-08-18 20:57] LABS: Alanine Aminotransferase 28 IU/L (<35); Albumin 4.4 g/dL (3.5-5.0); Alkaline Phosphatase 75 U/L (38-126); Aspartate Aminotransferase 32 IU/L (14-36); BUN Creatinine Ratio 12.3 (6-22); Bilirubin Total 0.3 mg/dL (0.2-1.3); Blood Urea Nitrogen 7 mg/dL (7-17); Calcium 9.3 mg/dL (8.4-10.2); Carbon Dioxide 22 mmol/L (22-32); Chloride 99 mmol/L (98-107); Estimated Glomerular Filt Rate > 60 mL/min (>60); Globulin 4.2 g/dL (1.7-4.1); Glucose 111 mg/dL (70-100); HEMOLYSIS < 15 (0-50); Lipase 80 U/L (23-300); Potassium 3.4 mmol/L (3.4-5.1); Sodium 136 mmol/L (137-145); Total Protein 8.6 g/dL (6.3-8.2)
--- NOTE | 2022-08-18 21:02 | ED_ITS ---
HPI - General Adult General Chief complaint: Upper Respiratory Symptoms Stated complaint: Influenza 5 days, fatigue Time Seen by Provider: 08/18/22 20:24 Source: patient and EMS Mode of arrival: EMS Limitations: no limitations History of Present Illness HPI narrative: This is a 26-year-old female with history of multiple foot surgeries, states presumed endometriosis she has not yet had laparoscopic surgery but states it is scheduled to confirm this diagnosis and intermittent issues with emesis on Zofran and promethazine at home. Patient tested positive for influenza A on 08/16/2022, patient presents today persistent symptoms she states symptoms started on 08/14/2022. She is had fevers, sweats, she describes chest pain and persistent cough that is nonproductive, some nausea and vomiting which has been persistent, some mild diarrhea she states several times daily, patient states she is been vomiting 20 times daily on average, she does not describe any blood or black in her stools but states her stool has been dark. She states she has not been urinating as much but is urinating. She states she has generalized muscle aches. She states today she felt dizzy. Patient has had foot surgeries, denies other medical issues. She has been using her home Zofran and promethazine which she states has not been helpful. She is a former smoker, occasional alcohol, states she used THC until recently she denies any other illicit or IV drug history. Related Data Home Medications Medication Instructions Recorded Confirmed acetaminophen 500 mg tablet 1,000 mg PO Q6H PRN Pain 01/13/20 05/27/21 (Tylenol Extra Strength) ketorolac 10 mg tablet 10 mg PO TID PRN Pain (Scale Score 05/27/21 05/27/21 7-10) ondansetron 4 mg disintegrating 4 mg PO TID PRN nausea/vomiting 05/27/21 05/27/21 tablet tamsulosin 0.4 mg capsule 0.4 mg PO DAILY 05/27/21 05/27/21 Previous Rx's Medication Instructions Recorded metoclopramide HCl 10 mg tablet 10 mg PO Q6H PRN nausea and 05/27/21 (Reglan) vomiting #12 tabs hydrocodone 5 mg-acetaminophen 325 1 tab PO Q4-6H PRN pain #10 tabs 01/01/22 mg tablet ondansetron 4 mg disintegrating 4 mg PO TID-QID PRN nausea and 01/01/22 tablet vomiting #10 tabs metronidazole 500 mg tablet 500 mg PO BID #14 tabs 01/10/22 gabapentin 300 mg capsule 300 mg PO BEDTIME #14 caps 01/15/22 lidocaine 5 % topical patch 1 patch topical DAILY #15 ea 01/15/22 (Lidoderm) doxycycline monohydrate 100 mg 100 mg PO BID #14 caps 02/24/22 capsule cetirizine 10 mg tablet 10 mg PO BEDTIME #30 tabs 02/27/22 ondansetron 4 mg disintegrating 4 mg PO Q8H PRN nausea and 02/27/22 tablet vomiting #10 tabs pseudoephedrine HCl 30 mg tablet 30 mg PO Q8HR #14 tabs 02/27/22 (Sudafed) hydrocodone 5 mg-acetaminophen 325 1 tab PO Q4-6H PRN pain #20 tabs 04/08/22 mg tablet metoclopramide HCl 10 mg tablet 10 mg PO Q6H PRN nausea and 06/01/22 (Reglan) vomiting #20 tabs diazepam 5 mg tablet (Valium) 5 mg PO TID PRN muscle spasm #10 07/02/22 tabs metoclopramide HCl 10 mg tablet 10 mg PO Q6H PRN nausea and 07/17/22 (Reglan) vomiting #14 tabs hyoscyamine sulfate 0.125 mg tablet 0.125 mg PO BID-QID PRN dyspepsia 07/19/22 #20 tabs ondansetron 4 mg disintegrating 4 mg PO TID-QID PRN nausea and 07/19/22 tablet vomiting #10 tabs oxycodone-acetaminophen 5 mg-325 1 tab PO Q6H PRN pain #14 tabs 08/10/22 mg tablet Allergies Allergy/AdvReac Type Severity Reaction Status Date / Time No Known Drug Allergies Allergy Verified 07/19/22 11:49 Review of Systems Review of Systems ROS Unobtainable: All systems reviewed & are unremarkable except as noted in HPI and below Patient History Medical History Abdominal pain Fusion of toes of right foot Pyelonephritis (~06/2019) Sebaceous cyst Surgical History History of bunionectomy of left great toe History of bunionectomy of right great toe Hx of cholecystectomy Hx of eye surgery Hx of foot surgery Hx of foot surgery (08/25/20) S/P foot surgery, right S/P foot surgery, right (09/12/19) S/P hardware removal Social History household members: family and children Smoking Status: Former smoker alcohol intake: current Smoking Status: Former smoker alcohol intake frequency: a few times a week Substance Use Type: does not use and former substance user Exam Narrative Exam Narrative: GENERAL: Alert and oriented x three, obese female in mild distress. HEENT: Head normocephalic, atraumatic, EOMI, pupils reactive, face symmetric, moist mucous membranes NECK: Supple, full range of motion CARDIOVASCULAR: Slightly tachycardic 105-95 range, Regular rate and rhythm without murmurs, rubs or gallops. No JVD. No swelling bilateral lower extremities. RESPIRATORY: Breath sounds equal bilaterally, no wheezes rales or rhonchi. Patient has dry persistent cough. No retractions. No tachypnea. Patient's speaks in full sentences. ABDOMEN: Soft, nontender. Normoactive bowel sounds all 4 quadrants. No guarding or rebound, rigidity, no mass : No CVA tenderness EXTREMITIES: Normal range of motion, no clubbing or edema. Neurovascularly intact NEUROLOGICAL: Cranial nerves II through XII grossly intact. Moving all extremities without issue. SKIN: Warm, dry, no petechiae, no rashes or lesions. Initial Vital Signs Initial Vital Signs: Vital Signs Temperature 99.6 F 08/18/22 19:39 Pulse Rate 95 H 08/18/22 19:39 Respiratory Rate 18 08/18/22 19:39 Blood Pressure 119/58 L 08/18/22 19:39 Pulse Oximetry 98 08/18/22 19:39 Oxygen Delivery Method 08/18/22 19:39 Course Orders Ordered: ED Orders 08/18/22 19:30 Complete Blood Count AUTO DIFF Stat Comprehensive Metabolic Panel Stat Lipase Stat 08/18/22 20:45 XR chest 1V Stat 08/18/22 21:00 D Dimer Stat Troponin & CK Cardiac Panel Stat 08/18/22 22:12 CT angio chest PE protocol Stat Discontinued Medications Sodium Chloride (Normal Saline 0.9%) 1,000 mls @ 1,000 mls/hr IV BOLUS ONE Stop: 08/18/22 21:44 Last Infusion: 08/18/22 22:16 Dose: 0 mls/hr Documented By: Admin: 08/18/22 21:04 Dose: 1,000 mls/hr Documented By: GERALD Sodium Chloride (Normal Saline 0.9%) 1,000 mls @ 1,000 mls/hr IV BOLUS ONE Stop: 08/18/22 23:43 Ketorolac Tromethamine (Ketorolac 30 Mg/Ml Vial) 15 mg IV NOW ONE Stop: 08/18/22 21:18 Last Admin: 08/18/22 21:24 Dose: 15 mg Documented By: GERALD Ondansetron HCl (Ondansetron 4 Mg/2 Ml Inj) 4 mg IV NOW PRN PRN Reason: Nausea And Vomiting Last Admin: 08/18/22 21:05 Dose: 4 mg Documented By: GERALD Vital Signs Vital signs: Vital Signs - 8 hr 08/18/22 19:39 08/19/22 00:18 Temperature 99.6 F 98.1 F Pulse Rate 95 H 82 Respiratory Rate 18 18 Blood Pressure 119/58 L 122/68 Pulse Oximetry 98 98 Oxygen Delivery Method Room Air Room Air Medical Decision Making Lab Data Result diagrams: 08/18/22 19:30 08/18/22 19:30 Labs: Lab Results 08/18/22 08/18/22 08/18/22 Range/Units 19:30 19:30 21:00 WBC 5.8 (4.5-11.0) X10^3/uL RBC 5.17 (4.0-5.2) X10^6/uL Hgb 14.0 (12.0-16.0) g/dL Hct 41.5 (36-46) % MCV 80.2 (80-100) fL MCH 27.1 (26-34) PG MCHC 33.8 (30-36) % RDW 14.4 (11.6-14.8) % Plt Count 249 (150-400) X10^3/uL Neut % (Auto) 58.9 (50-75) % Lymph % (Auto) 31.2 (25-40) % [place] % (Auto) 9.3 (3-14) % Eos % (Auto) 0.2 L (2-4) % Baso % (Auto) 0.4 (0-2) % Neut # (Auto) 3400 (0130-4654) /uL Lymph # (Auto) 1800 (1765-6614) /uL [place] # (Auto) 500 (0-900) /uL Eos # (Auto) 0 (0-450) /uL Baso # (Auto) 0 (0-100) /uL D-Dimer 770 H (<500) ng/ml Sodium 136 L (137-145) mmol/L Potassium 3.4 (3.4-5.1) mmol/L Chloride 99 (98-107) mmol/L Carbon Dioxide 22 (22-32) mmol/L BUN 7 (7-17) mg/dL Creatinine 0.57 (0.52-1.04) mg/dL Estimated GFR > 60 (>60) mL/min BUN/Creatinine Ratio 12.3 (6-22) Glucose 111 H (70-100) mg/dL Calcium 9.3 (8.4-10.2) mg/dL Total Bilirubin 0.3 (0.2-1.3) mg/dL AST 32 (14-36) IU/L ALT 28 (<35) IU/L Alkaline Phosphatase 75 (38-126) U/L Total Creatine Kinase (30-135) U/L CK-MB (CK-2) CK-MB (CK-2) Rel Index Troponin I (0.01-0.034) ng/mL Total Protein 8.6 H (6.3-8.2) g/dL Albumin 4.4 (3.5-5.0) g/dL Globulin 4.2 H (1.7-4.1) g/dL Albumin/Globulin Ratio 1.0 (1.0-2.8) Lipase 80 (23-300) U/L 08/18/22 Range/Units 21:00 WBC (4.5-11.0) X10^3/uL RBC (4.0-5.2) X10^6/uL Hgb (12.0-16.0) g/dL Hct (36-46) % MCV (80-100) fL MCH (26-34) PG MCHC (30-36) % RDW (11.6-14.8) % Plt Count (150-400) X10^3/uL Neut % (Auto) (50-75) % Lymph % (Auto) (25-40) % [place] % (Auto) (3-14) % Eos % (Auto) (2-4) % Baso % (Auto) (0-2) % Neut # (Auto) (0634-8048) /uL Lymph # (Auto) (1175-6496) /uL [place] # (Auto) (0-900) /uL Eos # (Auto) (0-450) /uL Baso # (Auto) (0-100) /uL D-Dimer (<500) ng/ml Sodium (137-145) mmol/L Potassium (3.4-5.1) mmol/L Chloride (98-107) mmol/L Carbon Dioxide (22-32) mmol/L BUN (7-17) mg/dL Creatinine (0.52-1.04) mg/dL Estimated GFR (>60) mL/min BUN/Creatinine Ratio (6-22) Glucose (70-100) mg/dL Calcium (8.4-10.2) mg/dL Total Bilirubin (0.2-1.3) mg/dL AST (14-36) IU/L ALT (<35) IU/L Alkaline Phosphatase (38-126) U/L Total Creatine Kinase 86 (30-135) U/L CK-MB (CK-2) TNP CK-MB (CK-2) Rel Index TNP Troponin I < 0.012 (0.01-0.034) ng/mL Total Protein (6.3-8.2) g/dL Albumin (3.5-5.0) g/dL Globulin (1.7-4.1) g/dL Albumin/Globulin Ratio (1.0-2.8) Lipase (23-300) U/L Point of Care Testing Test Results Negative Urine Dip Bedside Urine Glucose Negative Bedside Urine Bilirubin - Negative Bedside Urine Ketone +++ 80 Urine Specific [place] 1.020 Bedside Urine Occult Blood +++ Bedside Urine pH 6.0 Bedside Urine Protein ++ 100 Bedside Urine Urobilinogen +/- 1mg Bedside Urine Nitrite - Negative Bedside Urine Leukocytes + 70 Esterase Point of care testing: Point of Care Testing Test Results Negative Urine Dip Bedside Urine Glucose Negative Bedside Urine Bilirubin - Negative Bedside Urine Ketone +++ 80 Urine Specific [place] 1.020 Bedside Urine Occult Blood +++ Bedside Urine pH 6.0 Bedside Urine Protein ++ 100 Bedside Urine Urobilinogen +/- 1mg Bedside Urine Nitrite - Negative Bedside Urine Leukocytes + 70 Esterase Imaging Data Chest x-ray: Radiologist's Impression: [address] [address] XRay Report Signed Patient: Asia Vera MR#: [id number] : 1995 Acct:[id number] Age/Sex: 26 / F Date of Service: 08/18/22 Loc: ED Accession Number: [id number] ?? Procedure: XR chest 1V Ordering Provider: Lucille Joshua D.O. PROCEDURE:? XR CHEST 1V ? INDICATIONS:? Flu like symptoms ? TECHNIQUE:? One view of the chest was acquired.? ? COMPARISON:? [facility], CR, XR CHEST 2 VIEWS, 05/16/2022, 18:24. ? FINDINGS:? ? Surgical changes and devices:? None.? ? Lungs and pleura:? Lungs are clear.? No pleural effusions or pneumothorax.? ? Mediastinum:? Mediastinal contours appear normal.? Heart size is normal.? ? Bones and chest wall:? No suspicious bony lesions.? Overlying soft tissues appear unremarkable.? ? IMPRESSION:? ? 1.? No acute cardiopulmonary disease. ? ? ? Dictated by: Joshua Cohen M.D. on 08/18/2022 at 21:16 ? ? Approved by: Joshua Cohen M.D. on 08/18/2022 at 21:20?? CT scan - chest: Radiologist's Impression: Close Chest CTA (Signed) Joshua Cohen - 08/18/22 Chest X-Ray (Signed) Joshua Cohen - 08/18/22 Launch?Image [address] [address] [address] Scan Report Signed Patient: Asia Vera MR#: [id number] : 1995 Acct:[id number] Age/Sex: 26 / F Date of Service: 08/18/22 Loc: ED Accession Number: [id number] ?? Procedure: CT angio chest PE protocol Ordering Provider: Lucille Joshua D.O. PROCEDURE:? CT ANGIO CHEST PE PROTOCOL ? INDICATIONS:? chest pain, influenza, +dimer ? TECHNIQUE:? After the administration of intravenous contrast, 2 mm thick sections acquired from the pulmonary apices to the posterior costophrenic angles.? 3-dimensional maximum intensity projection (MIP) coronal and sagittal reformats were then acquired through the thorax.? For radiation dose reduction, the following was used:? automated exposure control, adjustment of mA and/or kV according to patient size.? ? COMPARISON:? [facility], CT, CT CHEST ABDOMEN PELVIS WITH CONTRAST, 05/05/2020, 0:18.? [facility], CR, XR CHEST 1V, 08/18/2022, 20:43. ? FINDINGS:? Image quality:? Excellent.? ? Pulmonary arteries:? Pulmonary arteries are normal in size, and demonstrate no intraluminal filling defects to suggest central pulmonary embolism.? ? Lower Neck: No lymphadenopathy by size criteria. Thyroid:? Visualized thyroid demonstrates no discrete nodules. Axillae: No lymphadenopathy by size criteria. Chest Wall:? Unremarkable.? Bones: Visualized osseous structures demonstrate no suspicious lesions. ? Lungs and Airways:? No acute consolidation.? There is mild dependent atelectasis.? No suspicious pulmonary nodules. The trachea and central airways are patent. Pleura: No pneumothorax or pleural effusions.? ? Heart: Heart size is normal.? There is a minimal pericardial effusion. Thoracic Vessels: The thoracic aorta is normal in size.? Mediastinum and [place]ox[place]: No lymphadenopathy by size criteria. Esophagus: No wall thickening. No hiatal hernia. ? Abdomen:? Visualized upper abdominal solid organs appear normal in the early a rterial phase of enhancement.? ? IMPRESSION:? ? 1. No evidence of pulmonary embolism. ? 2. No acute airspace consolidation.? ? ? Dictated by: Joshua Cohen M.D. on 08/18/2022 at 23:40 ? ? Approved by: Joshua Cohen M.D. on 08/18/2022 at 23:42?? [facility] Narrative Medical decision making narrative: This is a 26-year-old female positive for influenza who is had 4 days of symptoms. Patient states she feels dizzy, she is very mildly tachycardic, afebrile pressures, respiratory rate and oxygen saturation have been normal. Walter davila's initial labs CBC, CMP, lipase do not show any changes she states she is been vomiting quite frequently but she does have normal electrolytes. Patient was given a L fluids, Zofran, Toradol with her complaint of chest pain troponin/CK was added on as well as D-dimer. Trope, CK is appropriate D-dimer is elevated, patient's BMI is 42, she is not currently on estrogen, she did have a heart rate of 102 when she arrived so CT angio was obtained negative. No signs of pneumonia or other changes. Patient has not had persistent vomiting she is had 2 L of fluid. She is tolerating ice chips and some watery here in the department. Urine does show some ketones, blood but patient is currently on her menses, suspect her symptoms are all related to her influenza. Return precautions discussed, patient states she also has Reglan at home she can try this instead as well, Tylenol ibuprofen for fevers and myalgias and we discussed return precautions. Patient is feeling a little bit better and feels comfortable to return home. Discharge Plan Departure Patient Disposition: Home Clinical Impression: Influenza A Instructions: DI for Influenza -- Adult Activity Restrictions/Additional Instructions: Please follow-up in the next week for recheck. I hope you continue improve from influenza a, symptoms can last 7-10 days Your labs overall are reassuring, your imaging including a CT of your chest does not show any blood clots or changes to the lungs. You can take your Reglan at home 1 tablet every 6 hours to see if this is helpful. I also recommend Tylenol up to a 1000 mg every 6 hours and/or ibuprofen up to 600 mg every 6 hours for fevers and/or myalgias or muscle aches Please return for rapidly worsening symptoms, passing out, new chest pain, shortness of breath, inability to tolerate oral fluids you are not urinating or having other new or concerning changes. Prescriptions: No Action acetaminophen [Tylenol Extra Strength] 500 mg Tablet 1,000 mg PO Q6H PRN (Reason: Pain) ketorolac 10 mg tablet 10 mg PO TID PRN (Reason: Pain (Scale Score 7-10)) tamsulosin 0.4 mg capsule 0.4 mg PO DAILY Rx Instructions: x 14 days ondansetron 4 mg tablet,disintegrating 4 mg PO TID PRN (Reason: nausea/vomiting) metoclopramide HCl [Reglan] 10 mg tablet 10 mg PO Q6H PRN (Reason: nausea and vomiting) Qty: 12 0RF hydrocodone-acetaminophen 5-325 mg tablet 1 tab PO Q4-6H PRN (Reason: pain) Qty: 10 0RF ondansetron 4 mg tablet,disintegrating 4 mg PO TID-QID PRN (Reason: nausea and vomiting) Qty: 10 0RF metronidazole 500 mg tablet 500 mg PO BID Qty: 14 0RF hydrocodone-acetaminophen 5-325 mg tablet 1 tab PO Q4-6H PRN (Reason: pain) Qty: 20 0RF metoclopramide HCl [Reglan] 10 mg tablet 10 mg PO Q6H PRN (Reason: nausea and vomiting) Qty: 14 0RF oxycodone-acetaminophen 5-325 mg tablet 1 tab PO Q6H PRN (Reason: pain) Qty: 14 0RF lidocaine [Lidoderm] 5 % adhesive patch,medicated 1 patch TOP DAILY Qty: 15 0RF Rx Instructions: leave on most painful area for 12 hrs gabapentin 300 mg capsule 300 mg PO BEDTIME Qty: 14 0RF doxycycline monohydrate 100 mg capsule 100 mg PO BID Qty: 14 0RF pseudoephedrine HCl [Sudafed] 30 mg tablet 30 mg PO Q8HR Qty: 14 0RF cetirizine 10 mg tablet 10 mg PO BEDTIME Qty: 30 0RF ondansetron 4 mg tablet,disintegrating 4 mg PO Q8H PRN (Reason: nausea and vomiting) Qty: 10 0RF metoclopramide HCl [Reglan] 10 mg tablet 10 mg PO Q6H PRN (Reason: nausea and vomiting) Qty: 20 0RF diazepam [Valium] 5 mg tablet 5 mg PO TID PRN (Reason: muscle spasm) Qty: 10 0RF hyoscyamine sulfate 0.125 mg tablet 0.125 mg PO BID-QID PRN (Reason: dyspepsia) Qty: 20 0RF ondansetron 4 mg tablet,disintegrating 4 mg PO TID-QID PRN (Reason: nausea and vomiting) Qty: 10 0RF Visit Report Forms: Patient Portal/API
[2022-08-18] MEDS: SODIUM CHLORIDE 0.9% 1,000 ML 1000 ML IV (21:04)
[2022-08-18] MEDS: ONDANSETRON 4 MG/2 ML INJ IV (21:05)
[2022-08-18] MEDS: KETOROLAC 30 MG/ML VIAL 15 MG IV (21:24)
[2022-08-18 21:39] LABS: Creatine Kinase 86 U/L (30-135)
[2022-08-18 21:51] LABS: Troponin I < 0.012 ng/mL (0.01-0.034)
[2022-08-18 21:55] LABS: D Dimer 770 ng/ml (<500)
--- NOTE | 2022-08-18 22:12 | DI.CT.S_ITS ---
PROCEDURE: CT ANGIO CHEST PE PROTOCOL INDICATIONS: chest pain, influenza, +dimer TECHNIQUE: After the administration of intravenous contrast, 2 mm thick sections acquired from the pulmonary apices to the posterior costophrenic angles. 3-dimensional maximum intensity projection (MIP) coronal and sagittal reformats were then acquired through the thorax. For radiation dose reduction, the following was used: automated exposure control, adjustment of mA and/or kV according to patient size. COMPARISON: [facility], CT, CT CHEST ABDOMEN PELVIS WITH CONTRAST, 05/05/2020, 0:18. [facility], CR, XR CHEST 1V, 08/18/2022, 20:43. FINDINGS: Image quality: Excellent. Pulmonary arteries: Pulmonary arteries are normal in size, and demonstrate no intraluminal filling defects to suggest central pulmonary embolism. Lower Neck: No lymphadenopathy by size criteria. Thyroid: Visualized thyroid demonstrates no discrete nodules. Axillae: No lymphadenopathy by size criteria. Chest Wall: Unremarkable. Bones: Visualized osseous structures demonstrate no suspicious lesions. Lungs and Airways: No acute consolidation. There is mild dependent atelectasis. No suspicious pulmonary nodules. The trachea and central airways are patent. Pleura: No pneumothorax or pleural effusions. Heart: Heart size is normal. There is a minimal pericardial effusion. Thoracic Vessels: The thoracic aorta is normal in size. Mediastinum and Roxann: No lymphadenopathy by size criteria. Esophagus: No wall thickening. No hiatal hernia. Abdomen: Visualized upper abdominal solid organs appear normal in the early arterial phase of enhancement. IMPRESSION: 1. No evidence of pulmonary embolism. 2. No acute airspace consolidation. Dictated by: Joshua Cohen M.D. on 08/18/2022 at 23:40 Approved by: Joshua Cohen M.D. on 08/18/2022 at 23:42
[2022-08-19 00:18] VITALS: BP 122/68; PULSE 82; RESP 18; TEMP 36.7; O2SAT 98
== END 2022-08-19 00:15 | disposition home or self-care (01) ==
PROVIDERS: Emergency Provider Emergency Medicine
DX: J10.1 Influenza due to other identified influenza virus with other respiratory manifestations (principal); R07.9 Chest pain, unspecified
CPT/HCPCS: 36415; 71045; 71275; 80053; 81003; 81025; 82550; 83690; 84484; 85025; 85379; 96361; 96374; 96375; 99284; J1885; J2405; Q9967

== ENCOUNTER 2023-02-12 08:37 | Emergency (ER) | payer OTHER, MEDICAID, SELFPAY ==
[2023-02-12] VITALS (33 sets, daily range): BP systolic 110–155; BP diastolic 57–95; PULSE 59–98; RESP 16–21; TEMP 36.4; O2SAT 94–100; BMI 44.8
--- NOTE | 2023-02-12 09:04 | DI.US.S_ITS ---
PROCEDURE: US OB <= 14 WEEKS FETUS INDICATIONS: VOMITING OUTSIDE/PRIOR DATING DATA: Last menstrual period (LMP): 12/12/2022. LMP-based estimated date of delivery (TYLER): 09/18/2023. First dating scan (date and location): 02/12/2023. Estimated date of delivery (TYLER) from first dating scan: 09/27/2023. The calculations are made using the ultrasound TYLER of 09/27/2023. TECHNIQUE: Real-time scanning was performed of the fetus and maternal pelvic organs, with image documentation. Endovaginal scanning was also performed to better visualize the fetus and maternal ovaries. COMPARISON: None. FINDINGS: Embryo: [place]-rump length measures 1.3 cm, 7 weeks 3 days Heart rate: 160 beats per minute Question small subchorionic hemorrhage measuring 1.0 x 1.0 x 0.9 cm adjacent to the gestational sac. Maternal organs: Ovaries are unremarkable. There is a dominant left ovarian follicle measuring 1.6 cm. . IMPRESSION: 1. Living very early intrauterine with crown-rump length and heartbeat measuring 7 weeks 3 days. 2. Question small subarachnoid hemorrhage. We strive to produce accurate, complete, and clear reports of imaging services. To assist us in improving patient care, this report was composed using standard report templates and voice recognition software. Therefore, it may contain abnormal punctuation, insertions and/or omissions. Occasional wrong-word or sound-alike substitutions may occur. Though we review the report and make efforts to correct it, we do recommend that the report be read carefully in proper context to recognize any text inaccuracies. Dictated by: Phil Valentino M.D. on 02/12/2023 at 9:51 Approved by: Phil Valentino M.D. on 02/12/2023 at 9:54
[2023-02-12 09:44] LABS: Bacteria Urine Occasional (0-1); Culture Indicated Urine Cult Not Indicated; RBC Urine 0-1/HPF (0-5/HPF); Squamous Epithelial Cell Urine None Seen (0-5/HPF); WBC Urine 0-1/HPF (0-5/HPF)
[2023-02-12 09:50] LABS: Add Manual Diff / Slide Review NO; Basophils Absolute Auto 0 /uL (0-100); Basophils Percent Auto 0.3 % (0-2); Eosinophils Absolute Auto 100 /uL (0-450); Eosinophils Percent Auto 1.6 % (2-4); Hematocrit 36.3 % (36-46); Hemoglobin 12.1 g/dL (12.0-16.0); Lymphocytes Absolute Auto 1700 /uL (1100-4500); Lymphocytes Percent Auto 18.9 % (25-40); Mean Corpuscular HGB Conc 33.3 % (30-36); Mean Corpuscular Hemoglobin 27.3 PG (26-34); Mean Corpuscular Volume 82.1 fL (80-100); Monocytes Absolute Auto 500 /uL (0-900); Monocytes Percent Auto 6.1 % (3-14); Neutrophils Absolute Auto 6500 /uL (1500-7000); Neutrophils Percent Auto 73.1 % (50-75); Platelet Count 252 X10^3/uL (150-400); Red Blood Cell Count 4.42 X10^6/uL (4.0-5.2); Red Cell Distribution Width 15.2 % (11.6-14.8); White Blood Cell Count 8.9 X10^3/uL (4.5-11.0)
[2023-02-12] MEDS: MORPHINE 4 MG/ML INJ IV (09:58)
[2023-02-12 10:03] LABS: Alanine Aminotransferase 20 IU/L (<35); Albumin 3.8 g/dL (3.5-5.0); Albumin Globulin Ratio 1.1 (1.0-2.8); Alkaline Phosphatase 58 U/L (38-126); Aspartate Aminotransferase 26 IU/L (14-36); BUN Creatinine Ratio 16.3 (6-22); Bilirubin Total 0.3 mg/dL (0.2-1.3); Blood Urea Nitrogen 8 mg/dL (7-17); Calcium 9.1 mg/dL (8.4-10.2); Carbon Dioxide 21 mmol/L (22-32); Chloride 106 mmol/L (98-107); Estimated Glomerular Filt Rate > 60 mL/min (>60); Globulin 3.4 g/dL (1.7-4.1); Glucose 105 mg/dL (70-100); HEMOLYSIS 49 (0-50); Lipase 70 U/L (23-300); Sodium 135 mmol/L (137-145); Total Protein 7.2 g/dL (6.3-8.2)
[2023-02-12 10:43] LABS: HCG Quantitative /Beta subunit 62298 mIU/mL
[2023-02-12] MEDS: SODIUM CHLORIDE 0.9% 1,000 ML 1000 ML IV (10:46)
--- NOTE | 2023-02-12 10:51 | DI.MRI.S_ITS ---
PROCEDURE: MR ABDOMEN PELVIS WO CON COMPARISON: [facility], US, US OB <= 14 WEEKS FETUS, 02/12/2023, 9:16. [facility], US, US ABDOMEN COMPLETE, 02/12/2023, 11:32. INDICATIONS: Abdominal, R flank pain FINDINGS: Uterus is distended with findings corresponding to intrauterine . Liver is unremarkable. Gallbladder is not definitively identified. Pancreas demonstrates no inflammatory change. Spleen is unremarkable. Kidneys are symmetrical without obstruction. Incidental note of a retroaortic left renal vein. Intestinal gas pattern is nonobstructive. No inflammatory change is identified. Appendix is visualized without inflammation. Osseous structures are intact. No visualized free fluid or free air. 1.8 cm left ovarian cyst. IMPRESSION: Intrauterine . No inflammatory change within the abdomen or pelvis. Dictated by: Tiffanie Brown M.D. on 02/12/2023 at 19:18 Approved by: Tiffanie Brown M.D. on 02/12/2023 at 19:21
[2023-02-12] MEDS: HYDROMORPHONE 1 MG INJ IV ×4 (10:53→17:53)
--- NOTE | 2023-02-12 11:02 | DI.US.S_ITS ---
PROCEDURE: US ABDOMEN COMPLETE INDICATIONS: RIGHT FLANK/GENERALIZED ABDOMINAL PAIN TECHNIQUE: Real-time scanning was performed of the abdominal and retroperitoneal organs, with image documentation. COMPARISON: [facility], US, US PELVIC COMPLETE WITH TRANSVAGINAL, 03/11/2022, 4:23. [facility], CT, CT ABDOMEN PELVIS W CON, 06/28/2022, 2:30. FINDINGS: Liver: Liver is normal in size and demonstrates diffusely increased echotexture. Gallbladder: Surgically absent. Biliary ducts: Intrahepatic bile ducts are non-dilated. Extrahepatic bile duct caliber measures 5.9 mm. Normal is 6-7 mm or less in diameter, or 10 mm or less post-cholecystectomy. Pancreas: Not visualized due to overlying bowel gas. Spleen: Spleen is normal in size and homogeneous in echotexture. Kidneys: Kidneys are normal in size and echotexture. Right kidney measures 13.7 cm long; left kidney measures 13.1 cm long. No hydronephrosis or nephrolithiasis. No solid masses. Aorta: Visualized aorta is normal in caliber at less than 3 cm. Iliacs: Obscured by overlying bowel gas. IVC: Intrahepatic inferior vena cava is patent. Miscellaneous: No free abdominal fluid. Appendix is not visualized. IMPRESSION: 1. Diffusely increased hepatic echotexture. This finding is most likely secondary to hepatic fatty infiltration although other hepatocellular disease may have a similar appearance. Recommend clinical correlation. 2. Pancreas not visualized due to lower in by bowel gas. 3. Nonvisualization of appendix. Dictated by: Saad Horvath M.D. on 02/12/2023 at 13:31 Approved by: Saad Horvath M.D. on 02/12/2023 at 13:34
--- NOTE | 2023-02-12 11:22 | ED_ITS ---
HPI - Abdominal Pain <Marina Ng PA-C - Last Filed: 02/12/23 18:26> General Chief Complaint: Abdominal Pain Stated Complaint: 9 wks , lower abd pain, vomiting, dizzy Time Seen by Provider: 02/12/23 09:03 Source: patient Mode of arrival: Ambulatory History of Present Illness HPI narrative: Patient is a 27-year-old female, who presents to the ED with lower abdominal pain that started early this morning. Patient states that she was awakened from sleep with suprapubic pain, later pain also migrated to the right flank. Patient complains of nausea and vomiting, however says that that was baseline due to her . Patient denies fever, chills, chest pain, shortness of breath, dysuria, diarrhea, lightheadedness, dizziness, syncope. Patient denies any vaginal bleeding or spotting or abnormal vaginal discharge. Patient has seen her OBGYN Dr. Magdalena Stevens for this , was slated to have her 1st ultrasound next week. Related Data Home Medications Medication Instructions Recorded Confirmed acetaminophen 500 mg tablet 1,000 mg PO Q6H PRN Pain 01/13/20 05/27/21 (Tylenol Extra Strength) ketorolac 10 mg tablet 10 mg PO TID PRN Pain (Scale Score 05/27/21 05/27/21 7-10) ondansetron 4 mg disintegrating 4 mg PO TID PRN nausea/vomiting 05/27/21 05/27/21 tablet tamsulosin 0.4 mg capsule 0.4 mg PO DAILY 05/27/21 05/27/21 Previous Rx's Medication Instructions Recorded metoclopramide HCl 10 mg tablet 10 mg PO Q6H PRN nausea and 05/27/21 (Reglan) vomiting #12 tabs hydrocodone 5 mg-acetaminophen 325 1 tab PO Q4-6H PRN pain #10 tabs 01/01/22 mg tablet ondansetron 4 mg disintegrating 4 mg PO TID-QID PRN nausea and 01/01/22 tablet vomiting #10 tabs metronidazole 500 mg tablet 500 mg PO BID #14 tabs 01/10/22 gabapentin 300 mg capsule 300 mg PO BEDTIME #14 caps 01/15/22 lidocaine 5 % topical patch 1 patch topical DAILY #15 ea 01/15/22 (Lidoderm) doxycycline monohydrate 100 mg 100 mg PO BID #14 caps 02/24/22 capsule cetirizine 10 mg tablet 10 mg PO BEDTIME #30 tabs 02/27/22 ondansetron 4 mg disintegrating 4 mg PO Q8H PRN nausea and 02/27/22 tablet vomiting #10 tabs pseudoephedrine HCl 30 mg tablet 30 mg PO Q8HR #14 tabs 02/27/22 (Sudafed) hydrocodone 5 mg-acetaminophen 325 1 tab PO Q4-6H PRN pain #20 tabs 04/08/22 mg tablet metoclopramide HCl 10 mg tablet 10 mg PO Q6H PRN nausea and 06/01/22 (Reglan) vomiting #20 tabs diazepam 5 mg tablet (Valium) 5 mg PO TID PRN muscle spasm #10 07/02/22 tabs metoclopramide HCl 10 mg tablet 10 mg PO Q6H PRN nausea and 07/17/22 (Reglan) vomiting #14 tabs hyoscyamine sulfate 0.125 mg tablet 0.125 mg PO BID-QID PRN dyspepsia 07/19/22 #20 tabs ondansetron 4 mg disintegrating 4 mg PO TID-QID PRN nausea and 07/19/22 tablet vomiting #10 tabs oxycodone-acetaminophen 5 mg-325 1 tab PO Q6H PRN pain #14 tabs 08/10/22 mg tablet fluticasone propionate 50 1 spray intranasal Q12H #16 grams 02/07/23 mcg/actuation nasal spray,suspension (Flonase Allergy Relief) Allergies Allergy/AdvReac Type Severity Reaction Status Date / Time No Known Drug Allergies Allergy Verified 07/19/22 11:49 Review of Systems <Marina Ng PA-C - Last Filed: 02/12/23 18:26> Review of Systems ROS Unobtainable: All systems reviewed & are unremarkable except as noted in HPI and below Constitutional Constitutional: Denies chills, Denies fatigue, Denies fever(s), Denies frequent falls, Denies lethargy and Denies weakness Eyes Eyes: Denies change in vision, Denies eye discharge, Denies irritation and Denies loss of vision ENT Ears, Nose, Mouth, and Throat: Denies change in voice, Denies dizziness, Denies neck pain, Denies sore throat and Denies throat swelling Cardiovascular Cardiovascular: Denies chest pain, Denies irregular heart rhythm, Denies lightheadedness, Denies palpitations, Denies dyspnea, Denies dyspnea on exertion and Denies orthopnea Respiratory Respiratory: Denies cough, Denies dyspnea, Denies dyspnea on exertion and Denies wheezing Gastrointestinal Gastrointestinal: Reports abdominal pain, Denies change in bowel habits, Denies diarrhea, Denies nausea and Denies vomiting Comments: Right-sided flank pain Genitourinary Genitourinary: Denies hematuria, Denies flank pain, Denies urinary incontinence and Denies urinary urgency Musculoskeletal Musculoskeletal: Denies back pain, Denies muscle weakness, Denies neck pain, Denies numbness and Denies tingling Integumentary/Breasts Skin/Breast: Denies pruritus, Denies erythema, Denies rash and Denies wounds Neurologic Neurologic: Denies behavioral changes, Denies confusion, Denies dizziness, Denies frequent falls, Denies loss of vision, Denies numbness, Denies tingling and Denies weakness Psychiatric Psychiatric: Denies anxiety, Denies behavioral changes, Denies confusion, Denies depression, Denies homicidal ideation and Denies suicidal ideation Endocrine Endocrine: Denies fatigue, Denies flushing and Denies palpitations Hematologic/Lymphatic Hematologic/Lymphatic: Denies easy bruising Allergic/Immunologic Allergic/Immunologic: Denies urticaria, Denies throat swelling and Denies wheezing Patient History <Marina Ng PA-C - Last Filed: 02/12/23 18:26> Medical History Abdominal pain Fusion of toes of right foot Pyelonephritis (~06/2019) Sebaceous cyst Surgical History History of bunionectomy of left great toe History of bunionectomy of right great toe Hx of cholecystectomy Hx of eye surgery Hx of foot surgery Hx of foot surgery (08/25/20) S/P foot surgery, right S/P foot surgery, right (09/12/19) S/P hardware removal Social History household members: family and children Smoking Status: Former smoker alcohol intake: current Smoking Status: Former smoker alcohol intake frequency: a few times a week Substance Use Type: does not use Exam <Marina Ng PA-C - Last Filed: 02/12/23 18:26> Narrative Exam Narrative: Const General:?cooperative, healthy appearing and comfortable [facility] Head:?normal to inspection Ears:?hearing grossly normal bilaterally Nose:?external nose normal Face and sinus:?normal facial exam and sinuses nontender Mouth:?oral mucosae normal Throat:?posterior oropharynx normal Eyes General:?appearance normal, both eyes and all related structures Neck Neck:?normal visual inspection and no lymphadenopathy noted Resp Effort & Inspection:?normal respiratory effort Auscultation:?clear to auscultation bilaterally Cardio Rate:?regular rate Rhythm:?regular rhythm GI Patient is diffusely tender to palpation in the abdomen. There is marked CVA tenderness on the right side. No CVA tenderness on the left. Neuro General:?patient alert, patient awake and patient oriented x3 Initial Vital Signs Initial Vital Signs: Vital Signs Temperature 97.6 F 02/12/23 08:57 Pulse Rate 77 02/12/23 08:57 Respiratory Rate 18 02/12/23 08:57 Blood Pressure 122/65 02/12/23 08:57 Pulse Oximetry 99 02/12/23 08:57 Oxygen Delivery Method Room Air 02/12/23 08:57 <Jaswant Sethi DO - Last Filed: 02/13/23 00:11> Initial Vital Signs Initial Vital Signs: Vital Signs Temperature 97.6 F 02/12/23 08:57 Pulse Rate 77 02/12/23 08:57 Respiratory Rate 18 02/12/23 08:57 Blood Pressure 122/65 02/12/23 08:57 Pulse Oximetry 99 02/12/23 08:57 Oxygen Delivery Method Room Air 02/12/23 08:57 Course <Marina Ng PA-C - Last Filed: 02/12/23 18:26> Orders Ordered: ED Orders 02/12/23 17:30 CBC Auto Diff [Complete Blood Count AUTO DIFF] Stat 02/12/23 18:31 Chlamydia Gonorrhea PCR -URINE Stat Discontinued Medications Hydrocodone Bitart/Acetaminophen (Hydrocodone/Acet 5/325 Prepack) 1 bottle MISC SEEINSTR ONE Stop: 02/12/23 20:18 Last Admin: 02/12/23 20:30 Dose: 1 bottle Documented By: RLS Hydromorphone HCl (Hydromorphone 1 Mg Inj) 1 mg IV NOW ONE Stop: 02/12/23 10:49 Last Admin: 02/12/23 10:53 Dose: 1 mg Documented By: VAMSI Hydromorphone HCl (Hydromorphone 1 Mg Inj) 1 mg IV NOW ONE Stop: 02/12/23 12:02 Last Admin: 02/12/23 12:08 Dose: 1 mg Documented By: VAMSI Hydromorphone HCl (Hydromorphone 1 Mg Inj) 1 mg IV NOW ONE Stop: 02/12/23 14:07 Last Admin: 02/12/23 14:20 Dose: 1 mg Documented By: AT Hydromorphone HCl (Hydromorphone 1 Mg Inj) 1 mg IV NOW ONE Stop: 02/12/23 17:46 Last Admin: 02/12/23 17:53 Dose: 1 mg Documented By: VAMSI Sodium Chloride (Normal Saline 0.9%) 1,000 mls @ 1,000 mls/hr IV BOLUS ONE Stop: 02/12/23 11:39 Last Infusion: 02/12/23 13:05 Dose: 0 mls/hr Documented By: Admin: 02/12/23 10:46 Dose: 1,000 mls/hr Documented By: VAMSI Sodium Chloride (Normal Saline 0.9%) 1,000 mls @ 2,000 mls/hr IV BOLUS ONE Stop: 02/12/23 14:34 Last Infusion: 02/12/23 16:45 Dose: 1,000 mls/hr Documented By: Admin: 02/12/23 14:31 Dose: 2,000 mls/hr Documented By: AT Cefazolin Sodium 2 gm/ Sodium (Chloride) 100 mls @ 200 mls/hr IV NOW ONE Stop: 02/12/23 14:35 Last Infusion: 02/12/23 16:46 Dose: 0 mls/hr Documented By: Admin: 02/12/23 14:32 Dose: 200 mls/hr Documented By: AT Lorazepam (Lorazepam 2 Mg/Ml Inj) 1 mg IV NOW ONE Stop: 02/12/23 19:53 Last Admin: 02/12/23 20:18 Dose: Not Given Documented By: Morphine Sulfate (Morphine 4 Mg/Ml Inj) 4 mg IV NOW ONE Stop: 02/12/23 09:45 Last Admin: 02/12/23 09:58 Dose: 4 mg Documented By: VAMSI Ondansetron HCl (Ondansetron 4 Mg Odt) 4 mg PO NOW PRN PRN Reason: Nausea And Vomiting Ondansetron HCl (Ondansetron 4 Mg/2 Ml Inj) 4 mg IV NOW PRN PRN Reason: Nausea And Vomiting Promethazine HCl (Promethazine 25 Mg Tablet) 25 mg PO NOW ONE Stop: 02/12/23 15:09 Last Admin: 02/12/23 17:26 Dose: 25 mg Documented By: VAMSI Vital Signs Vital signs: Vital Signs - 8 hr 02/12/23 16:30 02/12/23 17:00 02/12/23 17:23 Pulse Rate 80 89 Respiratory Rate Blood Pressure 147/77 H Pulse Oximetry 98 100 Oxygen Delivery Method 02/12/23 17:23 02/12/23 17:30 02/12/23 17:31 Pulse Rate 81 69 70 Respiratory Rate Blood Pressure Pulse Oximetry 100 99 99 Oxygen Delivery Method 02/12/23 17:31 02/12/23 18:29 02/12/23 18:30 Pulse Rate 94 H 82 Respiratory Rate Blood Pressure 114/73 Pulse Oximetry 99 98 Oxygen Delivery Method 02/12/23 19:12 02/12/23 19:15 02/12/23 19:15 Pulse Rate 87 94 H Respiratory Rate Blood Pressure 155/75 H Pulse Oximetry 99 98 Oxygen Delivery Method 02/12/23 19:30 02/12/23 19:30 02/12/23 20:00 Pulse Rate 82 80 Respiratory Rate 21 19 Blood Pressure 132/81 Pulse Oximetry 100 98 Oxygen Delivery Method 02/12/23 20:38 Pulse Rate 71 Respiratory Rate 16 Blood Pressure 125/57 L Pulse Oximetry 100 Oxygen Delivery Method Room Air <Jaswant Sethi DO - Last Filed: 02/13/23 00:11> Orders Ordered: ED Orders 02/12/23 17:30 CBC Auto Diff [Complete Blood Count AUTO DIFF] Stat 02/12/23 18:31 Chlamydia Gonorrhea PCR -URINE Stat Discontinued Medications Hydrocodone Bitart/Acetaminophen (Hydrocodone/Acet 5/325 Prepack) 1 bottle MISC SEEINSTR ONE Stop: 02/12/23 20:18 Last Admin: 02/12/23 20:30 Dose: 1 bottle Documented By: THU Hydromorphone HCl (Hydromorphone 1 Mg Inj) 1 mg IV NOW ONE Stop: 02/12/23 10:49 Last Admin: 02/12/23 10:53 Dose: 1 mg Documented By: VAMSI Hydromorphone HCl (Hydromorphone 1 Mg Inj) 1 mg IV NOW ONE Stop: 02/12/23 12:02 Last Admin: 02/12/23 12:08 Dose: 1 mg Documented By: VAMSI Hydromorphone HCl (Hydromorphone 1 Mg Inj) 1 mg IV NOW ONE Stop: 02/12/23 14:07 Last Admin: 02/12/23 14:20 Dose: 1 mg Documented By: AT Hydromorphone HCl (Hydromorphone 1 Mg Inj) 1 mg IV NOW ONE Stop: 02/12/23 17:46 Last Admin: 02/12/23 17:53 Dose: 1 mg Documented By: VAMSI Sodium Chloride (Normal Saline 0.9%) 1,000 mls @ 1,000 mls/hr IV BOLUS ONE Stop: 02/12/23 11:39 Last Infusion: 02/12/23 13:05 Dose: 0 mls/hr Documented By: Admin: 02/12/23 10:46 Dose: 1,000 mls/hr Documented By: VAMSI Sodium Chloride (Normal Saline 0.9%) 1,000 mls @ 2,000 mls/hr IV BOLUS ONE Stop: 02/12/23 14:34 Last Infusion: 02/12/23 16:45 Dose: 1,000 mls/hr Documented By: Admin: 02/12/23 14:31 Dose: 2,000 mls/hr Documented By: AT Cefazolin Sodium 2 gm/ Sodium (Chloride) 100 mls @ 200 mls/hr IV NOW ONE Stop: 02/12/23 14:35 Last Infusion: 02/12/23 16:46 Dose: 0 mls/hr Documented By: Admin: 02/12/23 14:32 Dose: 200 mls/hr Documented By: AT Lorazepam (Lorazepam 2 Mg/Ml Inj) 1 mg IV NOW ONE Stop: 02/12/23 19:53 Last Admin: 02/12/23 20:18 Dose: Not Given Documented By: Morphine Sulfate (Morphine 4 Mg/Ml Inj) 4 mg IV NOW ONE Stop: 02/12/23 09:45 Last Admin: 02/12/23 09:58 Dose: 4 mg Documented By: VAMSI Ondansetron HCl (Ondansetron 4 Mg Odt) 4 mg PO NOW PRN PRN Reason: Nausea And Vomiting Ondansetron HCl (Ondansetron 4 Mg/2 Ml Inj) 4 mg IV NOW PRN PRN Reason: Nausea And Vomiting Promethazine HCl (Promethazine 25 Mg Tablet) 25 mg PO NOW ONE Stop: 02/12/23 15:09 Last Admin: 02/12/23 17:26 Dose: 25 mg Documented By: VAMSI Vital Signs Vital signs: Vital Signs - 8 hr 02/12/23 16:30 02/12/23 17:00 02/12/23 17:23 Pulse Rate 80 89 Respiratory Rate Blood Pressure 147/77 H Pulse Oximetry 98 100 Oxygen Delivery Method 02/12/23 17:23 02/12/23 17:30 02/12/23 17:31 Pulse Rate 81 69 70 Respiratory Rate Blood Pressure Pulse Oximetry 100 99 99 Oxygen Delivery Method 02/12/23 17:31 02/12/23 18:29 02/12/23 18:30 Pulse Rate 94 H 82 Respiratory Rate Blood Pressure 114/73 Pulse Oximetry 99 98 Oxygen Delivery Method 02/12/23 19:12 02/12/23 19:15 02/12/23 19:15 Pulse Rate 87 94 H Respiratory Rate Blood Pressure 155/75 H Pulse Oximetry 99 98 Oxygen Delivery Method 02/12/23 19:30 02/12/23 19:30 02/12/23 20:00 Pulse Rate 82 80 Respiratory Rate 21 19 Blood Pressure 132/81 Pulse Oximetry 100 98 Oxygen Delivery Method 02/12/23 20:38 Pulse Rate 71 Respiratory Rate 16 Blood Pressure 125/57 L Pulse Oximetry 100 Oxygen Delivery Method Room Air MDM - Abdominal Pain <Marina Ng PA-C - Last Filed: 02/12/23 18:26> Lab Data 02/12/23 17:30 02/12/23 09:41 Labs: Lab Results 02/12/23 02/12/23 02/12/23 Range/Units 09:09 09:41 09:41 WBC 8.9 (4.5-11.0) X10^3/uL RBC 4.42 (4.0-5.2) X10^6/uL Hgb 12.1 (12.0-16.0) g/dL Hct 36.3 (36-46) % MCV 82.1 (80-100) fL MCH 27.3 (26-34) PG MCHC 33.3 (30-36) % RDW 15.2 H (11.6-14.8) % Plt Count 252 (150-400) X10^3/uL Neut % (Auto) 73.1 (50-75) % Lymph % (Auto) 18.9 L (25-40) % Bath % (Auto) 6.1 (3-14) % Eos % (Auto) 1.6 L (2-4) % Baso % (Auto) 0.3 (0-2) % Neut # (Auto) 6500 (8022-3887) /uL Lymph # (Auto) 1700 (8348-9420) /uL Bath # (Auto) 500 (0-900) /uL Eos # (Auto) 100 (0-450) /uL Baso # (Auto) 0 (0-100) /uL Sodium 135 L (137-145) mmol/L Potassium 4.0 (3.4-5.1) mmol/L Chloride 106 (98-107) mmol/L Carbon Dioxide 21 L (22-32) mmol/L BUN 8 (7-17) mg/dL Creatinine 0.49 L (0.52-1.04) mg/dL Estimated GFR > 60 (>60) mL/min BUN/Creatinine Ratio 16.3 (6-22) Glucose 105 H (70-100) mg/dL Calcium 9.1 (8.4-10.2) mg/dL Total Bilirubin 0.3 (0.2-1.3) mg/dL AST 26 (14-36) IU/L ALT 20 (<35) IU/L Alkaline Phosphatase 58 (38-126) U/L Total Protein 7.2 (6.3-8.2) g/dL Albumin 3.8 (3.5-5.0) g/dL Globulin 3.4 (1.7-4.1) g/dL Albumin/Globulin Ratio 1.1 (1.0-2.8) Lipase 70 (23-300) U/L HCG, Quant mIU/mL Urine RBC 0-1/hpf (0-5/HPF) Urine WBC 0-1/hpf (0-5/HPF) Ur Squamous Epith Cells None seen D (0-5/HPF) Urine Bacteria Occasional (0-1) (None) Ur Culture Indicated? Cult not indicated Ur Chlamydia DNA (PCR) N gonorrhoeae DNA (PCR) Blood Type Antibody Screen 02/12/23 02/12/23 02/12/23 Range/Units 09:41 12:15 17:30 WBC 9.7 (4.5-11.0) X10^3/uL RBC 4.27 (4.0-5.2) X10^6/uL Hgb 11.7 L (12.0-16.0) g/dL Hct 35.0 L (36-46) % MCV 82.0 (80-100) fL MCH 27.4 (26-34) PG MCHC 33.5 (30-36) % RDW 15.0 H (11.6-14.8) % Plt Count 224 (150-400) X10^3/uL Neut % (Auto) 72.9 (50-75) % Lymph % (Auto) 19.0 L (25-40) % Bath % (Auto) 6.5 (3-14) % Eos % (Auto) 1.4 L (2-4) % Baso % (Auto) 0.2 (0-2) % Neut # (Auto) 7100 H (4221-4820) /uL Lymph # (Auto) 1800 (6115-8068) /uL Bath # (Auto) 600 (0-900) /uL Eos # (Auto) 100 (0-450) /uL Baso # (Auto) 0 (0-100) /uL Sodium (137-145) mmol/L Potassium (3.4-5.1) mmol/L Chloride (98-107) mmol/L Carbon Dioxide (22-32) mmol/L BUN (7-17) mg/dL Creatinine (0.52-1.04) mg/dL Estimated GFR (>60) mL/min BUN/Creatinine Ratio (6-22) Glucose (70-100) mg/dL Calcium (8.4-10.2) mg/dL Total Bilirubin (0.2-1.3) mg/dL AST (14-36) IU/L ALT (<35) IU/L Alkaline Phosphatase (38-126) U/L Total Protein (6.3-8.2) g/dL Albumin (3.5-5.0) g/dL Globulin (1.7-4.1) g/dL Albumin/Globulin Ratio (1.0-2.8) Lipase (23-300) U/L HCG, Quant 61393 mIU/mL Urine RBC (0-5/HPF) Urine WBC (0-5/HPF) Ur Squamous Epith Cells (0-5/HPF) Urine Bacteria (None) Ur Culture Indicated? Ur Chlamydia DNA (PCR) N gonorrhoeae DNA (PCR) Blood Type A Positive Antibody Screen Negative 02/12/23 Range/Units 18:31 WBC (4.5-11.0) X10^3/uL RBC (4.0-5.2) X10^6/uL Hgb (12.0-16.0) g/dL Hct (36-46) % MCV (80-100) fL MCH (26-34) PG MCHC (30-36) % RDW (11.6-14.8) % Plt Count (150-400) X10^3/uL Neut % (Auto) (50-75) % Lymph % (Auto) (25-40) % Bath % (Auto) (3-14) % Eos % (Auto) (2-4) % Baso % (Auto) (0-2) % Neut # (Auto) (5440-8401) /uL Lymph # (Auto) (9029-0346) /uL Bath # (Auto) (0-900) /uL Eos # (Auto) (0-450) /uL Baso # (Auto) (0-100) /uL Sodium (137-145) mmol/L Potassium (3.4-5.1) mmol/L Chloride (98-107) mmol/L Carbon Dioxide (22-32) mmol/L BUN (7-17) mg/dL Creatinine (0.52-1.04) mg/dL Estimated GFR (>60) mL/min BUN/Creatinine Ratio (6-22) Glucose (70-100) mg/dL Calcium (8.4-10.2) mg/dL Total Bilirubin (0.2-1.3) mg/dL AST (14-36) IU/L ALT (<35) IU/L Alkaline Phosphatase (38-126) U/L Total Protein (6.3-8.2) g/dL Albumin (3.5-5.0) g/dL Globulin (1.7-4.1) g/dL Albumin/Globulin Ratio (1.0-2.8) Lipase (23-300) U/L HCG, Quant mIU/mL Urine RBC (0-5/HPF) Urine WBC (0-5/HPF) Ur Squamous Epith Cells (0-5/HPF) Urine Bacteria (None) Ur Culture Indicated? Ur Chlamydia DNA (PCR) Not detected N gonorrhoeae DNA (PCR) Not detected Blood Type Antibody Screen Point of care testing: Point of Care Testing Test Results Positive Glucose POC 85 Urine Dip Bedside Urine Glucose Negative Bedside Urine Bilirubin - Negative Bedside Urine Ketone +/- 5 Urine Specific Wells 1.015 Bedside Urine Occult Blood - Negative Bedside Urine pH 6.0 Bedside Urine Protein - Negative Bedside Urine Urobilinogen - Negative Bedside Urine Nitrite - Negative Bedside Urine Leukocytes +/- 15 Esterase MDM Narrative Medical decision making narrative: Patient is a 27-year-old female, who presents to the ED with lower abdominal pain that started early this morning. Concern for appendicitis versus UTI versus nephrolithiasis versus pyelonephritis versus gallbladder disease versus ectopic versus IUP versus threatened miscarriage versus other. Will obtain labs, type and screen, UA, ultrasound. ultrasound shows a living very early intrauterine measuring 7 weeks and 3 days. Possible small subchorionic hemorrhage measuring 1 x 1 x 0.9 cm adjacent to the gestational sac. Consulted patient's OBGYN Dr. Magdalena Stevens's office, spoke with the doctor on-call Dr. Zepeda who suggests a ultrasound of the abdomen to look for appendicitis, gallbladder disease, other. Advises holding off on MRI or CT for now. Abdomen of the ultrasound shows diffusely increased hepatic echotexture most likely secondary to hepatic fatty infiltration. Pancreas were not visualized. Appendix was not visualized. No hydronephrosis or nephrolithiasis. No solid masses in the kidneys. Kidneys otherwise appear normal. Gallbladder is surgically absent. Patient continues to complain of right-sided flank pain radiating to the right abdomen. Patient is crouched on all fours and complains of 9/10 pain. Patient has received 1 dose of morphine, 2 doses of Dilaudid, pain is still not well controlled. Dr. Escalante from [facility] was consulted, she recommends IV fluids and Ancef, continued pain control with Dilaudid, re-evaluate. Patient received IV fluids, Ancef and further doses of Dilaudid. Patient was also given promethazine for nausea and vomiting. Patient's pain was intractable despite all treatments. Dr. Escalante was consulted again, she recommends MR of the abdomen. Radiology was consulted, and they consulted with Dr. Escalante and the decision was made to go ahead with the MR to r/o appendicitis or other emergent findings. Recommendation from Dr. Escalante is that if no emergent findings on MR, patient can be discharged home with pain control and ED return precautions. Medical records reviewed: Yes Patient is signed out to Dr. Jaswant Sethi. <Jaswant Sethi, DO - Last Filed: 02/13/23 00:11> Lab Data Labs: Lab Results 02/12/23 02/12/23 02/12/23 Range/Units 09:09 09:41 09:41 WBC 8.9 (4.5-11.0) X10^3/uL RBC 4.42 (4.0-5.2) X10^6/uL Hgb 12.1 (12.0-16.0) g/dL Hct 36.3 (36-46) % MCV 82.1 (80-100) fL MCH 27.3 (26-34) PG MCHC 33.3 (30-36) % RDW 15.2 H (11.6-14.8) % Plt Count 252 (150-400) X10^3/uL Neut % (Auto) 73.1 (50-75) % Lymph % (Auto) 18.9 L (25-40) % Bath % (Auto) 6.1 (3-14) % Eos % (Auto) 1.6 L (2-4) % Baso % (Auto) 0.3 (0-2) % Neut # (Auto) 6500 (4428-2838) /uL Lymph # (Auto) 1700 (6316-7498) /uL Bath # (Auto) 500 (0-900) /uL Eos # (Auto) 100 (0-450) /uL Baso # (Auto) 0 (0-100) /uL Sodium 135 L (137-145) mmol/L Potassium 4.0 (3.4-5.1) mmol/L Chloride 106 (98-107) mmol/L Carbon Dioxide 21 L (22-32) mmol/L BUN 8 (7-17) mg/dL Creatinine 0.49 L (0.52-1.04) mg/dL Estimated GFR > 60 (>60) mL/min BUN/Creatinine Ratio 16.3 (6-22) Glucose 105 H (70-100) mg/dL Calcium 9.1 (8.4-10.2) mg/dL Total Bilirubin 0.3 (0.2-1.3) mg/dL AST 26 (14-36) IU/L ALT 20 (<35) IU/L Alkaline Phosphatase 58 (38-126) U/L Total Protein 7.2 (6.3-8.2) g/dL Albumin 3.8 (3.5-5.0) g/dL Globulin 3.4 (1.7-4.1) g/dL Albumin/Globulin Ratio 1.1 (1.0-2.8) Lipase 70 (23-300) U/L HCG, Quant mIU/mL Urine RBC 0-1/hpf (0-5/HPF) Urine WBC 0-1/hpf (0-5/HPF) Ur Squamous Epith Cells None seen D (0-5/HPF) Urine Bacteria Occasional (0-1) (None) Ur Culture Indicated? Cult not indicated Ur Chlamydia DNA (PCR) N gonorrhoeae DNA (PCR) Blood Type Antibody Screen 02/12/23 02/12/23 02/12/23 Range/Units 09:41 12:15 17:30 WBC 9.7 (4.5-11.0) X10^3/uL RBC 4.27 (4.0-5.2) X10^6/uL Hgb 11.7 L (12.0-16.0) g/dL Hct 35.0 L (36-46) % MCV 82.0 (80-100) fL MCH 27.4 (26-34) PG MCHC 33.5 (30-36) % RDW 15.0 H (11.6-14.8) % Plt Count 224 (150-400) X10^3/uL Neut % (Auto) 72.9 (50-75) % Lymph % (Auto) 19.0 L (25-40) % Bath % (Auto) 6.5 (3-14) % Eos % (Auto) 1.4 L (2-4) % Baso % (Auto) 0.2 (0-2) % Neut # (Auto) 7100 H (6683-8670) /uL Lymph # (Auto) 1800 (7770-3276) /uL Bath # (Auto) 600 (0-900) /uL Eos # (Auto) 100 (0-450) /uL Baso # (Auto) 0 (0-100) /uL Sodium (137-145) mmol/L Potassium (3.4-5.1) mmol/L Chloride (98-107) mmol/L Carbon Dioxide (22-32) mmol/L BUN (7-17) mg/dL Creatinine (0.52-1.04) mg/dL Estimated GFR (>60) mL/min BUN/Creatinine Ratio (6-22) Glucose (70-100) mg/dL Calcium (8.4-10.2) mg/dL Total Bilirubin (0.2-1.3) mg/dL AST (14-36) IU/L ALT (<35) IU/L Alkaline Phosphatase (38-126) U/L Total Protein (6.3-8.2) g/dL Albumin (3.5-5.0) g/dL Globulin (1.7-4.1) g/dL Albumin/Globulin Ratio (1.0-2.8) Lipase (23-300) U/L HCG, Quant 37063 mIU/mL Urine RBC (0-5/HPF) Urine WBC (0-5/HPF) Ur Squamous Epith Cells (0-5/HPF) Urine Bacteria (None) Ur Culture Indicated? Ur Chlamydia DNA (PCR) N gonorrhoeae DNA (PCR) Blood Type A Positive Antibody Screen Negative 02/12/23 Range/Units 18:31 WBC (4.5-11.0) X10^3/uL RBC (4.0-5.2) X10^6/uL Hgb (12.0-16.0) g/dL Hct (36-46) % MCV (80-100) fL MCH (26-34) PG MCHC (30-36) % RDW (11.6-14.8) % Plt Count (150-400) X10^3/uL Neut % (Auto) (50-75) % Lymph % (Auto) (25-40) % Bath % (Auto) (3-14) % Eos % (Auto) (2-4) % Baso % (Auto) (0-2) % Neut # (Auto) (3016-0632) /uL Lymph # (Auto) (2080-2658) /uL Bath # (Auto) (0-900) /uL Eos # (Auto) (0-450) /uL Baso # (Auto) (0-100) /uL Sodium (137-145) mmol/L Potassium (3.4-5.1) mmol/L Chloride (98-107) mmol/L Carbon Dioxide (22-32) mmol/L BUN (7-17) mg/dL Creatinine (0.52-1.04) mg/dL Estimated GFR (>60) mL/min BUN/Creatinine Ratio (6-22) Glucose (70-100) mg/dL Calcium (8.4-10.2) mg/dL Total Bilirubin (0.2-1.3) mg/dL AST (14-36) IU/L ALT (<35) IU/L Alkaline Phosphatase (38-126) U/L Total Protein (6.3-8.2) g/dL Albumin (3.5-5.0) g/dL Globulin (1.7-4.1) g/dL Albumin/Globulin Ratio (1.0-2.8) Lipase (23-300) U/L HCG, Quant mIU/mL Urine RBC (0-5/HPF) Urine WBC (0-5/HPF) Ur Squamous Epith Cells (0-5/HPF) Urine Bacteria (None) Ur Culture Indicated? Ur Chlamydia DNA (PCR) Not detected N gonorrhoeae DNA (PCR) Not detected Blood Type Antibody Screen Point of care testing: Point of Care Testing Test Results Positive Glucose POC 85 Urine Dip Bedside Urine Glucose Negative Bedside Urine Bilirubin - Negative Bedside Urine Ketone +/- 5 Urine Specific Wells 1.015 Bedside Urine Occult Blood - Negative Bedside Urine pH 6.0 Bedside Urine Protein - Negative Bedside Urine Urobilinogen - Negative Bedside Urine Nitrite - Negative Bedside Urine Leukocytes +/- 15 Esterase Imaging Data MRI: Radiologist's Impression: PROCEDURE: MR ABDOMEN PELVIS WO CON ? COMPARISON: [facility], US, US OB <= 14 WEEKS FETUS, 02/12/2023, 9:16.? [facility], US, US ABDOMEN COMPLETE, 02/12/2023, 11:32. ? INDICATIONS: Abdominal, R flank pain ? FINDINGS: Uterus is distended with findings corresponding to intrauterine .? Liver is unremarkable.? Gallbladder is not definitively identified.? Pancreas demonstrates no inflammatory change.? Spleen is unremarkable.? Kidneys are sy mmetrical without obstruction.? Incidental note of a retroaortic left renal vein.? Intestinal gas pattern is nonobstructive.? No inflammatory change is identified.? Appendix is visualized without inflammation.? Osseous structures are intact.? No visualized free fluid or free air.? 1.8 cm left ovarian cyst. ? IMPRESSION: Intrauterine . ? No inflammatory change within the abdomen or pelvis. MDM Narrative Medical decision making narrative: Patient is a 27-year-old female, who presents to the ED with lower abdominal pain that started early this morning. Concern for appendicitis versus UTI versus nephrolithiasis versus pyelonephritis versus gallbladder disease versus ectopic versus IUP versus threatened miscarriage versus other. Will obtain labs, type and screen, UA, ultrasound. ultrasound shows a living very early intrauterine measuring 7 weeks and 3 days. Possible small subchorionic hemorrhage measuring 1 x 1 x 0.9 cm adjacent to the gestational sac. Consulted patient's OBGYN Dr. Magdalena Stevens's office, spoke with the doctor on-call Dr. Zepeda who suggests a ultrasound of the abdomen to look for appendicitis, gallbladder disease, other. Advises holding off on MRI or CT for now. Abdomen of the ultrasound shows diffusely increased hepatic echotexture most likely secondary to hepatic fatty infiltration. Pancreas were not visualized. Appendix was not visualized. No hydronephrosis or nephrolithiasis. No solid masses in the kidneys. Kidneys otherwise appear normal. Gallbladder is surgically absent. Patient continues to complain of right-sided flank pain radiating to the right abdomen. Patient is crouched on all fours and complains of 9/10 pain. Patient has received 1 dose of morphine, 2 doses of Dilaudid, pain is still not well controlled. Dr. Escalante from OBGYN was consulted, she recommends IV fluids and Ancef, continued pain control with Dilaudid, re-evaluate. Patient received IV fluids, Ancef and further doses of Dilaudid. Patient was also given promethazine for nausea and vomiting. Patient's pain was intractable despite all treatments. Dr. Escalante was consulted again, she recommends MR of the abdomen. Radiology was consulted, and they consulted with Dr. Escalante and the decision was made to go ahead with the MR to r/o appendicitis or other emergent findings. Recommendation from Dr. Escalante is that if no emergent findings on MR, patient can be discharged home with pain control and ED return precautions. Medical records reviewed: Yes Patient is signed out to Dr. Jaswant Sethi. Dr sethi: Received turned over. Reviewed patient's history and physical workup up to this point. We are waiting for MRI result. MRI subsequently negative. Patient has had multiple ultrasounds and an MRI which does not show any acute pathology. There does not appear to be any infectious etiology. Patient has received multiple doses of pain medication. She did have 1 episode where she stood up in the room in order to get the call carter and she passed out. She was able to stand afterwards and get back into bed. She did not hit her head. No injuries from any falls. I did discuss with her the lack of a definitive etiology. Patient refused Ativan as she states that it was ?not cleared by my OB doctor? this is also why she declined Zofran. Informed her that the Ativan would be safe this point in the but she still declined this. I told her that was not going to provide any more IV pain medication as I did not have a specific cause of her discomfort. I did recommend that we do a pelvic exam. She stated that she had no concern about STDs. Informed her that a pelvic exam would allow us to further evaluate any other potential etiology but the patient declined the pelvic exam. She stated that she would like to be discharged. I did advise the patient that she contact her OB doctor for follow- up and did give her return precautions. Discharge Plan Departure Patient Disposition: Home Clinical Impression: Abdominal pain Instructions: DI for Abdominal Pain-Adult Activity Restrictions/Additional Instructions: Fortunately your workup here in the emergency department is unremarkable. I understand the frustration that this does not give you a definitive cause of your pain. You did decline the pelvic exam. I recommend that tomorrow you contact your OB doctor for a follow-up and return to the emergency department for new or worsening symptoms. Prescriptions: No Action fluticasone propionate [Flonase Allergy Relief] 50 mcg/actuation spray,suspension 1 spray intranasal Q12H Qty: 16 0RF Rx Instructions: administer into each nostril acetaminophen [Tylenol Extra Strength] 500 mg Tablet 1,000 mg PO Q6H PRN (Reason: Pain) ketorolac 10 mg tablet 10 mg PO TID PRN (Reason: Pain (Scale Score 7-10)) tamsulosin 0.4 mg capsule 0.4 mg PO DAILY Rx Instructions: x 14 days ondansetron 4 mg tablet,disintegrating 4 mg PO TID PRN (Reason: nausea/vomiting) metoclopramide HCl [Reglan] 10 mg tablet 10 mg PO Q6H PRN (Reason: nausea and vomiting) Qty: 12 0RF hydrocodone-acetaminophen 5-325 mg tablet 1 tab PO Q4-6H PRN (Reason: pain) Qty: 10 0RF ondansetron 4 mg tablet,disintegrating 4 mg PO TID-QID PRN (Reason: nausea and vomiting) Qty: 10 0RF metronidazole 500 mg tablet 500 mg PO BID Qty: 14 0RF hydrocodone-acetaminophen 5-325 mg tablet 1 tab PO Q4-6H PRN (Reason: pain) Qty: 20 0RF metoclopramide HCl [Reglan] 10 mg tablet 10 mg PO Q6H PRN (Reason: nausea and vomiting) Qty: 14 0RF oxycodone-acetaminophen 5-325 mg tablet 1 tab PO Q6H PRN (Reason: pain) Qty: 14 0RF lidocaine [Lidoderm] 5 % adhesive patch,medicated 1 patch TOP DAILY Qty: 15 0RF Rx Instructions: leave on most painful area for 12 hrs gabapentin 300 mg capsule 300 mg PO BEDTIME Qty: 14 0RF doxycycline monohydrate 100 mg capsule 100 mg PO BID Qty: 14 0RF pseudoephedrine HCl [Sudafed] 30 mg tablet 30 mg PO Q8HR Qty: 14 0RF cetirizine 10 mg tablet 10 mg PO BEDTIME Qty: 30 0RF ondansetron 4 mg tablet,disintegrating 4 mg PO Q8H PRN (Reason: nausea and vomiting) Qty: 10 0RF metoclopramide HCl [Reglan] 10 mg tablet 10 mg PO Q6H PRN (Reason: nausea and vomiting) Qty: 20 0RF diazepam [Valium] 5 mg tablet 5 mg PO TID PRN (Reason: muscle spasm) Qty: 10 0RF hyoscyamine sulfate 0.125 mg tablet 0.125 mg PO BID-QID PRN (Reason: dyspepsia) Qty: 20 0RF ondansetron 4 mg tablet,disintegrating 4 mg PO TID-QID PRN (Reason: nausea and vomiting) Qty: 10 0RF Referrals: Miscellaneous,Doctor, MD [Primary Care Provider] - Stand Alone Forms: Patient Portal/API
[2023-02-12] MEDS: SODIUM CHLORIDE 0.9% 1,000 ML 2000 ML IV (14:31)
[2023-02-12] MEDS: CEFAZOLIN VIAL 2 GM in SODIUM CHLORIDE 0.9% 100 ML IV (14:32)
[2023-02-12] MEDS: PROMETHAZINE 25 MG TABLET PO (17:26)
[2023-02-12 18:31] LABS: Add Manual Diff / Slide Review NO; Basophils Absolute Auto 0 /uL (0-100); Basophils Percent Auto 0.2 % (0-2); Eosinophils Absolute Auto 100 /uL (0-450); Eosinophils Percent Auto 1.4 % (2-4); Hemoglobin 11.7 g/dL (12.0-16.0); Lymphocytes Absolute Auto 1800 /uL (1100-4500); Mean Corpuscular HGB Conc 33.5 % (30-36); Mean Corpuscular Hemoglobin 27.4 PG (26-34); Monocytes Absolute Auto 600 /uL (0-900); Monocytes Percent Auto 6.5 % (3-14); Neutrophils Absolute Auto 7100 /uL (1500-7000); Neutrophils Percent Auto 72.9 % (50-75); Platelet Count 224 X10^3/uL (150-400); Red Blood Cell Count 4.27 X10^6/uL (4.0-5.2); White Blood Cell Count 9.7 X10^3/uL (4.5-11.0)
--- NOTE | 2023-02-12 19:32 | PC.NURSE ---
patient was found on the floor from an unwitnessed fall as relayed to me by other staff. She was responded to by MD and other staff members.
[2023-02-12 20:12] LABS: Urine N gonorrhoeae NOT DETECTED
[2023-02-12] MEDS: HYDROCODONE/ACET 5/325 PREPACK 1 BOTTLE MISC (20:30)
[2023-02-12 21:27] LABS: Urine Chlamydia NOT DETECTED
== END 2023-02-12 20:40 | disposition home or self-care (01) ==
PROVIDERS: Emergency Medicine; Emergency Provider Student in an Organized Health Care Education/Training Program
DX: O26.891 Other specified pregnancy related conditions, first trimester (principal); R10.30 Lower abdominal pain, unspecified; Z3A.09 9 weeks gestation of pregnancy
CPT/HCPCS: 36415; 72195; 74181; 76700; 76801; 76817; 80053; 81003; 81015; 81025; 82962; 83690; 84702; 85025; 86850; 86900; 86901; 87491; 87591; 96361; 96365; 96366; 96375; 96376; 99284; J0690; J1170; J2060; J2270; J2405

== ENCOUNTER 2023-03-26 06:04 | Inpatient (IN) | payer OTHER, MEDICAID, SELFPAY ==
[2023-03-26] VITALS (22 sets, daily range): BP systolic 98–148; BP diastolic 51–82; PULSE 78–95; RESP 16–18; TEMP 36.3–36.7; O2SAT 97–100; BMI 43.8
--- NOTE | 2023-03-26 06:26 | DI.US.S_ITS ---
PROCEDURE: US ABDOMEN LIMITED INDICATIONS: RUQ pain TECHNIQUE: Real-time focused scanning was performed of the abdomen, with image documentation. Color and pulse Doppler interrogation was also performed on the area of interest. COMPARISON: [facility], CT, CT ABDOMEN PELVIS W CON, 06/28/2022, 2:30. [facility], MR, MR ABDOMEN PELVIS WO CON, 02/12/2023, 18:07. FINDINGS: Gallbladder is surgically absent. Liver demonstrates normal size in echotexture. Common bile duct measures 6.4 mm. Visualized pancreas is normal. IMPRESSION: 1. Cholecystectomy. 2. Otherwise normal limited abdominal ultrasound exam. A cause for right upper quadrant pain is not identified. No significant discrepancy with the program engagement director radiology preliminary report. Dictated by: Saad Horvath M.D. on 03/26/2023 at 8:36 Approved by: Saad Horvath M.D. on 03/26/2023 at 8:38
[2023-03-26] MEDS: ONDANSETRON 4 MG/2 ML INJ IV ×6 (06:27→23:48)
[2023-03-26] MEDS: PANTOPRAZOLE 40 MG VIAL IV (06:27)
[2023-03-26] MEDS: SODIUM CHLORIDE 0.9% 1,000 ML 1000 ML IV ×3 (06:27→08:54)
--- NOTE | 2023-03-26 06:27 | ED_ITS ---
HPI - General Adult <Jc Shelton DO - Last Filed: 03/27/23 05:15> General Chief complaint: Abdominal Pain Stated complaint: abd pain, n/v 14 weeks Time Seen by Provider: 03/26/23 06:18 Source: patient Mode of arrival: Ambulatory History of Present Illness HPI narrative: 27F former smoker is a at 14 weeks and presents with relatively sudden onset lower pelvic discomfort that wraps around her right flank. She states that she is had upwards of 10 episodes of vomiting this morning. She is not di zzy nor weak or lightheaded. She denies chest pain or shortness of breath. She denies vaginal bleeding or discharge. She denies dysuria, frequency or urgency. Her pain is relatively consistent and is made worse when she moves and improves with rest Related Data Home Medications Medication Instructions Recorded Confirmed acetaminophen 500 mg tablet 1,000 mg PO Q6H PRN Pain 01/13/20 03/26/23 (Tylenol Extra Strength) diphenhydramine HCl 50 mg capsule 50 mg PO BEDTIME PRN Allergy 03/26/23 03/26/23 Symptoms vit no.95-ferrous 1 tab PO DAILY 03/26/23 03/26/23 fumarate 28 mg-folic acid 800 mcg tablet () Previous Rx's Medication Instructions Recorded metoclopramide HCl 10 mg tablet 10 mg PO Q6H PRN nausea and 05/27/21 (Reglan) vomiting #12 tabs ondansetron 4 mg disintegrating 4 mg PO TID-QID PRN nausea and 07/19/22 tablet vomiting #10 tabs Allergies Allergy/AdvReac Type Severity Reaction Status Date / Time No Known Drug Allergies Allergy Verified 07/19/22 11:49 Review of Systems <Jc Shelton DO - Last Filed: 03/27/23 05:15> Review of Systems Narrative: GENERAL: Denies chills, fatigue, malaise, fever, sweats. HEENT: Denies sinus pain, ear pain, sore throat, difficulty swallowing, dizziness. RESPIRATORY: Denies dyspnea, cough, wheezing, hemoptysis, sputum. CARDIOVASCULAR: Denies chest pain, palpitations, orthopnea, edema, GASTROINTESTINAL: See HPI : See HPI MUSCULOSKELETAL: denies weakness, joint pain, or bony pain SKIN: Denies rash, skin lesions, or other NEUROLOGIC: Denies weakness, headache, numbness, change in speech, confusion, seizures, incoordination. PSYCHIATRIC: No concerning psychosocial issues. 12 point review of systems is negative except for those stated above Patient History <Jc Shelton DO - Last Filed: 03/27/23 05:15> Medical History Abdominal pain Fusion of toes of right foot Pyelonephritis (~06/2019) Sebaceous cyst Surgical History History of bunionectomy of left great toe History of bunionectomy of right great toe Hx of cholecystectomy Hx of eye surgery Hx of foot surgery Hx of foot surgery (08/25/20) S/P foot surgery, right S/P foot surgery, right (09/12/19) S/P hardware removal Social History household members: family and children Smoking Status: Former smoker alcohol intake: former Smoking Status: Former smoker alcohol intake frequency: a few times a week Substance Use Type: does not use and marijuana Exam <Jc Shelton DO - Last Filed: 03/27/23 05:15> Narrative Exam Narrative: GENERAL: [27] year old patient appears stated age. Well-developed patient, in mild distress. HEAD: Atraumatic. Normocephalic. EYES: Pupils equal round and reactive. Extraocular motions intact. No scleral icterus. No injection or drainage. ENT: Nose without bleeding, purulent drainage. Throat without erythema, tonsi llar hypertrophy or exudate. Airway patent. NECK: Trachea midline. Non tender CARDIOVASCULAR: Regular rate and rhythm without murmurs, gallops, or rubs. RESPIRATORY: Clear to auscultation. Breath sounds equal bilaterally. No wheezes, rales, or rhonchi. GASTROINTESTINAL: Abdomen soft, tender in the right upper quadrant, nondistended. EXTREMITIES: No edema or joint tenderness. BACK: Nontender without deformity or crepitance. Right CVA tenderness NEURO: AOx3. SKIN: No rash or erythema of visible areas Initial Vital Signs Initial Vital Signs: Vital Signs Temperature 97.8 F 03/26/23 06:16 Pulse Rate 85 03/26/23 06:16 Respiratory Rate 17 03/26/23 06:16 Blood Pressure 148/82 H 03/26/23 06:16 Pulse Oximetry 99 03/26/23 06:16 Oxygen Delivery Method Room Air 03/26/23 06:16 <Gerda Jennings DO - Last Filed: 03/26/23 15:44> Initial Vital Signs Initial Vital Signs: Vital Signs Temperature 97.8 F 03/26/23 06:16 Pulse Rate 85 03/26/23 06:16 Respiratory Rate 17 03/26/23 06:16 Blood Pressure 148/82 H 03/26/23 06:16 Pulse Oximetry 99 03/26/23 06:16 Oxygen Delivery Method Room Air 03/26/23 06:16 Course <Jc Shelton, - Last Filed: 03/27/23 05:15> Orders Ordered: ED Orders 03/27/23 04:10 Basic Metabolic Panel DAILY Complete Blood Count AUTO DIFF DAILY Magnesium DAILY 03/28/23 05:00 Basic Metabolic Panel DAILY Complete Blood Count AUTO DIFF DAILY Magnesium DAILY 03/29/23 05:00 Basic Metabolic Panel DAILY Complete Blood Count AUTO DIFF DAILY Magnesium DAILY Acetaminophen (Acetaminophen 325 Mg Tablet) 975 mg PO Q6H PRN PRN Reason: Fever/Mild Pain (1-3) Last Admin: 03/26/23 12:11 Dose: 975 mg Documented By: ASHA Hydromorphone HCl (Hydromorphone 2 Mg Tablet) 2 mg PO Q4HR PRN PRN Reason: Pain, Moderate (4-6) Last Admin: 03/27/23 00:49 Dose: 2 mg Documented By: Admin: 03/26/23 17:30 Dose: 2 mg Documented By: Admin: 03/26/23 13:31 Dose: 2 mg Documented By: ASHA Hydromorphone HCl (Hydromorphone 4 Mg Tablet) 4 mg PO Q4HR PRN PRN Reason: Pain, Severe (7-10) Hydromorphone HCl (Hydromorphone 0.5 Mg Inj) 1 mg IV Q2H PRN PRN Reason: Pain, Severe (7-10) Last Admin: 03/26/23 21:34 Dose: 1 mg Documented By: ELISSA Ceftriaxone Sodium 1,000 mg/ (Sodium Chloride) 100 mls @ 200 mls/hr IV Q24H MARÍA Sodium Chloride (Normal Saline 0.9%) 1,000 mls @ 100 mls/hr IV CONT MARÍA Last Admin: 03/26/23 20:59 Dose: 100 mls/hr Documented By: Infusion: 03/26/23 20:59 Dose: 100 mls/hr Documented By: Admin: 03/26/23 11:20 Dose: 100 mls/hr Documented By: ASHA Naloxone HCl (Naloxone 0.4 Mg/Ml Vial) 0.2 mg IV Q2MIN PRN PRN Reason: Opiate Reversal Ondansetron HCl (Ondansetron 4 Mg/2 Ml Inj) 4 mg IV Q4HR PRN PRN Reason: Nausea And Vomiting Last Admin: 03/27/23 03:44 Dose: 4 mg Documented By: Admin: 03/26/23 23:48 Dose: 4 mg Documented By: Admin: 03/26/23 20:13 Dose: 4 mg Documented By: Admin: 03/26/23 16:32 Dose: 4 mg Documented By: Admin: 03/26/23 12:11 Dose: 4 mg Documented By: ASHA Discontinued Medications Hydromorphone HCl (Hydromorphone 0.5 Mg Inj) 0.5 mg IV NOW ONE Stop: 03/26/23 09:51 Last Admin: 03/26/23 10:16 Dose: 0.5 mg Documented By: AUDRA Sodium Chloride (Normal Saline 0.9%) 1,000 mls @ 1,000 mls/hr IV BOLUS ONE Stop: 03/26/23 07:17 Last Infusion: 03/26/23 07:28 Dose: 0 mls/hr Documented By: Admin: 03/26/23 06:27 Dose: 1,000 mls/hr Documented By: Ceftriaxone Sodium 1,000 mg/ (Sodium Chloride) 100 mls @ 200 mls/hr IV NOW ONE Stop: 03/26/23 07:10 Last Infusion: 03/26/23 08:05 Dose: 0 mls/hr Documented By: Admin: 03/26/23 07:30 Dose: 200 mls/hr Documented By: RB Sodium Chloride (Normal Saline 0.9%) 1,000 mls @ 1,000 mls/hr IV BOLUS ONE Stop: 03/26/23 08:12 Last Infusion: 03/26/23 08:33 Dose: 0 mls/hr Documented By: Admin: 03/26/23 07:30 Dose: 1,000 mls/hr Documented By: RB Sodium Chloride (Normal Saline 0.9%) 1,000 mls @ 1,000 mls/hr IV BOLUS ONE Stop: 03/26/23 09:32 Last Infusion: 03/26/23 10:16 Dose: 0 mls/hr Documented By: Admin: 03/26/23 08:54 Dose: 1,000 mls/hr Documented By: CTS Sodium Chloride (Normal Saline 0.9%) 1,000 mls @ 1,000 mls/hr IV BOLUS ONE Stop: 03/26/23 10:49 Last Admin: 03/26/23 10:16 Dose: Not Given Documented By: CTS Metoclopramide HCl (Metoclopramide 10 Mg/2 Ml Inj) 10 mg IV NOW ONE Stop: 03/26/23 07:13 Last Admin: 03/26/23 07:29 Dose: 10 mg Documented By: RB Morphine Sulfate (Morphine 4 Mg/Ml Inj) 4 mg IV NOW ONE Stop: 03/26/23 08:34 Last Admin: 03/26/23 08:54 Dose: 4 mg Documented By: CTS Ondansetron HCl (Ondansetron 4 Mg/2 Ml Inj) 4 mg IV NOW ONE Stop: 03/26/23 06:19 Last Admin: 03/26/23 06:27 Dose: 4 mg Documented By: Ondansetron HCl (Ondansetron 4 Mg/2 Ml Inj) 4 mg IV NOW ONE Stop: 03/26/23 08:34 Last Admin: 03/26/23 08:54 Dose: 4 mg Documented By: CTS Pantoprazole Sodium (Pantoprazole 40 Mg Vial) 40 mg IV NOW ONE Stop: 03/26/23 06:19 Last Admin: 03/26/23 06:27 Dose: 40 mg Documented By: Vital Signs Vital signs: Vital Signs - 8 hr 03/26/23 08:00 03/26/23 08:00 03/26/23 08:30 Pulse Rate 92 H Blood Pressure 127/82 128/62 Pulse Oximetry 99 03/26/23 08:30 03/26/23 08:52 03/26/23 08:52 Pulse Rate 92 H 89 Blood Pressure 124/56 L Pulse Oximetry 98 100 03/26/23 09:00 03/26/23 09:00 Pulse Rate 81 Blood Pressure 108/51 L Pulse Oximetry 98 <Gerda Jennings, DO - Last Filed: 03/26/23 15:44> Orders Ordered: ED Orders 03/27/23 04:10 Basic Metabolic Panel DAILY Complete Blood Count AUTO DIFF DAILY Magnesium DAILY 03/28/23 05:00 Basic Metabolic Panel DAILY Complete Blood Count AUTO DIFF DAILY Magnesium DAILY 03/29/23 05:00 Basic Metabolic Panel DAILY Complete Blood Count AUTO DIFF DAILY Magnesium DAILY Acetaminophen (Acetaminophen 325 Mg Tablet) 975 mg PO Q6H PRN PRN Reason: Fever/Mild Pain (1-3) Last Admin: 03/26/23 12:11 Dose: 975 mg Documented By: ASHA Hydromorphone HCl (Hydromorphone 2 Mg Tablet) 2 mg PO Q4HR PRN PRN Reason: Pain, Moderate (4-6) Last Admin: 03/27/23 00:49 Dose: 2 mg Documented By: Admin: 03/26/23 17:30 Dose: 2 mg Documented By: Admin: 03/26/23 13:31 Dose: 2 mg Documented By: ASHA Hydromorphone HCl (Hydromorphone 4 Mg Tablet) 4 mg PO Q4HR PRN PRN Reason: Pain, Severe (7-10) Hydromorphone HCl (Hydromorphone 0.5 Mg Inj) 1 mg IV Q2H PRN PRN Reason: Pain, Severe (7-10) Last Admin: 03/26/23 21:34 Dose: 1 mg Documented By: ELISSA Ceftriaxone Sodium 1,000 mg/ (Sodium Chloride) 100 mls @ 200 mls/hr IV Q24H MARÍA Sodium Chloride (Normal Saline 0.9%) 1,000 mls @ 100 mls/hr IV CONT MARÍA Last Admin: 03/26/23 20:59 Dose: 100 mls/hr Documented By: Infusion: 03/26/23 20:59 Dose: 100 mls/hr Documented By: Admin: 03/26/23 11:20 Dose: 100 mls/hr Documented By: ASHA Naloxone HCl (Naloxone 0.4 Mg/Ml Vial) 0.2 mg IV Q2MIN PRN PRN Reason: Opiate Reversal Ondansetron HCl (Ondansetron 4 Mg/2 Ml Inj) 4 mg IV Q4HR PRN PRN Reason: Nausea And Vomiting Last Admin: 03/27/23 03:44 Dose: 4 mg Documented By: Admin: 03/26/23 23:48 Dose: 4 mg Documented By: Admin: 03/26/23 20:13 Dose: 4 mg Documented By: Admin: 03/26/23 16:32 Dose: 4 mg Documented By: Admin: 03/26/23 12:11 Dose: 4 mg Documented By: ASHA Discontinued Medications Hydromorphone HCl (Hydromorphone 0.5 Mg Inj) 0.5 mg IV NOW ONE Stop: 03/26/23 09:51 Last Admin: 03/26/23 10:16 Dose: 0.5 mg Documented By: AUDRA Sodium Chloride (Normal Saline 0.9%) 1,000 mls @ 1,000 mls/hr IV BOLUS ONE Stop: 03/26/23 07:17 Last Infusion: 03/26/23 07:28 Dose: 0 mls/hr Documented By: Admin: 03/26/23 06:27 Dose: 1,000 mls/hr Documented By: Ceftriaxone Sodium 1,000 mg/ (Sodium Chloride) 100 mls @ 200 mls/hr IV NOW ONE Stop: 03/26/23 07:10 Last Infusion: 03/26/23 08:05 Dose: 0 mls/hr Documented By: Admin: 03/26/23 07:30 Dose: 200 mls/hr Documented By: RB Sodium Chloride (Normal Saline 0.9%) 1,000 mls @ 1,000 mls/hr IV BOLUS ONE Stop: 03/26/23 08:12 Last Infusion: 03/26/23 08:33 Dose: 0 mls/hr Documented By: Admin: 03/26/23 07:30 Dose: 1,000 mls/hr Documented By: RB Sodium Chloride (Normal Saline 0.9%) 1,000 mls @ 1,000 mls/hr IV BOLUS ONE Stop: 03/26/23 09:32 Last Infusion: 03/26/23 10:16 Dose: 0 mls/hr Documented By: Admin: 03/26/23 08:54 Dose: 1,000 mls/hr Documented By: CTS Sodium Chloride (Normal Saline 0.9%) 1,000 mls @ 1,000 mls/hr IV BOLUS ONE Stop: 03/26/23 10:49 Last Admin: 03/26/23 10:16 Dose: Not Given Documented By: CTS Metoclopramide HCl (Metoclopramide 10 Mg/2 Ml Inj) 10 mg IV NOW ONE Stop: 03/26/23 07:13 Last Admin: 03/26/23 07:29 Dose: 10 mg Documented By: RB Morphine Sulfate (Morphine 4 Mg/Ml Inj) 4 mg IV NOW ONE Stop: 03/26/23 08:34 Last Admin: 03/26/23 08:54 Dose: 4 mg Documented By: CTS Ondansetron HCl (Ondansetron 4 Mg/2 Ml Inj) 4 mg IV NOW ONE Stop: 03/26/23 06:19 Last Admin: 03/26/23 06:27 Dose: 4 mg Documented By: Ondansetron HCl (Ondansetron 4 Mg/2 Ml Inj) 4 mg IV NOW ONE Stop: 03/26/23 08:34 Last Admin: 03/26/23 08:54 Dose: 4 mg Documented By: CTS Pantoprazole Sodium (Pantoprazole 40 Mg Vial) 40 mg IV NOW ONE Stop: 03/26/23 06:19 Last Admin: 03/26/23 06:27 Dose: 40 mg Documented By: Vital Signs Vital signs: Vital Signs - 8 hr 03/26/23 08:00 03/26/23 08:00 03/26/23 08:30 Pulse Rate 92 H Blood Pressure 127/82 128/62 Pulse Oximetry 99 03/26/23 08:30 03/26/23 08:52 03/26/23 08:52 Pulse Rate 92 H 89 Blood Pressure 124/56 L Pulse Oximetry 98 100 03/26/23 09:00 03/26/23 09:00 Pulse Rate 81 Blood Pressure 108/51 L Pulse Oximetry 98 Medical Decision Making <Jc Shelton DO - Last Filed: 03/27/23 05:15> Lab Data 03/27/23 04:10 03/27/23 04:10 Labs: Lab Results 03/26/23 03/26/23 03/26/23 Range/Units 06:17 06:22 06:22 WBC 7.7 (4.5-11.0) X10^3/uL RBC 4.61 (4.0-5.2) X10^6/uL Hgb 12.5 (12.0-16.0) g/dL Hct 36.7 (36-46) % MCV 79.7 L (80-100) fL MCH 27.2 (26-34) PG MCHC 34.2 (30-36) % RDW 15.2 H (11.6-14.8) % Plt Count 250 (150-400) X10^3/uL Neut % (Auto) 68.3 (50-75) % Lymph % (Auto) 23.7 L (25-40) % [place] % (Auto) 5.3 (3-14) % Eos % (Auto) 2.3 (2-4) % Baso % (Auto) 0.4 (0-2) % Neut # (Auto) 5300 (5217-1466) /uL Lymph # (Auto) 1800 (3099-5574) /uL [place] # (Auto) 400 (0-900) /uL Eos # (Auto) 200 (0-450) /uL Baso # (Auto) 0 (0-100) /uL Sodium 135 L (137-145) mmol/L Potassium 4.0 (3.4-5.1) mmol/L Chloride 108 H (98-107) mmol/L Carbon Dioxide 19 L (22-32) mmol/L BUN 3 L (7-17) mg/dL Creatinine 0.47 L (0.52-1.04) mg/dL Estimated GFR > 60 (>60) mL/min BUN/Creatinine Ratio 6.4 (6-22) Glucose 117 H (70-100) mg/dL Uric Acid (2.5-6.2) mg/dL Calcium 9.2 (8.4-10.2) mg/dL Total Bilirubin 0.3 (0.2-1.3) mg/dL AST 21 (14-36) IU/L ALT 22 (<35) IU/L Alkaline Phosphatase 74 (38-126) U/L Lactate Dehydrogenase (120-246) U/L Total Protein 7.6 (6.3-8.2) g/dL Albumin 4.0 (3.5-5.0) g/dL Globulin 3.6 (1.7-4.1) g/dL Albumin/Globulin Ratio 1.1 (1.0-2.8) Lipase 53 (23-300) U/L Urine RBC 0-1/hpf (0-5/HPF) Urine WBC 10-30/hpf H (0-5/HPF) Ur Squamous Epith Cells 10-30 /hpf H D (0-5/HPF) Urine Bacteria Many (>30) H (None) Ur Culture Indicated? Specimen cultured 03/26/23 Range/Units 06:22 WBC (4.5-11.0) X10^3/uL RBC (4.0-5.2) X10^6/uL Hgb (12.0-16.0) g/dL Hct (36-46) % MCV (80-100) fL MCH (26-34) PG MCHC (30-36) % RDW (11.6-14.8) % Plt Count (150-400) X10^3/uL Neut % (Auto) (50-75) % Lymph % (Auto) (25-40) % [place] % (Auto) (3-14) % Eos % (Auto) (2-4) % Baso % (Auto) (0-2) % Neut # (Auto) (4404-6551) /uL Lymph # (Auto) (5667-8585) /uL [place] # (Auto) (0-900) /uL Eos # (Auto) (0-450) /uL Baso # (Auto) (0-100) /uL Sodium (137-145) mmol/L Potassium (3.4-5.1) mmol/L Chloride (98-107) mmol/L Carbon Dioxide (22-32) mmol/L BUN (7-17) mg/dL Creatinine (0.52-1.04) mg/dL Estimated GFR (>60) mL/min BUN/Creatinine Ratio (6-22) Glucose (70-100) mg/dL Uric Acid 4.6 (2.5-6.2) mg/dL Calcium (8.4-10.2) mg/dL Total Bilirubin (0.2-1.3) mg/dL AST (14-36) IU/L ALT (<35) IU/L Alkaline Phosphatase (38-126) U/L Lactate Dehydrogenase 159 (120-246) U/L Total Protein (6.3-8.2) g/dL Albumin (3.5-5.0) g/dL Globulin (1.7-4.1) g/dL Albumin/Globulin Ratio (1.0-2.8) Lipase (23-300) U/L Urine RBC (0-5/HPF) Urine WBC (0-5/HPF) Ur Squamous Epith Cells (0-5/HPF) Urine Bacteria (None) Ur Culture Indicated? Urine Dip Bedside Urine Glucose Negative Bedside Urine Bilirubin - Negative Bedside Urine Ketone - Negative Urine Specific [place] 1.01 Bedside Urine Occult Blood - Negative Bedside Urine pH 7.5 Bedside Urine Protein - Negative Bedside Urine Urobilinogen - Negative Bedside Urine Nitrite - Negative Bedside Urine Leukocytes +++ 500 Esterase Point of care testing: Urine Dip Bedside Urine Glucose Negative Bedside Urine Bilirubin - Negative Bedside Urine Ketone - Negative Urine Specific [place] 1.01 Bedside Urine Occult Blood - Negative Bedside Urine pH 7.5 Bedside Urine Protein - Negative Bedside Urine Urobilinogen - Negative Bedside Urine Nitrite - Negative Bedside Urine Leukocytes +++ 500 Esterase <Gerda Jennings, DO - Last Filed: 03/26/23 15:44> Lab Data Labs: Lab Results 03/26/23 03/26/23 03/26/23 Range/Units 06:17 06:22 06:22 WBC 7.7 (4.5-11.0) X10^3/uL RBC 4.61 (4.0-5.2) X10^6/uL Hgb 12.5 (12.0-16.0) g/dL Hct 36.7 (36-46) % MCV 79.7 L (80-100) fL MCH 27.2 (26-34) PG MCHC 34.2 (30-36) % RDW 15.2 H (11.6-14.8) % Plt Count 250 (150-400) X10^3/uL Neut % (Auto) 68.3 (50-75) % Lymph % (Auto) 23.7 L (25-40) % Carl[place] % (Auto) 5.3 (3-14) % Eos % (Auto) 2.3 (2-4) % Baso % (Auto) 0.4 (0-2) % Neut # (Auto) 5300 (3274-8649) /uL Lymph # (Auto) 1800 (4796-1764) /uL [place] # (Auto) 400 (0-900) /uL Eos # (Auto) 200 (0-450) /uL Baso # (Auto) 0 (0-100) /uL Sodium 135 L (137-145) mmol/L Potassium 4.0 (3.4-5.1) mmol/L Chloride 108 H (98-107) mmol/L Carbon Dioxide 19 L (22-32) mmol/L BUN 3 L (7-17) mg/dL Creatinine 0.47 L (0.52-1.04) mg/dL Estimated GFR > 60 (>60) mL/min BUN/Creatinine Ratio 6.4 (6-22) Glucose 117 H (70-100) mg/dL Uric Acid (2.5-6.2) mg/dL Calcium 9.2 (8.4-10.2) mg/dL Total Bilirubin 0.3 (0.2-1.3) mg/dL AST 21 (14-36) IU/L ALT 22 (<35) IU/L Alkaline Phosphatase 74 (38-126) U/L Lactate Dehydrogenase (120-246) U/L Total Protein 7.6 (6.3-8.2) g/dL Albumin 4.0 (3.5-5.0) g/dL Globulin 3.6 (1.7-4.1) g/dL Albumin/Globulin Ratio 1.1 (1.0-2.8) Lipase 53 (23-300) U/L Urine RBC 0-1/hpf (0-5/HPF) Urine WBC 10-30/hpf H (0-5/HPF) Ur Squamous Epith Cells 10-30 /hpf H D (0-5/HPF) Urine Bacteria Many (>30) H (None) Ur Culture Indicated? Specimen cultured 03/26/23 Range/Units 06:22 WBC (4.5-11.0) X10^3/uL RBC (4.0-5.2) X10^6/uL Hgb (12.0-16.0) g/dL Hct (36-46) % MCV (80-100) fL MCH (26-34) PG MCHC (30-36) % RDW (11.6-14.8) % Plt Count (150-400) X10^3/uL Neut % (Auto) (50-75) % Lymph % (Auto) (25-40) % [place] % (Auto) (3-14) % Eos % (Auto) (2-4) % Baso % (Auto) (0-2) % Neut # (Auto) (3258-4070) /uL Lymph # (Auto) (3128-4222) /uL [place] # (Auto) (0-900) /uL Eos # (Auto) (0-450) /uL Baso # (Auto) (0-100) /uL Sodium (137-145) mmol/L Potassium (3.4-5.1) mmol/L Chloride (98-107) mmol/L Carbon Dioxide (22-32) mmol/L BUN (7-17) mg/dL Creatinine (0.52-1.04) mg/dL Estimated GFR (>60) mL/min BUN/Creatinine Ratio (6-22) Glucose (70-100) mg/dL Uric Acid 4.6 (2.5-6.2) mg/dL Calcium (8.4-10.2) mg/dL Total Bilirubin (0.2-1.3) mg/dL AST (14-36) IU/L ALT (<35) IU/L Alkaline Phosphatase (38-126) U/L Lactate Dehydrogenase 159 (120-246) U/L Total Protein (6.3-8.2) g/dL Albumin (3.5-5.0) g/dL Globulin (1.7-4.1) g/dL Albumin/Globulin Ratio (1.0-2.8) Lipase (23-300) U/L Urine RBC (0-5/HPF) Urine WBC (0-5/HPF) Ur Squamous Epith Cells (0-5/HPF) Urine Bacteria (None) Ur Culture Indicated? Urine Dip Bedside Urine Glucose Negative Bedside Urine Bilirubin - Negative Bedside Urine Ketone - Negative Urine Specific [place] 1.01 Bedside Urine Occult Blood - Negative Bedside Urine pH 7.5 Bedside Urine Protein - Negative Bedside Urine Urobilinogen - Negative Bedside Urine Nitrite - Negative Bedside Urine Leukocytes +++ 500 Esterase Point of care testing: Urine Dip Bedside Urine Glucose Negative Bedside Urine Bilirubin - Negative Bedside Urine Ketone - Negative Urine Specific [place] 1.01 Bedside Urine Occult Blood - Negative Bedside Urine pH 7.5 Bedside Urine Protein - Negative Bedside Urine Urobilinogen - Negative Bedside Urine Nitrite - Negative Bedside Urine Leukocytes +++ 500 Esterase Imaging Data US - abdomen: Radiologist's Impression: PROCEDURE:? US ABDOMEN LIMITED ? INDICATIONS:? RUQ pain ? TECHNIQUE:? Real-time focused scanning was performed of the abdomen, with image documentation.? Color and pulse Doppler interrogation was also performed on the area of interest.? ? COMPARISON:? [facility], CT, CT ABDOMEN PELVIS W CON, 06/28/2022, 2:30.? [facility], MR, MR ABDOMEN PELVIS WO CON, 02/12/2023, 18:07. ? FINDINGS:? Gallbladder is surgically absent.? Liver demonstrates normal size in echotexture.? Common bile duct measures 6.4 mm.? Visualized pancreas is normal. ? IMPRESSION:? ? 1. Cholecystectomy. ? 2.? Otherwise normal limited abdominal ultrasound exam.? A cause for right upper quadrant pain is not identified. ? ? No significant discrepancy with the operations supervisor 2nd shift radiology preliminary report. ? ? Dictated by: Saad Horvath M.D. on 03/26/2023 at 8:36 ? ? Approved by: Saad Horvath M.D. on 03/26/2023 at 8:38? US renal: Radiologist's Impression: PROCEDURE:? US RENAL COMPLETE ? INDICATIONS:? RIGHT FLANK PAIN ? TECHNIQUE:? Real-time scanning was performed of the kidneys and bladder, with image documentation.? ? COMPARISON:? [facility], CT, CT ABDOMEN PELVIS W CON, 06/28/2022, 2:30. ? FINDINGS:? ? Kidneys:? Kidneys are normal in size.? Right kidney measures 12.3 cm long; left kidney measures 11.5 cm long.? Right renal cortical thickness is 2.2 cm; left renal cortical thickness is 2.5 cm.? Renal cortical echotexture is normal.? No hydronephrosis or nephrolithiasis.? No suspicious solid mass lesions.? ? Bladder:? Bladder not visualized due to recent voiding. ? Miscellaneous:? 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 heart tone measures 144 beats per minute. ? IMPRESSION:? No definite nephrolithiasis or hydronephrosis. ? ? Dictated by: Hayden Malhotra M.D. on 03/26/2023 at 9:36 ? MDM Narrative Medical decision making narrative: Dr. Jennings: Patient signed out to me by Dr. Shelton. I have seen evaluated patient myself. She continues to vomit and have pretty severe right-sided flank pain. She has leukocytosis presumed pyelonephritis. She had an abdominal ultrasound which did not show cholecystitis or cholelithiasis actually her cholecystectomy. She is pretty tender on her right flank. Possible pyelonephritis versus nephrolithiasis. She continues to have vomiting and pain despite multiple doses of antinausea medication. She took her own Tylenol 1000 mg couple hours ago. She is open and willing to have morphine. She is given IV fluids not significantly dehydrated. Blood work does not show any sign of sepsis. She is not hypotensive tachycardic or febrile in the ED. however she is unable to keep anything down. 09:20 Dr. Escalante updated patient's symptoms test results concern for pyelo and kidney stones. She reports at this time agrees with admission but no need to be admitted to OB. States hospitalist can admit for pyelo and kidney stones OB can consult. Dr. Daley accepts patient Discharge Plan Departure Patient Disposition: Admitted as Observation Clinical Impression: UTI (urinary tract infection) Qualifiers: Urinary tract infection type: acute pyelonephritis Qualified Code(s): N10 - Acute pyelonephritis Admit Date/Time: 03/26/23 10:38 Admit Provider: Gutierrez Daley
[2023-03-26 06:37] LABS: Add Manual Diff / Slide Review NO; Basophils Absolute Auto 0 /uL (0-100); Basophils Percent Auto 0.4 % (0-2); Eosinophils Absolute Auto 200 /uL (0-450); Eosinophils Percent Auto 2.3 % (2-4); Hematocrit 36.7 % (36-46); Hemoglobin 12.5 g/dL (12.0-16.0); Lymphocytes Absolute Auto 1800 /uL (1100-4500); Lymphocytes Percent Auto 23.7 % (25-40); Mean Corpuscular HGB Conc 34.2 % (30-36); Mean Corpuscular Hemoglobin 27.2 PG (26-34); Mean Corpuscular Volume 79.7 fL (80-100); Monocytes Absolute Auto 400 /uL (0-900); Monocytes Percent Auto 5.3 % (3-14); Neutrophils Absolute Auto 5300 /uL (1500-7000); Neutrophils Percent Auto 68.3 % (50-75); Platelet Count 250 X10^3/uL (150-400); Red Blood Cell Count 4.61 X10^6/uL (4.0-5.2); Red Cell Distribution Width 15.2 % (11.6-14.8); White Blood Cell Count 7.7 X10^3/uL (4.5-11.0)
[2023-03-26 06:41] LABS: Bacteria Urine Many (>30); Culture Indicated Urine Specimen Cultured; RBC Urine 0-1/HPF (0-5/HPF); Squamous Epithelial Cell Urine 10-30 /HPF (0-5/HPF); WBC Urine 10-30/HPF (0-5/HPF)
[2023-03-26 06:43] LABS: Alanine Aminotransferase 22 IU/L (<35); Albumin Globulin Ratio 1.1 (1.0-2.8); Alkaline Phosphatase 74 U/L (38-126); Aspartate Aminotransferase 21 IU/L (14-36); BUN Creatinine Ratio 6.4 (6-22); Bilirubin Total 0.3 mg/dL (0.2-1.3); Blood Urea Nitrogen 3 mg/dL (7-17); Calcium 9.2 mg/dL (8.4-10.2); Carbon Dioxide 19 mmol/L (22-32); Chloride 108 mmol/L (98-107); Estimated Glomerular Filt Rate > 60 mL/min (>60); Globulin 3.6 g/dL (1.7-4.1); Glucose 117 mg/dL (70-100); HEMOLYSIS < 15 (0-50); Lactate Dehydrogenase 159 U/L (120-246); Lipase 53 U/L (23-300); Sodium 135 mmol/L (137-145); Total Protein 7.6 g/dL (6.3-8.2); Uric Acid 4.6 mg/dL (2.5-6.2)
[2023-03-26] MEDS: METOCLOPRAMIDE 10 MG/2 ML INJ IV (07:29)
[2023-03-26] MEDS: cefTRIAXone 1,000 MG in SODIUM CHLORIDE 0.9% 100 ML 200 MG IV (07:30)
[2023-03-26] MEDS: MORPHINE 4 MG/ML INJ IV (08:54)
--- NOTE | 2023-03-26 08:54 | DI.US.S_ITS ---
PROCEDURE: US RENAL COMPLETE INDICATIONS: RIGHT FLANK PAIN TECHNIQUE: Real-time scanning was performed of the kidneys and bladder, with image documentation. COMPARISON: [facility], CT, CT ABDOMEN PELVIS W CON, 06/28/2022, 2:30. FINDINGS: Kidneys: Kidneys are normal in size. Right kidney measures 12.3 cm long; left kidney measures 11.5 cm long. Right renal cortical thickness is 2.2 cm; left renal cortical thickness is 2.5 cm. Renal cortical echotexture is normal. No hydronephrosis or nephrolithiasis. No suspicious solid mass lesions. Bladder: Bladder not visualized due to recent voiding. 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 heart tone measures 144 beats per minute. IMPRESSION: No definite nephrolithiasis or hydronephrosis. Dictated by: Hayden Malhotra M.D. on 03/26/2023 at 9:36 Approved by: Hayden Malhotra M.D. on 03/26/2023 at 9:38
[2023-03-26] MEDS: HYDROMORPHONE 0.5 MG INJ IV (10:16)
[2023-03-26] MEDS: SODIUM CHLORIDE 0.9% 1,000 ML 100 ML IV ×2 (11:20→20:59)
--- NOTE | 2023-03-26 12:08 | PM.HP.1 ---
History of Present Illness History of Present Illness Date Patient Seen: 03/26/23 Time Patient Seen: 12:08 Chief complaint: abd pain, n/v 14 weeks Narrative: This is a 27 F, 14w who presented with R flank pain for the past two days. She states pain was crampy initially, starting in her R lower back radiating to her front groin. She denies prior nephrolithiasis. She became more and more nauseous with vomiting today and presented to the hospital. She denies fevers but has some subjective chills. She admits to urinary frequency but no dysuria. She has frequenct UTIs in the past, many of which are E. coli. In the emergency room, vitals were unremarkable. Labs showed a mild acidosis with bicarb on chemistries of 19, creatinine 0.47. UA showed many bacteria and 10-30 WBC, no RBC but showed many squamous cells as well but was reflexed for culture. Renal ultrasound showed no stones or obstruction. She was given ceftriaxone for presumed pyelonephritis, carrot tier was asked for admission but recommended admission to hospitalist service instead with OB consultation which has been placed. [facility] Medical History Abdominal pain Fusion of toes of right foot Pyelonephritis (~06/2019) Sebaceous cyst Surgical History History of bunionectomy of left great toe History of bunionectomy of right great toe Hx of cholecystectomy Hx of eye surgery Hx of foot surgery Hx of foot surgery (08/25/20) S/P foot surgery, right S/P foot surgery, right (09/12/19) S/P hardware removal Social History household members: family and children Smoking Status: Former smoker alcohol intake: former Meds Home Medications and Allergies Home Medications Medication Instructions Recorded Confirmed Type acetaminophen 500 mg tablet 1,000 mg PO Q6H PRN Pain 01/13/20 03/26/23 History (Tylenol Extra Strength) metoclopramide HCl 10 mg tablet 10 mg PO Q6H PRN nausea and 05/27/21 03/26/23 Rx (Reglan) vomiting #12 tabs ondansetron 4 mg disintegrating 4 mg PO TID-QID PRN nausea and 07/19/22 03/26/23 Rx tablet vomiting #10 tabs diphenhydramine HCl 50 mg capsule 50 mg PO BEDTIME PRN Allergy 03/26/23 03/26/23 History Symptoms vit no.95-ferrous 1 tab PO DAILY 03/26/23 03/26/23 History fumarate 28 mg-folic acid 800 mcg tablet () Allergies Allergy/AdvReac Type Severity Reaction Status Date / Time No Known Drug Allergies Allergy Verified 07/19/22 11:49 Review of Systems Review of Systems Narrative: All other systems reviewed with the patient and are negative unless otherwise stated. Exam Vital Signs (past 8 hours): - 03/26/23 06:16 03/26/23 06:32 03/26/23 06:33 Temperature 97.8 F Pulse Rate 85 86 Respiratory Rate 17 Blood Pressure 148/82 H Pulse Oximetry 99 98 100 Oxygen Delivery Method Room Air Oxygen Flow Rate 03/26/23 06:33 03/26/23 07:00 03/26/23 07:24 Temperature Pulse Rate 92 H 88 Respiratory Rate Blood Pressure 119/68 Pulse Oximetry 98 100 Oxygen Delivery Method Oxygen Flow Rate 03/26/23 07:24 03/26/23 07:30 03/26/23 07:30 Temperature Pulse Rate 85 Respiratory Rate Blood Pressure 115/58 L 126/68 Pulse Oximetry 100 Oxygen Delivery Method Oxygen Flow Rate 03/26/23 08:00 03/26/23 08:00 03/26/23 08:30 Temperature Pulse Rate 92 H Respiratory Rate Blood Pressure 127/82 128/62 Pulse Oximetry 99 Oxygen Delivery Method Oxygen Flow Rate 03/26/23 08:30 03/26/23 08:52 03/26/23 08:52 Temperature Pulse Rate 92 H 89 Respiratory Rate Blood Pressure 124/56 L Pulse Oximetry 98 100 Oxygen Delivery Method Oxygen Flow Rate 03/26/23 09:00 03/26/23 09:00 03/26/23 11:10 Temperature Pulse Rate 81 84 Respiratory Rate 18 Blood Pressure 108/51 L 108/67 Pulse Oximetry 98 99 Oxygen Delivery Method Oxygen Flow Rate 03/26/23 10:59 03/26/23 12:03 Temperature Pulse Rate 84 Respiratory Rate 16 Blood Pressure 108/67 Pulse Oximetry 99 98 Oxygen Delivery Method Room Air Oxygen Flow Rate 0 0 Oxygen Delivery Method Room Air Oxygen Flow Rate 0 Narrative Exam Narrative: General:? Patient is well developed and well nourished, in no distress at this time. Obese with BMI 43.9. HEENT:? Normocephalic, atraumatic, extraocular muscles intact, oral pharynx is clear and mucous membranes are moist. Neck: supple and symmetric, trachea is midline, no cervical adenopathy. Negative for JVD Chest:? Normal AP diameter and contour without kyphoscoliosis, no tachypnea, equal chest rise bilaterally. Lungs:? CTA b/l no wheezing rhonchi or rales. Cardio:?RRR no m/r/g. Abdomen: soft, RLQ tenderness without rebound. + CVA tenderness bilaterally, worse R compared to L. Musculoskeletal:? Muscle strength and tone are equal within normal limits, no deformity. + paraspinal tenderness bilaterally. Extremities: No edema or joint effusions. No cyanosis or clubbing. Skin:? Pale,? Warm to touch,dry and intact without rashes, ulcerations or petechiae.? Neuro:? Alert and orientated x3,? sensation to touch intact in all extremities, no gross deficits noted of cranial nerves. Psych:? Patient has a well-kept appearance, appropriate affect, mental status attitude thought context and judgment are appropriate for age. Objective Labs 03/26/23 06:22 03/26/23 06:22 Labs: Laboratory Results - last 24 hr 03/26/23 03/26/23 03/26/23 06:17 06:22 06:22 WBC 7.7 RBC 4.61 Hgb 12.5 Hct 36.7 MCV 79.7 L MCH 27.2 MCHC 34.2 RDW 15.2 H Plt Count 250 Neut % (Auto) 68.3 Lymph % (Auto) 23.7 L [place] % (Auto) 5.3 Eos % (Auto) 2.3 Baso % (Auto) 0.4 Neut # (Auto) 5300 Lymph # (Auto) 1800 [place] # (Auto) 400 Eos # (Auto) 200 Baso # (Auto) 0 Sodium 135 L Potassium 4.0 Chloride 108 H Carbon Dioxide 19 L BUN 3 L Creatinine 0.47 L Estimated GFR > 60 BUN/Creatinine Ratio 6.4 Glucose 117 H Uric Acid Calcium 9.2 Total Bilirubin 0.3 AST 21 ALT 22 Alkaline Phosphatase 74 Lactate Dehydrogenase Total Protein 7.6 Albumin 4.0 Globulin 3.6 Albumin/Globulin Ratio 1.1 Lipase 53 Urine RBC 0-1/hpf Urine WBC 10-30/hpf H Ur Squamous Epith Cells 10-30 /hpf H D Urine Bacteria Many (>30) H Ur Culture Indicated? Specimen cultured 03/26/23 06:22 WBC RBC Hgb Hct MCV MCH MCHC RDW Plt Count Neut % (Auto) Lymph % (Auto) [place] % (Auto) Eos % (Auto) Baso % (Auto) Neut # (Auto) Lymph # (Auto) [place] # (Auto) Eos # (Auto) Baso # (Auto) Sodium Potassium Chloride Carbon Dioxide BUN Creatinine Estimated GFR BUN/Creatinine Ratio Glucose Uric Acid 4.6 Calcium Total Bilirubin AST ALT Alkaline Phosphatase Lactate Dehydrogenase 159 Total Protein Albumin Globulin Albumin/Globulin Ratio Lipase Urine RBC Urine WBC Ur Squamous Epith Cells Urine Bacteria Ur Culture Indicated? Assessment & Plan Assessment & Plan narrative: 1. Pyelonephritis, acute, present on admission - continue IV antibiotics for at least 48 hours, with ceftriaxone 1g q24. UA may have contamination with multiple squamous cells, but also with 10-30 WBC. Blood cultures were ordered after antibiotics had been given in the ER. - narrow once cultures result - consider additional musculoskeletal source given negative imaging and bilateral pain in nature along with paraspinal tenderness but clinically with nausea and vomiting and pain along with UA this is most consistent with pyelonephritis. - pain control with tylenol, opiates ordered. - Antinausea therapy with zofran as needed. - continue IV fluids - OB consulted for monitoring - sepsis ruled out at least thus far. 2. 14 week - OB consulted as above for monitoring - follows with [facility] residency clinic as outpatient 3. Obesity with BMI 43.9, chronic, present on admission - The patient is at much higher risk for medical and surgical complications because of her obesity. This increases the difficulty and complexity of medical and surgical interventions and increases the chances of poor outcomes such as morbidity and mortality Code: Full DVT: SCDs I have utilized all available immediate resources to obtain, update, or review the patient's current medications. Dispo: admit inpatient as her stay is expected to exceed two midnights. Additional history was obtained via discussion with the ER provider. Discussed plan of care with patient. I have reviewed patient's imaging, labs and medical record personally including outpatient and prior ER documentation.
[2023-03-26] MEDS: ACETAMINOPHEN 325 MG TABLET 975 MG PO (12:11)
[2023-03-26 12:39] LABS: MRSA (Nasal) PCR Not Detected (Not Detect)
[2023-03-26] MEDS: HYDROMORPHONE 2 MG TABLET PO ×2 (13:31→17:30)
[2023-03-26] MEDS: HYDROMORPHONE 0.5 MG INJ 1 MG IV (21:34)
[2023-03-27] VITALS (7 sets, daily range): BP systolic 112–117; BP diastolic 63–78; PULSE 80–95; RESP 16–20; TEMP 36–36.6; O2SAT 97–99
[2023-03-27] MEDS: HYDROMORPHONE 2 MG TABLET PO (00:49)
[2023-03-27] MEDS: ONDANSETRON 4 MG/2 ML INJ IV ×3 (03:44→21:43)
[2023-03-27 04:54] LABS: Calcium 8.3 mg/dL (8.4-10.2); Carbon Dioxide 20 mmol/L (22-32); Chloride 105 mmol/L (98-107); Estimated Glomerular Filt Rate > 60 mL/min (>60); Glucose 92 mg/dL (70-100); HEMOLYSIS < 15 (0-50); Magnesium 1.9 mg/dL (1.6-2.3); Potassium 3.6 mmol/L (3.4-5.1); Sodium 133 mmol/L (137-145)
[2023-03-27 04:56] LABS: BUN Creatinine Ratio 3.8 (6-22); Blood Urea Nitrogen < 2 mg/dL (7-17)
[2023-03-27 04:59] LABS: Add Manual Diff / Slide Review NO; Basophils Absolute Auto 0 /uL (0-100); Basophils Percent Auto 0.3 % (0-2); Eosinophils Absolute Auto 100 /uL (0-450); Eosinophils Percent Auto 2.3 % (2-4); Hematocrit 31.9 % (36-46); Lymphocytes Absolute Auto 1700 /uL (1100-4500); Lymphocytes Percent Auto 26.7 % (25-40); Mean Corpuscular HGB Conc 34.4 % (30-36); Mean Corpuscular Hemoglobin 27.8 PG (26-34); Mean Corpuscular Volume 80.9 fL (80-100); Monocytes Absolute Auto 400 /uL (0-900); Monocytes Percent Auto 5.8 % (3-14); Neutrophils Absolute Auto 4100 /uL (1500-7000); Neutrophils Percent Auto 64.9 % (50-75); Platelet Count 208 X10^3/uL (150-400); Red Blood Cell Count 3.94 X10^6/uL (4.0-5.2); Red Cell Distribution Width 14.9 % (11.6-14.8); White Blood Cell Count 6.3 X10^3/uL (4.5-11.0)
--- NOTE | 2023-03-27 05:52 | P.HPOB_ITS ---
History of Present Illness History of Present Illness Narrative: Asia Vera is a 27 year old female 6 para 2 at 14 weeks gestation who presented to the emergency department on March 26, 2023 with right sided pain and nausea and vomiting. Patient reports that she was well until a few days ago when she began to feel some pain that started out as cramping. She then started having nausea and vomiting which she was unable to control at home. She presented to the emergency department where she received antiemetics and IV fluids. She was still having intractable nausea and vomiting. She was admitted for treatment of right pyelonephritis. She reports no history of kidney stones. She has had pyelonephritis on the right side previously. She has had her gallbladder removed. She reports no fevers at home. No blood in the urine. She does have a history of recurrent urinary tract infections. She does not report that she has had any during this . She receives her primary OB care at the residency Clinic at [facility]. She has an appointment on March 27, 2023. She reports that she has changed this to next week. She has had an uncomplicated so far. In the emergency department an ultrasound showed no kidney stones. She also had an OB ultrasound which was normal for 14 weeks gestation. Currently she is feeling a little better. The nausea is starting to subside. [facility] Medical History Abdominal pain Fusion of toes of right foot Pyelonephritis (~06/2019) Sebaceous cyst Surgical History History of bunionectomy of left great toe History of bunionectomy of right great toe Hx of cholecystectomy Hx of eye surgery Hx of foot surgery Hx of foot surgery (08/25/20) S/P foot surgery, right S/P foot surgery, right (09/12/19) S/P hardware removal Social History household members: family and children Smoking Status: Former smoker alcohol intake: former Meds Home Medications and Allergies Home Medications Medication Instructions Recorded Confirmed Type acetaminophen 500 mg tablet 1,000 mg PO Q6H PRN Pain 01/13/20 03/26/23 History (Tylenol Extra Strength) metoclopramide HCl 10 mg tablet 10 mg PO Q6H PRN nausea and 05/27/21 03/26/23 Rx (Reglan) vomiting #12 tabs ondansetron 4 mg disintegrating 4 mg PO TID-QID PRN nausea and 07/19/22 03/26/23 Rx tablet vomiting #10 tabs diphenhydramine HCl 50 mg capsule 50 mg PO BEDTIME PRN Allergy 03/26/23 03/26/23 History Symptoms vit no.95-ferrous 1 tab PO DAILY 03/26/23 03/26/23 History fumarate 28 mg-folic acid 800 mcg tablet () Allergies Allergy/AdvReac Type Severity Reaction Status Date / Time No Known Drug Allergies Allergy Verified 07/19/22 11:49 Exam Vital Signs (past 8 hours): - 03/26/23 23:07 03/26/23 23:00 03/27/23 04:07 Temperature 97.6 F 97.5 F L Pulse Rate 86 81 Respiratory Rate 16 16 Blood Pressure 108/63 114/63 Pulse Oximetry 97 99 97 Oxygen Delivery Method Room Air Oxygen Flow Rate 0 0 03/27/23 03:00 Temperature Pulse Rate Respiratory Rate Blood Pressure Pulse Oximetry 99 Oxygen Delivery Method Room Air Oxygen Flow Rate Oxygen Delivery Method Room Air Oxygen Flow Rate 0 Narrative Exam Narrative: Generally: Patient lying on her left side, no acute distress Lungs: Clear to auscultation bilaterally Cardiovascular: Regular rate and rhythm Abdomen: Fundus consistent with 14 weeks gestation Extremities: SCDs in place Objective Labs 03/27/23 04:10 03/27/23 04:10 Labs: Laboratory Results - last 24 hr 03/26/23 03/26/23 03/26/23 06:17 06:22 06:22 WBC 7.7 RBC 4.61 Hgb 12.5 Hct 36.7 MCV 79.7 L MCH 27.2 MCHC 34.2 RDW 15.2 H Plt Count 250 Neut % (Auto) 68.3 Lymph % (Auto) 23.7 L [place] % (Auto) 5.3 Eos % (Auto) 2.3 Baso % (Auto) 0.4 Neut # (Auto) 5300 Lymph # (Auto) 1800 [place] # (Auto) 400 Eos # (Auto) 200 Baso # (Auto) 0 Sodium 135 L Potassium 4.0 Chloride 108 H Carbon Dioxide 19 L BUN 3 L Creatinine 0.47 L Estimated GFR > 60 BUN/Creatinine Ratio 6.4 Glucose 117 H Uric Acid Calcium 9.2 Magnesium Total Bilirubin 0.3 AST 21 ALT 22 Alkaline Phosphatase 74 Lactate Dehydrogenase Total Protein 7.6 Albumin 4.0 Globulin 3.6 Albumin/Globulin Ratio 1.1 Lipase 53 Urine RBC 0-1/hpf Urine WBC 10-30/hpf H Ur Squamous Epith Cells 10-30 /hpf H D Urine Bacteria Many (>30) H Ur Culture Indicated? Specimen cultured Nasal Screen MRSA (PCR) 03/26/23 03/26/23 03/27/23 06:22 11:25 04:10 WBC 6.3 RBC 3.94 L Hgb 11.0 L Hct 31.9 L MCV 80.9 MCH 27.8 MCHC 34.4 RDW 14.9 H Plt Count 208 Neut % (Auto) 64.9 Lymph % (Auto) 26.7 [place] % (Auto) 5.8 Eos % (Auto) 2.3 Baso % (Auto) 0.3 Neut # (Auto) 4100 Lymph # (Auto) 1700 [place] # (Auto) 400 Eos # (Auto) 100 Baso # (Auto) 0 Sodium Potassium Chloride Carbon Dioxide BUN Creatinine Estimated GFR BUN/Creatinine Ratio Glucose Uric Acid 4.6 Calcium Magnesium Total Bilirubin AST ALT Alkaline Phosphatase Lactate Dehydrogenase 159 Total Protein Albumin Globulin Albumin/Globulin Ratio Lipase Urine RBC Urine WBC Ur Squamous Epith Cells Urine Bacteria Ur Culture Indicated? Nasal Screen MRSA (PCR) Not detected 03/27/23 04:10 WBC RBC Hgb Hct MCV MCH MCHC RDW Plt Count Neut % (Auto) Lymph % (Auto) [place] % (Auto) Eos % (Auto) Baso % (Auto) Neut # (Auto) Lymph # (Auto) [place] # (Auto) Eos # (Auto) Baso # (Auto) Sodium 133 L Potassium 3.6 Chloride 105 Carbon Dioxide 20 L BUN < 2 L Creatinine 0.53 Estimated GFR > 60 BUN/Creatinine Ratio 3.8 L Glucose 92 Uric Acid Calcium 8.3 L Magnesium 1.9 Total Bilirubin AST ALT Alkaline Phosphatase Lactate Dehydrogenase Total Protein Albumin Globulin Albumin/Globulin Ratio Lipase Urine RBC Urine WBC Ur Squamous Epith Cells Urine Bacteria Ur Culture Indicated? Nasal Screen MRSA (PCR) Assessment & Plan Assessment & Plan narrative: Assessment: 27-year-old 6 para 2 at 14 weeks gestation with right pyelonephritis On ceftriaxon and antiemetics No signs of kidney stones Plan: Continue IV antibiotics and pain management No monitoring necessary due to gestational age Time Spent With Patient Time with patient: less than 30 minutes
[2023-03-27] MEDS: cefTRIAXone 1,000 MG in SODIUM CHLORIDE 0.9% 100 ML 200 MG IV (06:37)
[2023-03-27] MEDS: SODIUM CHLORIDE 0.9% 1,000 ML 100 ML IV ×2 (06:37→21:21)
[2023-03-27] MEDS: HYDROMORPHONE 0.5 MG INJ 1 MG IV ×2 (08:32→10:45)
--- NOTE | 2023-03-27 08:55 | PM.PN.1 ---
Subjective Subjective Interval history: Patient has NV overnight. Feeling somewhat better this morning but not great. She is still having urinary urgency. Exam Vital Signs (past 8 hours): - 03/27/23 04:07 03/27/23 03:00 Temperature 97.5 F L Pulse Rate 81 Respiratory Rate 16 Blood Pressure 114/63 Pulse Oximetry 97 99 Oxygen Delivery Method Room Air Oxygen Flow Rate 0 Oxygen Delivery Method Room Air Oxygen Flow Rate 0 Narrative Exam Narrative: Generally: Patient lying on her left side, no acute distress Lungs: Clear to auscultation bilaterally Cardiovascular: Regular rate and rhythm Abdomen: Fundus consistent with 14 weeks gestation Extremities: SCDs in place Objective Labs 03/28/23 04:30 03/28/23 04:30 Labs: Laboratory Results - last 24 hr 03/26/23 03/27/23 03/27/23 11:25 04:10 04:10 WBC 6.3 RBC 3.94 L Hgb 11.0 L Hct 31.9 L MCV 80.9 MCH 27.8 MCHC 34.4 RDW 14.9 H Plt Count 208 Neut % (Auto) 64.9 Lymph % (Auto) 26.7 [place] % (Auto) 5.8 Eos % (Auto) 2.3 Baso % (Auto) 0.3 Neut # (Auto) 4100 Lymph # (Auto) 1700 [place] # (Auto) 400 Eos # (Auto) 100 Baso # (Auto) 0 Sodium 133 L Potassium 3.6 Chloride 105 Carbon Dioxide 20 L BUN < 2 L Creatinine 0.53 Estimated GFR > 60 BUN/Creatinine Ratio 3.8 L Glucose 92 Calcium 8.3 L Magnesium 1.9 Nasal Screen MRSA (PCR) Not detected [facility] Medical History Abdominal pain Fusion of toes of right foot Pyelonephritis (~06/2019) Sebaceous cyst Surgical History History of bunionectomy of left great toe History of bunionectomy of right great toe Hx of cholecystectomy Hx of eye surgery Hx of foot surgery Hx of foot surgery (08/25/20) S/P foot surgery, right S/P foot surgery, right (09/12/19) S/P hardware removal Social History household members: significant other, family and children Smoking Status: Former smoker alcohol intake: former Assessment & Plan Assessment & Plan narrative: 1. Acute UTI, present on admission - continue IV antibiotics for at least 48 hours, with ceftriaxone 1g q24. UA may have contamination with multiple squamous cells, but also with 10-30 WBC. Blood cultures were ordered after antibiotics had been given in the ER. - narrow once cultures result - consider additional musculoskeletal source given negative imaging and bilateral pain in nature along with paraspinal tenderness - pain control with tylenol, opiates ordered. - Antinausea therapy with zofran as needed. Added compazine IV. - continue IV fluids - OB consulted for monitoring which they said is not needed due to gestational age 2. 14 week - OB consulted as above for monitoring - follows with [facility] residency clinic as outpatient - OB evaluated and signed off 3. Obesity with BMI 43.9, chronic, present on admission - The patient is at much higher risk for medical and surgical complications because of her obesity. This increases the difficulty and complexity of medical and surgical interventions and increases the chances of poor outcomes such as morbidity and mortality Code: Full DVT: SCDs Dispo: Home on 03/28.
[2023-03-27] MEDS: PROCHLORPERAZINE 10 MG/2 ML VIAL IV ×2 (11:36→17:37)
--- NOTE | 2023-03-27 12:26 | CM.DANOTE ---
Patient is a 27 yo female who was admitted on 03/26/23 for Abd Pain. Pt has VARGHESE ETIENNE and CHAYA and her PCP is Shikha Wilder at [facility]. EMR was reviewed. Per MD, pt admitted with possible pyelonephritis but no fever or white count and now likely UTI but pending cultures and pt on IV-Abx. 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 Pt states she is already connected up with WIC and baby needs as this is her third child and does not have concerns regarding basic needs. Pt confirms that her Sig Other can assist as needed at d/c but pt does not anticipate any needs and preference is home tomorrow if stable. Pt's mother also lives locally. Plan: SW to follow for plan of likely d/c home on oral abx tomorrow pending cultures when medically stable and any further identified discharge planning needs. DOMINGO Meyer Discharge Planning/Care Management CM Discharge Assessment Start: 03/27/23 12:24 Freq: Status: Active Protocol: Document 03/27/23 12:25 BF (Rec: 03/27/23 12:26 BF [id number]) Discharge Planning Assessment Assigned Interstate Planner DOMINGO Cantrell DPOA/Assigned Designee Name informally Sig Other Advance Directives? No Advance Directives on File No History Provided By Patient,Medical Record Has Patient been admitted in last 30 No days? Prior Living Arrangements Apartment/Condo Household Members significant other,family, children Type of transporation used prior to Drives own vehicle admit Independent with ADL's Yes Is patient alert and oriented? Yes Caregiver for Another Yes: kids age 4 & 6 Discharge Plan Home Transportation Arrangement Likely family or Sig Other Referrals Initiated None needed Whiteboard Updated in Patient Room with Yes name and ext. # of Interstate Planner Review Status In Process Please Provide Date Initial DC 03/27/23 Assessment Was Performed Next Review Type Continued Stay Review
[2023-03-27] MEDS: HYDROMORPHONE 4 MG TABLET PO ×2 (17:41→21:43)
--- NOTE | 2023-03-27 18:27 | PM.PN.1 ---
Subjective Subjective Date Patient Seen: 03/27/23 Time Patient Seen: 08:15 Interval history: Patient is a 27-year-old hospital day # 2 for right pyelonephritis at 14 weeks' gestation. Patient was feeling a little better last night, but this morning the nausea and vomiting got worse. Her antiemetic was switched to Compazine. She is not having any vaginal bleeding. Her pain is intermittent. Blood cultures negative to date. Urine shows E coli. Sensitivities pending. Exam Vital Signs (past 8 hours): - 03/27/23 11:36 03/27/23 12:00 Temperature 96.8 F L Pulse Rate 95 H Respiratory Rate 20 Blood Pressure 117/78 112/72 Pulse Oximetry 98 Oxygen Flow Rate 0 Oxygen Delivery Method Room Air Oxygen Flow Rate 0 Narrative Exam Narrative: Generally: Patient lying in bed, no acute distress Lungs: Clear to auscultation bilaterally Cardiovascular: Regular rate and rhythm Back: Continued right CVA tenderness Objective Labs 03/27/23 04:10 03/27/23 04:10 Labs: Laboratory Results - last 24 hr 03/27/23 03/27/23 04:10 04:10 WBC 6.3 RBC 3.94 L Hgb 11.0 L Hct 31.9 L MCV 80.9 MCH 27.8 MCHC 34.4 RDW 14.9 H Plt Count 208 Neut % (Auto) 64.9 Lymph % (Auto) 26.7 [place] % (Auto) 5.8 Eos % (Auto) 2.3 Baso % (Auto) 0.3 Neut # (Auto) 4100 Lymph # (Auto) 1700 [place] # (Auto) 400 Eos # (Auto) 100 Baso # (Auto) 0 Sodium 133 L Potassium 3.6 Chloride 105 Carbon Dioxide 20 L BUN < 2 L Creatinine 0.53 Estimated GFR > 60 BUN/Creatinine Ratio 3.8 L Glucose 92 Calcium 8.3 L Magnesium 1.9 PFSH Medical History Abdominal pain Fusion of toes of right foot Pyelonephritis (~06/2019) Sebaceous cyst Surgical History History of bunionectomy of left great toe History of bunionectomy of right great toe Hx of cholecystectomy Hx of eye surgery Hx of foot surgery Hx of foot surgery (08/25/20) S/P foot surgery, right S/P foot surgery, right (09/12/19) S/P hardware removal Social History household members: significant other, family and children Smoking Status: Former smoker alcohol intake: former Assessment & Plan Assessment & Plan narrative: Assessment: 27-year-old 6 para 2 with right pyelonephritis with E coli, sensitivities pending Continued nausea and vomiting Plan: Continue to treat with antiemetics and antibiotics Home when nausea and vomiting under control Time Spent With Patient Time with patient: less than 30 minutes
[2023-03-28 02:00] VITALS: BP 127/60; PULSE 109; RESP 18; TEMP 36.4; O2SAT 97
[2023-03-28] MEDS: HYDROMORPHONE 4 MG TABLET PO ×2 (04:25→09:21)
[2023-03-28 05:00] VITALS: O2SAT 97
[2023-03-28 05:17] LABS: Add Manual Diff / Slide Review NO; Basophils Absolute Auto 0 /uL (0-100); Basophils Percent Auto 0.2 % (0-2); Eosinophils Absolute Auto 100 /uL (0-450); Eosinophils Percent Auto 1.4 % (2-4); Hematocrit 33.6 % (36-46); Hemoglobin 11.6 g/dL (12.0-16.0); Lymphocytes Absolute Auto 1800 /uL (1100-4500); Lymphocytes Percent Auto 23.7 % (25-40); Mean Corpuscular HGB Conc 34.7 % (30-36); Mean Corpuscular Hemoglobin 27.9 PG (26-34); Mean Corpuscular Volume 80.5 fL (80-100); Monocytes Absolute Auto 400 /uL (0-900); Monocytes Percent Auto 5.8 % (3-14); Neutrophils Absolute Auto 5300 /uL (1500-7000); Neutrophils Percent Auto 68.9 % (50-75); Platelet Count 236 X10^3/uL (150-400); Red Blood Cell Count 4.17 X10^6/uL (4.0-5.2); Red Cell Distribution Width 15.3 % (11.6-14.8); White Blood Cell Count 7.7 X10^3/uL (4.5-11.0)
[2023-03-28 05:20] VITALS: BP 126/67; PULSE 96
[2023-03-28] MEDS: PROCHLORPERAZINE 10 MG/2 ML VIAL IV (05:20)
[2023-03-28 05:21] LABS: Calcium 8.9 mg/dL (8.4-10.2); Carbon Dioxide 20 mmol/L (22-32); Chloride 107 mmol/L (98-107); Estimated Glomerular Filt Rate > 60 mL/min (>60); Glucose 99 mg/dL (70-100); HEMOLYSIS < 15 (0-50); Magnesium 1.9 mg/dL (1.6-2.3); Potassium 3.5 mmol/L (3.4-5.1); Sodium 135 mmol/L (137-145)
[2023-03-28 05:23] VITALS: BP 126/67
[2023-03-28 05:33] LABS: BUN Creatinine Ratio 4.7 (6-22); Blood Urea Nitrogen < 2 mg/dL (7-17)
[2023-03-28] MEDS: SODIUM CHLORIDE 0.9% 1,000 ML 100 ML IV (06:48)
[2023-03-28] MEDS: cefTRIAXone 1,000 MG in SODIUM CHLORIDE 0.9% 100 ML 200 MG IV (07:41)
[2023-03-28 09:00] VITALS: O2SAT 98
--- NOTE | 2023-03-28 09:40 | P.DS_ITS ---
History of Present Illness History of Present Illness Date Patient Seen: 03/26/23 Time Patient Seen: 12:08 Chief complaint: abd pain, n/v 14 weeks Narrative: This is a 27 F, 14w who presented with R flank pain for the past two days. She states pain was crampy initially, starting in her R lower back radiating to her front groin. She denies prior nephrolithiasis. She became more and more nauseous with vomiting today and presented to the hospital. She denies fevers but has some subjective chills. She admits to urinary frequency but no dysuria. She has frequenct UTIs in the past, many of which are E. coli. In the emergency room, vitals were unremarkable. Labs showed a mild acidosis with bicarb on chemistries of 19, creatinine 0.47. UA showed many bacteria and 10-30 WBC, no RBC but showed many squamous cells as well but was reflexed for c ulture. Renal ultrasound showed no stones or obstruction. She was given ceftriaxone for presumed pyelonephritis, insurance assistant was asked for admission but recommended admission to hospitalist service instead with OB consultation which has been placed. Discharge Providers Provider Date of admission: 03/26/23 10:38 Discharge Date: 03/28/23 Primary care physician: Shikha Wilder, Consults: 03/26/23 10:59 Consult to Physician Routine Comment: Consulting Provider: Francine Escalante Reason for consultation: 14w pyelo Discharge provider: Kris Tiwari DO Summary Hospital Course Discharge Diagnosis: 1. Acute pyelonephritis, present on admission ?- continue IV antibiotics for at least 48 hours, with ceftriaxone 1g q24. UA may have contamination with multiple squamous cells, but also with 10-30 WBC. Blood cultures were ordered after antibiotics had been given in the ER. ?- consider additional musculoskeletal source given negative imaging and bilateral pain in nature along with paraspinal tenderness ?- pain control with tylenol, opiates ordered. ?- Antinausea therapy with zofran as needed. Added compazine IV. ?- continue IV fluids ?- OB consulted for monitoring which they said is not needed due to gestational age - Urine culture with klebsiella pneumoniae resistant only to ampicillin and macrobid, placed on cefadroxil for 2 weeks following 3 days of IV rocephin. Blood cultures negative. - OB placed on daily keflex 250mg daily for remainder of 2. 14 week ?- OB consulted as above for monitoring ?- follows with [facility] as outpatient ?- OB evaluated and signed off 3. Obesity with BMI 43.9, chronic, present on admission ?- The patient is at much higher risk for medical and surgical complications because of her obesity.? This increases the difficulty and complexity of medical and surgical interventions and increases the chances of poor outcomes such as morbidity and mortality Hospital Course: See above problem list. Exam Vital Signs (past 8 hours): - 03/28/23 02:00 03/28/23 05:20 03/28/23 05:23 Temperature 97.5 F L Pulse Rate 109 H 96 H Respiratory Rate 18 Blood Pressure 127/60 126/67 126/67 Pulse Oximetry 97 Oxygen Delivery Method Oxygen Flow Rate 0 03/28/23 05:00 Temperature Pulse Rate Respiratory Rate Blood Pressure Pulse Oximetry 97 Oxygen Delivery Method Room Air Oxygen Flow Rate Oxygen Delivery Method Room Air Oxygen Flow Rate 0 Narrative Exam Narrative: Generally: Patient lying on her left side, no acute distress Lungs: Clear to auscultation bilaterally Cardiovascular: Regular rate and rhythm Abdomen: Fundus consistent with 14 weeks gestation Extremities: SCDs in place Objective Labs 03/28/23 04:30 03/28/23 04:30 Labs: Laboratory Results - last 24 hr 03/28/23 03/28/23 04:30 04:30 WBC 7.7 RBC 4.17 Hgb 11.6 L Hct 33.6 L MCV 80.5 MCH 27.9 MCHC 34.7 RDW 15.3 H Plt Count 236 Neut % (Auto) 68.9 Lymph % (Auto) 23.7 L [place] % (Auto) 5.8 Eos % (Auto) 1.4 L Baso % (Auto) 0.2 Neut # (Auto) 5300 Lymph # (Auto) 1800 [place] # (Auto) 400 Eos # (Auto) 100 Baso # (Auto) 0 Sodium 135 L Potassium 3.5 Chloride 107 Carbon Dioxide 20 L BUN < 2 L Creatinine 0.43 L Estimated GFR > 60 BUN/Creatinine Ratio 4.7 L Glucose 99 Calcium 8.9 Magnesium 1.9 PFSH Medical History Abdominal pain Fusion of toes of right foot Pyelonephritis (~06/2019) Sebaceous cyst Surgical History History of bunionectomy of left great toe History of bunionectomy of right great toe Hx of cholecystectomy Hx of eye surgery Hx of foot surgery Hx of foot surgery (08/25/20) S/P foot surgery, right S/P foot surgery, right (09/12/19) S/P hardware removal Social History household members: significant other, family and children Smoking Status: Former smoker alcohol intake: former Discharge Plan Discharge Plan Patient Disposition: Home Provider Discharge Comment: You were admitted for a UTI. Your urine ended up growing Klebsiella which is a common cause of UTI. You received 3 days of IV antibiotics and will now need to take an oral antibiotic daily to complete 2 weeks. I've sent lidocaine patches for your back pain. Discharge orders & Medications Prescriptions: New lidocaine [Lidoderm] 5 % adhesive patch,medicated 1 patch topical DAILY Qty: 15 0RF Rx Instructions: leave on most painful area for up to 12 hrs Continued acetaminophen [Tylenol Extra Strength] 500 mg Tablet 1,000 mg PO Q6H PRN (Reason: Pain) metoclopramide HCl [Reglan] 10 mg tablet 10 mg PO Q6H PRN (Reason: nausea and vomiting) Qty: 12 0RF ondansetron 4 mg tablet,disintegrating 4 mg PO TID-QID PRN (Reason: nausea and vomiting) Qty: 10 0RF diphenhydramine HCl 50 mg Capsule 50 mg PO BEDTIME PRN (Reason: Allergy Symptoms) PNV cmb#95-ferrous fumarate-FA [] 28 mg iron- 800 mcg Tablet 1 tab PO DAILY Patient Comments: Unsure of exact No Action cephalexin 250 mg capsule 250 mg PO DAILY Qty: 30 6RF Follow up/Referrals: Shikha Murphy DO [Primary Care Provider] - As previously scheduled Miscellaneous,DoctorMD [Non-Staff] - Visit Report/Discharge Packet Stand Alone Forms: Patient Portal/API, Stroke Signs & Symptoms Discharge Data Primary Care Provider: Shikha Murphy Discharges patient from system. Discharge Date/Time: 03/28/23 11:36
[2023-03-28 09:53] VITALS: BP 120/61; PULSE 95; RESP 20; TEMP 36.6; O2SAT 98
--- NOTE | 2023-03-28 10:50 | PC.NURSE ---
Pt discharged home at 1050, escorted off floor in wheelchair accompanied by hospital staff. IV removed, discharge teaching completed including new medications, follow up appointments and worsening symptoms. Doctors note work provided for work. Pt left the floor with all belongings.
== END 2023-03-28 11:36 | disposition home or self-care (01) | DRG 566 ==
LOC: ED 10:11 → AC 10:13 → ICU 11:13
PROVIDERS: Emergency Medicine; Admitting Provider Internal Medicine; Emergency Provider Emergency Medicine; PCP Family Medicine; Referring Provider Emergency Medicine; Visit Provider Internal Medicine
DX: O23.02 Infections of kidney in pregnancy, second trimester (principal); O99.212 Obesity complicating pregnancy, second trimester; O26.892 Other specified pregnancy related conditions, second trimester; E87.20 Acidosis, unspecified; B96.1 Klebsiella pneumoniae [K. pneumoniae] as the cause of diseases classified elsewhere; Z3A.14 14 weeks gestation of pregnancy; Z87.891 Personal history of nicotine dependence
CPT/HCPCS: 36415; 76705; 76770; 80048; 80053; 81003; 81015; 83615; 83690; 83735; 84550; 85025; 87040; 87077; 87086; 87186; 87797; 96365; 96375; 96376; 99284; 99285; G0378; C9113; J0696; J0780; J1170; J2270; J2405; J2765

== ENCOUNTER 2023-04-16 13:13 | Emergency (ER) | payer OTHER, MEDICAID, SELFPAY ==
[2023-03-26 11:03] VITALS: BMI 43.8
[2023-04-16] VITALS (15 sets, daily range): BP systolic 112–137; BP diastolic 60–75; PULSE 83–99; RESP 16–18; TEMP 36.4; O2SAT 97–100; BMI 42.0
[2023-04-16] MEDS: ONDANSETRON 4 MG/2 ML INJ IV (13:51)
[2023-04-16 14:05] LABS: Add Manual Diff / Slide Review NO; Basophils Absolute Auto 0 /uL (0-100); Basophils Percent Auto 0.2 % (0-2); Eosinophils Absolute Auto 100 /uL (0-450); Eosinophils Percent Auto 1.4 % (2-4); Hematocrit 36.1 % (36-46); Hemoglobin 12.4 g/dL (12.0-16.0); Lymphocytes Absolute Auto 1500 /uL (1100-4500); Lymphocytes Percent Auto 18.8 % (25-40); Mean Corpuscular HGB Conc 34.4 % (30-36); Mean Corpuscular Hemoglobin 27.7 PG (26-34); Mean Corpuscular Volume 80.6 fL (80-100); Monocytes Absolute Auto 500 /uL (0-900); Neutrophils Absolute Auto 6000 /uL (1500-7000); Neutrophils Percent Auto 73.6 % (50-75); Platelet Count 255 X10^3/uL (150-400); Red Blood Cell Count 4.48 X10^6/uL (4.0-5.2); Red Cell Distribution Width 14.9 % (11.6-14.8); White Blood Cell Count 8.1 X10^3/uL (4.5-11.0)
[2023-04-16 14:07] LABS: Appearance Urine UA CLEAR; Bilirubin Urine UA 1+ (NEGATIVE); Color Urine UA YELLOW; Glucose Urine UA NEGATIVE (Negative); Ketones Urine UA NEGATIVE (NEGATIVE); Leukocyte Esterase Urine UA 1+ (NEGATIVE); Nitrite Urine UA NEGATIVE (Negative); Occult Blood Urine UA NEGATIVE (Negative); Protein Urine UA NEGATIVE (Negative); Urobilinogen Urine UA 0.2 E.U./dL (0.2)
[2023-04-16 14:17] LABS: Alanine Aminotransferase 21 IU/L (<35); Albumin 4.3 g/dL (3.5-5.0); Albumin Globulin Ratio 1.1 (1.0-2.8); Alkaline Phosphatase 80 U/L (38-126); Aspartate Aminotransferase 22 IU/L (14-36); BUN Creatinine Ratio 8.9 (6-22); Bilirubin Total 0.2 mg/dL (0.2-1.3); Blood Urea Nitrogen 4 mg/dL (7-17); Calcium 9.7 mg/dL (8.4-10.2); Carbon Dioxide 23 mmol/L (22-32); Chloride 103 mmol/L (98-107); Estimated Glomerular Filt Rate > 60 mL/min (>60); Globulin 3.8 g/dL (1.7-4.1); Glucose 100 mg/dL (70-100); HEMOLYSIS < 15 (0-50); Lipase 41 U/L (23-300); Potassium 3.6 mmol/L (3.4-5.1); Sodium 134 mmol/L (137-145); Total Protein 8.1 g/dL (6.3-8.2)
[2023-04-16 14:19] LABS: Bacteria Urine Occasional (0-1); Culture Indicated Urine Specimen Cultured; Ictotest Urine Negative (Negative); RBC Urine 0-1/HPF (0-5/HPF); Squamous Epithelial Cell Urine 1-5 /HPF (0-5/HPF); WBC Urine 1-5/HPF (0-5/HPF)
[2023-04-16 14:33] LABS: Procalcitonin 0.04 ng/mL (<0.5)
[2023-04-16] MEDS: METOCLOPRAMIDE 10 MG/2 ML INJ IV (16:53)
[2023-04-16] MEDS: diphenhydrAMINE 50 MG/ML VIAL 25 MG IV (16:53)
[2023-04-16] MEDS: SODIUM CHLORIDE 0.9% 1,000 ML 1000 ML IV (17:01)
[2023-04-16] MEDS: ACETAMINOPHEN 325 MG TABLET 975 MG PO (17:55)
--- NOTE | 2023-04-16 18:05 | ED_ITS ---
HPI - General Adult General Chief complaint: Urogenital-Female Stated complaint: history of kindney infection, lt/rt back pain Time Seen by Provider: 04/16/23 14:58 Source: patient Mode of arrival: Ambulatory History of Present Illness HPI narrative: 27-year-old female is a at about 17 weeks and presents with nausea and vomiting over the course of the day. She feels a bit fatigued and on occasion lightheaded upon standing. She denies any fever chills. She is no chest pain or shortness of breath. She does have some occasional right side back pain without obvious provocation or palliation. She does state that it does radiate that perhaps she has another urine infection. She has had pyelonephritis in the past as vaginal bleeding or discharge. Related Data Home Medications Medication Instructions Recorded Confirmed acetaminophen 500 mg tablet 1,000 mg PO Q6H PRN Pain 01/13/20 03/26/23 (Tylenol Extra Strength) diphenhydramine HCl 50 mg capsule 50 mg PO BEDTIME PRN Allergy 03/26/23 03/26/23 Symptoms vit no.95-ferrous 1 tab PO DAILY 03/26/23 03/26/23 fumarate 28 mg-folic acid 800 mcg tablet () Previous Rx's Medication Instructions Recorded metoclopramide HCl 10 mg tablet 10 mg PO Q6H PRN nausea and 05/27/21 (Reglan) vomiting #12 tabs ondansetron 4 mg disintegrating 4 mg PO TID-QID PRN nausea and 07/19/22 tablet vomiting #10 tabs lidocaine 5 % topical patch 1 patch topical DAILY #15 ea 03/28/23 (Lidoderm) cephalexin 250 mg capsule 250 mg PO DAILY #30 caps 04/01/23 Allergies Allergy/AdvReac Type Severity Reaction Status Date / Time No Known Drug Allergies Allergy Verified 04/16/23 13:26 Review of Systems Review of Systems Narrative: GENERAL: Denies chills, fatigue, malaise, fever, sweats. HEENT: Denies sinus pain, ear pain, sore throat, difficulty swallowing, dizziness. RESPIRATORY: Denies dyspnea, cough, wheezing, hemoptysis, sputum. CARDIOVASCULAR: Denies chest pain, palpitations, orthopnea, edema, GASTROINTESTINAL: See HPI : Denies dysuria, frequency, incontinence, hematuria, urinary retention. MUSCULOSKELETAL: denies weakness, joint pain, or bony pain SKIN: Denies rash, skin lesions, or other NEUROLOGIC: Denies weakness, headache, numbness, change in speech, confusion, seizures, incoordination. PSYCHIATRIC: No concerning psychosocial issues. 12 point review of systems is negative except for those stated above Patient History Medical History Abdominal pain Fusion of toes of right foot Pyelonephritis (~06/2019) Sebaceous cyst Surgical History History of bunionectomy of left great toe History of bunionectomy of right great toe Hx of cholecystectomy Hx of eye surgery Hx of foot surgery Hx of foot surgery (08/25/20) S/P foot surgery, right S/P foot surgery, right (09/12/19) S/P hardware removal Social History household members: significant other, family and children Smoking Status: Former smoker alcohol intake: former Smoking Status: Former smoker alcohol intake frequency: a few times a week Substance Use Type: does not use and marijuana Exam Narrative Exam Narrative: GENERAL: [27] year old patient appears stated age. Well-developed patient, in mild distress. HEAD: Atraumatic. Normocephalic. EYES: Pupils equal round and reactive. Extraocular motions intact. No scleral icterus. No injection or drainage. ENT: Nose without bleeding, purulent drainage. Throat without erythema, tonsillar hypertrophy or exudate. Airway patent. NECK: Trachea midline. Non tender CARDIOVASCULAR: Regular rate and rhythm without murmurs, gallops, or rubs. RESPIRATORY: Clear to auscultation. Breath sounds equal bilaterally. No wheezes, rales, or rhonchi. GASTROINTESTINAL: Abdomen soft, non-tender, nondistended. EXTREMITIES: No edema or joint tenderness. BACK: Nontender without deformity or crepitance. No flank tenderness. NEURO: AOx3. SKIN: No rash or erythema of visible areas Initial Vital Signs Initial Vital Signs: Vital Signs Temperature 97.5 F L 04/16/23 13:26 Pulse Rate 96 H 04/16/23 13:26 Respiratory Rate 16 04/16/23 13:26 Blood Pressure 115/68 04/16/23 13:26 Pulse Oximetry 99 04/16/23 13:26 Oxygen Delivery Method Room Air 04/16/23 13:26 Course Orders Ordered: Discontinued Medications Acetaminophen (Acetaminophen 325 Mg Tablet) 975 mg PO NOW ONE Stop: 04/16/23 17:49 Last Admin: 04/16/23 17:55 Dose: 975 mg Documented By: LAURA Diphenhydramine HCl (Diphenhydramine 50 Mg/Ml Vial) 25 mg IV NOW ONE Stop: 04/16/23 16:43 Last Admin: 04/16/23 16:53 Dose: 25 mg Documented By: LAURA Sodium Chloride (Normal Saline 0.9%) 1,000 mls @ 1,000 mls/hr IV BOLUS ONE Stop: 04/16/23 17:41 Last Infusion: 04/16/23 18:19 Dose: 0 mls/hr Documented By: Admin: 04/16/23 17:01 Dose: 1,000 mls/hr Documented By: LAURA Metoclopramide HCl (Metoclopramide 10 Mg/2 Ml Inj) 10 mg IV NOW ONE Stop: 04/16/23 16:43 Last Admin: 04/16/23 16:53 Dose: 10 mg Documented By: LAURA Ondansetron HCl (Ondansetron 4 Mg Odt) 4 mg PO NOW PRN PRN Reason: Nausea And Vomiting Ondansetron HCl (Ondansetron 4 Mg/2 Ml Inj) 4 mg IV NOW PRN PRN Reason: Nausea And Vomiting Last Admin: 04/16/23 13:51 Dose: 4 mg Documented By: JUAN CARLOS Vital Signs Vital signs: Vital Signs - 8 hr 04/16/23 13:26 04/16/23 16:40 04/16/23 16:41 Temperature 97.5 F L Pulse Rate 96 H 99 H 95 H Respiratory Rate 16 Blood Pressure 115/68 Pulse Oximetry 99 99 99 Oxygen Delivery Method Room Air 04/16/23 16:41 04/16/23 16:49 04/16/23 16:49 Temperature Pulse Rate 86 Respiratory Rate Blood Pressure 131/72 117/66 Pulse Oximetry 98 Oxygen Delivery Method 04/16/23 17:00 04/16/23 17:00 04/16/23 17:30 Temperature Pulse Rate 86 Respiratory Rate Blood Pressure 117/66 137/64 Pulse Oximetry 99 Oxygen Delivery Method 04/16/23 17:30 04/16/23 18:00 04/16/23 18:00 Temperature Pulse Rate 90 91 H Respiratory Rate Blood Pressure 129/64 Pulse Oximetry 100 100 Oxygen Delivery Method 04/16/23 18:30 04/16/23 18:31 04/16/23 18:31 Temperature Pulse Rate 90 83 Respiratory Rate Blood Pressure 118/60 Pulse Oximetry 100 100 Oxygen Delivery Method Medical Decision Making Lab Data 04/16/23 13:46 04/16/23 13:46 Labs: Lab Results 04/16/23 04/16/23 04/16/23 Range/Units 13:46 13:46 13:46 WBC 8.1 (4.5-11.0) X10^3/uL RBC 4.48 (4.0-5.2) X10^6/uL Hgb 12.4 (12.0-16.0) g/dL Hct 36.1 (36-46) % MCV 80.6 (80-100) fL MCH 27.7 (26-34) PG MCHC 34.4 (30-36) % RDW 14.9 H (11.6-14.8) % Plt Count 255 (150-400) X10^3/uL Neut % (Auto) 73.6 (50-75) % Lymph % (Auto) 18.8 L (25-40) % [place] % (Auto) 6.0 (3-14) % Eos % (Auto) 1.4 L (2-4) % Baso % (Auto) 0.2 (0-2) % Neut # (Auto) 6000 (6750-6971) /uL Lymph # (Auto) 1500 (7547-5540) /uL [place] # (Auto) 500 (0-900) /uL Eos # (Auto) 100 (0-450) /uL Baso # (Auto) 0 (0-100) /uL Sodium 134 L (137-145) mmol/L Potassium 3.6 (3.4-5.1) mmol/L Chloride 103 (98-107) mmol/L Carbon Dioxide 23 (22-32) mmol/L BUN 4 L (7-17) mg/dL Creatinine 0.45 L (0.52-1.04) mg/dL Estimated GFR > 60 (>60) mL/min BUN/Creatinine Ratio 8.9 (6-22) Glucose 100 (70-100) mg/dL Lactate 1.0 (0.7-2.1) mmol/L Calcium 9.7 (8.4-10.2) mg/dL Total Bilirubin 0.2 (0.2-1.3) mg/dL AST 22 (14-36) IU/L ALT 21 (<35) IU/L Alkaline Phosphatase 80 (38-126) U/L Total Protein 8.1 (6.3-8.2) g/dL Albumin 4.3 (3.5-5.0) g/dL Globulin 3.8 (1.7-4.1) g/dL Albumin/Globulin Ratio 1.1 (1.0-2.8) Lipase 41 (23-300) U/L Procalcitonin (<0.5) ng/mL Urine Color Urine Appearance Urine pH (4.5-8.0) Ur Specific [place] (1.000-1.035) Urine Protein (Negative) Urine Glucose (UA) (Negative) g/dL Urine Ketones (NEGATIVE) Urine Occult Blood (Negative) Urine Nitrate (Negative) Urine Bilirubin (NEGATIVE) Ur Bilirubin Confirm (Negative) Urine Urobilinogen (0.2) E.U./dL Ur Leukocyte Esterase (NEGATIVE) Urine RBC (0-5/HPF) Urine WBC (0-5/HPF) Ur Squamous Epith Cells (0-5/HPF) Urine Bacteria (None) Ur Culture Indicated? Ketones (<0.27) mmol/L 04/16/23 04/16/23 04/16/23 Range/Units 13:46 13:46 13:46 WBC (4.5-11.0) X10^3/uL RBC (4.0-5.2) X10^6/uL Hgb (12.0-16.0) g/dL Hct (36-46) % MCV (80-100) fL MCH (26-34) PG MCHC (30-36) % RDW (11.6-14.8) % Plt Count (150-400) X10^3/uL Neut % (Auto) (50-75) % Lymph % (Auto) (25-40) % [place] % (Auto) (3-14) % Eos % (Auto) (2-4) % Baso % (Auto) (0-2) % Neut # (Auto) (5043-0509) /uL Lymph # (Auto) (6610-5641) /uL [place] # (Auto) (0-900) /uL Eos # (Auto) (0-450) /uL Baso # (Auto) (0-100) /uL Sodium (137-145) mmol/L Potassium (3.4-5.1) mmol/L Chloride (98-107) mmol/L Carbon Dioxide (22-32) mmol/L BUN (7-17) mg/dL Creatinine (0.52-1.04) mg/dL Estimated GFR (>60) mL/min BUN/Creatinine Ratio (6-22) Glucose (70-100) mg/dL Lactate (0.7-2.1) mmol/L Calcium (8.4-10.2) mg/dL Total Bilirubin (0.2-1.3) mg/dL AST (14-36) IU/L ALT (<35) IU/L Alkaline Phosphatase (38-126) U/L Total Protein (6.3-8.2) g/dL Albumin (3.5-5.0) g/dL Globulin (1.7-4.1) g/dL Albumin/Globulin Ratio (1.0-2.8) Lipase (23-300) U/L Procalcitonin 0.04 (<0.5) ng/mL Urine Color Yellow Urine Appearance Clear Urine pH 6.0 (4.5-8.0) Ur Specific [place] 1.020 (1.000-1.035) Urine Protein Negative (Negative) Urine Glucose (UA) Negative (Negative) g/dL Urine Ketones Negative (NEGATIVE) Urine Occult Blood Negative (Negative) Urine Nitrate Negative (Negative) Urine Bilirubin 1+ H (NEGATIVE) Ur Bilirubin Confirm Negative (Negative) Urine Urobilinogen 0.2 (0.2) E.U./dL Ur Leukocyte Esterase 1+ H (NEGATIVE) Urine RBC 0-1/hpf (0-5/HPF) Urine WBC 1-5/hpf (0-5/HPF) Ur Squamous Epith Cells 1-5 /hpf D (0-5/HPF) Urine Bacteria Occasional (0-1) (None) Ur Culture Indicated? Specimen cultured Ketones 0.06 (<0.27) mmol/L MDM Narrative Medical decision making narrative: [27] year old patient presents with nausea, vomiting and right flank pain Multiple etiologies for patient's symptoms considered including, but not limited to: Hyperemesis versus kidney stone versus pyelonephritis versus other Prior Charts reviewed in our EMR Primary Historian: patient Labs reviewed and interpreted by myself: No leukocytosis or left shift, no signs of anemia, electrolytes and kidney function within normal, no evidence of urine infection Patient's symptoms improved over duration of stay with above-stated therapies. She is no longer dizzy or lightheaded, no longer vomiting, tolerating orals Findings and discharge diagnosis discussed with patient/family followed by verbalization of understanding Return precautions discussed with patient/family whom verbalize understanding of diagnosis and plan Discharge Plan Departure Patient Disposition: Home Clinical Impression: Vomiting Instructions: DI for Hyperemesis Gravidarum Activity Restrictions/Additional Instructions: *You have been diagnosed with [vomiting in . I am glad you feel better. Your labs including urine are very reassuring and there is no evidence of infection.] *What to do: *Please continue to take your regular medications as directed. [ ] New medication prescriptions sent to your pharmacy: [ ] [ ] New medication written as a paper prescription [ ] No new medications given *Please follow up with your primary care provider in 2-3 days, call for an appointment. Let them know you were seen in the Emergency Department and that we ask that you be seen in follow up. We will electronically transmit a record of today's note if your PCP is in our system *If you do not have a primary care provider please contact the [facility] Resource line at [phone]. They will ask some questions about your medical history and help get you set up with a doctor in the community. *Return to Emergency Department if you should have any new, worsening or concerning symptoms, such as [fever greater than 101 F, shaking chills, worsening pain, persistent vomiting or other bothersome symptoms] Prescriptions: No Action cephalexin 250 mg capsule 250 mg PO DAILY Qty: 30 6RF acetaminophen [Tylenol Extra Strength] 500 mg Tablet 1,000 mg PO Q6H PRN (Reason: Pain) metoclopramide HCl [Reglan] 10 mg tablet 10 mg PO Q6H PRN (Reason: nausea and vomiting) Qty: 12 0RF ondansetron 4 mg tablet,disintegrating 4 mg PO TID-QID PRN (Reason: nausea and vomiting) Qty: 10 0RF diphenhydramine HCl 50 mg Capsule 50 mg PO BEDTIME PRN (Reason: Allergy Symptoms) PNV cmb#95-ferrous fumarate-FA [] 28 mg iron- 800 mcg Tablet 1 tab PO DAILY Patient Comments: Unsure of exact lidocaine [Lidoderm] 5 % adhesive patch,medicated 1 patch topical DAILY Qty: 15 0RF Rx Instructions: leave on most painful area for up to 12 hrs Referrals: Shikha Murphy DO [Primary Care Provider] - Stand Alone Forms: Patient Portal/API
[2023-04-16 19:28] LABS: Ketones (Beta-Hydroxybutyrate) 0.06 mmol/L (<0.27)
== END 2023-04-16 20:17 | disposition home or self-care (01) ==
PROVIDERS: Emergency Medicine; Emergency Provider Emergency Medicine; PCP Family Medicine
DX: O21.9 Vomiting of pregnancy, unspecified (principal); Z3A.17 17 weeks gestation of pregnancy
CPT/HCPCS: 36415; 80053; 81001; 82009; 83605; 83690; 84145; 85025; 87086; 96361; 96374; 96375; 99284; J1200; J2405; J2765

== ENCOUNTER 2023-06-18 06:24 | Emergency (ER) | payer OTHER, MEDICAID, SELFPAY ==
[2023-03-26 11:03] VITALS: BMI 43.8
[2023-06-18] VITALS (12 sets, daily range): BP systolic 111–134; BP diastolic 59–77; PULSE 90–104; RESP 16–18; TEMP 36.7; O2SAT 95–99
--- NOTE | 2023-06-18 06:37 | ED.HA ---
HPI - Headache <Debi Tejeda MD - Last Filed: 06/19/23 02:45> General Chief Complaint: Headache Stated Complaint: Migraine Time Seen by Provider: 06/18/23 06:25 Mode of arrival: Ambulatory History of Present Illness HPI Narrative: 27-year-old currently at 26 weeks presents with 24 hours of headache severe enough that she is vomiting with continued nausea, chills, slight cough myalgias. She does complain of sinus and frontal sinus fullness without significant rhinorrhea. She is not describing dysuria. Does note that the baby is active and she reports no fluid leakage or vaginal bleeding. Related Data Home Medications Medication Instructions Recorded Confirmed acetaminophen 500 mg tablet 1,000 mg PO Q6H PRN Pain 01/13/20 05/23/23 (Tylenol Extra Strength) diphenhydramine HCl 50 mg capsule 50 mg PO BEDTIME PRN Allergy 03/26/23 05/23/23 Symptoms vit no.95-ferrous 1 tab PO DAILY 03/26/23 05/23/23 fumarate 28 mg-folic acid 800 mcg tablet () albuterol sulfate 90 mcg/actuation 0 mcg inhalation 05/23/23 05/23/23 aerosol inhaler Previous Rx's Medication Instructions Recorded metoclopramide HCl 10 mg tablet 10 mg PO Q6H PRN nausea and 05/27/21 (Reglan) vomiting #12 tabs ondansetron 4 mg disintegrating 4 mg PO TID-QID PRN nausea and 07/19/22 tablet vomiting #10 tabs lidocaine 5 % topical patch 1 patch topical DAILY #15 ea 03/28/23 (Lidoderm) fluticasone propionate 50 1 spray intranasal Q12H #16 grams 05/23/23 mcg/actuation nasal spray,suspension (Flonase Allergy Relief) fluticasone propionate 50 1 spray intranasal BID #16 grams 06/18/23 mcg/actuation nasal spray,suspension (Flonase Allergy Relief) ondansetron 4 mg disintegrating 4 mg PO Q6H PRN nausea and 06/18/23 tablet vomiting #10 tabs oxycodone 5 mg tablet 5 mg PO QID PRN pain #10 tabs 06/18/23 prednisone 10 mg tablets in a dose See Rx Instructions PO .COMPLEX 06/18/23 pack #21 ea Allergies Allergy/AdvReac Type Severity Reaction Status Date / Time No Known Drug Allergies Allergy Verified 06/18/23 06:34 Review of Systems <Debi Tejeda MD - Last Filed: 06/19/23 02:45> Review of Systems Narrative: Pertinent positive and negative findings as per HPI Patient History <Debi Tejeda MD - Last Filed: 06/19/23 02:45> Medical History Abdominal pain Pyelonephritis (~06/2019) Fusion of toes of right foot Sebaceous cyst Surgical History Hx of foot surgery (08/25/20) Hx of foot surgery S/P hardware removal S/P foot surgery, right (09/12/19) Hx of cholecystectomy Hx of eye surgery History of bunionectomy of left great toe History of bunionectomy of right great toe S/P foot surgery, right Social History household members: significant other, family and children Smoking Status: Former smoker alcohol intake: former Smoking Status: Former smoker alcohol intake frequency: a few times a week Substance Use Type: does not use and marijuana Exam <Debi Tejeda MD - Last Filed: 06/19/23 02:45> Initial Vital Signs Initial Vital Signs: Vital Signs Temperature 98.1 F 06/18/23 06:30 Pulse Rate 104 H 06/18/23 06:30 Respiratory Rate 18 06/18/23 06:30 Blood Pressure 127/77 06/18/23 06:30 Pulse Oximetry 99 06/18/23 06:30 Oxygen Delivery Method Room Air 06/18/23 06:30 General: Appears to feel unwell but not acutely toxic. Able to give a complete and coherent history. Well-nourished well-developed HEENT: Moist mucous membranes, normal sclera with reactive pupils, Neck: No nuchal rigidity, no cervical adenopathy, Respiratory: Lungs with minor scattered wheezes more on the right than the left side no significant rhonchi or rales Cardiac: Mild tachycardia no murmurs appreciated Abdomen: Soft, mild epigastric tenderness, gravid uterus , good bowel tones, no flank pain Skin: Warm and dry, no rashes Neurologic: Grossly neurologically intact with no obvious asymmetries or abnormalities Extremities: No trauma, well perfused Psych: Cooperative, appropriate insight and affect heart tones :150 <Lucille Joshua DO - Last Filed: 06/18/23 19:06> Initial Vital Signs Initial Vital Signs: Vital Signs Temperature 98.1 F 06/18/23 06:30 Pulse Rate 104 H 06/18/23 06:30 Respiratory Rate 18 06/18/23 06:30 Blood Pressure 127/77 06/18/23 06:30 Pulse Oximetry 99 06/18/23 06:30 Oxygen Delivery Method Room Air 06/18/23 06:30 Course <Debi Tejeda MD - Last Filed: 06/19/23 02:45> Orders Ordered: Discontinued Medications Albuterol (Albuterol 2.5 Mg/3 Ml Neb (Adult)) 2.5 mg INH NOW ONE Stop: 06/18/23 06:37 Last Admin: 06/18/23 06:44 Dose: 2.5 mg Documented By: NADYA Hydromorphone HCl (Hydromorphone 0.5 Mg Inj) 0.5 mg IV NOW ONE Stop: 06/18/23 06:38 Last Admin: 06/18/23 06:42 Dose: 0.5 mg Documented By: Sodium Chloride (Normal Saline 0.9%) 1,000 mls @ 1,000 mls/hr IV BOLUS ONE Stop: 06/18/23 07:35 Last Infusion: 06/18/23 07:40 Dose: Infused Documented By: Admin: 06/18/23 06:41 Dose: 1,000 mls/hr Documented By: Metoclopramide HCl (Metoclopramide 10 Mg/2 Ml Inj) 10 mg IV NOW ONE Stop: 06/18/23 07:28 Last Admin: 06/18/23 07:44 Dose: 10 mg Documented By: SPF Ondansetron HCl (Ondansetron 4 Mg/2 Ml Inj) 4 mg IV NOW ONE Stop: 06/18/23 06:37 Last Admin: 06/18/23 06:42 Dose: 4 mg Documented By: Vital Signs Vital signs: Vital Signs - 8 hr 06/18/23 06:30 06/18/23 06:47 06/18/23 06:50 Temperature 98.1 F Pulse Rate 104 H 104 H Respiratory Rate 18 Blood Pressure 127/77 Pulse Oximetry 99 99 98 Oxygen Delivery Method Room Air Room Air 06/18/23 07:00 06/18/23 07:00 06/18/23 07:30 Temperature Pulse Rate 94 H Respiratory Rate Blood Pressure 112/59 L 113/61 Pulse Oximetry 95 Oxygen Delivery Method 06/18/23 07:30 06/18/23 07:48 Temperature Pulse Rate 95 H Respiratory Rate 16 Blood Pressure Pulse Oximetry 95 Oxygen Delivery Method <Lucille Joshua DO - Last Filed: 06/18/23 19:06> Orders Ordered: Discontinued Medications Albuterol (Albuterol 2.5 Mg/3 Ml Neb (Adult)) 2.5 mg INH NOW ONE Stop: 06/18/23 06:37 Last Admin: 06/18/23 06:44 Dose: 2.5 mg Documented By: NADYA Hydromorphone HCl (Hydromorphone 0.5 Mg Inj) 0.5 mg IV NOW ONE Stop: 06/18/23 06:38 Last Admin: 06/18/23 06:42 Dose: 0.5 mg Documented By: Sodium Chloride (Normal Saline 0.9%) 1,000 mls @ 1,000 mls/hr IV BOLUS ONE Stop: 06/18/23 07:35 Last Infusion: 06/18/23 07:40 Dose: Infused Documented By: Admin: 06/18/23 06:41 Dose: 1,000 mls/hr Documented By: Metoclopramide HCl (Metoclopramide 10 Mg/2 Ml Inj) 10 mg IV NOW ONE Stop: 06/18/23 07:28 Last Admin: 06/18/23 07:44 Dose: 10 mg Documented By: SPF Ondansetron HCl (Ondansetron 4 Mg/2 Ml Inj) 4 mg IV NOW ONE Stop: 06/18/23 06:37 Last Admin: 06/18/23 06:42 Dose: 4 mg Documented By: Vital Signs Vital signs: Vital Signs - 8 hr 06/18/23 06:30 06/18/23 06:47 06/18/23 06:50 Temperature 98.1 F Pulse Rate 104 H 104 H Respiratory Rate 18 Blood Pressure 127/77 Pulse Oximetry 99 99 98 Oxygen Delivery Method Room Air Room Air 06/18/23 07:00 06/18/23 07:00 06/18/23 07:30 Temperature Pulse Rate 94 H Respiratory Rate Blood Pressure 112/59 L 113/61 Pulse Oximetry 95 Oxygen Delivery Method 06/18/23 07:30 06/18/23 07:48 Temperature Pulse Rate 95 H Respiratory Rate 16 Blood Pressure Pulse Oximetry 95 Oxygen Delivery Method MDM - Headache <Debi Shashi Tejeda MD - Last Filed: 06/19/23 02:45> Lab Data 06/18/23 06:44 06/18/23 06:44 Labs: Lab Results 06/18/23 Range/Units 06:44 WBC 11.5 H (4.5-11.0) X10^3/uL RBC 3.71 L (4.0-5.2) X10^6/uL Hgb 10.4 L (12.0-16.0) g/dL Hct 30.7 L (36-46) % MCV 82.7 (80-100) fL MCH 28.1 (26-34) PG MCHC 33.9 (30-36) % RDW 14.9 H (11.6-14.8) % Plt Count 274 (150-400) X10^3/uL Neut % (Auto) Not Reportable Lymph % (Auto) Not Reportable [place] % (Auto) Not Reportable Eos % (Auto) Not Reportable Baso % (Auto) Not Reportable Lymph # (Auto) Not Reportable [place] # (Auto) Not Reportable Baso # (Auto) Not Reportable Total Counted 100 Seg Neutrophils % 73.0 H (38-70) % Lymphocytes % (Manual) 21.0 L (25-45) % Monocytes % (Manual) 3.0 (2-11) % Eosinophils % (Manual) 2.0 (2-4) % Myelocytes % 1.0 H (-0) % Neutrophils # (Manual) 8395 H (6181-8328) /uL RBC Morphology Normal morphology Sodium 135 L (137-145) mmol/L Potassium 4.1 (3.4-5.1) mmol/L Chloride 107 (98-107) mmol/L Carbon Dioxide 20 L (22-32) mmol/L BUN 5 L (7-17) mg/dL Creatinine 0.43 L (0.52-1.04) mg/dL Estimated GFR > 60 (>60) mL/min BUN/Creatinine Ratio 11.6 (6-22) Glucose 116 H (70-100) mg/dL Calcium 9.4 (8.4-10.2) mg/dL Total Bilirubin 0.2 (0.2-1.3) mg/dL AST 19 (14-36) IU/L ALT 14 (<35) IU/L Alkaline Phosphatase 76 (38-126) U/L Total Protein 7.1 (6.3-8.2) g/dL Albumin 3.4 L (3.5-5.0) g/dL Globulin 3.7 (1.7-4.1) g/dL Albumin/Globulin Ratio 0.9 L (1.0-2.8) Chlamy pneumoniae PCR Not detected (Not Detect) Adenovirus (PCR) Not detected (Not Detect) B.parapertussis DNA PCR Not detected (Not Detecte) Coronavirus OC43 (PCR) Not detected (Not Detect) Coronavirus HKU1 (PCR) Not detected (Not Detect) Coronavirus 229E (PCR) Not detected (Not Detect) SARS-CoV-2 (PCR) Not detected (Not Detecte) Coronavirus NL63 (PCR) Not detected (Not Detect) Human Metapneumovir PCR Not detected (Not Detect) Influenza Type A (PCR) Not detected (Not Detect) Influenza Type B (PCR) Not detected (Not Detect) M. pneumoniae (PCR) Not detected (Not Detect) Parainfluenza 1 (PCR) Not detected (Not Detect) Parainfluenza 2 (PCR) Not detected (Not Detect) Parainfluenza 3 (PCR) Not detected (Not Detect) Parainfluenza 4 (PCR) Not detected (Not Detect) RSV (PCR) Not detected (Not Detect) Entero/Rhino (PCR) Not detected (Not Detect) Urine Dip Bedside Urine Glucose Negative Bedside Urine Bilirubin - Negative Bedside Urine Ketone - Negative Urine Specific [place] 1.010 Bedside Urine Occult Blood - Negative Bedside Urine pH 8.5 Bedside Urine Protein - Negative Bedside Urine Urobilinogen - Negative Bedside Urine Nitrite - Negative Bedside Urine Leukocytes - Negative Esterase MDM Narrative Medical decision making narrative: CC: Headache, chills, myalgias for 24 hours Complicating co-morbidities: 26 weeks Data collected from: patient, Medical records reviewed: Records from hospital admission for pyelonephritis in March both from OBGYN and hospitalist Service are reviewed Differential considered: Viral syndrome, acute sinusitis, she has no prior history of migraine, Exam documented above, pertinent findings include: She appears to not feel well but is not acutely toxic. Her headache is frontal, bilateral not associated with photophobia Lab Test results independently reviewed as above. Pertinent findings: Independently reviewed EKG as above Imaging studies independently reviewed: Consultations: Treatments: IV fluids, half a mg Dilaudid, Zofran, albuterol nebulizer Re-evaluations: Discussion: <Lucille Joshua, DO - Last Filed: 06/18/23 19:06> Lab Data Labs: Lab Results 06/18/23 Range/Units 06:44 WBC 11.5 H (4.5-11.0) X10^3/uL RBC 3.71 L (4.0-5.2) X10^6/uL Hgb 10.4 L (12.0-16.0) g/dL Hct 30.7 L (36-46) % MCV 82.7 (80-100) fL MCH 28.1 (26-34) PG MCHC 33.9 (30-36) % RDW 14.9 H (11.6-14.8) % Plt Count 274 (150-400) X10^3/uL Neut % (Auto) Not Reportable Lymph % (Auto) Not Reportable [place] % (Auto) Not Reportable Eos % (Auto) Not Reportable Baso % (Auto) Not Reportable Lymph # (Auto) Not Reportable [place] # (Auto) Not Reportable Baso # (Auto) Not Reportable Total Counted 100 Seg Neutrophils % 73.0 H (38-70) % Lymphocytes % (Manual) 21.0 L (25-45) % Monocytes % (Manual) 3.0 (2-11) % Eosinophils % (Manual) 2.0 (2-4) % Myelocytes % 1.0 H (-0) % Neutrophils # (Manual) 8395 H (5451-1032) /uL RBC Morphology Normal morphology Sodium 135 L (137-145) mmol/L Potassium 4.1 (3.4-5.1) mmol/L Chloride 107 (98-107) mmol/L Carbon Dioxide 20 L (22-32) mmol/L BUN 5 L (7-17) mg/dL Creatinine 0.43 L (0.52-1.04) mg/dL Estimated GFR > 60 (>60) mL/min BUN/Creatinine Ratio 11.6 (6-22) Glucose 116 H (70-100) mg/dL Calcium 9.4 (8.4-10.2) mg/dL Total Bilirubin 0.2 (0.2-1.3) mg/dL AST 19 (14-36) IU/L ALT 14 (<35) IU/L Alkaline Phosphatase 76 (38-126) U/L Total Protein 7.1 (6.3-8.2) g/dL Albumin 3.4 L (3.5-5.0) g/dL Globulin 3.7 (1.7-4.1) g/dL Albumin/Globulin Ratio 0.9 L (1.0-2.8) Chlamy pneumoniae PCR Not detected (Not Detect) Adenovirus (PCR) Not detected (Not Detect) B.parapertussis DNA PCR Not detected (Not Detecte) Coronavirus OC43 (PCR) Not detected (Not Detect) Coronavirus HKU1 (PCR) Not detected (Not Detect) Coronavirus 229E (PCR) Not detected (Not Detect) SARS-CoV-2 (PCR) Not detected (Not Detecte) Coronavirus NL63 (PCR) Not detected (Not Detect) Human Metapneumovir PCR Not detected (Not Detect) Influenza Type A (PCR) Not detected (Not Detect) Influenza Type B (PCR) Not detected (Not Detect) M. pneumoniae (PCR) Not detected (Not Detect) Parainfluenza 1 (PCR) Not detected (Not Detect) Parainfluenza 2 (PCR) Not detected (Not Detect) Parainfluenza 3 (PCR) Not detected (Not Detect) Parainfluenza 4 (PCR) Not detected (Not Detect) RSV (PCR) Not detected (Not Detect) Entero/Rhino (PCR) Not detected (Not Detect) Urine Dip Bedside Urine Glucose Negative Bedside Urine Bilirubin - Negative Bedside Urine Ketone - Negative Urine Specific [place] 1.010 Bedside Urine Occult Blood - Negative Bedside Urine pH 8.5 Bedside Urine Protein - Negative Bedside Urine Urobilinogen - Negative Bedside Urine Nitrite - Negative Bedside Urine Leukocytes - Negative Esterase MDM Narrative Medical decision making narrative: CC: Headache, chills, myalgias for 24 hours Complicating co-morbidities: 26 weeks Data collected from: patient, Medical records reviewed: Records from hospital admission for pyelonephritis in March both from OBGYN and hospitalist Service are reviewed Differential considered: Viral syndrome, acute sinusitis, she has no prior history of migraine, Exam documented above, pertinent findings include: She appears to not feel well but is not acutely toxic. Her headache is frontal, bilateral not associated with photophobia Lab Test results independently reviewed as above. Pertinent findings: Independently reviewed EKG as above Imaging studies independently reviewed: Consultations: Treatments: IV fluids, half a mg Dilaudid, Zofran, albuterol nebulizer Re-evaluations: Discussion: 06/18/23 Mank: Patient signed out to myself will workup is pending. Patient was seen independently evaluated by myself. Patient is 26 weeks with headache, chills myalgias and some wheeze on examination initially. Patient received IV fluids, Dilaudid, Zofran and albuterol nebulizer. On recheck patient states headache improved but is still present starting rebound little bit from the pain medications. She states she took Tylenol about 4:00 a.m. this morning. Patient states her wheeze has resolved her shortness of breath feels much improved. Patient does sound quite congested. She does note she would some nausea and vomiting overnight but that has improved as well. Blood pressure is 112 systolic in the vitals are otherwise appropriate, patient SBP has not been above 120 in department. No hypereflexia or new lower extremity edema. Workup shows mild leukocytosis of 11.5, hemoglobin of 10 with a crit of 30, patient was 12-11 range in March and April, platelets are appropriate to 74. BNP shows sodium of 135 normal potassium CO2 20, BUN of 5 with a glucose of 116, normal LFTs. heart tones were 150, respiratory panel show is negative. poc urine shows not proteinuria or infectious changes. Patient has had prior admission in March for pyelonephritis. Patient states narcotic pain medication was helpful but still has headache. Was given additional dose of Reglan for headache which also helpful but still present. Wheeze has resolved on examination. Patient does not have any acute neurologic changes, nuchal rigidity other high-risk factors. Reviewed findings with patient potential differential. Patient feels comfortable with this plan she states she has been a little bit wheezy using her inhaler more. We will do short course of steroids, antinausea medication pain medication. She notes she has a lot of sinus tenderness in his tender over the frontal sinuses on exam. We will do script for Flonase to see if this opens her up for possible sinusitis although she is been afebrile, would not started on oral antibiotic this point. Patient is tolerating oral fluids without issue. She is able to ambulate to the bathroom for urine sample and feels improved but still has headache present. Discharge Plan Departure Patient Disposition: Home Clinical Impression: Headache, Upper respiratory infection Activity Restrictions/Additional Instructions: Follow up with your physician for recheck if your symptoms are not improving. You may take tylenol up to 1000mg every 6 hours as needed for pain. You may take Zofran 1 tablet every 6 hours as needed for nausea/vomiting. If pain isn't adequately controlled can take 1 tablet of oxycodone every 6 hours as needed. Use Flonase 1 spray to bilateral nostrils twice daily. Take oral steroids until completed. Use your albuterol every 4 hours as needed for any wheezing. Prescription sent to [facility] in [place]. Please return for rapidly worsening symptoms, worsening headaches, passing out, fevers, vomiting, new numbness, tingling weakness, difficulty with movement, new swelling of extremities, hyperreflexia, vision changes, new abdominal back or flank pain or other new or concerning changes. Prescriptions: New fluticasone propionate [Flonase Allergy Relief] 50 mcg/actuation spray,suspension 1 spray intranasal BID Qty: 16 0RF Rx Instructions: administer into each nostril prednisone 10 mg tablets,dose pack See Rx Instructions .ROUTE .COMPLEX Qty: 21 0RF Rx Instructions: Take 6 tablets p.o. x1 day, then 5 tablets p.o. x1 day, then 4 tablets p.o. x1 day, 3 tablets p.o. x1 day, to then 2 tablets p.o. x1 day then 1 tablet p.o. x1 day ondansetron 4 mg tablet,disintegrating 4 mg PO Q6H PRN (Reason: nausea and vomiting) Qty: 10 0RF oxycodone 5 mg tablet 5 mg PO QID PRN (Reason: pain) Qty: 10 0RF No Action albuterol sulfate 90 mcg/actuation HFA aerosol inhaler 0 mcg inhalation fluticasone propionate [Flonase Allergy Relief] 50 mcg/actuation spray,suspension 1 spray intranasal Q12H Qty: 16 0RF Rx Instructions: administer into each nostril acetaminophen [Tylenol Extra Strength] 500 mg Tablet 1,000 mg PO Q6H PRN (Reason: Pain) metoclopramide HCl [Reglan] 10 mg tablet 10 mg PO Q6H PRN (Reason: nausea and vomiting) Qty: 12 0RF ondansetron 4 mg tablet,disintegrating 4 mg PO TID-QID PRN (Reason: nausea and vomiting) Qty: 10 0RF diphenhydramine HCl 50 mg Capsule 50 mg PO BEDTIME PRN (Reason: Allergy Symptoms) PNV cmb#95-ferrous fumarate-FA [] 28 mg iron- 800 mcg Tablet 1 tab PO DAILY Patient Comments: Unsure of exact lidocaine [Lidoderm] 5 % adhesive patch,medicated 1 patch topical DAILY Qty: 15 0RF Rx Instructions: leave on most painful area for up to 12 hrs Referrals: Shikha Murphy, [Primary Care Provider] - Stand Alone Forms: Patient Portal/API, Work Release Note
[2023-06-18] MEDS: SODIUM CHLORIDE 0.9% 1,000 ML 1000 ML IV (06:41)
[2023-06-18] MEDS: HYDROMORPHONE 0.5 MG INJ IV (06:42)
[2023-06-18] MEDS: ONDANSETRON 4 MG/2 ML INJ IV (06:42)
[2023-06-18] MEDS: ALBUTEROL 2.5 MG/3 ML NEB (ADULT) INH (06:44)
[2023-06-18 07:01] LABS: Hematocrit 30.7 % (36-46); Hemoglobin 10.4 g/dL (12.0-16.0); Mean Corpuscular HGB Conc 33.9 % (30-36); Mean Corpuscular Hemoglobin 28.1 PG (26-34); Mean Corpuscular Volume 82.7 fL (80-100); Platelet Count 274 X10^3/uL (150-400); Red Blood Cell Count 3.71 X10^6/uL (4.0-5.2); Red Cell Distribution Width 14.9 % (11.6-14.8); White Blood Cell Count 11.5 X10^3/uL (4.5-11.0)
[2023-06-18 07:05] LABS: Alanine Aminotransferase 14 IU/L (<35); Albumin 3.4 g/dL (3.5-5.0); Albumin Globulin Ratio 0.9 (1.0-2.8); Alkaline Phosphatase 76 U/L (38-126); Aspartate Aminotransferase 19 IU/L (14-36); BUN Creatinine Ratio 11.6 (6-22); Bilirubin Total 0.2 mg/dL (0.2-1.3); Blood Urea Nitrogen 5 mg/dL (7-17); Calcium 9.4 mg/dL (8.4-10.2); Carbon Dioxide 20 mmol/L (22-32); Chloride 107 mmol/L (98-107); Estimated Glomerular Filt Rate > 60 mL/min (>60); Globulin 3.7 g/dL (1.7-4.1); Glucose 116 mg/dL (70-100); HEMOLYSIS < 15 (0-50); Potassium 4.1 mmol/L (3.4-5.1); Sodium 135 mmol/L (137-145); Total Protein 7.1 g/dL (6.3-8.2)
[2023-06-18 07:13] LABS: Add Manual Diff / Slide Review YES
[2023-06-18 07:36] LABS: Adenovirus Not Detected (Not Detect); B. parapertussis Not Detected (Not Detecte); Bordetella pertussis Not Detected (Not Detect); Chlamydophila pneumoniae Not Detected (Not Detect); Coronavirus 229E Not Detected (Not Detect); Coronavirus HKU1 Not Detected (Not Detect); Coronavirus NL 63 Not Detected (Not Detect); Coronavirus OC43 Not Detected (Not Detect); Human Metapneumovirus Not Detected (Not Detect); Human Rhinovirus/Enterovirus Not Detected (Not Detect); Influenza A Not Detected (Not Detect); Influenza B Not Detected (Not Detect); Mycoplasma pneumoniae Not Detected (Not Detect); Parainfluenza Virus 1 Not Detected (Not Detect); Parainfluenza Virus 2 Not Detected (Not Detect); Parainfluenza Virus 3 Not Detected (Not Detect); Parainfluenza Virus 4 Not Detected (Not Detect); Respiratory Syncytial Virus Not Detected (Not Detect); SARS- CoV-2 Not Detected (Not Detecte)
[2023-06-18] MEDS: METOCLOPRAMIDE 10 MG/2 ML INJ IV (07:44)
[2023-06-18 08:16] LABS: Neutrophils Absolute Manual 8395 /uL (3000-5900); RBC Morphology Normal Morphology; Total Cells Counted 100
== END 2023-06-18 09:35 | disposition home or self-care (01) ==
PROVIDERS: Emergency Medicine; Emergency Provider Emergency Medicine; PCP Family Medicine
DX: J06.9 Acute upper respiratory infection, unspecified (principal); R51.9 Headache, unspecified; Z3A.26 26 weeks gestation of pregnancy; Z20.822 Contact with and (suspected) exposure to COVID-19
CPT/HCPCS: 36415; 80053; 81003; 85007; 85025; 87633; 94640; 96361; 96374; 96375; 99284; J1170; J2405; J2765; J7613

== ENCOUNTER 2023-07-17 10:47 | Emergency (ER) | payer OTHER, MEDICAID, SELFPAY ==
[2023-03-26 11:03] VITALS: BMI 43.8
[2023-07-17 10:55] VITALS: BP 128/73; PULSE 106; RESP 20; TEMP 36.8; O2SAT 100; BMI 42.9
--- NOTE | 2023-07-17 11:12 | ED_ITS ---
HPI - Nausea/Vomiting/Diarrhea General Chief complaint: Nausea/Vomiting/Diarrhea Stated complaint: possible food poisioning also 31 weeks Time Seen by Provider: 07/17/23 10:50 Source: patient Mode of arrival: Ambulatory History of Present Illness HPI Narrative: Patient is a at 31 weeks EGA. She is having some lower abdominal discomfort. No cramping. No vaginal bleeding. No loss of fluid. She is feeling her baby move. States she was woken at approximately 0200 hours in the morning with nausea and vomiting. Also had diarrhea. No one else in the house is sick. No recent travel. No recent antibiotics. No chest pain shortness of breath or fevers. Related Data Home Medications Medication Instructions Recorded Confirmed acetaminophen 500 mg tablet 1,000 mg PO Q6H PRN Pain 01/13/20 05/23/23 (Tylenol Extra Strength) diphenhydramine HCl 50 mg capsule 50 mg PO BEDTIME PRN Allergy 03/26/23 05/23/23 Symptoms vit no.95-ferrous 1 tab PO DAILY 03/26/23 05/23/23 fumarate 28 mg-folic acid 800 mcg tablet () albuterol sulfate 90 mcg/actuation 0 mcg inhalation 05/23/23 05/23/23 aerosol inhaler Previous Rx's Medication Instructions Recorded metoclopramide HCl 10 mg tablet 10 mg PO Q6H PRN nausea and 05/27/21 (Reglan) vomiting #12 tabs ondansetron 4 mg disintegrating 4 mg PO TID-QID PRN nausea and 07/19/22 tablet vomiting #10 tabs lidocaine 5 % topical patch 1 patch topical DAILY #15 ea 03/28/23 (Lidoderm) fluticasone propionate 50 1 spray intranasal Q12H #16 grams 05/23/23 mcg/actuation nasal spray,suspension (Flonase Allergy Relief) fluticasone propionate 50 1 spray intranasal BID #16 grams 06/18/23 mcg/actuation nasal spray,suspension (Flonase Allergy Relief) ondansetron 4 mg disintegrating 4 mg PO Q6H PRN nausea and 06/18/23 tablet vomiting #10 tabs oxycodone 5 mg tablet 5 mg PO QID PRN pain #10 tabs 06/18/23 prednisone 10 mg tablets in a dose See Rx Instructions PO .COMPLEX 06/18/23 pack #21 ea Allergies Allergy/AdvReac Type Severity Reaction Status Date / Time No Known Drug Allergies Allergy Verified 06/18/23 06:34 Review of Systems Constitutional Constitutional: Reports system reviewed and no additional complaints, except as documented Gastrointestinal Gastrointestinal: Reports system reviewed and no additional complaints, except as documented Genitourinary Genitourinary: Reports system reviewed and no additional complaints, except as documented Integumentary/Breasts Skin/Breast: Reports system reviewed and no additional complaints, except as documented Neurologic Neurologic: Reports system reviewed and no additional complaints, except as documented Patient History Medical History Abdominal pain Pyelonephritis (~06/2019) Fusion of toes of right foot Sebaceous cyst Surgical History Hx of foot surgery (08/25/20) Hx of foot surgery S/P hardware removal S/P foot surgery, right (09/12/19) Hx of cholecystectomy Hx of eye surgery History of bunionectomy of left great toe History of bunionectomy of right great toe S/P foot surgery, right Social History household members: significant other, family and children Smoking Status: Former smoker alcohol intake: former Smoking Status: Former smoker alcohol intake frequency: 0-2 drinks per day Substance Use Type: marijuana Exam Initial Vital Signs Initial Vital Signs: Vital Signs Temperature 98.2 F 07/17/23 10:55 Pulse Rate 106 H 07/17/23 10:55 Respiratory Rate 20 07/17/23 10:55 Blood Pressure 128/73 07/17/23 10:55 Pulse Oximetry 100 07/17/23 10:55 Oxygen Delivery Method Room Air 07/17/23 10:55 HENMT Head: normal to inspection and normocephalic Resp Effort & Inspection: normal respiratory effort Cardio Rate: regular rate GI Other: Gravid abdomen Skin General: no rashes or lesions noted Neuro General: patient alert, patient awake, patient oriented x3 and moves all extremities Course Orders Ordered: ED Orders 07/17/23 11:05 Basic Metabolic Panel Stat Complete Blood Count AUTO DIFF Stat 07/17/23 11:13 US OB limited Stat 07/17/23 13:07 Ictotest Urine Stat Urine Culture Stat Urine Microscopic Stat Discontinued Medications Sodium Chloride (Normal Saline 0.9%) 1,000 mls @ 1,000 mls/hr IV BOLUS ONE Stop: 07/17/23 12:05 Last Infusion: 07/17/23 12:52 Dose: Infused Documented By: Admin: 07/17/23 11:26 Dose: 1,000 mls/hr Documented By: ASIM Metoclopramide HCl (Metoclopramide 10 Mg/2 Ml Inj) 10 mg IV NOW ONE Stop: 07/17/23 13:33 Last Admin: 07/17/23 13:38 Dose: 10 mg Documented By: OFELIA Ondansetron HCl (Ondansetron 4 Mg/2 Ml Inj) 4 mg IV NOW ONE Stop: 07/17/23 11:07 Last Admin: 07/17/23 11:25 Dose: 4 mg Documented By: ASIM Ondansetron HCl (Ondansetron 4 Mg/2 Ml Inj) 4 mg IV NOW ONE Stop: 07/17/23 12:19 Last Admin: 07/17/23 12:25 Dose: 4 mg Documented By: VIVIANE Vital Signs Vital signs: Vital Signs - 8 hr 07/17/23 10:55 07/17/23 12:31 07/17/23 13:30 Temperature 98.2 F Pulse Rate 106 H 104 H 115 H Respiratory Rate 20 18 18 Blood Pressure 128/73 119/60 117/62 Pulse Oximetry 100 98 98 Oxygen Delivery Method Room Air Room Air Room Air 07/17/23 14:05 Temperature Pulse Rate 117 H Respiratory Rate 18 Blood Pressure 119/71 Pulse Oximetry 99 Oxygen Delivery Method Room Air MDM - Nausea/Vomiting/Diarrhea Lab Data Attestation: I reviewed the patient's lab results. 07/17/23 11:05 07/17/23 11:05 Labs: Lab Results 07/17/23 07/17/23 Range/Units 11:05 13:07 WBC 13.1 H (4.5-11.0) X10^3/uL RBC 4.04 (4.0-5.2) X10^6/uL Hgb 11.2 L (12.0-16.0) g/dL Hct 33.0 L (36-46) % MCV 81.7 (80-100) fL MCH 27.6 (26-34) PG MCHC 33.8 (30-36) % RDW 14.9 H (11.6-14.8) % Plt Count 284 (150-400) X10^3/uL Neut % (Auto) 92.4 H (50-75) % Lymph % (Auto) 5.0 L (25-40) % [place] % (Auto) 2.2 L (3-14) % Eos % (Auto) 0.1 L (2-4) % Baso % (Auto) 0.3 (0-2) % Neut # (Auto) 70687 H (3817-5767) /uL Lymph # (Auto) 700 L (0198-8385) /uL [place] # (Auto) 300 (0-900) /uL Eos # (Auto) 0 (0-450) /uL Baso # (Auto) 0 (0-100) /uL Sodium 136 L (137-145) mmol/L Potassium 4.0 (3.4-5.1) mmol/L Chloride 109 H (98-107) mmol/L Carbon Dioxide 20 L (22-32) mmol/L BUN 7 (7-17) mg/dL Creatinine 0.40 L (0.52-1.04) mg/dL Estimated GFR > 60 (>60) mL/min BUN/Creatinine Ratio 17.5 (6-22) Glucose 117 H (70-100) mg/dL Calcium 9.7 (8.4-10.2) mg/dL Ur Bilirubin Confirm Negative (Negative) Urine RBC 0-1/hpf (0-5/HPF) Urine WBC 1-5/hpf (0-5/HPF) Ur Squamous Epith Cells 10-30 /hpf H D (0-5/HPF) Ur Transition Epith Cell 0-1/hpf (0-5/HPF) Urine Bacteria Few (2-10) H (None) Urine Mucus 1+ H (Negative) Ur Culture Indicated? Specimen cultured Urine Dip Bedside Urine Glucose Negative Bedside Urine Bilirubin + 1 Bedside Urine Ketone +++ 80 Urine Specific [place] 1.030 Bedside Urine Occult Blood - Negative Bedside Urine pH 6.0 Bedside Urine Protein + 30 Bedside Urine Urobilinogen - Negative Bedside Urine Nitrite - Negative Bedside Urine Leukocytes +/- 15 Esterase Imaging Data US - OB: Radiologist's Impression: PROCEDURE: US OB LIMITED INDICATIONS: NAUSEA/VOMITING/DIARRHEA/LOWER ABD DISCOMFORT. OUTSIDE/PRIOR DATING DATA: Last menstrual period (LMP): 12/12/2022. LMP-based estimated date of delivery (TYLER): 09/18/2023. First dating scan (date and location): 02/12/2023. Estimated date of delivery (TYLER) from first dating scan: 09/28/2023. The calculations are made using the ultrasound TYLER of 09/28/2023 TECHNIQUE: Real-time scanning was performed of the fetus, with image documentation and biometric measurements. COMPARISON: None. FINDINGS: General: A single living intrauterine gestation is present. Presentation: Breech. Placenta: Placental position is anterior , without previa. Amniotic fluid index: 19.4 cm, normal range is 5-24 cm. Single deepest vertical pocket is 6.8 cm. heart rate: 137 beats per minute. Maternal cervical canal: 3.8 cm long. Normal lower limit is 2.5 cm. biometrics: Composite gestational age from initial scan: 29 weeks 4 days IMPRESSION: Single live intrauterine with gestational age 29 weeks 4 days. KEYUR is within normal limits. MDM Narrative Medical decision making narrative: Ultrasound unremarkable. Labs unremarkable. She is no urinary symptoms we will wait for the urine culture before treating with any antibiotics. She was able to tolerate oral intake. It appears that the Reglan [place] somewhat better than the Zofran. She stated that she does not necessarily have an issue with nausea vomiting during this . Will discharge patient home with return precautions. She expressed understanding and agreement. Discharge Plan Departure Patient Disposition: Home Clinical Impression: Nausea and vomiting in Instructions: Nausea and Vomiting-Adult Activity Restrictions/Additional Instructions: Recommend that you keep all of your scheduled medical appointments and continue any medications as directed. Be sure that you were increasing your fluid intake. I also recommend a bland diet. Return to the emergency department for new or worsening symptoms. Prescriptions: No Action albuterol sulfate 90 mcg/actuation HFA aerosol inhaler 0 mcg inhalation fluticasone propionate [Flonase Allergy Relief] 50 mcg/actuation spray,suspension 1 spray intranasal Q12H Qty: 16 0RF Rx Instructions: administer into each nostril acetaminophen [Tylenol Extra Strength] 500 mg Tablet 1,000 mg PO Q6H PRN (Reason: Pain) metoclopramide HCl [Reglan] 10 mg tablet 10 mg PO Q6H PRN (Reason: nausea and vomiting) Qty: 12 0RF ondansetron 4 mg tablet,disintegrating 4 mg PO TID-QID PRN (Reason: nausea and vomiting) Qty: 10 0RF diphenhydramine HCl 50 mg Capsule 50 mg PO BEDTIME PRN (Reason: Allergy Symptoms) PNV cmb#95-ferrous fumarate-FA [] 28 mg iron- 800 mcg Tablet 1 tab PO DAILY Patient Comments: Unsure of exact lidocaine [Lidoderm] 5 % adhesive patch,medicated 1 patch topical DAILY Qty: 15 0RF Rx Instructions: leave on most painful area for up to 12 hrs fluticasone propionate [Flonase Allergy Relief] 50 mcg/actuation spray,suspension 1 spray intranasal BID Qty: 16 0RF Rx Instructions: administer into each nostril prednisone 10 mg tablets,dose pack See Rx Instructions .ROUTE .COMPLEX Qty: 21 0RF Rx Instructions: Take 6 tablets p.o. x1 day, then 5 tablets p.o. x1 day, then 4 tablets p.o. x1 day, 3 tablets p.o. x1 day, to then 2 tablets p.o. x1 day then 1 tablet p.o. x1 day ondansetron 4 mg tablet,disintegrating 4 mg PO Q6H PRN (Reason: nausea and vomiting) Qty: 10 0RF oxycodone 5 mg tablet 5 mg PO QID PRN (Reason: pain) Qty: 10 0RF Stand Alone Forms: Patient Portal/API
--- NOTE | 2023-07-17 11:13 | DI.US.S_ITS ---
PROCEDURE: US OB LIMITED INDICATIONS: NAUSEA/VOMITING/DIARRHEA/LOWER ABD DISCOMFORT. OUTSIDE/PRIOR DATING DATA: Last menstrual period (LMP): 12/12/2022. LMP-based estimated date of delivery (TYLER): 09/18/2023. First dating scan (date and location): 02/12/2023. Estimated date of delivery (TYLER) from first dating scan: 09/28/2023. The calculations are made using the ultrasound TYLER of 09/28/2023 TECHNIQUE: Real-time scanning was performed of the fetus, with image documentation and biometric measurements. COMPARISON: None. FINDINGS: General: A single living intrauterine gestation is present. Presentation: Breech. Placenta: Placental position is anterior , without previa. Amniotic fluid index: 19.4 cm, normal range is 5-24 cm. Single deepest vertical pocket is 6.8 cm. heart rate: 137 beats per minute. Maternal cervical canal: 3.8 cm long. Normal lower limit is 2.5 cm. biometrics: Composite gestational age from initial scan: 29 weeks 4 days IMPRESSION: Single live intrauterine with gestational age 29 weeks 4 days. KEYUR is within normal limits. We strive to produce accurate, complete, and clear reports of imaging services. To assist us in improving patient care, this report was composed using standard report templates and voice recognition software. Therefore, it may contain abnormal punctuation, insertions and/or omissions. Occasional wrong-word or sound-alike substitutions may occur. Though we review the report and make efforts to correct it, we do recommend that the report be read carefully in proper context to recognize any text inaccuracies. Dictated by: Tiffanie Brown M.D. on 07/17/2023 at 12:19 Approved by: Tiffanie Brown M.D. on 07/17/2023 at 12:22
[2023-07-17] MEDS: ONDANSETRON 4 MG/2 ML INJ IV ×2 (11:25→12:25)
[2023-07-17] MEDS: SODIUM CHLORIDE 0.9% 1,000 ML 1000 ML IV (11:26)
--- NOTE | 2023-07-17 11:31 | PC.NURSE ---
Pt states she cooked 3 day old, past expiration date chicken, last night. Vomiting started about 3-4 hours later. Pt is 8mos . Last OB visit was 1 week ago, states everything looked good.
[2023-07-17 12:04] LABS: Add Manual Diff / Slide Review NO; Basophils Absolute Auto 0 /uL (0-100); Basophils Percent Auto 0.3 % (0-2); Eosinophils Absolute Auto 0 /uL (0-450); Eosinophils Percent Auto 0.1 % (2-4); Hemoglobin 11.2 g/dL (12.0-16.0); Lymphocytes Absolute Auto 700 /uL (1100-4500); Mean Corpuscular HGB Conc 33.8 % (30-36); Mean Corpuscular Hemoglobin 27.6 PG (26-34); Mean Corpuscular Volume 81.7 fL (80-100); Monocytes Absolute Auto 300 /uL (0-900); Monocytes Percent Auto 2.2 % (3-14); Neutrophils Absolute Auto 12100 /uL (1500-7000); Neutrophils Percent Auto 92.4 % (50-75); Platelet Count 284 X10^3/uL (150-400); Red Blood Cell Count 4.04 X10^6/uL (4.0-5.2); Red Cell Distribution Width 14.9 % (11.6-14.8); White Blood Cell Count 13.1 X10^3/uL (4.5-11.0)
[2023-07-17 12:16] LABS: BUN Creatinine Ratio 17.5 (6-22); Blood Urea Nitrogen 7 mg/dL (7-17); Calcium 9.7 mg/dL (8.4-10.2); Carbon Dioxide 20 mmol/L (22-32); Chloride 109 mmol/L (98-107); Estimated Glomerular Filt Rate > 60 mL/min (>60); Glucose 117 mg/dL (70-100); HEMOLYSIS < 15 (0-50); Sodium 136 mmol/L (137-145)
[2023-07-17 12:31] VITALS: BP 119/60; PULSE 104; RESP 18; O2SAT 98
--- NOTE | 2023-07-17 12:32 | PC.NURSE ---
Pt received OB u/s, heart tones recorded in the OB ultrasound report.
[2023-07-17 13:30] VITALS: BP 117/62; PULSE 115; RESP 18; O2SAT 98
--- NOTE | 2023-07-17 13:32 | PC.NURSE ---
pt vomiting; Dr. lainez notified
[2023-07-17] MEDS: METOCLOPRAMIDE 10 MG/2 ML INJ IV (13:38)
[2023-07-17 13:52] LABS: Bacteria Urine Few (2-10); Ictotest Urine Negative (Negative); Mucus Urine 1+ (Negative); RBC Urine 0-1/HPF (0-5/HPF); Squamous Epithelial Cell Urine 10-30 /HPF (0-5/HPF); Transitional Epi Cells Urine 0-1/HPF (0-5/HPF); WBC Urine 1-5/HPF (0-5/HPF)
[2023-07-17 13:53] LABS: Culture Indicated Urine Specimen Cultured
[2023-07-17 14:05] VITALS: BP 119/71; PULSE 117; RESP 18; O2SAT 99
[2023-07-17 14:50] VITALS: PULSE 89; RESP 18; O2SAT 99
== END 2023-07-17 14:50 | disposition home or self-care (01) ==
PROVIDERS: Emergency Provider Emergency Medicine
DX: O21.9 Vomiting of pregnancy, unspecified (principal); Z3A.31 31 weeks gestation of pregnancy
CPT/HCPCS: 36415; 76815; 80048; 81003; 81015; 85025; 87086; 96361; 96374; 96375; 96376; 99284; J2405; J2765

== ENCOUNTER 2023-08-10 08:48 | Emergency (ER) | payer OTHER, MEDICAID, SELFPAY ==
[2023-03-26 11:03] VITALS: BMI 43.8
[2023-08-10] VITALS (7 sets, daily range): BP systolic 107–125; BP diastolic 61–75; PULSE 88–98; RESP 18–20; TEMP 36.4; O2SAT 95–98; BMI 43.8
--- NOTE | 2023-08-10 09:01 | ED.HA ---
HPI - Headache General Chief Complaint: Headache Stated Complaint: migrane t-2 Time Seen by Provider: 08/10/23 08:52 Mode of arrival: Ambulatory History of Present Illness HPI Narrative: Patient is a 27-year-old female currently 34 weeks presenting today with migraine headache for the last 2 days. She reports that for the last trimester she is been getting headaches. She is actually seen evaluated here in June for something similar. She denies any fever or chills no neck pain no abdominal pain vaginal bleeding. She reports some ongoing back discomfort. She was given Fioricet to help with headaches. She took that this morning along Zofran and still not quite going. Blood pressure is 125/75 Related Data Home Medications Medication Instructions Recorded Confirmed acetaminophen 500 mg tablet 1,000 mg PO Q6H PRN Pain 01/13/20 05/23/23 (Tylenol Extra Strength) diphenhydramine HCl 50 mg capsule 50 mg PO BEDTIME PRN Allergy 03/26/23 05/23/23 Symptoms vit no.95-ferrous 1 tab PO DAILY 03/26/23 05/23/23 fumarate 28 mg-folic acid 800 mcg tablet () albuterol sulfate 90 mcg/actuation 0 mcg inhalation 05/23/23 05/23/23 aerosol inhaler Previous Rx's Medication Instructions Recorded metoclopramide HCl 10 mg tablet 10 mg PO Q6H PRN nausea and 05/27/21 (Reglan) vomiting #12 tabs ondansetron 4 mg disintegrating 4 mg PO TID-QID PRN nausea and 07/19/22 tablet vomiting #10 tabs lidocaine 5 % topical patch 1 patch topical DAILY #15 ea 03/28/23 (Lidoderm) fluticasone propionate 50 1 spray intranasal Q12H #16 grams 05/23/23 mcg/actuation nasal spray,suspension (Flonase Allergy Relief) fluticasone propionate 50 1 spray intranasal BID #16 grams 06/18/23 mcg/actuation nasal spray,suspension (Flonase Allergy Relief) ondansetron 4 mg disintegrating 4 mg PO Q6H PRN nausea and 06/18/23 tablet vomiting #10 tabs oxycodone 5 mg tablet 5 mg PO QID PRN pain #10 tabs 06/18/23 prednisone 10 mg tablets in a dose See Rx Instructions PO .COMPLEX 06/18/23 pack #21 ea Allergies Allergy/AdvReac Type Severity Reaction Status Date / Time No Known Drug Allergies Allergy Verified 06/18/23 06:34 Patient History Medical History Abdominal pain Pyelonephritis (~06/2019) Fusion of toes of right foot Sebaceous cyst Surgical History Hx of foot surgery (08/25/20) Hx of foot surgery S/P hardware removal S/P foot surgery, right (09/12/19) Hx of cholecystectomy Hx of eye surgery History of bunionectomy of left great toe History of bunionectomy of right great toe S/P foot surgery, right Social History household members: significant other, family and children Smoking Status: Former smoker alcohol intake: former Smoking Status: Former smoker alcohol intake frequency: 0-2 drinks per day Substance Use Type: marijuana Exam Initial Vital Signs Initial Vital Signs: Vital Signs Temperature 97.5 F L 08/10/23 08:58 Pulse Rate 98 H 08/10/23 08:58 Respiratory Rate 20 08/10/23 08:58 Blood Pressure 125/75 08/10/23 08:58 Pulse Oximetry 98 08/10/23 08:58 Oxygen Delivery Method Room Air 08/10/23 08:58 GENERAL: Alert 27-year-old female and in no acute distress. HEENT: Head atraumatic,EOMI, pupils reactive, face symmetric, moist mucous membranes, neck is supple no vertebral tenderness CARDIOVASCULAR: Regular rate and rhythm without murmurs, rubs or gallops. RESPIRATORY: Breath sounds equal bilaterally, no wheezes rales or rhonchi. ABDOMEN: Soft, nontender. Normoactive bowel sounds all 4 quadrants. No guarding or rebound. Gravid nontender EXTREMITIES: Normal range of motion, no clubbing or edema. Neurovascularly intact NEUROLOGICAL: Alert and oriented x4. 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 Course Orders Ordered: ED Orders 08/10/23 09:12 CBC Auto Diff [Complete Blood Count AUTO DIFF] Stat CMP [Comprehensive Metabolic Panel] Stat 08/10/23 10:47 UA dip and micro [Urinalysis and Microscopic] Stat Discontinued Medications Hydromorphone HCl (Hydromorphone 0.5 Mg Inj) 0.5 mg IV NOW ONE Stop: 08/10/23 09:50 Last Admin: 08/10/23 09:57 Dose: 0.5 mg Documented By: OFELIA Sodium Chloride (Normal Saline 0.9%) 1,000 mls @ 1,000 mls/hr IV BOLUS ONE Stop: 08/10/23 10:00 Last Infusion: 08/10/23 10:39 Dose: Infused Documented By: Admin: 08/10/23 09:17 Dose: 1,000 mls/hr Documented By: OFELIA Acetaminophen (Ofirmev) 1,000 mg in 100 mls @ 400 mls/hr IV NOW ONE Stop: 08/10/23 09:15 Last Infusion: 08/10/23 09:35 Dose: Infused Documented By: Admin: 08/10/23 09:17 Dose: 400 mls/hr Documented By: OFELIA Metoclopramide HCl (Metoclopramide 10 Mg/2 Ml Inj) 10 mg IV NOW ONE Stop: 08/10/23 09:50 Last Admin: 08/10/23 09:57 Dose: 10 mg Documented By: OFELIA Ondansetron HCl (Ondansetron 4 Mg/2 Ml Inj) 4 mg IV NOW ONE Stop: 08/10/23 09:02 Last Admin: 08/10/23 09:17 Dose: 4 mg Documented By: OFELIA Vital Signs Vital signs: Vital Signs - 8 hr 08/10/23 08:58 08/10/23 09:11 08/10/23 09:30 Temperature 97.5 F L Pulse Rate 98 H 89 91 H Respiratory Rate 20 Blood Pressure 125/75 Pulse Oximetry 98 97 98 Oxygen Delivery Method Room Air 08/10/23 10:00 08/10/23 10:01 08/10/23 10:02 Temperature Pulse Rate 93 H 93 H Respiratory Rate Blood Pressure 113/61 Pulse Oximetry 95 96 Oxygen Delivery Method 08/10/23 11:09 Temperature Pulse Rate 88 Respiratory Rate 18 Blood Pressure 107/61 Pulse Oximetry 97 Oxygen Delivery Method Room Air MDM - Headache Lab Data 08/10/23 09:12 08/10/23 09:12 Labs: Lab Results 12/08/23 12/08/23 Range/Units 09:12 10:47 WBC 10.1 (4.5-11.0) X10^3/uL RBC 4.00 (4.0-5.2) X10^6/uL Hgb 10.9 L (12.0-16.0) g/dL Hct 31.9 L (36-46) % MCV 79.7 L (80-100) fL MCH 27.3 (26-34) PG MCHC 34.3 (30-36) % RDW 14.9 H (11.6-14.8) % Plt Count 251 (150-400) X10^3/uL Neut % (Auto) 76.1 H (50-75) % Lymph % (Auto) 16.0 L (25-40) % [place] % (Auto) 5.5 (3-14) % Eos % (Auto) 2.1 (2-4) % Baso % (Auto) 0.3 (0-2) % Neut # (Auto) 7700 H (3158-8675) /uL Lymph # (Auto) 1600 (4489-5742) /uL [place] # (Auto) 600 (0-900) /uL Eos # (Auto) 200 (0-450) /uL Baso # (Auto) 0 (0-100) /uL Sodium 135 L (137-145) mmol/L Potassium 3.8 (3.4-5.1) mmol/L Chloride 107 (98-107) mmol/L Carbon Dioxide 21 L (22-32) mmol/L BUN 5 L (7-17) mg/dL Creatinine 0.48 L (0.52-1.04) mg/dL Estimated GFR > 60 (>60) mL/min BUN/Creatinine Ratio 10.4 (6-22) Glucose 101 H (70-100) mg/dL Calcium 9.6 (8.4-10.2) mg/dL Total Bilirubin 0.4 (0.2-1.3) mg/dL AST 20 (14-36) IU/L ALT 15 (<35) IU/L Alkaline Phosphatase 126 (38-126) U/L Total Protein 7.3 (6.3-8.2) g/dL Albumin 3.6 (3.5-5.0) g/dL Globulin 3.7 (1.7-4.1) g/dL Albumin/Globulin Ratio 1.0 (1.0-2.8) Urine Color Yellow Urine Appearance Clear Urine pH 6.5 (4.5-8.0) Ur Specific [place] 1.025 (1.000-1.035) Urine Protein Negative (Negative) Urine Glucose (UA) Negative (Negative) g/dL Urine Ketones 3+ H (NEGATIVE) Urine Occult Blood Negative (Negative) Urine Nitrate Negative (Negative) Urine Bilirubin Negative (NEGATIVE) Urine Urobilinogen 0.2 (0.2) E.U./dL Ur Leukocyte Esterase Negative (NEGATIVE) Urine RBC None seen (0-5/HPF) Urine WBC 0-1/hpf (0-5/HPF) Ur Squamous Epith Cells 10-30 /hpf H (0-5/HPF) Urine Bacteria Few (2-10) H (None) Ur Culture Indicated? Cult not indicated MDM Narrative Medical decision making narrative: Patient still nauseous after Zofran Tylenol still having headache. She received Reglan and Dilaudid and instantly improved. Blood pressure is within normal limits no evidence of preeclampsia although she does some protein in her urine. She has no edema and no hypertension. Blood work has been reviewed no leukocytosis no anemia electrolytes within normal limits no CKD or MERLINE No neurologic deficits she is had migraines for this this is similar to previous episodes. She quickly improved with medication and fluids. No evidence of infection, or preeclampsia. Patient is ambulatory in the ED appears well she feels ready able to go home. Discharge Plan Departure Patient Disposition: Home Clinical Impression: Migraine Instructions: DI for Migraine Activity Restrictions/Additional Instructions: *You have been diagnosed with migraine headache *What to do: At this time I am glad that you are feeling better. Please stay hydrated and rest *Continue to take medications as directed *Follow up with your primary care provider in 2-3 days or call [phone] Follow-up with OB as scheduled *Return to ER if you should have increased headache numbness tingling weakness fever or any new, worsening or concerning symptoms Prescriptions: No Action albuterol sulfate 90 mcg/actuation HFA aerosol inhaler 0 mcg inhalation fluticasone propionate [Flonase Allergy Relief] 50 mcg/actuation spray,suspension 1 spray intranasal Q12H Qty: 16 0RF Rx Instructions: administer into each nostril acetaminophen [Tylenol Extra Strength] 500 mg Tablet 1,000 mg PO Q6H PRN (Reason: Pain) metoclopramide HCl [Reglan] 10 mg tablet 10 mg PO Q6H PRN (Reason: nausea and vomiting) Qty: 12 0RF ondansetron 4 mg tablet,disintegrating 4 mg PO TID-QID PRN (Reason: nausea and vomiting) Qty: 10 0RF diphenhydramine HCl 50 mg Capsule 50 mg PO BEDTIME PRN (Reason: Allergy Symptoms) PNV cmb#95-ferrous fumarate-FA [] 28 mg iron- 800 mcg Tablet 1 tab PO DAILY Patient Comments: Unsure of exact lidocaine [Lidoderm] 5 % adhesive patch,medicated 1 patch topical DAILY Qty: 15 0RF Rx Instructions: leave on most painful area for up to 12 hrs fluticasone propionate [Flonase Allergy Relief] 50 mcg/actuation spray,suspension 1 spray intranasal BID Qty: 16 0RF Rx Instructions: administer into each nostril prednisone 10 mg tablets,dose pack See Rx Instructions .ROUTE .COMPLEX Qty: 21 0RF Rx Instructions: Take 6 tablets p.o. x1 day, then 5 tablets p.o. x1 day, then 4 tablets p.o. x1 day, 3 tablets p.o. x1 day, to then 2 tablets p.o. x1 day then 1 tablet p.o. x1 day ondansetron 4 mg tablet,disintegrating 4 mg PO Q6H PRN (Reason: nausea and vomiting) Qty: 10 0RF oxycodone 5 mg tablet 5 mg PO QID PRN (Reason: pain) Qty: 10 0RF Stand Alone Forms: Patient Portal/API, Work Release Note
[2023-08-10] MEDS: SODIUM CHLORIDE 0.9% 1,000 ML 1000 ML IV (09:17)
[2023-08-10] MEDS: ACETAMINOPHEN IV 1,000 MG/100 ML VIAL 400 MG IV (09:17)
[2023-08-10] MEDS: ONDANSETRON 4 MG/2 ML INJ IV (09:17)
[2023-08-10 09:28] LABS: Add Manual Diff / Slide Review NO; Basophils Absolute Auto 0 /uL (0-100); Basophils Percent Auto 0.3 % (0-2); Eosinophils Absolute Auto 200 /uL (0-450); Eosinophils Percent Auto 2.1 % (2-4); Hematocrit 31.9 % (36-46); Hemoglobin 10.9 g/dL (12.0-16.0); Lymphocytes Absolute Auto 1600 /uL (1100-4500); Mean Corpuscular HGB Conc 34.3 % (30-36); Mean Corpuscular Hemoglobin 27.3 PG (26-34); Mean Corpuscular Volume 79.7 fL (80-100); Monocytes Absolute Auto 600 /uL (0-900); Monocytes Percent Auto 5.5 % (3-14); Neutrophils Absolute Auto 7700 /uL (1500-7000); Neutrophils Percent Auto 76.1 % (50-75); Platelet Count 251 X10^3/uL (150-400); Red Cell Distribution Width 14.9 % (11.6-14.8); White Blood Cell Count 10.1 X10^3/uL (4.5-11.0)
[2023-08-10 09:44] LABS: Alanine Aminotransferase 15 IU/L (<35); Albumin 3.6 g/dL (3.5-5.0); Alkaline Phosphatase 126 U/L (38-126); Aspartate Aminotransferase 20 IU/L (14-36); BUN Creatinine Ratio 10.4 (6-22); Bilirubin Total 0.4 mg/dL (0.2-1.3); Blood Urea Nitrogen 5 mg/dL (7-17); Calcium 9.6 mg/dL (8.4-10.2); Carbon Dioxide 21 mmol/L (22-32); Chloride 107 mmol/L (98-107); Estimated Glomerular Filt Rate > 60 mL/min (>60); Globulin 3.7 g/dL (1.7-4.1); Glucose 101 mg/dL (70-100); HEMOLYSIS < 15 (0-50); Potassium 3.8 mmol/L (3.4-5.1); Sodium 135 mmol/L (137-145); Total Protein 7.3 g/dL (6.3-8.2)
[2023-08-10] MEDS: HYDROMORPHONE 0.5 MG INJ IV (09:57)
[2023-08-10] MEDS: METOCLOPRAMIDE 10 MG/2 ML INJ IV (09:57)
[2023-08-10 11:30] LABS: Bilirubin Urine UA NEGATIVE (NEGATIVE); Color Urine UA YELLOW; Glucose Urine UA NEGATIVE (Negative); Ketones Urine UA 3+ (NEGATIVE); Leukocyte Esterase Urine UA NEGATIVE (NEGATIVE); Nitrite Urine UA NEGATIVE (Negative); Occult Blood Urine UA NEGATIVE (Negative); Protein Urine UA NEGATIVE (Negative); Specific Gravity Urine UA 1.025 (1.000-1.035); Urobilinogen Urine UA 0.2 E.U./dL (0.2)
[2023-08-10 11:41] LABS: pH Urine UA 6.5 (4.5-8.0)
[2023-08-10 11:43] LABS: Bacteria Urine Few (2-10); RBC Urine None Seen (0-5/HPF); Squamous Epithelial Cell Urine 10-30 /HPF (0-5/HPF); WBC Urine 0-1/HPF (0-5/HPF)
[2023-08-10 11:44] LABS: Appearance Urine UA CLEAR; Culture Indicated Urine Cult Not Indicated
== END 2023-08-10 11:10 | disposition home or self-care (01) ==
PROVIDERS: Emergency Provider Emergency Medicine
DX: O26.893 Other specified pregnancy related conditions, third trimester (principal); G43.909 Migraine, unspecified, not intractable, without status migrainosus; Z3A.34 34 weeks gestation of pregnancy
CPT/HCPCS: 36415; 80053; 81001; 85025; 96361; 96374; 96375; 99284; J0131; J1170; J2405; J2765

== ENCOUNTER 2023-10-01 09:55 | Inpatient (IN) | payer OTHER, MEDICAID, SELFPAY ==
[2023-03-26 11:03] VITALS: BMI 43.8
[2023-10-01] VITALS (11 sets, daily range): BP systolic 117–148; BP diastolic 64–92; PULSE 70–92; RESP 16–20; TEMP 35.9–37.1; O2SAT 98–100; BMI 43.5
[2023-10-01 10:45] LABS: Add Manual Diff / Slide Review NO; Basophils Absolute Auto 0 /uL (0-100); Basophils Percent Auto 0.6 % (0-2); Eosinophils Absolute Auto 300 /uL (0-450); Eosinophils Percent Auto 3.7 % (2-4); Hematocrit 28.3 % (36-46); Hemoglobin 9.4 g/dL (12.0-16.0); Lymphocytes Absolute Auto 1500 /uL (1100-4500); Lymphocytes Percent Auto 20.5 % (25-40); Mean Corpuscular HGB Conc 33.2 % (30-36); Mean Corpuscular Hemoglobin 26.4 PG (26-34); Mean Corpuscular Volume 79.4 fL (80-100); Monocytes Absolute Auto 300 /uL (0-900); Monocytes Percent Auto 4.1 % (3-14); Neutrophils Absolute Auto 5100 /uL (1500-7000); Neutrophils Percent Auto 71.1 % (50-75); Platelet Count 338 X10^3/uL (150-400); Red Blood Cell Count 3.56 X10^6/uL (4.0-5.2); White Blood Cell Count 7.1 X10^3/uL (4.5-11.0)
[2023-10-01 10:52] LABS: INR 0.9 (0.9-1.3); Prothrombin Time 10.5 SECONDS (9.4-12.5)
[2023-10-01 10:55] LABS: PTT Partial Thromboplastin Tim 31 SECONDS (25.1-36.5)
[2023-10-01 11:04] LABS: Alanine Aminotransferase 23 IU/L (<35); Albumin 3.5 g/dL (3.5-5.0); Alkaline Phosphatase 108 U/L (38-126); Aspartate Aminotransferase 29 IU/L (14-36); BUN Creatinine Ratio 13.6 (6-22); Bilirubin Total 0.4 mg/dL (0.2-1.3); Blood Urea Nitrogen 9 mg/dL (7-17); Calcium 9.2 mg/dL (8.4-10.2); Carbon Dioxide 22 mmol/L (22-32); Chloride 110 mmol/L (98-107); Estimated Glomerular Filt Rate > 60 mL/min (>60); Globulin 3.5 g/dL (1.7-4.1); Glucose 101 mg/dL (70-100); HEMOLYSIS < 15 (0-50); Lipase 61 U/L (23-300); Potassium 3.8 mmol/L (3.4-5.1); Sodium 137 mmol/L (137-145)
--- NOTE | 2023-10-01 11:33 | ED_ITS ---
HPI - Headache <Marisa Fajardo PA-C - Last Filed: 10/01/23 14:32> General Chief Complaint: Headache Stated Complaint: swelling on both feet, 6 days Time Seen by Provider: 10/01/23 10:22 Mode of arrival: Wheelchair History of Present Illness HPI Narrative: This is a 28-year-old woman with BMI of 43 who is 7 days after at [facility] under care of Cherry Stevens, who presents with concern for persistent severe headache, spots in her vision, right upper quadrant pain and lower extremity pain and swelling for 2 and a half days. Patient states that the headache began on Sunday 2 days ago and yesterday she developed the spots (like little dots of light) in her vision in the afternoon after she woke up yesterday morning with pain and swelling of her feet ankles and lower legs. Patient's upper abdominal pain began yesterday evening. Patient went to [facility] yesterday and was evaluated there but released from the emergency department. She presents today because her symptoms have persisted and she got a call from them advising she should come back in for further evaluation as they noted she did have a high blood pressure at her last vitals before she left the emergency department. Patient describes her headache as global and about an 8/10 she says the medication she got in the emergency department yesterday helped some with the headache but Tylenol and ibuprofen have not helped any at home. She says her legs are generally very painful and swollen feeling and states that she had normal blood pressures during including in her last trimester with blood pressures around 100 or 106 systolic. She is and states she generally feels unwell. She has not had vomiting diarrhea or other symptoms. Related Data Home Medications Medication Instructions Recorded Confirmed acetaminophen 500 mg tablet 1,000 mg PO Q6H PRN Pain 01/13/20 05/23/23 (Tylenol Extra Strength) diphenhydramine HCl 50 mg capsule 50 mg PO BEDTIME PRN Allergy 03/26/23 05/23/23 Symptoms vit no.95-ferrous 1 tab PO DAILY 03/26/23 05/23/23 fumarate 28 mg-folic acid 800 mcg tablet () albuterol sulfate 90 mcg/actuation 0 mcg inhalation 05/23/23 05/23/23 aerosol inhaler Previous Rx's Medication Instructions Recorded metoclopramide HCl 10 mg tablet 10 mg PO Q6H PRN nausea and 05/27/21 (Reglan) vomiting #12 tabs ondansetron 4 mg disintegrating 4 mg PO TID-QID PRN nausea and 07/19/22 tablet vomiting #10 tabs lidocaine 5 % topical patch 1 patch topical DAILY #15 ea 03/28/23 (Lidoderm) fluticasone propionate 50 1 spray intranasal Q12H #16 grams 05/23/23 mcg/actuation nasal spray,suspension (Flonase Allergy Relief) fluticasone propionate 50 1 spray intranasal BID #16 grams 06/18/23 mcg/actuation nasal spray,suspension (Flonase Allergy Relief) ondansetron 4 mg disintegrating 4 mg PO Q6H PRN nausea and 06/18/23 tablet vomiting #10 tabs oxycodone 5 mg tablet 5 mg PO QID PRN pain #10 tabs 06/18/23 prednisone 10 mg tablets in a dose See Rx Instructions PO .COMPLEX 06/18/23 pack #21 ea Allergies Allergy/AdvReac Type Severity Reaction Status Date / Time No Known Drug Allergies Allergy Verified 10/01/23 10:17 Review of Systems <Marisa Fajardo PA-C - Last Filed: 10/01/23 14:32> Review of Systems Narrative: See HPI Patient History <Marisa Fajardo PA-C - Last Filed: 10/01/23 14:32> Medical History Abdominal pain Pyelonephritis (~06/2019) Fusion of toes of right foot Sebaceous cyst Surgical History Hx of foot surgery (08/25/20) Hx of foot surgery S/P hardware removal S/P foot surgery, right (09/12/19) Hx of cholecystectomy Hx of eye surgery History of bunionectomy of left great toe History of bunionectomy of right great toe S/P foot surgery, right Social History household members: significant other, family and children Smoking Status: Former smoker alcohol intake: former Smoking Status: Former smoker alcohol intake frequency: 0-2 drinks per day Substance Use Type: marijuana Exam <Marisa Fajardo PA-C - Last Filed: 10/01/23 14:32> Narrative Exam Narrative: GENERAL: [28] year old patient appears stated age. Well-developed patient, in mild distress, uncomfortable appearing. HEAD: Atraumatic. Normocephalic. EYES: Pupils equal round and reactive. Extraocular motions intact. No scleral icterus. No injection or drainage. ENT: Nose without bleeding, purulent drainage. Airway patent. NECK: Trachea midline. Non tender CARDIOVASCULAR: Regular rate and rhythm without murmurs, gallops, or rubs. RESPIRATORY: Clear to auscultation. Breath sounds equal bilaterally. No wheezes, rales, or rhonchi. GASTROINTESTINAL: Abdomen soft, protuberant, she is [id number] tender in the lower abdomen consistent with recent spontaneous vaginal delivery, she is quite tender in the epigastric and right upper quadrant, nondistended. EXTREMITIES: Bilateral nonpitting lower extremity generalized edema prominent in the feet and ankles, no joint tenderness; no clonus is noted on exam however she does seem hyperreflexic with patellar reflexes. BACK: No flank tenderness. NEURO: AOx3. SKIN: No rash or erythema of visible areas Initial Vital Signs Initial Vital Signs: Vital Signs Temperature 96.6 F L 10/01/23 10:14 Pulse Rate 85 10/01/23 10:14 Respiratory Rate 16 10/01/23 10:14 Blood Pressure 143/76 H 10/01/23 10:14 Pulse Oximetry 99 10/01/23 10:14 Oxygen Delivery Method Room Air 10/01/23 10:14 <Lucille Joshua DO - Last Filed: 10/01/23 18:49> Initial Vital Signs Initial Vital Signs: Vital Signs Temperature 96.6 F L 10/01/23 10:14 Pulse Rate 85 10/01/23 10:14 Respiratory Rate 16 10/01/23 10:14 Blood Pressure 143/76 H 10/01/23 10:14 Pulse Oximetry 99 10/01/23 10:14 Oxygen Delivery Method Room Air 10/01/23 10:14 Course <Marisa Fajardo PA-C - Last Filed: 10/01/23 14:32> Course Course Narrative: Spoke with RN for Dr. Foist OB, who states she will ask Dr. Prakash to call back currently not at her desk. [address] Prakash, OB by phone who agrees to accept this patient. We reviewed some of her labs together and discussed the patient case she will come and evaluate the patient and admit the patient to this hospital. 1240 Decision to Admit Date: 10/01/23 Decision to Admit time: 12:40 Additional Information: Preeclampsia Orders Ordered: ED Orders 10/01/23 10:30 CBC Auto Diff [Complete Blood Count AUTO DIFF] Stat CMP [Comprehensive Metabolic Panel] Stat Lipase Stat PTT Partial Thromboplastin Marty Stat Prothrombin Time INR Stat 10/01/23 10:44 Protein Creatinine Ratio Urine Stat Urine Culture Stat Urine Microscopic Stat 10/01/23 12:33 Consult to Obstetrics Stat Acetaminophen (Acetaminophen 325 Mg Tablet) 650 mg PO Q4H PRN PRN Reason: Fever/Mild Pain (1-3) Last Admin: 10/01/23 17:30 Dose: 650 mg Documented By: Hydrochlorothiazide (Hydrochlorothiazide 25 Mg Tablet) 25 mg PO DAILY [facility] Ibuprofen (Ibuprofen 600 Mg Tablet) 600 mg PO Q6HR PRN PRN Reason: Fever/Mild Pain (1-3) Labetalol HCl (Labetalol 100 Mg Tablet) 100 mg PO BID [facility] Last Admin: 10/01/23 13:28 Dose: 100 mg Documented By: OFELIA Discontinued Medications Furosemide (Furosemide 20 Mg Tablet) 10 mg PO 0800,1700 [facility] Last Admin: 10/01/23 15:44 Dose: 10 mg Documented By: Sodium Chloride (Normal Saline 0.9%) 1,000 mls @ 1,000 mls/hr IV BOLUS ONE Stop: 10/01/23 11:21 Last Admin: 10/01/23 11:47 Dose: Not Given Documented By: DYLON Ketorolac Tromethamine (Ketorolac 30 Mg/Ml Vial) 15 mg IV NOW ONE Stop: 10/01/23 11:51 Last Admin: 10/01/23 12:38 Dose: Not Given Documented By: DYLON Ketorolac Tromethamine (Ketorolac 30 Mg/Ml Vial) 15 mg IV NOW ONE Stop: 10/01/23 12:33 Last Admin: 10/01/23 13:28 Dose: 15 mg Documented By: OFELIA Oxycodone HCl (Oxycodone Ir 5 Mg Tablet) 5 mg PO NOW ONE Stop: 10/01/23 15:23 Last Admin: 10/01/23 15:39 Dose: 5 mg Documented By: Sumatriptan Succinate (Sumatriptan 25 Mg Tablet) 50 mg PO NOW ONE Stop: 10/01/23 12:26 Last Admin: 10/01/23 12:38 Dose: Not Given Documented By: DYLON Vital Signs Vital signs: Vital Signs - 8 hr 10/01/23 11:35 10/01/23 12:00 10/01/23 12:36 Temperature 98.4 F Pulse Rate 75 79 Respiratory Rate 18 Blood Pressure 148/79 H 129/75 135/81 Pulse Oximetry 99 99 Oxygen Delivery Method Room Air Room Air <Lucille Joshua DO - Last Filed: 10/01/23 18:49> Orders Ordered: ED Orders 10/01/23 10:30 CBC Auto Diff [Complete Blood Count AUTO DIFF] Stat CMP [Comprehensive Metabolic Panel] Stat Lipase Stat PTT Partial Thromboplastin Marty Stat Prothrombin Time INR Stat 10/01/23 10:44 Protein Creatinine Ratio Urine Stat Urine Culture Stat Urine Microscopic Stat 10/01/23 12:33 Consult to Obstetrics Stat Acetaminophen (Acetaminophen 325 Mg Tablet) 650 mg PO Q4H PRN PRN Reason: Fever/Mild Pain (1-3) Last Admin: 10/01/23 17:30 Dose: 650 mg Documented By: Hydrochlorothiazide (Hydrochlorothiazide 25 Mg Tablet) 25 mg PO DAILY [facility] Ibuprofen (Ibuprofen 600 Mg Tablet) 600 mg PO Q6HR PRN PRN Reason: Fever/Mild Pain (1-3) Labetalol HCl (Labetalol 100 Mg Tablet) 100 mg PO BID [facility] Last Admin: 10/01/23 13:28 Dose: 100 mg Documented By: KF Discontinued Medications Furosemide (Furosemide 20 Mg Tablet) 10 mg PO 0800,1700 [facility] Last Admin: 10/01/23 15:44 Dose: 10 mg Documented By: Sodium Chloride (Normal Saline 0.9%) 1,000 mls @ 1,000 mls/hr IV BOLUS ONE Stop: 10/01/23 11:21 Last Admin: 10/01/23 11:47 Dose: Not Given Documented By: DYLON Ketorolac Tromethamine (Ketorolac 30 Mg/Ml Vial) 15 mg IV NOW ONE Stop: 10/01/23 11:51 Last Admin: 10/01/23 12:38 Dose: Not Given Documented By: DYLON Ketorolac Tromethamine (Ketorolac 30 Mg/Ml Vial) 15 mg IV NOW ONE Stop: 10/01/23 12:33 Last Admin: 10/01/23 13:28 Dose: 15 mg Documented By: OFELIA Oxycodone HCl (Oxycodone Ir 5 Mg Tablet) 5 mg PO NOW ONE Stop: 10/01/23 15:23 Last Admin: 10/01/23 15:39 Dose: 5 mg Documented By: Sumatriptan Succinate (Sumatriptan 25 Mg Tablet) 50 mg PO NOW ONE Stop: 10/01/23 12:26 Last Admin: 10/01/23 12:38 Dose: Not Given Documented By: DYLON Vital Signs Vital signs: Vital Signs - 8 hr 10/01/23 11:35 10/01/23 12:00 10/01/23 12:36 Temperature 98.4 F Pulse Rate 75 79 Respiratory Rate 18 Blood Pressure 148/79 H 129/75 135/81 Pulse Oximetry 99 99 Oxygen Delivery Method Room Air Room Air MDM - Headache <Marisa Fajardo PA-C - Last Filed: 10/01/23 14:32> Differential Diagnosis Differential diagnosis: Likely migraine, tension headache and other ( preeclampsia) Lab Data Attestation: I reviewed the patient's lab results. 10/01/23 10:30 10/01/23 10:30 Labs: Lab Results 10/01/23 10/01/23 Range/Units 10:30 10:44 WBC 7.1 (4.5-11.0) X10^3/uL RBC 3.56 L (4.0-5.2) X10^6/uL Hgb 9.4 L (12.0-16.0) g/dL Hct 28.3 L (36-46) % MCV 79.4 L (80-100) fL MCH 26.4 (26-34) PG MCHC 33.2 (30-36) % RDW 16.0 H (11.6-14.8) % Plt Count 338 (150-400) X10^3/uL Neut % (Auto) 71.1 (50-75) % Lymph % (Auto) 20.5 L (25-40) % Hall % (Auto) 4.1 (3-14) % Eos % (Auto) 3.7 (2-4) % Baso % (Auto) 0.6 (0-2) % Neut # (Auto) 5100 (5271-9151) /uL Lymph # (Auto) 1500 (7701-3092) /uL Hall # (Auto) 300 (0-900) /uL Eos # (Auto) 300 (0-450) /uL Baso # (Auto) 0 (0-100) /uL PT 10.5 (9.4-12.5) SECONDS INR 0.9 (0.9-1.3) APTT 31 (25.1-36.5) SECONDS Sodium 137 (137-145) mmol/L Potassium 3.8 (3.4-5.1) mmol/L Chloride 110 H (98-107) mmol/L Carbon Dioxide 22 (22-32) mmol/L BUN 9 (7-17) mg/dL Creatinine 0.66 (0.52-1.04) mg/dL Estimated GFR > 60 (>60) mL/min BUN/Creatinine Ratio 13.6 (6-22) Glucose 101 H (70-100) mg/dL Calcium 9.2 (8.4-10.2) mg/dL Total Bilirubin 0.4 (0.2-1.3) mg/dL AST 29 (14-36) IU/L ALT 23 (<35) IU/L Alkaline Phosphatase 108 (38-126) U/L Total Protein 7.0 (6.3-8.2) g/dL Albumin 3.5 (3.5-5.0) g/dL Globulin 3.5 (1.7-4.1) g/dL Albumin/Globulin Ratio 1.0 (1.0-2.8) Lipase 61 (23-300) U/L Urine RBC 5-10/hpf H (0-5/HPF) Urine WBC 0-1/hpf (0-5/HPF) Ur Squamous Epith Cells 1-5 /hpf D (0-5/HPF) Ur Transition Epith Cell 1-5/hpf (0-5/HPF) Urine Bacteria Few (2-10) H (None) Ur Culture Indicated? Specimen cultured Vol Urine Centrifuged 10ml (spun) U Random Total Protein 12 (0-12) mg/dL Urine Creatinine 110.2 mg/dL Protein/Creatinin Ratio 0.10 GRAM/24H Urine Dip Bedside Urine Glucose Negative Bedside Urine Bilirubin - Negative Bedside Urine Ketone - Negative Urine Specific [place] 1.015 Bedside Urine Occult Blood +++ Bedside Urine pH 6.0 Bedside Urine Protein - Negative Bedside Urine Urobilinogen - Negative Bedside Urine Nitrite - Negative Bedside Urine Leukocytes +/- 15 Esterase Treatment and disposition Shared decision making:: Shared decision-making was used in determining plan of care and evaluation for this patient and plan for admission MDM Narrative Medical decision making narrative: This is a uncomfortable fatigued appearing 28-year-old woman who is 7 days post presenting today with persistent symptoms consistent with preeclampsia after being seen at [facility] Emergency Department yesterday. Did review labs and physician note faxed from [facility] notable that patient had a high blood pressure of 147 systolic at discharge which doctor was not alerted to until after the patient had already left the hospital, they did initiate the patient on Lasix yesterday. Patient presented today in part because she got a call back requesting she seek re-evaluation given this in the setting of her state. Patient also since she was seen yesterday developed new symptoms of right upper quadrant epigastric abdominal pain. She has vision changes with light spots in her vision as well has bilateral lower extremity swelling that is new and new hypertension with multiple blood pressures over 140 systolic in the emergency department here today as well as the 1 from yesterday at [facility]. Basic labs are fairly unremarkable her creatinine is 0.66 not elevated platelets are 338, her liver enzymes look okay AST is 29 and ALT is 23, BNP was checked yesterday and was found to be 219. She also did have bilateral lower extremity ultrasounds yesterday which were unremarkable for DVT. A protein creatinine ratio is ordered for further evaluation however patient's symptoms and exam findings are consistent with preeclampsia and discuss this patient with attending physician who recommends consulting Ob regarding possible admission/treatment recommendations. Did consult Ob who agrees to take this patient and patient is admitted at this hospital under the care of Dr. Prakash. Did attempt to control patient's headache pain with Toradol however patient initially refused this as she was very concerned it could affect her ability to breast-feed her . Initially she adamantly refused this despite discussion and advising that this was appropriate and safe for breast-feeding. Ultimately after further discussion and advising patient we also discussed this with pharmacist, patient did accept Toradol for her severe headache prior to being transferred to the care of OB. Patient remained moderately hypertensive in the 140s systolic on recheck while in the emergency department, treatment of other symptoms were deferred to OB care team given timing of admission/transfer of care. <Lucille Joshua, DO - Last Filed: 10/01/23 18:49> Lab Data Labs: Lab Results 10/01/23 10/01/23 Range/Units 10:30 10:44 WBC 7.1 (4.5-11.0) X10^3/uL RBC 3.56 L (4.0-5.2) X10^6/uL Hgb 9.4 L (12.0-16.0) g/dL Hct 28.3 L (36-46) % MCV 79.4 L (80-100) fL MCH 26.4 (26-34) PG MCHC 33.2 (30-36) % RDW 16.0 H (11.6-14.8) % Plt Count 338 (150-400) X10^3/uL Neut % (Auto) 71.1 (50-75) % Lymph % (Auto) 20.5 L (25-40) % Hall % (Auto) 4.1 (3-14) % Eos % (Auto) 3.7 (2-4) % Baso % (Auto) 0.6 (0-2) % Neut # (Auto) 5100 (6526-7651) /uL Lymph # (Auto) 1500 (5214-6809) /uL Hall # (Auto) 300 (0-900) /uL Eos # (Auto) 300 (0-450) /uL Baso # (Auto) 0 (0-100) /uL PT 10.5 (9.4-12.5) SECONDS INR 0.9 (0.9-1.3) APTT 31 (25.1-36.5) SECONDS Sodium 137 (137-145) mmol/L Potassium 3.8 (3.4-5.1) mmol/L Chloride 110 H (98-107) mmol/L Carbon Dioxide 22 (22-32) mmol/L BUN 9 (7-17) mg/dL Creatinine 0.66 (0.52-1.04) mg/dL Estimated GFR > 60 (>60) mL/min BUN/Creatinine Ratio 13.6 (6-22) Glucose 101 H (70-100) mg/dL Calcium 9.2 (8.4-10.2) mg/dL Total Bilirubin 0.4 (0.2-1.3) mg/dL AST 29 (14-36) IU/L ALT 23 (<35) IU/L Alkaline Phosphatase 108 (38-126) U/L Total Protein 7.0 (6.3-8.2) g/dL Albumin 3.5 (3.5-5.0) g/dL Globulin 3.5 (1.7-4.1) g/dL Albumin/Globulin Ratio 1.0 (1.0-2.8) Lipase 61 (23-300) U/L Urine RBC 5-10/hpf H (0-5/HPF) Urine WBC 0-1/hpf (0-5/HPF) Ur Squamous Epith Cells 1-5 /hpf D (0-5/HPF) Ur Transition Epith Cell 1-5/hpf (0-5/HPF) Urine Bacteria Few (2-10) H (None) Ur Culture Indicated? Specimen cultured Vol Urine Centrifuged 10ml (spun) U Random Total Protein 12 (0-12) mg/dL Urine Creatinine 110.2 mg/dL Protein/Creatinin Ratio 0.10 GRAM/24H Urine Dip Bedside Urine Glucose Negative Bedside Urine Bilirubin - Negative Bedside Urine Ketone - Negative Urine Specific [place] 1.015 Bedside Urine Occult Blood +++ Bedside Urine pH 6.0 Bedside Urine Protein - Negative Bedside Urine Urobilinogen - Negative Bedside Urine Nitrite - Negative Bedside Urine Leukocytes +/- 15 Esterase Discharge Plan Departure Patient Disposition: Admitted as Observation Clinical Impression: Pre-eclampsia in period Admit Date/Time: 10/01/23 12:39 Admit Provider: Cherelle Prakash ED Sign-out <Lucille Joshua DO - Last Filed: 10/01/23 18:49> Cosign ED Attending Cosignature Attestation: I was immediately available in the department for consultation. Patient case was discussed with myself. Patient was noted to be hypertensive . Was increased swelling, headache, spots in her vision and felt suspicious for preeclampsia. Patient's labs were reviewed with myself, no changes on labs consistent with HELLP. After discussion with PA plan for consultation with OBGYN to see about admission and if they would like us to start Mag versus labetalol. Patient accepted for admission by Dr. Praksah.
[2023-10-01 11:39] LABS: Bacteria Urine Few (2-10); Culture Indicated Urine Specimen Cultured; RBC Urine 5-10/HPF (0-5/HPF); Squamous Epithelial Cell Urine 1-5 /HPF (0-5/HPF); Transitional Epi Cells Urine 1-5/HPF (0-5/HPF); Urine Volume 10mL (spun); WBC Urine 0-1/HPF (0-5/HPF)
--- NOTE | 2023-10-01 11:41 | PC.NURSE ---
Pt on blood pressure monitor q1 hr. Pt reports HENRY x2 days, new 3+ BLE swelling, reports visual floater in vision. A&Ox4
[2023-10-01 12:33] LABS: Creatinine Urine Random 110.2 mg/dL; Protein (Total) Urine Random 12 mg/dL (0-12)
--- NOTE | 2023-10-01 13:00 | DI.CT.S_ITS ---
PROCEDURE: CT ANGIO ABD AORTA RUNOFF INDICATIONS: One-week sudden onset bilateral severe leg edema TECHNIQUE: After the administration of intravenous contrast, 2.5 mm sections acquired from T12 to the feet, with optional delayed image acquisition from the knees to the feet. 3-dimensional maximum intensity projection (MIP) coronal and sagittal reformats, and/or 3-dimensional volume rendering reformatting was then performed. For radiation dose reduction, the following was used: automated exposure control. COMPARISON: [facility], [place], US VENOUS LOWER EXTREMITY DOPPLER BILATERAL, 09/30/2023, 15:42. FINDINGS: Image Quality: Diagnostic. Abdominal aorta: Patent Splanchnic vessels: Patent Right lower extremity: Patent Left lower extremity: Patent Lower Chest: No significant findings. ABDOMEN: Liver: No solid mass. Gallbladder: Surgically absent Biliary ducts: No biliary dilation. Pancreas: No ductal dilation. Spleen: Size is within normal limits. Adrenal Glands: No adrenal nodules. Kidneys and Ureters: No hydronephrosis. No solid mass. No complex renal cystic lesion which requires follow up. Stomach and Bowel: Normal colonic caliber, without significant wall thickening. Peritoneum: No abnormal intraperitoneal fluid. No free air. Ventral Wall: No hernia. Abdominal Nodes: No retroperitoneal or mesenteric adenopathy by size criteria. Vessels: Aorta and inferior vena cava are normal in size. PELVIS: Pelvic Organs: uterus, still measuring 17.9 cm in craniocaudal dimension. Persistent hypervascularity of the uterus. Increased density in the lower uterine segment endometrial region measures 3.0 cm in diameter. Question retained products of conception versus bleeding Bladder: Unremarkable. Pelvic Nodes: No enlarged lymph nodes. Miscellaneous: No inguinal hernias are seen. Bones: No aggressive osseous abnormality. IMPRESSION: 1. Unremarkable CT angiogram of the aorta in lower extremity runoff vessels. 2. Enlarged, hypervascular uterus. There is increased density with widening of the endometrial contents in the lower uterine segment measuring 3 cm in diameter. Consider retained products of conception versus products of hemorrhage. Comment: Pelvic ultrasound may be helpful. Dictated by: Phil Valentino M.D. on 10/01/2023 at 14:19 Approved by: Phil Valentino M.D. on 10/01/2023 at 14:26
--- NOTE | 2023-10-01 13:02 | P.HPOB_ITS ---
History of Present Illness History of Present Illness Reason for admission: other (Elevated blood pressure, headache, bilateral leg edema one-week ) Narrative: Asia Vera is a 28 year old female 6 para 3 admitted for preeclampsia. Patient complaining of severe headache, upper abdominal pain, and severe bilateral lower extremity edema that started yesterday. [facility] Medical History Abdominal pain Pyelonephritis (~06/2019) Fusion of toes of right foot Sebaceous cyst Surgical History Hx of foot surgery (08/25/20) Hx of foot surgery S/P hardware removal S/P foot surgery, right (09/12/19) Hx of cholecystectomy Hx of eye surgery History of bunionectomy of left great toe History of bunionectomy of right great toe S/P foot surgery, right Social History household members: significant other, family and children Smoking Status: Former smoker alcohol intake: former Meds Home Medications and Allergies Home Medications Medication Instructions Recorded Confirmed Type acetaminophen 500 mg tablet 1,000 mg PO Q6H PRN Pain 01/13/20 05/23/23 History (Tylenol Extra Strength) metoclopramide HCl 10 mg tablet 10 mg PO Q6H PRN nausea and 05/27/21 05/23/23 Rx (Reglan) vomiting #12 tabs ondansetron 4 mg disintegrating 4 mg PO TID-QID PRN nausea and 07/19/22 05/23/23 Rx tablet vomiting #10 tabs diphenhydramine HCl 50 mg capsule 50 mg PO BEDTIME PRN Allergy 03/26/23 05/23/23 History Symptoms vit no.95-ferrous 1 tab PO DAILY 03/26/23 05/23/23 History fumarate 28 mg-folic acid 800 mcg tablet () lidocaine 5 % topical patch 1 patch topical DAILY #15 ea 03/28/23 05/23/23 Rx (Lidoderm) albuterol sulfate 90 mcg/actuation 0 mcg inhalation 05/23/23 05/23/23 History aerosol inhaler fluticasone propionate 50 1 spray intranasal Q12H #16 grams 05/23/23 05/23/23 Rx mcg/actuation nasal spray,suspension (Flonase Allergy Relief) fluticasone propionate 50 1 spray intranasal BID #16 grams 06/18/23 Rx mcg/actuation nasal spray,suspension (Flonase Allergy Relief) ondansetron 4 mg disintegrating 4 mg PO Q6H PRN nausea and 06/18/23 Rx tablet vomiting #10 tabs oxycodone 5 mg tablet 5 mg PO QID PRN pain #10 tabs 06/18/23 Rx prednisone 10 mg tablets in a dose See Rx Instructions PO .COMPLEX 06/18/23 Rx pack #21 ea Allergies Allergy/AdvReac Type Severity Reaction Status Date / Time No Known Drug Allergies Allergy Verified 10/01/23 10:17 Review of Systems Review of Systems Narrative: Patient is status post vaginal delivery 1 week ago at [facility] who presented to the emergency room complaining of severe headache, severe bilateral lower leg edema, upper abdominal pain. Patient states that she was seen yesterday at [facility] Emergency room and sent home with Lasix, Tylenol, Motrin, and advised to elevate her legs. She presented today but has she has worsening severe headache, worsening leg edema and upper abdominal pain. Patient denies chest pains or shortness of breath. She is without difficulty. She denies any lower abdominal pain. Mild lochia. Exam Vital Signs (past 8 hours): - 10/01/23 10:14 10/01/23 11:35 10/01/23 12:00 Temperature 96.6 F L 98.4 F Pulse Rate 85 75 Respiratory Rate 16 18 Blood Pressure 143/76 H 148/79 H 129/75 Pulse Oximetry 99 99 Oxygen Delivery Method Room Air Room Air 10/01/23 12:36 Temperature Pulse Rate 79 Respiratory Rate Blood Pressure 135/81 Pulse Oximetry 99 Oxygen Delivery Method Room Air Oxygen Delivery Method Room Air Narrative Exam Narrative: HEENT exam within normal limits. Lungs are clear to auscultation percussion. No thyromegaly. Heart is regular rate and rhythm no S3-S4 murmurs. Abdomen is soft, nontender. Extremities with full leg edema bilaterally. Normal DTRs. Objective Labs 10/01/23 10:30 10/01/23 10:30 Labs: Laboratory Results - last 24 hr 01/29/24 01/29/24 10:30 10:44 WBC 7.1 RBC 3.56 L Hgb 9.4 L Hct 28.3 L MCV 79.4 L MCH 26.4 MCHC 33.2 RDW 16.0 H Plt Count 338 Neut % (Auto) 71.1 Lymph % (Auto) 20.5 L [place] % (Auto) 4.1 Eos % (Auto) 3.7 Baso % (Auto) 0.6 Neut # (Auto) 5100 Lymph # (Auto) 1500 [place] # (Auto) 300 Eos # (Auto) 300 Baso # (Auto) 0 PT 10.5 INR 0.9 APTT 31 Sodium 137 Potassium 3.8 Chloride 110 H Carbon Dioxide 22 BUN 9 Creatinine 0.66 Estimated GFR > 60 BUN/Creatinine Ratio 13.6 Glucose 101 H Calcium 9.2 Total Bilirubin 0.4 AST 29 ALT 23 Alkaline Phosphatase 108 Total Protein 7.0 Albumin 3.5 Globulin 3.5 Albumin/Globulin Ratio 1.0 Lipase 61 Urine RBC 5-10/hpf H Urine WBC 0-1/hpf Ur Squamous Epith Cells 1-5 /hpf D Ur Transition Epith Cell 1-5/hpf Urine Bacteria Few (2-10) H Ur Culture Indicated? Specimen cultured Vol Urine Centrifuged 10ml (spun) U Random Total Protein 12 Urine Creatinine 110.2 Protein/Creatinin Ratio 0.10 Assessment & Plan Assessment and plan (1) Pre-eclampsia in period: Status: Acute (2) Bilateral edema of lower extremity: Status: Acute Assessment & Plan narrative: Patient one-week with severe headache, severe bilateral lower extremity edema, mildly elevated blood pressures with no evidence of HELLP syndrome.Patient is to be admitted for monitoring and blood pressure control. CT scan to rule out intra-abdominal blood clot as cause of bilateral leg edema, chest X a to check for cardiomegaly with possible echo of the heart to check for cardiomyopathy. Time Spent With Patient Time with patient: less than 30 minutes
--- NOTE | 2023-10-01 13:14 | DI.RAD.S_ITS ---
PROCEDURE: XR CHEST 1V INDICATIONS: Rule out cardiomegaly TECHNIQUE: One view of the chest was acquired. COMPARISON: [facility], CT, CT ANGIO ABD AORTA RUNOFF, 10/01/2023, 13:16. [facility], CR, XR CHEST 1V, 08/18/2022, 20:43. FINDINGS: Surgical changes and devices: None. Lungs and pleura: Lungs are clear. No pleural effusions or pneumothorax. Mediastinum: Mediastinal contours appear normal. Heart size is within normal limits. Bones and chest wall: No suspicious bony lesions. Overlying soft tissues appear unremarkable. IMPRESSION: No acute cardiopulmonary abnormality is seen. Dictated by: Per Emmanuel M.D. on 10/01/2023 at 14:42 Approved by: Per Emmanuel M.D. on 10/01/2023 at 14:43
[2023-10-01] MEDS: LABETALOL 100 MG TABLET PO ×2 (13:28→22:03)
[2023-10-01] MEDS: KETOROLAC 30 MG/ML VIAL 15 MG IV (13:28)
--- NOTE | 2023-10-01 14:03 | PC.NURSE ---
Patient assessment WNL with the exception of increased plus 2 pitting edema bilateral calf and feet. Reflexes plus 1 bilaterally, no clonus. Heartbeat regular upon auscultation and lung [place] clear. Patient complains of headache, floaters in vision, edema, and shooting pains in both legs. Awaiting results of imaging done in ED.
--- NOTE | 2023-10-01 14:06 | PC.NURSE ---
Patient assessment WNL with the exception of bilateral plus 2 pitting edema bilaterally in calves and feet. Reflexes plus 1 bilaterally with no clonus. Patient complains of headache, edema with shooting pains in lower extremities, floaters in vision. Awaiting imaging studies done in the ED. Dr. Prakash aware. 1410 - Patient told SWING T[employer]ER that she would rather be treated at [facility]. The bed is uncomfortable and I don't want to be here she stated.
[2023-10-01] MEDS: OXYCODONE IR 5 MG TABLET PO ×2 (15:39→23:04)
[2023-10-01] MEDS: FUROSEMIDE 20 MG TABLET 10 MG PO (15:44)
--- NOTE | 2023-10-01 17:06 | PC.NURSE ---
1430 - Patient's brother brought baby to patient. 1500 - patient states headache is 8/10 pain. Has taken tylenol and toradol. Called and spoke with Dr. Prakash, oxycodone ordered. Patient states she would like to take the furosemide now. Patient has stated multiple times that she would like to be at [facility] instead. Advised provider Dwain of patient's wishes, also advised patient that without medical indication we don't generally transfer. Patient stated that she does not intend to leave AMA. 1600 - Patient's brother in room. Patient denies any needs at this time.
[2023-10-01] MEDS: ACETAMINOPHEN 325 MG TABLET 650 MG PO ×2 (17:30→22:05)
--- NOTE | 2023-10-01 19:03 | PM.PN.1 ---
Subjective Subjective Date Patient Seen: 10/01/23 Time Patient Seen: 19:04 Interval history: Patient states her headache is much better. No chest pains or shortness of breath. No abdominal pain. Exam Vital Signs (past 8 hours): Blood pressure 120/76, pulse of 90- 10/01/23 11:35 10/01/23 12:00 10/01/23 12:36 Temperature 98.4 F Pulse Rate 75 79 Respiratory Rate 18 Blood Pressure 148/79 H 129/75 135/81 Pulse Oximetry 99 99 Oxygen Delivery Method Room Air Room Air Oxygen Flow Rate 10/01/23 13:28 10/01/23 13:43 10/01/23 14:40 Temperature 98.8 F Pulse Rate 75 70 Respiratory Rate 16 16 Blood Pressure 131/80 122/80 128/80 Pulse Oximetry 100 100 Oxygen Delivery Method Oxygen Flow Rate 0 0 10/01/23 18:50 Temperature 98.8 F Pulse Rate 90 Respiratory Rate 16 Blood Pressure 120/76 Pulse Oximetry 100 Oxygen Delivery Method Oxygen Flow Rate Oxygen Delivery Method Room Air Oxygen Flow Rate 0 Narrative Exam Narrative: Blood pressure 120/76, pulse of 90 Objective Labs 10/01/23 10:30 10/01/23 10:30 Labs: Laboratory Results - last 24 hr 10/01/23 10/01/23 10:30 10:44 WBC 7.1 RBC 3.56 L Hgb 9.4 L Hct 28.3 L MCV 79.4 L MCH 26.4 MCHC 33.2 RDW 16.0 H Plt Count 338 Neut % (Auto) 71.1 Lymph % (Auto) 20.5 L [place] % (Auto) 4.1 Eos % (Auto) 3.7 Baso % (Auto) 0.6 Neut # (Auto) 5100 Lymph # (Auto) 1500 [place] # (Auto) 300 Eos # (Auto) 300 Baso # (Auto) 0 PT 10.5 INR 0.9 APTT 31 Sodium 137 Potassium 3.8 Chloride 110 H Carbon Dioxide 22 BUN 9 Creatinine 0.66 Estimated GFR > 60 BUN/Creatinine Ratio 13.6 Glucose 101 H Calcium 9.2 Total Bilirubin 0.4 AST 29 ALT 23 Alkaline Phosphatase 108 Total Protein 7.0 Albumin 3.5 Globulin 3.5 Albumin/Globulin Ratio 1.0 Lipase 61 Urine RBC 5-10/hpf H Urine WBC 0-1/hpf Ur Squamous Epith Cells 1-5 /hpf D Ur Transition Epith Cell 1-5/hpf Urine Bacteria Few (2-10) H Ur Culture Indicated? Specimen cultured Vol Urine Centrifuged 10ml (spun) U Random Total Protein 12 Urine Creatinine 110.2 Protein/Creatinin Ratio 0.10 PFSH Medical History Abdominal pain Pyelonephritis (~06/2019) Fusion of toes of right foot Sebaceous cyst Surgical History Hx of foot surgery (08/25/20) Hx of foot surgery S/P hardware removal S/P foot surgery, right (09/12/19) Hx of cholecystectomy Hx of eye surgery History of bunionectomy of left great toe History of bunionectomy of right great toe S/P foot surgery, right Social History household members: significant other, family and children Smoking Status: Former smoker alcohol intake: former Assessment & Plan Assessment and plan (1) Bilateral edema of lower extremity: Status: Acute Assessment & Plan narrative: Patient with improved headache. Blood pressures have remained in a more normal range rather than elevated since admission. CT scan did not show any complications. Chest x-ray normal heart size. Will switch from Lasix to hydrochlorothiazide for leg edema.
--- NOTE | 2023-10-01 20:52 | PC.NURSE ---
1700 - Patient eating dinner in room, brother of patient in room. Per imaging, no specific cause of edema identified. Dr. Prakash POC is to try a different diuretic to alleviate the edema. Patient agreeable to plan and is willing to stay here. 1800 - Due to patient load and aquity, Dr. Prakash attempting to transfer patient to acute care. 191 - Report given to Mickie HOANG
--- NOTE | 2023-10-01 21:37 | PC.NURSE ---
Addendum entered by Huseyin Silva R.N. 10/01/23 22:56: CORRECTION: Time of arrival to ACU was 2109 Original Note: 1919: Patient arrived to ACU. Brother staying the night with patient and . Patient stating 4/10 headache, sensitive to light. Dr. Prakash made aware. Received communication order to make MD aware if BP >150/90.
[2023-10-01] MEDS: hydroCHLOROthiazide 25 MG TABLET PO (22:03)
[2023-10-01] MEDS: IBUPROFEN 600 MG TABLET PO (23:04)
[2023-10-02 01:44] VITALS: BP 136/82
[2023-10-02] MEDS: ACETAMINOPHEN 325 MG TABLET 650 MG PO ×4 (01:52→17:36)
[2023-10-02] MEDS: OXYCODONE IR 5 MG TABLET PO ×5 (03:21→22:31)
[2023-10-02 05:15] LABS: Add Manual Diff / Slide Review NO; Basophils Absolute Auto 0 /uL (0-100); Basophils Percent Auto 0.5 % (0-2); Eosinophils Absolute Auto 200 /uL (0-450); Eosinophils Percent Auto 2.8 % (2-4); Hemoglobin 8.7 g/dL (12.0-16.0); Lymphocytes Absolute Auto 1600 /uL (1100-4500); Lymphocytes Percent Auto 19.6 % (25-40); Mean Corpuscular HGB Conc 33.3 % (30-36); Mean Corpuscular Hemoglobin 26.1 PG (26-34); Mean Corpuscular Volume 78.3 fL (80-100); Monocytes Absolute Auto 500 /uL (0-900); Monocytes Percent Auto 6.1 % (3-14); Neutrophils Absolute Auto 5800 /uL (1500-7000); Platelet Count 280 X10^3/uL (150-400); Red Blood Cell Count 3.32 X10^6/uL (4.0-5.2); White Blood Cell Count 8.2 X10^3/uL (4.5-11.0)
[2023-10-02 06:02] LABS: Alanine Aminotransferase 19 IU/L (<35); Alkaline Phosphatase 101 U/L (38-126); Aspartate Aminotransferase 21 IU/L (14-36); BUN Creatinine Ratio 16.9 (6-22); Bilirubin Total 0.4 mg/dL (0.2-1.3); Blood Urea Nitrogen 10 mg/dL (7-17); Calcium 9.2 mg/dL (8.4-10.2); Carbon Dioxide 22 mmol/L (22-32); Chloride 108 mmol/L (98-107); Estimated Glomerular Filt Rate > 60 mL/min (>60); Glucose 83 mg/dL (70-100); HEMOLYSIS < 15 (0-50); Potassium 3.4 mmol/L (3.4-5.1); Sodium 136 mmol/L (137-145)
--- NOTE | 2023-10-02 06:21 | P.PN_ITS ---
Subjective Subjective Date Patient Seen: 10/02/23 Time Patient Seen: 06:21 Interval history: Patient states she continues to have a headache. The medication seemed to help somewhat but then the headache returns the same. The headache involves her entire head and behind her eyes. Patient is pleased the swelling in her legs has decreased. Exam Vital Signs (past 8 hours): - 10/01/23 23:01 10/02/23 01:44 Temperature 97 F L Pulse Rate 89 Respiratory Rate 19 Blood Pressure 117/64 136/82 Pulse Oximetry 99 Oxygen Flow Rate 0 Oxygen Delivery Method Room Air Oxygen Flow Rate 0 Narrative Exam Narrative: Extremities with decreased edema and less tender. Objective Labs 10/02/23 05:07 10/02/23 05:07 Labs: Laboratory Results - last 24 hr 10/01/23 10/01/23 10/02/23 10:30 10:44 05:07 WBC 7.1 8.2 RBC 3.56 L 3.32 L Hgb 9.4 L 8.7 L Hct 28.3 L 26.0 L MCV 79.4 L 78.3 L MCH 26.4 26.1 MCHC 33.2 33.3 RDW 16.0 H 16.0 H Plt Count 338 280 Neut % (Auto) 71.1 71.0 Lymph % (Auto) 20.5 L 19.6 L [place] % (Auto) 4.1 6.1 Eos % (Auto) 3.7 2.8 Baso % (Auto) 0.6 0.5 Neut # (Auto) 5100 5800 Lymph # (Auto) 1500 1600 [place] # (Auto) 300 500 Eos # (Auto) 300 200 Baso # (Auto) 0 0 PT 10.5 INR 0.9 APTT 31 Sodium 137 136 L Potassium 3.8 3.4 Chloride 110 H 108 H Carbon Dioxide 22 22 BUN 9 10 Creatinine 0.66 0.59 Estimated GFR > 60 > 60 BUN/Creatinine Ratio 13.6 16.9 Glucose 101 H 83 Calcium 9.2 9.2 Total Bilirubin 0.4 0.4 AST 29 21 ALT 23 19 Alkaline Phosphatase 108 101 Total Protein 7.0 6.0 L Albumin 3.5 3.0 L Globulin 3.5 3.0 Albumin/Globulin Ratio 1.0 1.0 Lipase 61 Urine RBC 5-10/hpf H Urine WBC 0-1/hpf Ur Squamous Epith Cells 1-5 /hpf D Ur Transition Epith Cell 1-5/hpf Urine Bacteria Few (2-10) H Ur Culture Indicated? Specimen cultured Vol Urine Centrifuged 10ml (spun) U Random Total Protein 12 Urine Creatinine 110.2 Protein/Creatinin Ratio 0.10 PFSH Medical History Abdominal pain Pyelonephritis (~06/2019) Fusion of toes of right foot Sebaceous cyst Surgical History Hx of foot surgery (08/25/20) Hx of foot surgery S/P hardware removal S/P foot surgery, right (09/12/19) Hx of cholecystectomy Hx of eye surgery History of bunionectomy of left great toe History of bunionectomy of right great toe S/P foot surgery, right Social History household members: significant other, family and children Smoking Status: Former smoker alcohol intake: former Assessment & Plan Assessment and plan (1) Bilateral edema of lower extremity: Status: Acute (2) Headache: Qualifiers: Headache type: new daily persistent Qualified Code(s): G44.52 - New daily persistent headache (NDPH) Status: Acute Assessment & Plan narrative: Some improvement in the bilateral leg edema. Continue diuretic. Preeclampsia ruled out. Will try Imitrex for patient's headaches Time Spent With Patient Time with patient: less than 30 minutes
[2023-10-02] MEDS: SUMAtriptan 25 MG TABLET 50 MG PO ×3 (07:05→14:11)
[2023-10-02] MEDS: IRON SUCROSE 100 MG in SODIUM CHLORIDE 0.9% 100 ML 420 MG IV (08:21)
[2023-10-02 09:00] VITALS: BP 124/79; PULSE 99; RESP 18; TEMP 36.6; O2SAT 96
[2023-10-02 09:45] VITALS: BP 124/79; PULSE 99
[2023-10-02] MEDS: LABETALOL 100 MG TABLET PO (09:45)
[2023-10-02] MEDS: hydroCHLOROthiazide 25 MG TABLET PO (09:46)
[2023-10-02] MEDS: IBUPROFEN 600 MG TABLET PO (09:47)
[2023-10-02] MEDS: SODIUM CHLORIDE 0.9% FLUSH 10 ML IV ×2 (09:47→22:34)
--- NOTE | 2023-10-02 09:53 | PM.PN.1 ---
Subjective Subjective Date Patient Seen: 10/02/23 Time Patient Seen: 09:53 Interval history: Still severe headache. Patient is happy her edema is markedly improved. Patient denies nausea and vomiting. Her pain is not worse with placement of her chin on her chest. When she takes narcotic pain medicine she is sleepy and dulls the pain but does not take the pain away and the pain returns as soon as the narcotic wears off. Exam Vital Signs (past 8 hours): - 10/02/23 09:00 10/02/23 09:45 Temperature 98 F Pulse Rate 99 H 99 H Respiratory Rate 18 Blood Pressure 124/79 124/79 Pulse Oximetry 96 Oxygen Flow Rate 0 Oxygen Delivery Method Room Air Oxygen Flow Rate 0 Narrative Exam Narrative: HEENT exam within normal limits. Cranial nerves intact. Objective Labs 10/02/23 05:07 10/02/23 05:07 Labs: Laboratory Results - last 24 hr 10/01/23 10/01/23 10/02/23 10:30 10:44 05:07 WBC 7.1 8.2 RBC 3.56 L 3.32 L Hgb 9.4 L 8.7 L Hct 28.3 L 26.0 L MCV 79.4 L 78.3 L MCH 26.4 26.1 MCHC 33.2 33.3 RDW 16.0 H 16.0 H Plt Count 338 280 Neut % (Auto) 71.1 71.0 Lymph % (Auto) 20.5 L 19.6 L [place] % (Auto) 4.1 6.1 Eos % (Auto) 3.7 2.8 Baso % (Auto) 0.6 0.5 Neut # (Auto) 5100 5800 Lymph # (Auto) 1500 1600 [place] # (Auto) 300 500 Eos # (Auto) 300 200 Baso # (Auto) 0 0 PT 10.5 INR 0.9 APTT 31 Sodium 137 136 L Potassium 3.8 3.4 Chloride 110 H 108 H Carbon Dioxide 22 22 BUN 9 10 Creatinine 0.66 0.59 Estimated GFR > 60 > 60 BUN/Creatinine Ratio 13.6 16.9 Glucose 101 H 83 Calcium 9.2 9.2 Total Bilirubin 0.4 0.4 AST 29 21 ALT 23 19 Alkaline Phosphatase 108 101 Total Protein 7.0 6.0 L Albumin 3.5 3.0 L Globulin 3.5 3.0 Albumin/Globulin Ratio 1.0 1.0 Lipase 61 Urine RBC 5-10/hpf H Urine WBC 0-1/hpf Ur Squamous Epith Cells 1-5 /hpf D Ur Transition Epith Cell 1-5/hpf Urine Bacteria Few (2-10) H Ur Culture Indicated? Specimen cultured Vol Urine Centrifuged 10ml (spun) U Random Total Protein 12 Urine Creatinine 110.2 Protein/Creatinin Ratio 0.10 PFSH Medical History Abdominal pain Pyelonephritis (~06/2019) Fusion of toes of right foot Sebaceous cyst Surgical History Hx of foot surgery (08/25/20) Hx of foot surgery S/P hardware removal S/P foot surgery, right (09/12/19) Hx of cholecystectomy Hx of eye surgery History of bunionectomy of left great toe History of bunionectomy of right great toe S/P foot surgery, right Social History household members: significant other, family and children Smoking Status: Former smoker alcohol intake: former Assessment & Plan Assessment and plan (1) Headache: Qualifiers: Headache type: new daily persistent Qualified Code(s): G44.52 - New daily persistent headache (NDPH) Status: Acute (2) Bilateral edema of lower extremity: Status: Acute Assessment & Plan narrative: Patient has marked improvement of her edema of her lower extremities. Patient continued with severe headache of unclear etiology. Patient was given IV iron because of her anemia. We are trying Imitrex and caffeine. She is also getting Tylenol and Motrin. Will stop labetalol as her blood pressure is stable and no evidence of preeclampsia. For completeness, ultrasound for CT finding possible retained products of conception Time Spent With Patient Time with patient: less than 30 minutes
[2023-10-02] MEDS: POTASSIUM CHLORIDE 20 MEQ TAB 40 MEQ PO (09:55)
--- NOTE | 2023-10-02 09:56 | DI.US.S_ITS ---
PROCEDURE: US PELVIC COMPLETE INDICATIONS: Possible retained products of conception on CT scan one-week TECHNIQUE: Real-time scanning was performed of the pelvic organs, with image documentation. Additional endovaginal scanning was necessary due to incomplete visualization of the adnexal and endometrial structures by transabdominal scanning. COMPARISON: None. FINDINGS: Uterus: Uterus is anteverted and in size at 16.2 x 12.3 x 7.8 cm. The myometrium is homogeneous. The endometrium measures 9 mm combined thickness. Small amount of fluid in the endometrial canal. No evidence of retained products of conception Ovaries: The right ovary measures 3.3 x 1.8 x 1.6 cm, with a calculated ovarian volume of 5.0 cc. The left ovary measures 3.3 x 2.5 x 2.2 cm, with a calculated ovarian volume of 9.5 cc. The ovaries have a normal sonographic appearance. Less than 12 follicles can be seen in each ovary. No adnexal masses are seen. Other: No pathologic free abdominal or pelvic fluid. IMPRESSION: Unremarkable uterus without evidence of retained products of conception Approved by: Alfred Duff M.D. on 10/02/2023 at 11:14
--- NOTE | 2023-10-02 10:50 | CM.DANOTE ---
DCP Assessment Note Pt is a 28yo F, pt of Dr. Prakash here one week with headaches/leg swelling. PCP Lisa Stevens at the [facility] [address] Payer [place] and medicaid JACKERMAN reviewed EMR. Per provider note, planning ultrasound for CT finding possible retained products of conception. Unclear dc timeline at this time. JACKERMAN entered room and introduced self and role. Pt resting in bed with lights off, reports headache pain increases with light and sound. Pt accompanied by brother and in room. Pt lives at home with 3 children (7yo, 5yo, and 1 week old) and two brothers. One brother is staying with her other children while other brother is here supporting her. Mother Rosette (p [phone]) is also local and supportive. 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 Reports no CM needs at this time. Plan: home with family (Brother to transport) when medically stable. No CM needs identified. CM team will continue to follow as needed. DOMINGO Lawrence Discharge Planning/Care Management CM Discharge Assessment Start: 10/02/23 10:47 Freq: Status: Active Protocol: Document 10/02/23 10:47 SL (Rec: 10/02/23 10:50 [id number]) Discharge Planning Assessment Assigned [place] DOMINGO Morgan DPOA/Assigned Designee Name Rosette Orta (mother) Contact Information [phone] Advance Directives? No Advance Directives on File No History Provided By Patient,Medical Record Prior Living Arrangements House Household Members family,children Comment two brothers and her 3 children (7yo, 5yo, 1week old) Type of transporation used prior to Drives own vehicle admit Independent with ADL's Yes Is patient alert and oriented? Yes Discharge Plan Home Transportation Arrangement Likely family Referrals Initiated None needed Whiteboard Updated in Patient Room with Yes name and ext. # of [place] Review Status In Process Next Review Type Continued Stay Review
[2023-10-02] MEDS: ONDANSETRON 4 MG/2 ML INJ IV (11:20)
[2023-10-02 12:00] VITALS: BP 125/90; PULSE 83; RESP 18; O2SAT 98
--- NOTE | 2023-10-02 12:55 | DI.CT.S_ITS ---
PROCEDURE: CT HEAD/BRAIN WO CON INDICATIONS: intractable headache 3 days 1 week TECHNIQUE: Noncontrast 4.5 mm thick angled axial sections acquired from the foramen magnum to the vertex, with coronal and sagittal reformats. For radiation dose reduction, the following was used: automated exposure control, adjustment of mA and/or kV according to patient size. COMPARISON: None. FINDINGS: Image quality: Diagnostic. CSF spaces: Asymmetric prominence of the left lateral ventricle atrium. No evidence of transependymal migration of CSF. No hydrocephalus. Brain: No midline shift. No intracranial masses or hemorrhage. Shukla-white matter interface is normal. Skull and face: Calvarium and visualized facial bones are intact, without suspicious lesions. Sinuses: Visualized sinuses and mastoids are clear. IMPRESSION: No intracranial hemorrhage or mass effect. 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 Consider follow-up MR for confirmation. Approved by: Alfred Duff M.D. on 10/02/2023 at 13:22
[2023-10-02] MEDS: KETOROLAC 30 MG/ML VIAL IV ×2 (15:06→20:50)
--- NOTE | 2023-10-02 16:40 | PM.AN.REGBLK ---
Regional Block Pre-procedure Labs: Hct 26.0 % (36-46) L 10/02/23 05:07 Plt Count 280 X10^3/uL (150-400) 10/02/23 05:07 Medications: Current Medications Generic Name Dose Route Start Last Admin Trade Name Kevin PRN Reason Stop Dose Admin Acetaminophen 650 mg 10/01/23 21:31 10/02/23 11:59 Acetaminophen 325 Mg Tablet PO 650 mg Q4H PRN Administration Fever/Mild Pain (1-3) Hydrochlorothiazide 25 mg 10/01/23 21:32 10/02/23 09:46 Hydrochlorothiazide 25 Mg Tablet PO 25 mg DAILY MARÍA Administration Ketorolac Tromethamine 30 mg 10/02/23 14:04 10/02/23 15:06 Ketorolac 30 Mg/Ml Vial IV 10/07/23 14:04 30 mg Q6H PRN Administration Headache Ondansetron HCl 4 mg 10/02/23 11:01 10/02/23 11:20 Ondansetron 4 Mg/2 Ml Inj IV 4 mg Q4HR PRN Administration Nausea And Vomiting Oxycodone HCl 5 mg 10/01/23 20:28 10/02/23 13:14 Oxycodone Ir 5 Mg Tablet PO 5 mg Q4HR PRN Administration Pain, Moderate (4-6) Sodium Chloride 10 ml 10/01/23 21:27 Sodium Chloride 0.9% Flush IV PRN PRN Flush Sodium Chloride 10 ml 10/02/23 09:00 10/02/23 09:47 Sodium Chloride 0.9% Flush IV 10 ml BID MARÍA Administration Sumatriptan Succinate 50 mg 10/02/23 06:21 10/02/23 14:11 Sumatriptan 25 Mg Tablet PO 50 mg Q2H PRN Administration Headache Allergies: Allergies Allergy/AdvReac Type Severity Reaction Status Date / Time No Known Drug Allergies Allergy Verified 10/01/23 10:17
--- NOTE | 2023-10-02 16:46 | P.PCN_ITS ---
Procedures Date/Time Date of procedure: 10/02/23 Time of procedure: 16:30 General Procedure description: Epidural Blood patch for suspicion of PDPH. Pt had a vaginal delivery 09/25/22 and developed a headache 09/29/23. Headache is worse when sitting up/standing and improved by lying flat. NATALYA Georges in the room to assist with IV placement for blood draw. Pre-procedure vitals: BP 129/90, HR 74, SpO2 98%, RR 18. Pt placed in sitting position. L2/L3 identified. Lidocaine 1% (3mL to skin). 18g Antegrin Therapeuticstead needle advanced incrementally using saline for SHANNA. SHANNA achieved at 6cm. NATALYA Georges inserted PIV, marycarmen off 20mL of blood. Under sterile technique 18mL of blood was instilled into epidural space at which point patient attested to rectal pressure. Needle was removed. Patient tolerated procedure without complication. Post-procedure vitals: 98.0F, 134/67, HR 69, SpO2 100%, RR 18. Pain rating of HENRY prior to blood patch rated 7/10, after blood patch patient attests to a significantly improved HENRY at 3/10.
--- NOTE | 2023-10-02 17:18 | PM.PN.1 ---
Subjective Subjective Date Patient Seen: 10/02/23 Time Patient Seen: 17:18 Interval history: Patient had a blood patch performed by anesthesia. Her headache is now 3/10. She is laying flat. Discussed normal CT scan. Discussed normal ultrasound of the uterus no retained products. Patient's legs are much better from their edema. Exam Vital Signs (past 8 hours): - 10/02/23 09:45 10/02/23 12:00 Pulse Rate 99 H 83 Respiratory Rate 18 Blood Pressure 124/79 125/90 Pulse Oximetry 98 Oxygen Flow Rate 0 Oxygen Delivery Method Room Air Oxygen Flow Rate 0 Narrative Exam Narrative: Abdomen is soft, nontender. Uterus is involuting well nontender. Extremities with edema but markedly decreased from admission without tenderness. Objective Labs 10/02/23 05:07 10/02/23 05:07 Labs: Laboratory Results - last 24 hr 10/02/23 05:07 WBC 8.2 RBC 3.32 L Hgb 8.7 L Hct 26.0 L MCV 78.3 L MCH 26.1 MCHC 33.3 RDW 16.0 H Plt Count 280 Neut % (Auto) 71.0 Lymph % (Auto) 19.6 L Jay % (Auto) 6.1 Eos % (Auto) 2.8 Baso % (Auto) 0.5 Neut # (Auto) 5800 Lymph # (Auto) 1600 Jay # (Auto) 500 Eos # (Auto) 200 Baso # (Auto) 0 Sodium 136 L Potassium 3.4 Chloride 108 H Carbon Dioxide 22 BUN 10 Creatinine 0.59 Estimated GFR > 60 BUN/Creatinine Ratio 16.9 Glucose 83 Calcium 9.2 Total Bilirubin 0.4 AST 21 ALT 19 Alkaline Phosphatase 101 Total Protein 6.0 L Albumin 3.0 L Globulin 3.0 Albumin/Globulin Ratio 1.0 [facility] Medical History Abdominal pain Pyelonephritis (~06/2019) Fusion of toes of right foot Sebaceous cyst Surgical History Hx of foot surgery (08/25/20) Hx of foot surgery S/P hardware removal S/P foot surgery, right (09/12/19) Hx of cholecystectomy Hx of eye surgery History of bunionectomy of left great toe History of bunionectomy of right great toe S/P foot surgery, right Social History household members: family and children Smoking Status: Former smoker alcohol intake: former Assessment & Plan Assessment and plan (1) Bilateral edema of lower extremity: Status: Acute (2) Headache: Qualifiers: Headache type: new daily persistent Qualified Code(s): G44.52 - New daily persistent headache (NDPH) Status: Acute Assessment & Plan narrative: Improved bilateral edema for lower extremities. Headache finally improved with blood patch suggesting maybe spinal headache. Home tomorrow if doing well.
--- NOTE | 2023-10-02 17:37 | PC.NURSE ---
Patient c/o of 7/10 headache consistently even after pain medication and interventions throughout the day. STATUARY PAINTER performed epidural blood patch at bedside and headache pain has subsided from a 10 to 310.
[2023-10-03] MEDS: OXYCODONE IR 5 MG TABLET PO ×4 (03:16→21:05)
[2023-10-03] MEDS: ACETAMINOPHEN 325 MG TABLET 650 MG PO ×2 (03:16→20:02)
[2023-10-03 03:28] VITALS: BP 128/71; PULSE 75; RESP 20; O2SAT 97
[2023-10-03 05:48] LABS: BUN Creatinine Ratio 17.4 (6-22); Blood Urea Nitrogen 12 mg/dL (7-17); Calcium 9.2 mg/dL (8.4-10.2); Carbon Dioxide 25 mmol/L (22-32); Chloride 106 mmol/L (98-107); Estimated Glomerular Filt Rate > 60 mL/min (>60); Glucose 91 mg/dL (70-100); HEMOLYSIS < 15 (0-50); Potassium 3.9 mmol/L (3.4-5.1); Sodium 137 mmol/L (137-145)
[2023-10-03] MEDS: KETOROLAC 30 MG/ML VIAL IV ×2 (07:58→20:07)
[2023-10-03 08:00] VITALS: BP 119/66; PULSE 71; RESP 16; TEMP 36.2; O2SAT 97
--- NOTE | 2023-10-03 09:06 | PM.PN.1 ---
Subjective Subjective Date Patient Seen: 10/03/23 Time Patient Seen: 09:07 Interval history: Patient was given a blood patch yesterday afternoon and she had significant relief of her headache until approximately 3:00 a.m. when her headache returned. Her edema is much better. Mild lochia. Exam Vital Signs (past 8 hours): - 10/03/23 03:28 10/03/23 08:00 Temperature 97.2 F L Pulse Rate 75 71 Respiratory Rate 20 16 Blood Pressure 128/71 119/66 Pulse Oximetry 97 97 Oxygen Flow Rate 0 Oxygen Delivery Method Room Air Oxygen Flow Rate 0 Narrative Exam Narrative: Abdomen is soft, nontender. Uterus is U-2 and nontender. Extremities with trace edema and nontender. Objective Labs 10/02/23 05:07 10/03/23 05:04 Labs: Laboratory Results - last 24 hr 10/03/23 05:04 Sodium 137 Potassium 3.9 Chloride 106 Carbon Dioxide 25 BUN 12 Creatinine 0.69 Estimated GFR > 60 BUN/Creatinine Ratio 17.4 Glucose 91 Calcium 9.2 PFSH Medical History Abdominal pain Pyelonephritis (~06/2019) Fusion of toes of right foot Sebaceous cyst Surgical History Hx of foot surgery (08/25/20) Hx of foot surgery S/P hardware removal S/P foot surgery, right (09/12/19) Hx of cholecystectomy Hx of eye surgery History of bunionectomy of left great toe History of bunionectomy of right great toe S/P foot surgery, right Social History household members: family and children Smoking Status: Former smoker alcohol intake: former Assessment & Plan Assessment & Plan narrative: Patient with markedly improved edema. Preeclampsia ruled out. Patient headache did improve yesterday afternoon after blood patch but returned at 3:00 a.m.. Anesthesia recommending caffeine. Only caffeine apparently on the formulary is part of headache medication which was prescribed. Anesthesia will re evaluate patient later today and consider a 2nd blood patch if necessary. Patient did receive IV iron yesterday for anemia.
[2023-10-03] MEDS: BUTALB/APAP/CAFFEINE 50/325/40 TABLET 1 EACH PO ×2 (09:34→13:42)
[2023-10-03] MEDS: hydroCHLOROthiazide 25 MG TABLET PO (09:34)
[2023-10-03] MEDS: SODIUM CHLORIDE 0.9% FLUSH 10 ML IV ×2 (09:34→20:08)
--- NOTE | 2023-10-03 10:35 | CM.DPNOTE ---
DCP Note SALVAGE CUTTER reviewed EMR. Per provider PN, pt was given blood patch yesterday and pt has had sig relief in her headaches. Headache returned at 3am. Per PN, edema much better and preexlampsia ruled out. Per PN, anesthesia will re evaluate today and consider if pt needs a 2nd blood patch. No additional CM needs identified at this time. Plan: anticipate home with family (Brother to transport) when medically stable. No CM needs identified. CM team will continue to follow as needed. dc today vs tomorrow. DOMINGO Lawrence
[2023-10-03 11:22] LABS: Add Manual Diff / Slide Review YES; Hematocrit 28.1 % (36-46); Hemoglobin 9.1 g/dL (12.0-16.0); Mean Corpuscular HGB Conc 32.5 % (30-36); Mean Corpuscular Volume 80.1 fL (80-100); Platelet Count 306 X10^3/uL (150-400); Red Blood Cell Count 3.51 X10^6/uL (4.0-5.2); Red Cell Distribution Width 16.1 % (11.6-14.8); White Blood Cell Count 6.8 X10^3/uL (4.5-11.0)
[2023-10-03 11:45] LABS: Neutrophils Absolute Manual 3604 /uL (3000-5900); Total Cells Counted 100
[2023-10-03 11:46] LABS: Anisocytosis 1+
[2023-10-03] MEDS: SUMAtriptan 25 MG TABLET 50 MG PO (12:14)
--- NOTE | 2023-10-03 15:02 | P.PCN_ITS ---
Procedures Date/Time Date of procedure: 10/03/23 Time of procedure: 14:50 General Procedure description: 28y/o admitted for concerns of preeclampsia on 10/01. Patient was complaining of severe headache, upper abdominal pain, and severe bilateral lower extremity edema that started the day prior to admission. Workup for preeclampsia was negative, and LE edema has improved. Labs WNL, CT head showed no acute process, BP within normal range without medication. Her headache persists. She underwent epidural blood patch yesterday afternoon with immediate improvement, 7/10 --> 3/10. Then, at around 0300, her headache abruptly returned, same as before. She had a vaginal delivery 09/25/22 with epidural analgesia, and developed a headache 09/29/23. HENRY is worse when sitting up/standing and improved by lying flat, ranging from 7/10 when upright, to 3/10 when supine. She denies rash and is afebrile with normal WBC. She has received ketorolac, Fioricet x 2, and oxycodone with no imporvement. Her presentation is consistent with PDPH. Other causes, such as preeclampsia, intracranial hemorrhage, or infection, are unlikely considering normal WBC, no acute intracranial process by CT, no rash or fever. I discussed risks, benefits, and alternatives to repeating the epidural blood patch with [place], including failure to improve her HENRY, another PDPH from this procedure, bleeding and infection. She wished to proceed with the procedure. R/B/A discussed, consent was signed and witnessed. Procedure: 14:40 - 14:54 pre procedure: 133/92, HR 73, 99% SaO2 on RA Pt seated. Sterile prep, drape. Using sterile technique, lido local injected L2- 3, Hustead advanced with SHANNA with saline at 6.5cm (clean SHANNA). No paresthesias, no CSF. RN neurology physician assistant withdrew 17mL of blood using sterile blood draw from new IV. 17mL slowly injected into epidural space. Pt reported no feeling of fullness, pain, or paresthesia with injection. After 17mL, pt reported near complete resolution of her HENRY, stating a drop from 7/10 to 3/10 while seated upright. Post-procedure VS: 122/72, HR 71, 99% SaO2. Pt tolerated procedure well. Discussed with OB primary.
--- NOTE | 2023-10-03 15:09 | PC.NURSE ---
pt just had a blood patch done. pt laying in bed. can feel some pressure on her back. denied head ache.
[2023-10-03 19:36] VITALS: BP 124/75; PULSE 91; RESP 16; TEMP 36.7; O2SAT 100
[2023-10-04] MEDS: OXYCODONE IR 5 MG TABLET PO ×2 (03:30→07:29)
[2023-10-04] MEDS: ACETAMINOPHEN 325 MG TABLET 650 MG PO ×2 (03:31→07:29)
--- NOTE | 2023-10-04 08:05 | P.DS_ITS ---
History of Present Illness History of Present Illness Date Patient Seen: 10/04/23 Time Patient Seen: 08:05 Date of Onset of Symptoms: 09/28/23 Chief complaint: swelling on both feet, 6 days Discharge Providers Provider Date of admission: 10/01/23 12:39 Discharge Date: 10/04/23 Consults: 10/01/23 12:33 Consult to Obstetrics Stat Comment: Consulting Provider: Cherelle Prakash Reason for consultation: pre-eclampsia Has provider been notified: Yes Discharge provider: Cherelle Prakash MD Summary Hospital Course Discharge Diagnosis: Leg edema resolved. Spinal headache after epidural catheter Hospital Course: Patient was admitted for possible preeclampsia . She had headache, upper abdominal discomfort, leg edema, minimally elevated blood pressures. Patient had resolution of her edema with diuretics. Her blood pressures remained in the normal to minimally elevated range not preeclampsia. Labs remained normal. Patient was anemic and received 1 dose of IV iron. Patient received 2 blood patches for spinal headache which finally have improved her symptoms of headache. Status at Discharge Cognitive/behavioral status at discharge: oriented Functional status at discharge: independent ambulation Overall status at discharge: patient is progressing back to baseline Time Spent with Patient Time spent: Less than 30 minutes Exam Vital Signs (past 8 hours): Oxygen Delivery Method Room Air Oxygen Flow Rate 0 Narrative Exam Narrative: Abdomen is soft, nontender. Uterus is firm, U-2, nontender. Mild lochia. Extremities with trace edema and nontender. Objective Labs 10/03/23 05:04 10/03/23 05:04 Labs: Laboratory Results - last 24 hr 10/03/23 05:04 WBC 6.8 RBC 3.51 L Hgb 9.1 L Hct 28.1 L MCV 80.1 MCH 26.0 MCHC 32.5 RDW 16.1 H Plt Count 306 Neut % (Auto) Not Reportable Lymph % (Auto) Not Reportable Ocean % (Auto) Not Reportable Eos % (Auto) Not Reportable Baso % (Auto) Not Reportable Lymph # (Auto) Not Reportable Ocean # (Auto) Not Reportable Baso # (Auto) Not Reportable Total Counted 100 Seg Neutrophils % 53.0 Lymphocytes % (Manual) 34.0 Atypical Lymphs % 2.0 H Monocytes % (Manual) 3.0 Eosinophils % (Manual) 6.0 H Metamyelocytes % 1.0 H Myelocytes % 1.0 H Neutrophils # (Manual) 4058 RBC Morphology See below Anisocytosis 1+ H PFSH Medical History Abdominal pain Pyelonephritis (~06/2019) Fusion of toes of right foot Sebaceous cyst Surgical History Hx of foot surgery (08/25/20) Hx of foot surgery S/P hardware removal S/P foot surgery, right (09/12/19) Hx of cholecystectomy Hx of eye surgery History of bunionectomy of left great toe History of bunionectomy of right great toe S/P foot surgery, right Social History household members: family and children Smoking Status: Former smoker alcohol intake: former Discharge Assessment & Plan Assessment and Plan Assessment: leg edema resolved with diuretics Spinal headache resolved with 2nd blood patch. Plan of Treatment: Patient is to be discharged home follow-up with her OB primary care at [facility] Discharge Plan Discharge Plan Patient Disposition: Home Discharge orders & Medications Prescriptions: Continued fluticasone propionate [Flonase Allergy Relief] 50 mcg/actuation spray,suspension 1 spray intranasal Q12H Qty: 16 0RF Rx Instructions: administer into each nostril acetaminophen [Tylenol Extra Strength] 500 mg Tablet 1,000 mg PO Q6H PRN (Reason: Pain) diphenhydramine HCl 50 mg Capsule 50 mg PO BID PNV [id number] fumarate-FA [] 28 mg iron- 800 mcg Tablet 1 tab PO Q OTHER DAY Patient Comments: Unsure of exact lidocaine [Lidoderm] 5 % adhesive patch,medicated 1 patch topical DAILY Qty: 15 0RF Rx Instructions: leave on most painful area for up to 12 hrs albuterol sulfate 90 mcg/actuation HFA aerosol inhaler 2 puff inhalation Q4H PRN (Reason: cough) Follow up/Referrals: Cherelle Prakash MD [Physician] - (patient to follow up with OB provider COURTNEY) Diet/Activity/Treatments Diet: Regular Activity: no restrictions Skin/Wound/Dressing Care Report to your healthcare provider any signs of infection, such as:: chills, fever and increased pain
--- NOTE | 2023-10-04 08:35 | PC.NURSE ---
Patient is doing well this morning. She was given oxy and tylenol for discomfort to back, brother is in room and baby. She denies pain or discomfort at this time. Up with SBA. into see patient and she will be discharging today.
[2023-10-04] MEDS: hydroCHLOROthiazide 25 MG TABLET PO (08:41)
[2023-10-04 08:59] VITALS: BP 131/89; PULSE 94; RESP 18; O2SAT 96
--- NOTE | 2023-10-04 13:37 | CM.DPNOTE ---
DC Note Discharge home today with supportive family. No needs identified from this CM team. ADITHYA
== END 2023-10-04 10:45 | disposition home or self-care (01) | DRG 561 ==
LOC: ED 11:09 → AC 12:40 → LABOR 13:48 → AC 21:08
PROVIDERS: Emergency Medicine; Admitting Provider Specialist; Emergency Provider Student in an Organized Health Care Education/Training Program; Referring Provider Student in an Organized Health Care Education/Training Program; Visit Provider Specialist
DX: O89.4 Spinal and epidural anesthesia-induced headache during the puerperium (principal); O90.89 Other complications of the puerperium, not elsewhere classified; R60.0 Localized edema; O90.81 Anemia of the puerperium; D64.9 Anemia, unspecified
CPT/HCPCS: 36415; 70450; 71045; 75635; 76856; 80048; 80053; 81003; 81015; 82570; 83690; 84156; 85007; 85025; 85610; 85730; 87086; 96374; 99284; 99285; J1756; J1885; J2405; Q9967

== ENCOUNTER 2023-10-28 17:55 | Emergency (ER) | payer OTHER, MEDICAID, SELFPAY ==
[2023-10-01 13:30] VITALS: BMI 43.5
[2023-10-28 18:03] VITALS: BP 135/81; PULSE 82; RESP 18; TEMP 36.3; O2SAT 99; BMI 41.1
--- NOTE | 2023-10-28 18:12 | DI.RAD.S_ITS ---
PROCEDURE: XR CHEST 1V INDICATIONS: suspected sepsis TECHNIQUE: One view of the chest was acquired. COMPARISON: [facility], CR, XR CHEST 1V, 10/01/2023, 13:30. FINDINGS: Surgical changes and devices: None. Lungs and pleura: No dense consolidation. No pleural effusion. Mediastinum: Normal heart size Bones and chest wall: Unremarkable IMPRESSION: No acute radiographic abnormality. Dictated by: Marco Lin M.D. on 10/28/2023 at 19:30 Approved by: Marco Lin M.D. on 10/28/2023 at 19:31
[2023-10-28] MEDS: SODIUM CHLORIDE 0.9% 1,000 ML 1000 ML IV (18:29)
[2023-10-28 18:31] LABS: Add Manual Diff / Slide Review NO; Basophils Absolute Auto 100 /uL (0-100); Basophils Percent Auto 0.6 % (0-2); Eosinophils Absolute Auto 400 /uL (0-450); Eosinophils Percent Auto 4.2 % (2-4); Hematocrit 33.7 % (36-46); Lymphocytes Absolute Auto 2100 /uL (1100-4500); Lymphocytes Percent Auto 24.2 % (25-40); Mean Corpuscular HGB Conc 32.7 % (30-36); Mean Corpuscular Hemoglobin 25.6 PG (26-34); Mean Corpuscular Volume 78.5 fL (80-100); Monocytes Absolute Auto 400 /uL (0-900); Monocytes Percent Auto 4.8 % (3-14); Neutrophils Absolute Auto 5800 /uL (1500-7000); Neutrophils Percent Auto 66.2 % (50-75); Platelet Count 274 X10^3/uL (150-400); Red Cell Distribution Width 16.1 % (11.6-14.8); White Blood Cell Count 8.8 X10^3/uL (4.5-11.0)
[2023-10-28 18:38] LABS: INR 0.9 (0.9-1.3); Prothrombin Time 10.5 SECONDS (9.4-12.5)
[2023-10-28 18:41] LABS: PTT Partial Thromboplastin Tim 37 SECONDS (25.1-36.5)
[2023-10-28 18:42] LABS: Alanine Aminotransferase 19 IU/L (<35); Albumin 4.2 g/dL (3.5-5.0); Albumin Globulin Ratio 1.1 (1.0-2.8); Alkaline Phosphatase 75 U/L (38-126); Aspartate Aminotransferase 21 IU/L (14-36); BUN Creatinine Ratio 24.3 (6-22); Bilirubin Total 0.4 mg/dL (0.2-1.3); Blood Urea Nitrogen 18 mg/dL (7-17); Calcium 9.5 mg/dL (8.4-10.2); Carbon Dioxide 28 mmol/L (22-32); Chloride 106 mmol/L (98-107); Estimated Glomerular Filt Rate > 60 mL/min (>60); Globulin 3.8 g/dL (1.7-4.1); Glucose 87 mg/dL (70-100); HEMOLYSIS < 15 (0-50); Lipase 142 U/L (23-300); Potassium 3.6 mmol/L (3.4-5.1); Sodium 140 mmol/L (137-145)
[2023-10-28 18:43] LABS: Lactate (Lactic Acid) 0.8 mmol/L (0.7-2.1)
[2023-10-28 18:59] LABS: Procalcitonin < 0.03 ng/mL (<0.5)
[2023-10-28 19:22] LABS: Bacteria Urine Moderate (10-30); Culture Indicated Urine Specimen Cultured; RBC Urine None Seen (0-5/HPF); Squamous Epithelial Cell Urine 1-5 /HPF (0-5/HPF); Urine Volume 10mL (spun); WBC Urine 5-10/HPF (0-5/HPF)
--- NOTE | 2023-10-28 21:48 | ED.FEMALEGU ---
HPI - Female Genitourinary General Chief complaint: Urogenital-Female Stated complaint: UTI Time Seen by Provider: 10/28/23 19:54 Source: patient Mode of arrival: Ambulatory Limitations: no limitations History of Present Illness HPI Narrative: 28-year-old female proximally 4 weeks who did develop preeclampsia and was treated here at [facility]. Delivered spontaneous vaginal delivery at [facility]. Patient states he has had urinary symptoms with pressure and irritation and bilateral flank pain since last Sunday a week ago. Patient states she had a fever today. States she has pressure but no real abdominal pain. Does bilateral flank pain. She has had some nausea and vomiting occasionally. No chest pain or shortness of breath. No diarrhea or constipation, she has not appreciate any dysuria urgency or frequency. She has not appreciate any discharge. She states no additional vaginal bleeding. She had have an ultrasound that showed that the uterus was empty without any retained products. Patient presents tonight after having been on Cipro for approximately a week, she has been taking Toradol PRN for pain. States she is on iron as her only other regular prescription medication. No known drug allergies. She is breast-feeding. Former smoker, occasional alcohol, uses marijuana or other recreational drugs. She gets her pre and care through [facility] Related Data Home Medications Medication Instructions Recorded Confirmed acetaminophen 500 mg tablet 1,000 mg PO Q6H PRN Pain 01/13/20 10/01/23 (Tylenol Extra Strength) diphenhydramine HCl 50 mg capsule 50 mg PO BID 03/26/23 10/01/23 vit no.95-ferrous 1 tab PO Q OTHER DAY 03/26/23 10/01/23 fumarate 28 mg-folic acid 800 mcg tablet () albuterol sulfate 90 mcg/actuation 2 puff inhalation Q4H PRN cough 10/03/23 10/03/23 aerosol inhaler Previous Rx's Medication Instructions Recorded lidocaine 5 % topical patch 1 patch topical DAILY #15 ea 03/28/23 (Lidoderm) fluticasone propionate 50 1 spray intranasal Q12H #16 grams 05/23/23 mcg/actuation nasal spray,suspension (Flonase Allergy Relief) doxycycline hyclate 100 mg tablet 100 mg PO BID #20 tabs 10/28/23 Allergies Allergy/AdvReac Type Severity Reaction Status Date / Time No Known Drug Allergies Allergy Verified 10/28/23 18:11 Review of Systems Review of Systems ROS Unobtainable: All systems reviewed & are unremarkable except as noted in HPI and below Patient History Medical History Abdominal pain Pyelonephritis (~06/2019) Fusion of toes of right foot Sebaceous cyst Surgical History Hx of foot surgery (08/25/20) Hx of foot surgery S/P hardware removal S/P foot surgery, right (09/12/19) Hx of cholecystectomy Hx of eye surgery History of bunionectomy of left great toe History of bunionectomy of right great toe S/P foot surgery, right alcohol intake frequency: 0-2 drinks per day Substance Use Type: marijuana Exam Narrative Exam Narrative: GENERAL: Alert and oriented x three, female in mild distress. HEENT: Head normocephalic, atraumatic, EOMI, pupils reactive, face symmetric, moist mucous membranes NECK: Supple, full range of motion CARDIOVASCULAR: Regular rate and rhythm without murmurs, rubs or gallops. RESPIRATORY: Breath sounds equal bilaterally, no wheezes rales or rhonchi. ABDOMEN: Soft, nontender. Normoactive bowel sounds all 4 quadrants. No guarding or rebound, rigidity, no mass : No CVA tenderness. Female: externa vaginal examl normal, no vaginal bleeding, positive for thick white discharge, mild cervical motion tenderness, normal speculum exam, no adnexal tenderness/mass. Bimanual exam is normal, no enlarged or tender uterus. Non-gravid. EXTREMITIES: Normal range of motion, no clubbing or edema. Neurovascularly intact NEUROLOGICAL: Cranial nerves II through XII grossly intact. Moving all extremities SKIN: Warm, dry, no petechiae, no rashes or lesions. Initial Vital Signs Initial Vital Signs: Vital Signs Temperature 97.3 F L 10/28/23 18:03 Pulse Rate 82 10/28/23 18:03 Respiratory Rate 18 10/28/23 18:03 Blood Pressure 135/81 10/28/23 18:03 Pulse Oximetry 99 10/28/23 18:03 Oxygen Delivery Method Room Air 10/28/23 18:03 Course Orders Ordered: ED Orders 10/28/23 18:09 Urine Culture Stat Urine Microscopic Stat 10/28/23 18:12 XR chest 1V Stat 10/28/23 18:14 Complete Blood Count AUTO DIFF Stat Comprehensive Metabolic Panel Stat Lactate (Lactic Acid) Stat Lipase Stat PTT Partial Thromboplastin Marty Stat Procalcitonin Stat Prothrombin Time INR Stat 10/28/23 18:55 Blood Culture Stat 10/28/23 22:15 Chlamydia/Gonoc/Myco Genital Stat Genital Culture Stat Wet Prep Tric BV Anitra Stat Discontinued Medications Hydrocodone Bitart/Acetaminophen (Hydrocodone/Acet 5/325 Prepack) 1 bottle MISC DIRECTED ONE Stop: 10/28/23 22:12 Last Admin: 10/28/23 22:44 Dose: 1 bottle Documented By: ARACELI Ceftriaxone Sodium (Ceftriaxone 1,000 Mg Vial) 500 mg IM NOW ONE Stop: 10/28/23 22:12 Last Admin: 10/28/23 22:46 Dose: Not Given Documented By: ARACELI Doxycycline Hyclate (Doxycycline Hyclate 100 Mg Tablet) 100 mg PO NOW ONE Stop: 10/28/23 22:11 Last Admin: 10/28/23 22:44 Dose: 100 mg Documented By: ARACELI Sodium Chloride (Normal Saline 0.9%) 1,000 mls @ 1,000 mls/hr IV BOLUS ONE Stop: 10/28/23 19:11 Last Infusion: 10/28/23 19:30 Dose: Infused Documented By: Admin: 10/28/23 18:29 Dose: 1,000 mls/hr Documented By: MLElier Ceftriaxone Sodium 500 mg/ (Dextrose) 50 mls @ 100 mls/hr IV NOW ONE Stop: 10/28/23 22:11 Last Admin: 10/28/23 22:46 Dose: Not Given Documented By: ARACELI Ceftriaxone Sodium 500 mg/ (Dextrose) 50 mls @ 100 mls/hr IV NOW ONE Stop: 10/28/23 22:16 Last Admin: 10/28/23 22:45 Dose: Not Given Documented By: SB Ceftriaxone Sodium 500 mg/ (Dextrose) 50 mls @ 100 mls/hr IV NOW ONE Stop: 10/28/23 23:09 Last Infusion: 10/28/23 23:12 Dose: Infused Documented By: Admin: 10/28/23 22:42 Dose: 100 mls/hr Documented By: ARACELI Lidocaine HCl (Lidocaine 1% (Pf) 5 Ml) 2.1 ml INJ NOW ONE Stop: 10/28/23 22:12 Last Admin: 10/28/23 22:45 Dose: Not Given Documented By: ARACELI Ondansetron HCl (Ondansetron 4 Mg/2 Ml Inj) 4 mg IV NOW PRN PRN Reason: Nausea And Vomiting Ondansetron HCl (Ondansetron 4 Mg Odt) 4 mg SL NOW PRN PRN Reason: Nausea And Vomiting Ondansetron HCl (Ondansetron 4 Mg Odt Prepack) 1 bottle MISC DIRECTED ONE Stop: 10/28/23 22:12 Last Admin: 10/28/23 22:44 Dose: 1 bottle Documented By: ARACELI Vital Signs Vital signs: Vital Signs - 8 hr 10/28/23 18:03 10/28/23 23:14 Temperature 97.3 F L Pulse Rate 82 68 Respiratory Rate 18 Blood Pressure 135/81 117/72 Pulse Oximetry 99 99 Oxygen Delivery Method Room Air Room Air MDM - Female Genitourinary Lab Data 10/28/23 18:14 10/28/23 18:14 Labs: Lab Results 10/28/23 10/28/23 Range/Units 18:09 18:14 WBC 8.8 (4.5-11.0) X10^3/uL RBC 4.30 (4.0-5.2) X10^6/uL Hgb 11.0 L (12.0-16.0) g/dL Hct 33.7 L (36-46) % MCV 78.5 L (80-100) fL MCH 25.6 L (26-34) PG MCHC 32.7 (30-36) % RDW 16.1 H (11.6-14.8) % Plt Count 274 (150-400) X10^3/uL Neut % (Auto) 66.2 (50-75) % Lymph % (Auto) 24.2 L (25-40) % [place] % (Auto) 4.8 (3-14) % Eos % (Auto) 4.2 H (2-4) % Baso % (Auto) 0.6 (0-2) % Neut # (Auto) 5800 (3312-9812) /uL Lymph # (Auto) 2100 (5023-6421) /uL [place] # (Auto) 400 (0-900) /uL Eos # (Auto) 400 (0-450) /uL Baso # (Auto) 100 (0-100) /uL PT 10.5 (9.4-12.5) SECONDS INR 0.9 (0.9-1.3) APTT 37 H (25.1-36.5) SECONDS Sodium 140 (137-145) mmol/L Potassium 3.6 (3.4-5.1) mmol/L Chloride 106 (98-107) mmol/L Carbon Dioxide 28 (22-32) mmol/L BUN 18 H (7-17) mg/dL Creatinine 0.74 (0.52-1.04) mg/dL Estimated GFR > 60 (>60) mL/min BUN/Creatinine Ratio 24.3 H (6-22) Glucose 87 (70-100) mg/dL Lactate 0.8 (0.7-2.1) mmol/L Calcium 9.5 (8.4-10.2) mg/dL Total Bilirubin 0.4 (0.2-1.3) mg/dL AST 21 (14-36) IU/L ALT 19 (<35) IU/L Alkaline Phosphatase 75 (38-126) U/L Total Protein 8.0 (6.3-8.2) g/dL Albumin 4.2 (3.5-5.0) g/dL Globulin 3.8 (1.7-4.1) g/dL Albumin/Globulin Ratio 1.1 (1.0-2.8) Lipase 142 (23-300) U/L Procalcitonin < 0.03 (<0.5) ng/mL Urine RBC None seen (0-5/HPF) Urine WBC 5-10/hpf H (0-5/HPF) Ur Squamous Epith Cells 1-5 /hpf (0-5/HPF) Urine Bacteria Moderate (10-30) H (None) Ur Culture Indicated? Specimen cultured Vol Urine Centrifuged 10ml (spun) Point of Care Testing Test Results Negative Urine Dip Bedside Urine Glucose Negative Bedside Urine Bilirubin - Negative Bedside Urine Ketone - Negative Urine Specific [place] 1.020 Bedside Urine Occult Blood - Negative Bedside Urine pH 6.5 Bedside Urine Protein - Negative Bedside Urine Urobilinogen - Negative Bedside Urine Nitrite - Negative Bedside Urine Leukocytes + 70 Esterase MDM Narrative Medical decision making narrative: 28-year-old female with sensation of bladder fullness and bilateral flank pain without dysuria urgency or frequency. Patient has been on Cipro, she has not had any improvement she has been on it for a week. She has a proximally 4 weeks . Labs including CBC, CMP, lactate, procalcitonin do not show any acute change. Urine shows white cells but no nitrates. Patient has not had dysuria urgency or frequency. But does have some flank pain and fullness pressure in the bladder area. Pelvic exam does show some thick white discharge. Patient has not been sexually active since delivery. She is afebrile with no signs of sepsis, uterus is nontender there is no adnexal fullness. Plan to cover with antibiotics given a dose of Rocephin IM, doxycycline, patient's stop ciprofloxacin. She is breast-feeding but asking for something a little stronger for pain so we will give Dexter but discussed needs to have someone watching baby so she falls asleep they are safe. She still has Toradol oral at home. Patient has follow up upcoming and asked to follow up with her providers in the next week. Cultures were sent including chlamydia, your genital culture and wet mount. Discharge Plan Departure Patient Disposition: Home Clinical Impression: Cervicitis Instructions: Doxycycline, Hydrocodone/Acetaminophen (By mouth) Activity Restrictions/Additional Instructions: Follow-up with your providers. Your exam today is consistent with a cervical infection. Stop the ciprofloxacin you have been taking. You are given a dose of Rocephin here in the department, prescription for doxycycline. Take 1 tablet twice daily until gone. You may take Zofran 1 tablet every 6 hours as needed for nausea. You may continue your ketorolac as prescribed. You may take 1-2 tablets of Dexter every 6 hours as needed. This medication can make you sleepy do not drive, perform hazardous activities or make any major decisions while taking it. This medication will make you constipated please take a stool softener once to twice daily until stools are soft and regular. While breast-feeding make sure someone is around see do not fall asleep while baby. Prescription sent to [facility] in [place]. Prescriptions: New doxycycline hyclate 100 mg tablet 100 mg PO BID Qty: 20 0RF No Action fluticasone propionate [Flonase Allergy Relief] 50 mcg/actuation spray,suspension 1 spray intranasal Q12H Qty: 16 0RF Rx Instructions: administer into each nostril acetaminophen [Tylenol Extra Strength] 500 mg Tablet 1,000 mg PO Q6H PRN (Reason: Pain) diphenhydramine HCl 50 mg Capsule 50 mg PO BID PNV cmb#95-ferrous fumarate-FA [] 28 mg iron- 800 mcg Tablet 1 tab PO Q OTHER DAY Patient Comments: Unsure of exact lidocaine [Lidoderm] 5 % adhesive patch,medicated 1 patch topical DAILY Qty: 15 0RF Rx Instructions: leave on most painful area for up to 12 hrs albuterol sulfate 90 mcg/actuation HFA aerosol inhaler 2 puff inhalation Q4H PRN (Reason: cough) Referrals: Miscellaneous,Doctor, MD [Primary Care Provider] - Stand Alone Forms: Patient Portal/API
[2023-10-28] MEDS: cefTRIAXone 500 MG in DEXTROSE 5 % IN WATER 50 ML 100 MG IV (22:42)
[2023-10-28] MEDS: DOXYCYCLINE HYCLATE 100 MG TABLET PO (22:44)
[2023-10-28] MEDS: HYDROCODONE/ACET 5/325 PREPACK 1 BOTTLE MISC (22:44)
[2023-10-28] MEDS: ONDANSETRON 4 MG ODT PREPACK 1 BOTTLE MISC (22:44)
[2023-10-28 23:14] VITALS: BP 117/72; PULSE 68; O2SAT 99
[2023-11-01 09:47] LABS: Chlamydia trachomatis Negative (Negative); Mycoplasma genitalium Positive (Negative); Neisseria gonorrhoeae Negative (Negative)
== END 2023-10-28 23:18 | disposition home or self-care (01) ==
PROVIDERS: Emergency Provider Emergency Medicine
DX: N72 Inflammatory disease of cervix uteri (principal)
CPT/HCPCS: 36415; 71045; 80053; 81003; 81015; 81025; 83605; 83690; 84145; 85025; 85610; 85730; 87040; 87070; 87086; 87205; 87210; 87491; 87563; 87591; 96361; 96365; 99284; J0696

== ENCOUNTER 2023-12-13 18:45 | Emergency (ER) | payer OTHER, MEDICAID, SELFPAY ==
[2023-10-01 13:30] VITALS: BMI 43.5
[2023-12-13 18:53] VITALS: BP 147/88; PULSE 115; RESP 16; TEMP 36.9; O2SAT 99; BMI 43.0
[2023-12-13] MEDS: KETOROLAC 30 MG/ML VIAL IV (19:12)
[2023-12-13 19:32] LABS: Add Manual Diff / Slide Review NO; Basophils Absolute Auto 100 /uL (0-100); Basophils Percent Auto 0.8 % (0-2); Eosinophils Absolute Auto 500 /uL (0-450); Eosinophils Percent Auto 5.2 % (2-4); Hematocrit 34.5 % (36-46); Hemoglobin 11.3 g/dL (12.0-16.0); Lymphocytes Absolute Auto 2900 /uL (1100-4500); Lymphocytes Percent Auto 27.5 % (25-40); Mean Corpuscular HGB Conc 32.8 % (30-36); Mean Corpuscular Hemoglobin 26.1 PG (26-34); Mean Corpuscular Volume 79.5 fL (80-100); Monocytes Absolute Auto 700 /uL (0-900); Monocytes Percent Auto 6.3 % (3-14); Neutrophils Absolute Auto 6300 /uL (1500-7000); Neutrophils Percent Auto 60.2 % (50-75); Platelet Count 329 X10^3/uL (150-400); Red Blood Cell Count 4.34 X10^6/uL (4.0-5.2); Red Cell Distribution Width 16.3 % (11.6-14.8); White Blood Cell Count 10.4 X10^3/uL (4.5-11.0)
[2023-12-13 19:39] LABS: BUN Creatinine Ratio 25.5 (6-22); Blood Urea Nitrogen 14 mg/dL (7-17); Carbon Dioxide 25 mmol/L (22-32); Chloride 108 mmol/L (98-107); Estimated Glomerular Filt Rate > 60 mL/min (>60); Glucose 101 mg/dL (70-100); HEMOLYSIS 20 (0-50); Sodium 138 mmol/L (137-145)
[2023-12-13 19:41] LABS: Pregnancy Test Serum,Qual Negative (Negative)
--- NOTE | 2023-12-13 19:44 | ED.GENADULT ---
HPI - General Adult General Chief complaint: Vaginal Bleeding Stated complaint: very heavy and painful period Time Seen by Provider: 12/13/23 19:01 Source: patient Mode of arrival: Ambulatory History of Present Illness HPI narrative: Patient is a 20-year-old female. Yesterday started menstrual cycle that she states is been very painful and very heavy bleeding going through multiple pads an hour over multiple hours. This is her 1st menstrual cycle since having a vaginal delivery earlier this year. She has not on blood thinners. She has not currently on any control. She is . Related Data Home Medications Medication Instructions Recorded Confirmed acetaminophen 500 mg tablet 1,000 mg PO Q6H PRN Pain 01/13/20 10/01/23 (Tylenol Extra Strength) diphenhydramine HCl 50 mg capsule 50 mg PO BID 03/26/23 10/01/23 vit no.95-ferrous 1 tab PO Q OTHER DAY 03/26/23 10/01/23 fumarate 28 mg-folic acid 800 mcg tablet () albuterol sulfate 90 mcg/actuation 2 puff inhalation Q4H PRN cough 10/03/23 10/03/23 aerosol inhaler Previous Rx's Medication Instructions Recorded lidocaine 5 % topical patch 1 patch topical DAILY #15 ea 03/28/23 (Lidoderm) fluticasone propionate 50 1 spray intranasal Q12H #16 grams 05/23/23 mcg/actuation nasal spray,suspension (Flonase Allergy Relief) doxycycline hyclate 100 mg tablet 100 mg PO BID #20 tabs 10/28/23 Allergies Allergy/AdvReac Type Severity Reaction Status Date / Time No Known Drug Allergies Allergy Verified 10/28/23 18:11 Review of Systems Gastrointestinal Gastrointestinal: Reports system reviewed and no additional complaints, except as documented Genitourinary Genitourinary: Reports system reviewed and no additional complaints, except as documented Musculoskeletal Musculoskeletal: Reports system reviewed and no additional complaints, except as documented Hematologic/Lymphatic On Anticoagulants: No Patient History Medical History Abdominal pain Pyelonephritis (~06/2019) Fusion of toes of right foot Sebaceous cyst Surgical History Hx of foot surgery (08/25/20) Hx of foot surgery S/P hardware removal S/P foot surgery, right (09/12/19) Hx of cholecystectomy Hx of eye surgery History of bunionectomy of left great toe History of bunionectomy of right great toe S/P foot surgery, right Social History household members: family and children Smoking Status: Former smoker alcohol intake: former Smoking Status: Former smoker alcohol intake frequency: 0-2 drinks per day Substance Use Type: marijuana Exam Initial Vital Signs Initial Vital Signs: Vital Signs Temperature 98.4 F 12/13/23 18:53 Pulse Rate 115 H 12/13/23 18:53 Respiratory Rate 16 12/13/23 18:53 Blood Pressure 147/88 H 12/13/23 18:53 Pulse Oximetry 99 12/13/23 18:53 Oxygen Delivery Method Room Air 12/13/23 18:53 Resp Effort & Inspection: normal respiratory effort Cardio Rate: regular rate GI Inspection: non-distended Skin General: no rashes or lesions noted Course Orders Ordered: ED Orders 12/13/23 19:19 Basic Metabolic Panel Stat Complete Blood Count AUTO DIFF Stat Test Serum,Qual Stat Discontinued Medications Hydrocodone Bitart/Acetaminophen (Hydrocodone/Acet 5/325 Tablet) 1 tab PO NOW ONE Stop: 12/13/23 19:45 Last Admin: 12/13/23 19:48 Dose: 1 tab Documented By: VAMSI Hydrocodone Bitart/Acetaminophen (Hydrocodone/Acet 5/325 Prepack) 1 bottle MISC DIRECTED ONE Stop: 12/13/23 20:42 Last Admin: 12/13/23 20:53 Dose: 1 bottle Documented By: VAMSI Ketorolac Tromethamine (Ketorolac 30 Mg/Ml Vial) 30 mg IV NOW ONE Stop: 12/13/23 19:03 Last Admin: 12/13/23 19:12 Dose: 30 mg Documented By: KAYLEE Ondansetron HCl (Ondansetron 4 Mg/2 Ml Inj) 4 mg IV NOW ONE Stop: 12/13/23 19:03 Last Admin: 12/13/23 19:12 Dose: Not Given Documented By: KAYLEE Vital Signs Vital signs: Vital Signs - 8 hr 12/13/23 18:53 12/13/23 21:01 Temperature 98.4 F Pulse Rate 115 H 102 H Respiratory Rate 16 14 Blood Pressure 147/88 H 115/68 Pulse Oximetry 99 96 Oxygen Delivery Method Room Air Medical Decision Making Lab Data Lab results reviewed: Yes I reviewed the patient's lab results. 12/13/23 19:19 12/13/23 19:19 Labs: Lab Results 12/13/23 Range/Units 19:19 WBC 10.4 (4.5-11.0) X10^3/uL RBC 4.34 (4.0-5.2) X10^6/uL Hgb 11.3 L (12.0-16.0) g/dL Hct 34.5 L (36-46) % MCV 79.5 L (80-100) fL MCH 26.1 (26-34) PG MCHC 32.8 (30-36) % RDW 16.3 H (11.6-14.8) % Plt Count 329 (150-400) X10^3/uL Neut % (Auto) 60.2 (50-75) % Lymph % (Auto) 27.5 (25-40) % [place] % (Auto) 6.3 (3-14) % Eos % (Auto) 5.2 H (2-4) % Baso % (Auto) 0.8 (0-2) % Neut # (Auto) 6300 (4537-5301) /uL Lymph # (Auto) 2900 (6034-3773) /uL [place] # (Auto) 700 (0-900) /uL Eos # (Auto) 500 H (0-450) /uL Baso # (Auto) 100 (0-100) /uL Sodium 138 (137-145) mmol/L Potassium 4.0 (3.4-5.1) mmol/L Chloride 108 H (98-107) mmol/L Carbon Dioxide 25 (22-32) mmol/L BUN 14 (7-17) mg/dL Creatinine 0.55 (0.52-1.04) mg/dL Estimated GFR > 60 (>60) mL/min BUN/Creatinine Ratio 25.5 H (6-22) Glucose 101 H (70-100) mg/dL Calcium 10.0 (8.4-10.2) mg/dL Serum , Qual Negative (Negative) MDM Narrative Medical decision making narrative: Patient is not anemic to the point that would require blood transfusion. Vital signs are unremarkable. Since delivery this is the 1st time that she has had any vaginal bleeding so I have low suspicion that this is retained products of conception. I suspect that this is abnormal vaginal bleeding most likely cause it is her 1st cycle since delivery. She is . She was given a dose of pain medication we did discuss how she should pump and dump her breast milk. She states this would be fine she has plenty of breast milk saved up. I do suspect that her symptoms will improve. She was given strict return precautions. She expressed understanding and agreement. Discharge Plan Departure Patient Disposition: Home Clinical Impression: Vaginal bleeding Instructions: DI for Vaginal Bleeding Activity Restrictions/Additional Instructions: Continue to take all of your medications as directed. If you take the hydrocodone I do recommend that you pump and dump your breast milk and use the milk that you have saved. If you are just using Tylenol and ibuprofen then you can continue to breastfeed. Contact your primary doctor for a follow-up. Return to the emergency department for new symptoms. Prescriptions: No Action fluticasone propionate [Flonase Allergy Relief] 50 mcg/actuation spray,suspension 1 spray intranasal Q12H Qty: 16 0RF Rx Instructions: administer into each nostril acetaminophen [Tylenol Extra Strength] 500 mg Tablet 1,000 mg PO Q6H PRN (Reason: Pain) doxycycline hyclate 100 mg tablet 100 mg PO BID Qty: 20 0RF diphenhydramine HCl 50 mg Capsule 50 mg PO BID PNV cmb#95-ferrous fumarate-FA [] 28 mg iron- 800 mcg Tablet 1 tab PO Q OTHER DAY Patient Comments: Unsure of exact lidocaine [Lidoderm] 5 % adhesive patch,medicated 1 patch topical DAILY Qty: 15 0RF Rx Instructions: leave on most painful area for up to 12 hrs albuterol sulfate 90 mcg/actuation HFA aerosol inhaler 2 puff inhalation Q4H PRN (Reason: cough) Referrals: Miscellaneous,Doctor, MD [Primary Care Provider] - Stand Alone Forms: Patient Portal/API
[2023-12-13] MEDS: HYDROCODONE/ACET 5/325 TABLET 1 TAB PO (19:48)
[2023-12-13] MEDS: HYDROCODONE/ACET 5/325 PREPACK 1 BOTTLE MISC (20:53)
[2023-12-13 21:01] VITALS: BP 115/68; PULSE 102; RESP 14; O2SAT 96
== END 2023-12-13 21:02 | disposition home or self-care (01) ==
PROVIDERS: Emergency Provider Emergency Medicine
DX: N92.0 Excessive and frequent menstruation with regular cycle (principal)
CPT/HCPCS: 36415; 80048; 84703; 85025; 96374; 99284; J1885

== ENCOUNTER 2023-12-30 18:56 | Emergency (ER) | payer OTHER, MEDICAID, SELFPAY ==
[2023-10-01 13:30] VITALS: BMI 43.5
[2023-12-30 19:39] VITALS: BP 161/100; PULSE 82; RESP 20; TEMP 37.1; O2SAT 98; BMI 43.0
[2023-12-30] MEDS: ONDANSETRON 4 MG/2 ML INJ IV (19:55)
[2023-12-30 20:08] LABS: Add Manual Diff / Slide Review NO; Basophils Absolute Auto 0 /uL (0-100); Basophils Percent Auto 0.3 % (0-2); Eosinophils Absolute Auto 300 /uL (0-450); Eosinophils Percent Auto 2.2 % (2-4); Hematocrit 38.4 % (36-46); Hemoglobin 12.7 g/dL (12.0-16.0); Lymphocytes Absolute Auto 3100 /uL (1100-4500); Mean Corpuscular HGB Conc 33.2 % (30-36); Mean Corpuscular Volume 78.4 fL (80-100); Monocytes Absolute Auto 700 /uL (0-900); Monocytes Percent Auto 6.1 % (3-14); Neutrophils Absolute Auto 7800 /uL (1500-7000); Neutrophils Percent Auto 65.4 % (50-75); Platelet Count 355 X10^3/uL (150-400); Red Cell Distribution Width 16.4 % (11.6-14.8); White Blood Cell Count 11.9 X10^3/uL (4.5-11.0)
[2023-12-30 20:13] LABS: Alanine Aminotransferase 24 IU/L (<35); Albumin 4.9 g/dL (3.5-5.0); Albumin Globulin Ratio 1.2 (1.0-2.8); Alkaline Phosphatase 90 U/L (38-126); Aspartate Aminotransferase 29 IU/L (14-36); Bilirubin Total 0.4 mg/dL (0.2-1.3); Blood Urea Nitrogen 11 mg/dL (7-17); Carbon Dioxide 26 mmol/L (22-32); Chloride 105 mmol/L (98-107); Estimated Glomerular Filt Rate > 60 mL/min (>60); Glucose 98 mg/dL (70-100); HEMOLYSIS 43 (0-50); Lipase 281 U/L (23-300); Potassium 4.1 mmol/L (3.4-5.1); Sodium 139 mmol/L (137-145); Total Protein 8.9 g/dL (6.3-8.2)
[2023-12-30 20:48] LABS: Urine Volume 10mL (spun)
[2023-12-30 20:49] LABS: Bacteria Urine Few (2-10); RBC Urine None Seen (0-5/HPF); WBC Urine 1-5/HPF (0-5/HPF)
[2023-12-30 20:50] LABS: Calcium Oxalate Crystals Urine Many; Culture Indicated Urine Specimen Cultured
[2023-12-30 20:58] LABS: Squamous Epithelial Cell Urine 1-5 /HPF (0-5/HPF)
[2023-12-30 22:59] VITALS: PULSE 80; O2SAT 95
[2023-12-30 23:00] VITALS: PULSE 89; O2SAT 98
--- NOTE | 2023-12-30 23:02 | ED_ITS ---
HPI - Abdominal Pain General Chief Complaint: Abdominal Pain Stated Complaint: abd pain vomitting Time Seen by Provider: 12/30/23 23:01 Source: patient Mode of arrival: Ambulatory History of Present Illness HPI narrative: 28-year-old female with history of endometriosis presents by private vehicle from home for right ?middle? abdominal pain. Pain is constant, does not radiate. Associated vomiting. History of cholecystectomy. Points to location between RUQ and RLQ as source of maximum pain. Related Data Home Medications Medication Instructions Recorded Confirmed acetaminophen 500 mg tablet 1,000 mg PO Q6H PRN Pain 01/13/20 10/01/23 (Tylenol Extra Strength) diphenhydramine HCl 50 mg capsule 50 mg PO BID 03/26/23 10/01/23 vit no.95-ferrous 1 tab PO Q OTHER DAY 03/26/23 10/01/23 fumarate 28 mg-folic acid 800 mcg tablet () albuterol sulfate 90 mcg/actuation 2 puff inhalation Q4H PRN cough 10/03/23 10/03/23 aerosol inhaler Previous Rx's Medication Instructions Recorded lidocaine 5 % topical patch 1 patch topical DAILY #15 ea 03/28/23 (Lidoderm) fluticasone propionate 50 1 spray intranasal Q12H #16 grams 05/23/23 mcg/actuation nasal spray,suspension (Flonase Allergy Relief) doxycycline hyclate 100 mg tablet 100 mg PO BID #20 tabs 10/28/23 promethazine 25 mg tablet 25 mg PO Q6H PRN nausea and 12/31/23 vomiting #30 tabs Allergies Allergy/AdvReac Type Severity Reaction Status Date / Time No Known Drug Allergies Allergy Verified 12/30/23 19:44 Review of Systems Review of Systems Narrative: See HPI Patient History Medical History Abdominal pain Pyelonephritis (~06/2019) Fusion of toes of right foot Sebaceous cyst Surgical History Hx of foot surgery (08/25/20) Hx of foot surgery S/P hardware removal S/P foot surgery, right (09/12/19) Hx of cholecystectomy Hx of eye surgery History of bunionectomy of left great toe History of bunionectomy of right great toe S/P foot surgery, right Social History household members: family and children Smoking Status: Former smoker alcohol intake: former Smoking Status: Former smoker alcohol intake frequency: 0-2 drinks per day Substance Use Type: marijuana Exam Initial Vital Signs Initial Vital Signs: Vital Signs Temperature 98.7 F 12/30/23 19:39 Pulse Rate 82 12/30/23 19:39 Respiratory Rate 20 12/30/23 19:39 Blood Pressure 161/100 H 12/30/23 19:39 Pulse Oximetry 98 12/30/23 19:39 Oxygen Delivery Method Room Air 12/30/23 19:39 Const: Awake, alert, uncomfortable, in pain Cardiac: regular rate, regular rhythm RESP: unlabored, clear bilaterally, no wheezing GI: Soft, tenderness in both right upper and lower quadrants to deep palpation, no rebound, no guarding Skin: Warm, Dry, intact, no rashes Neuro: AO x3, CN II-XII grossly intact, moves all extremities Course Orders Ordered: ED Orders 12/30/23 20:28 Urine Culture Stat Urine Microscopic Stat 12/30/23 23:01 CT abdomen pelvis w con Stat Discontinued Medications Sodium Chloride (Normal Saline 0.9%) 1,000 mls @ 1,000 mls/hr IV BOLUS ONE Stop: 12/31/23 00:00 Last Admin: 12/30/23 23:09 Dose: 1,000 mls/hr Documented By: Ketorolac Tromethamine (Ketorolac 30 Mg/Ml Vial) 15 mg IV NOW ONE Stop: 12/31/23 00:20 Last Admin: 12/31/23 00:27 Dose: 15 mg Documented By: STELLA Metoclopramide HCl (Metoclopramide 10 Mg/2 Ml Inj) 10 mg IV NOW ONE Stop: 12/30/23 23:02 Last Admin: 12/30/23 23:11 Dose: 10 mg Documented By: Morphine Sulfate (Morphine 4 Mg/Ml Inj) 4 mg IV NOW ONE Stop: 12/30/23 23:02 Last Admin: 12/30/23 23:16 Dose: 4 mg Documented By: Ondansetron HCl (Ondansetron 4 Mg Odt) 4 mg PO NOW PRN PRN Reason: Nausea And Vomiting Last Admin: 12/30/23 23:11 Dose: 4 mg Documented By: AB Ondansetron HCl (Ondansetron 4 Mg/2 Ml Inj) 4 mg IV NOW PRN PRN Reason: Nausea And Vomiting Last Admin: 12/30/23 19:55 Dose: 4 mg Documented By: MARIPOSA Sodium Chloride (Sodium Chloride 0.9% Flush) 10 ml IV BID MARÍA Last Admin: 12/30/23 23:11 Dose: Not Given Documented By: STELLA Sodium Chloride (Sodium Chloride 0.9% Flush) 10 ml IV PRN PRN PRN Reason: Flush Vital Signs Vital signs: Vital Signs - 8 hr 12/30/23 22:59 12/30/23 23:00 12/30/23 23:10 Pulse Rate 80 89 Respiratory Rate Blood Pressure 118/56 L Pulse Oximetry 95 98 12/30/23 23:10 12/30/23 23:30 12/30/23 23:31 Pulse Rate 85 79 Respiratory Rate Blood Pressure 109/59 L Pulse Oximetry 98 97 12/30/23 23:31 12/31/23 00:00 12/31/23 00:00 Pulse Rate 84 77 Respiratory Rate Blood Pressure 96/49 L Pulse Oximetry 96 98 12/31/23 00:30 Pulse Rate 71 Respiratory Rate 18 Blood Pressure Pulse Oximetry 97 MDM - Abdominal Pain Differential Diagnosis Differential diagnosis: Likely abdominal pain, acute appendicitis and calculus of kidney Lab Data 12/30/23 19:50 12/30/23 19:50 Labs: Lab Results 12/30/23 12/30/23 Range/Units 19:50 20:28 WBC 11.9 H (4.5-11.0) X10^3/uL RBC 4.90 (4.0-5.2) X10^6/uL Hgb 12.7 (12.0-16.0) g/dL Hct 38.4 (36-46) % MCV 78.4 L (80-100) fL MCH 26.0 (26-34) PG MCHC 33.2 (30-36) % RDW 16.4 H (11.6-14.8) % Plt Count 355 (150-400) X10^3/uL Neut % (Auto) 65.4 (50-75) % Lymph % (Auto) 26.0 (25-40) % [place] % (Auto) 6.1 (3-14) % Eos % (Auto) 2.2 (2-4) % Baso % (Auto) 0.3 (0-2) % Neut # (Auto) 7800 H (8169-1024) /uL Lymph # (Auto) 3100 (4165-3218) /uL [place] # (Auto) 700 (0-900) /uL Eos # (Auto) 300 (0-450) /uL Baso # (Auto) 0 (0-100) /uL Sodium 139 (137-145) mmol/L Potassium 4.1 (3.4-5.1) mmol/L Chloride 105 (98-107) mmol/L Carbon Dioxide 26 (22-32) mmol/L BUN 11 (7-17) mg/dL Creatinine 0.58 (0.52-1.04) mg/dL Estimated GFR > 60 (>60) mL/min BUN/Creatinine Ratio 19.0 (6-22) Glucose 98 (70-100) mg/dL Calcium 10.0 (8.4-10.2) mg/dL Total Bilirubin 0.4 (0.2-1.3) mg/dL AST 29 (14-36) IU/L ALT 24 (<35) IU/L Alkaline Phosphatase 90 (38-126) U/L Total Protein 8.9 H (6.3-8.2) g/dL Albumin 4.9 (3.5-5.0) g/dL Globulin 4.0 (1.7-4.1) g/dL Albumin/Globulin Ratio 1.2 (1.0-2.8) Lipase 281 (23-300) U/L Urine RBC None seen (0-5/HPF) Urine WBC 1-5/hpf (0-5/HPF) Ur Squamous Epith Cells 1-5 /hpf (0-5/HPF) Calcium Oxalate Crystal Many H Urine Bacteria Few (2-10) H (None) Urine Yeast 0-1/hpf (None) Ur Culture Indicated? Specimen cultured Vol Urine Centrifuged 10ml (spun) Point of care testing: Point of Care Testing Test Results Negative Urine Dip Bedside Urine Glucose Negative Bedside Urine Bilirubin - Negative Bedside Urine Ketone +/- 5 Urine Specific [place] 1.020 Bedside Urine Occult Blood - Negative Bedside Urine pH 6.0 Bedside Urine Protein +/- 15 Bedside Urine Urobilinogen - Negative Bedside Urine Nitrite - Negative Bedside Urine Leukocytes +/- [address] scan - abdomen/pelvis: Radiologist's Impression: PROCEDURE: CT ABDOMEN PELVIS W CON INDICATIONS: RLQ ABD PAIN TECHNIQUE: After the administration of intravenous contrast, axial sections acquired from the lung bases to the pubic symphysis. Coronal and sagittal reformats were performed. For radiation dose reduction, the following was used: automated exposure control, adjustment of mA and/or kV according to patient size. COMPARISON: [facility], CT, CT ANGIO ABD AORTA RUNOFF, 10/01/2023, 13:16. [facility], US, US RENAL COMPLETE, 05/16/2023, 8:49. [facility], CT, CT ABDOMEN PELVIS W CON, 01/08/2022, 0:36. FINDINGS: Image quality: Diagnostic. Lower Chest: No significant findings. ABDOMEN: Liver: No solid mass. Liver measures 19.3 cm with steatosis. Gallbladder: Removed. Biliary ducts: No biliary dilation. Pancreas: No ductal dilation. Spleen: Size is within normal limits. Adrenal Glands: No adrenal nodules. Kidneys and Ureters: No hydronephrosis. No solid mass. No complex renal cystic lesion which requires follow up. Incidental note of left retroaortic renal vein. Stomach and Bowel: Normal colonic caliber, without significant wall thickening. Appendix is normal. No right lower quadrant inflammatory change. Scattered colonic stool. Peritoneum: No abnormal intraperitoneal fluid. No free air. Ventral Wall: No significant ventral hernia. Abdominal Nodes: No retroperitoneal or mesenteric adenopathy by size criteria. Vessels: Aorta and inferior vena cava are normal in size. PELVIS: Pelvic Organs: Unremarkable. Bladder: No bladder wall thickening, accounting for underdistention. Pelvic Nodes: No enlarged lymph nodes. Miscellaneous: No inguinal hernias are seen. Bones: No aggressive osseous abnormality. IMPRESSION: No visualized acute intra-abdominal or pelvic process. No renal or ureteral calculi. Appendix is normal. Dictated by: Tiffanie Brown M.D. on 12/30/2023 at 23:56 Approved by: Tiffanie Brown M.D. on 12/30/2023 at 23:59 MDM Narrative Medical decision making narrative: Nontoxic patient with right-sided abdominal pain nausea and vomiting. History of endometriosis. Abdomen is soft, tenderness to deep palpation in the upper and lower quadrants of her right abdomen. Pain and nausea medications ordered. Patient reassessed, pain somewhat improved with morphine but she was still nauseous despite getting Zofran in triage. Reglan ordered. Laboratory work is reviewed, no significant abnormalities at this time. Very trace leukocytosis with WBC count 11.9, hemoglobin 12.7, platelets 355, sodium 139, potassium 4.1, creatinine 0.58, normal liver enzymes. Urinalysis shows calcium oxalate crystals, few bacteria, patient denying urinary symptoms at this time. CT of the abdomen and pelvis is reviewed, no acute abnormalities identified, no explanation for patient's symptoms. Appendix visualized and normal. Patient's history and exam consistent with ovarian pathology. Patient was informed of lab and imaging findings. Recommended close PCP follow up and possible gastroenterology if she continues to experience pain Discharge Plan Departure Patient Disposition: Home Clinical Impression: Abdominal pain Instructions: DI for Abdominal Pain-Adult Activity Restrictions/Additional Instructions: Your laboratory work and CT imaging today are normal. I do not know the cause of your abdominal pain. Antinausea medication has been sent to your pharmacy. Please follow up with your primary care physician Prescriptions: New promethazine 25 mg tablet 25 mg PO Q6H PRN (Reason: nausea and vomiting) Qty: 30 0RF No Action fluticasone propionate [Flonase Allergy Relief] 50 mcg/actuation spray,suspension 1 spray intranasal Q12H Qty: 16 0RF Rx Instructions: administer into each nostril acetaminophen [Tylenol Extra Strength] 500 mg Tablet 1,000 mg PO Q6H PRN (Reason: Pain) doxycycline hyclate 100 mg tablet 100 mg PO BID Qty: 20 0RF diphenhydramine HCl 50 mg Capsule 50 mg PO BID PNV cmb#95-ferrous fumarate-FA [] 28 mg iron- 800 mcg Tablet 1 tab PO Q OTHER DAY Patient Comments: Unsure of exact lidocaine [Lidoderm] 5 % adhesive patch,medicated 1 patch topical DAILY Qty: 15 0RF Rx Instructions: leave on most painful area for up to 12 hrs albuterol sulfate 90 mcg/actuation HFA aerosol inhaler 2 puff inhalation Q4H PRN (Reason: cough) Referrals: Miscellaneous,Doctor, MD [Primary Care Provider] - Stand Alone Forms: Patient Portal/API
[2023-12-30] MEDS: SODIUM CHLORIDE 0.9% 1,000 ML 1000 ML IV (23:09)
[2023-12-30 23:10] VITALS: BP 118/56; PULSE 85; O2SAT 98
[2023-12-30] MEDS: METOCLOPRAMIDE 10 MG/2 ML INJ IV (23:11)
[2023-12-30] MEDS: ONDANSETRON 4 MG ODT PO (23:11)
[2023-12-30] MEDS: MORPHINE 4 MG/ML INJ IV (23:16)
[2023-12-30 23:30] VITALS: PULSE 79; O2SAT 97
[2023-12-30 23:31] VITALS: BP 109/59; PULSE 84; O2SAT 96
[2023-12-31] VITALS: BP 96/49; PULSE 77; O2SAT 98
[2023-12-31] MEDS: KETOROLAC 30 MG/ML VIAL 15 MG IV (00:27)
[2023-12-31 00:30] VITALS: PULSE 71; RESP 18; O2SAT 97
== END 2023-12-31 01:31 | disposition home or self-care (01) ==
PROVIDERS: Emergency Provider Emergency Medicine
DX: R10.31 Right lower quadrant pain (principal); R10.11 Right upper quadrant pain; N80.9 Endometriosis, unspecified
CPT/HCPCS: 36415; 74177; 80053; 81003; 81015; 81025; 83690; 85025; 87086; 96374; 96375; 99284; J1885; J2270; J2405; J2765; Q9967

== ENCOUNTER 2024-03-29 14:37 | Emergency (ER) | payer OTHER, MEDICAID, SELFPAY ==
[2023-10-01 13:30] VITALS: BMI 43.5
[2024-03-29 14:51] VITALS: BP 136/79; PULSE 89; RESP 18; TEMP 36.5; O2SAT 98; BMI 44.6
--- NOTE | 2024-03-29 15:12 | DI.US.S_ITS ---
PROCEDURE: US OB <= 14 WEEKS FETUS INDICATIONS: bilat flank pain rad to front / 11 weeks preg OUTSIDE/PRIOR DATING DATA: Last menstrual period (LMP): 01/09/2024. LMP-based estimated date of delivery (TYLER): 10/15/2024. First dating scan (date and location): 03/29/2024. Estimated date of delivery (TYLER) from first dating scan: 10/19/2024. TECHNIQUE: Real-time scanning was performed of the fetus and maternal pelvic organs, with image documentation. Endovaginal scanning was also performed to better visualize the fetus and maternal ovaries. COMPARISON: [facility], , OB <= 14 WEEKS FETUS, 02/12/2023, 9:16. FINDINGS: BPD: 1.6 cm, 12 week 2 day HC: 6.2 cm, 12 week 3 day AC: 5.3 cm, 12 week 1 day FL: 0.6 cm, 12 week 0 day EGA by dates: 11 week 3 day EGA by ultrasound, 12 weeks 2 days Heart rate: 182 beats per minute Maternal organs: Ovaries unremarkable. Visualized kidneys unremarkable without hydronephrosis. IMPRESSION: Single live intrauterine consistent with 12 week 2 day gestation Approved by: Alfred Duff M.D. on 03/29/2024 at 15:32
[2024-03-29 15:19] LABS: Add Manual Diff / Slide Review NO; Basophils Absolute Auto 0 /uL (0-100); Basophils Percent Auto 0.3 % (0-2); Eosinophils Absolute Auto 100 /uL (0-450); Eosinophils Percent Auto 1.6 % (2-4); Hematocrit 36.3 % (36-46); Hemoglobin 12.1 g/dL (12.0-16.0); Lymphocytes Absolute Auto 2100 /uL (1100-4500); Lymphocytes Percent Auto 26.9 % (25-40); Mean Corpuscular HGB Conc 33.2 % (30-36); Mean Corpuscular Hemoglobin 26.6 PG (26-34); Mean Corpuscular Volume 80.3 fL (80-100); Monocytes Absolute Auto 400 /uL (0-900); Monocytes Percent Auto 5.4 % (3-14); Neutrophils Absolute Auto 5100 /uL (1500-7000); Neutrophils Percent Auto 65.8 % (50-75); Platelet Count 259 X10^3/uL (150-400); Red Blood Cell Count 4.52 X10^6/uL (4.0-5.2); Red Cell Distribution Width 16.2 % (11.6-14.8); White Blood Cell Count 7.7 X10^3/uL (4.5-11.0)
[2024-03-29 15:52] LABS: Alanine Aminotransferase 27 IU/L (<35); Albumin 3.7 g/dL (3.5-5.0); Albumin Globulin Ratio 1.1 (1.0-2.8); Alkaline Phosphatase 66 U/L (38-126); Aspartate Aminotransferase 21 IU/L (14-36); BUN Creatinine Ratio 14.6 (6-22); Bilirubin Total 0.3 mg/dL (0.2-1.3); Blood Urea Nitrogen 6 mg/dL (7-17); Calcium 9.3 mg/dL (8.4-10.2); Carbon Dioxide 17 mmol/L (22-32); Chloride 111 mmol/L (98-107); Estimated Glomerular Filt Rate > 60 mL/min (>60); Globulin 3.3 g/dL (1.7-4.1); Glucose 105 mg/dL (70-100); HEMOLYSIS 20 (0-50); Lipase 90 U/L (23-300); Potassium 4.1 mmol/L (3.4-5.1); Sodium 136 mmol/L (137-145)
[2024-03-29 16:19] LABS: HCG Quantitative /Beta subunit 57293 mIU/mL
--- NOTE | 2024-03-29 16:35 | ED_ITS ---
HPI - General Chief complaint: Urogenital-Female Stated complaint: sharp side and abd pain, poss kidney infection Time Seen by Provider: 03/29/24 16:18 Source: patient, RN notes reviewed and old records reviewed Mode of arrival: Ambulatory Limitations: no limitations History of Present Illness HPI Narrative: 28-year-old female 11 weeks and 3 days who presents with complaint of bilateral flank pain radiating to the front, pain with urinary symptoms and history of recurrent your kidney infections. Patient presents with 3 of symptoms. No fevers that she reports, she has had some nausea or vomiting she has been taking Reglan. She did not describe pain as flank pain patient states it feels very similar to UTI/kidney infections. States she had frequent kidney infections with the last . Describes dysuria, no urgency or frequency currently. No issues with bowel movements. No vaginal bleeding or discharge. Patient has been taking Tylenol a 1000 mg every 6 hours and Reglan PRN. Patient states no known drug allergies. Former smoker, occasional alcohol, uses marijuana no other recreational drugs. Patient's care is through [facility]. Related Data Home Medications Medication Instructions Recorded Confirmed acetaminophen 500 mg tablet 1,000 mg PO Q6H PRN Pain 01/13/20 10/01/23 (Tylenol Extra Strength) diphenhydramine HCl 50 mg capsule 50 mg PO BID 03/26/23 10/01/23 vit no.95-ferrous 1 tab PO Q OTHER DAY 03/26/23 10/01/23 fumarate 28 mg-folic acid 800 mcg tablet () albuterol sulfate 90 mcg/actuation 2 puff inhalation Q4H PRN cough 10/03/23 10/03/23 aerosol inhaler Previous Rx's Medication Instructions Recorded lidocaine 5 % topical patch 1 patch topical DAILY #15 ea 03/28/23 (Lidoderm) fluticasone propionate 50 1 spray intranasal Q12H #16 grams 05/23/23 mcg/actuation nasal spray,suspension (Flonase Allergy Relief) doxycycline hyclate 100 mg tablet 100 mg PO BID #20 tabs 10/28/23 promethazine 25 mg tablet 25 mg PO Q6H PRN nausea and 12/31/23 vomiting #30 tabs cephalexin 500 mg capsule 500 mg PO Q6H 7 days #28 caps 03/29/24 oxycodone 5 mg tablet 5 mg PO Q6H PRN pain #5 tabs 03/29/24 Allergies Allergy/AdvReac Type Severity Reaction Status Date / Time No Known Drug Allergies Allergy Verified 03/29/24 14:51 Review of Systems Review of Systems ROS Unobtainable: All systems reviewed & are unremarkable except as noted in HPI and below Exam Narrative Exam Narrative: GENERAL: Alert and oriented x three, female in mild distress HEENT: Head normocephalic, atraumatic, EOMI, pupils reactive, face symmetric, moist mucous membranes NECK: Supple, full range of motion CARDIOVASCULAR: Regular rate and rhythm without murmurs, rubs or gallops. RESPIRATORY: Breath sounds equal bilaterally, no wheezes rales or rhonchi. ABDOMEN: Soft, nontender. Normoactive bowel sounds all 4 quadrants. No guarding or rebound, rigidity, no mass : Bilateral CVA tenderness EXTREMITIES: Normal range of motion, no clubbing or edema. Neurovascularly intact NEUROLOGICAL: Cranial nerves II through XII grossly intact. Moving all extremities SKIN: Warm, dry, no petechiae, no rashes or lesions. Initial Vital Signs Initial Vital Signs: Vital Signs Temperature 97.7 F 03/29/24 14:51 Pulse Rate 89 03/29/24 14:51 Respiratory Rate 18 03/29/24 14:51 Blood Pressure 136/79 03/29/24 14:51 Pulse Oximetry 98 03/29/24 14:51 Oxygen Delivery Method Room Air 03/29/24 14:51 Course Orders Ordered: ED Orders 03/29/24 14:58 Urine Culture Stat Urine Microscopic Stat 03/29/24 15:07 Beta HCG, Quant [HCG Quantitative /Beta subunit] Stat Complete Blood Count AUTO DIFF Stat Comprehensive Metabolic Panel Stat Lipase Stat 03/29/24 15:12 US OB <= 14 weeks fetus Stat Discontinued Medications Cephalexin HCl (Cephalexin 250 Mg Capsule) 500 mg PO NOW ONE Stop: 03/29/24 17:04 Last Admin: 03/29/24 17:06 Dose: 500 mg Documented By: Cephalexin HCl (Cephalexin 250 Mg Capsule) 500 mg PO NOW ONE Stop: 03/29/24 17:07 Last Admin: 03/29/24 17:53 Dose: 500 mg Documented By: Sodium Chloride (Normal Saline 0.9%) 1,000 mls @ 1,000 mls/hr IV BOLUS ONE Stop: 03/29/24 17:39 Last Infusion: 03/29/24 17:50 Dose: Infused Documented By: Admin: 03/29/24 16:49 Dose: 1,000 mls/hr Documented By: Ondansetron HCl (Ondansetron 4 Mg/2 Ml Inj) 4 mg IV NOW PRN PRN Reason: Nausea And Vomiting Ondansetron HCl (Ondansetron 4 Mg Odt) 4 mg PO NOW PRN PRN Reason: Nausea And Vomiting Oxycodone HCl (Oxycodone Ir 5 Mg Tablet) 5 mg PO NOW ONE Stop: 03/29/24 16:46 Last Admin: 03/29/24 16:49 Dose: 5 mg Documented By: Vital Signs Vital signs: Vital Signs - 8 hr 03/29/24 14:51 03/29/24 16:59 03/29/24 18:02 Temperature 97.7 F Pulse Rate 89 70 83 Respiratory Rate 18 16 16 Blood Pressure 136/79 119/59 L 128/73 Pulse Oximetry 98 100 100 Oxygen Delivery Method Room Air Room Air Room Air MDM - OB/Uterine Contractions Lab Data 03/29/24 15:07 03/29/24 15:07 Labs: Lab Results 03/29/24 03/29/24 Range/Units 14:58 15:07 WBC 7.7 (4.5-11.0) X10^3/uL RBC 4.52 (4.0-5.2) X10^6/uL Hgb 12.1 (12.0-16.0) g/dL Hct 36.3 (36-46) % MCV 80.3 (80-100) fL MCH 26.6 (26-34) PG MCHC 33.2 (30-36) % RDW 16.2 H (11.6-14.8) % Plt Count 259 (150-400) X10^3/uL Neut % (Auto) 65.8 (50-75) % Lymph % (Auto) 26.9 (25-40) % [place] % (Auto) 5.4 (3-14) % Eos % (Auto) 1.6 L (2-4) % Baso % (Auto) 0.3 (0-2) % Neut # (Auto) 5100 (0040-3660) /uL Lymph # (Auto) 2100 (1984-9291) /uL [place] # (Auto) 400 (0-900) /uL Eos # (Auto) 100 (0-450) /uL Baso # (Auto) 0 (0-100) /uL Sodium 136 L (137-145) mmol/L Potassium 4.1 (3.4-5.1) mmol/L Chloride 111 H (98-107) mmol/L Carbon Dioxide 17 L (22-32) mmol/L BUN 6 L (7-17) mg/dL Creatinine 0.41 L (0.52-1.04) mg/dL Estimated GFR > 60 (>60) mL/min BUN/Creatinine Ratio 14.6 (6-22) Glucose 105 H (70-100) mg/dL Calcium 9.3 (8.4-10.2) mg/dL Total Bilirubin 0.3 (0.2-1.3) mg/dL AST 21 (14-36) IU/L ALT 27 (<35) IU/L Alkaline Phosphatase 66 (38-126) U/L Total Protein 7.0 (6.3-8.2) g/dL Albumin 3.7 (3.5-5.0) g/dL Globulin 3.3 (1.7-4.1) g/dL Albumin/Globulin Ratio 1.1 (1.0-2.8) Lipase 90 (23-300) U/L HCG, Quant 10573 mIU/mL Urine RBC None seen (0-5/HPF) Urine WBC 0-1/hpf (0-5/HPF) Ur Squamous Epith Cells 1-5 /hpf (0-5/HPF) Urine Bacteria None seen (None) Ur Culture Indicated? Cult not indicated Vol Urine Centrifuged 10ml (spun) Urine Dip Bedside Urine Glucose Negative Bedside Urine Bilirubin - Negative Bedside Urine Ketone - Negative Urine Specific [place] 1.010 Bedside Urine Occult Blood - Negative Bedside Urine pH 6.0 Bedside Urine Protein - Negative Bedside Urine Urobilinogen - Negative Bedside Urine Nitrite - Negative Bedside Urine Leukocytes - Negative Esterase MDM Narrative Medical decision making narrative: 28-year-old female proximally 11 weeks with bilateral flank pain patient has had recurrent UTIs and kidney infections in the past. Labs are overall appropriate vitals are appropriate, patient has had some nausea been taking Reglan as well as Tylenol for pain management. Patient's urine did not show clear infection, micro showed 1 white cell but 1-5 squamous was sent for culture. Patient was started on oral antibiotics. Ultrasound does not show any hydro or changes to the kidneys, single live intrauterine . Patient's abdominal exam overall reassuring but did have bilateral flank pain on examination. Patient tolerated orals here in the department. White count of 7.7 hemoglobin of 12, platelets of 259. Labs show sodium of 136, potassium of 4.1 chloride of 111, CO2 of 17 BUN 6 creatinine of 0.41, glucose of 105, LFTs are negative. HCG is 57,293 Point of care urine is negative. Urine micro shows no red cells 1 white cell 1- 5 squamous no bacteria. Was sent for culture ultrasound shows single live intrauterine consistent with 12 weeks 2 days kidneys are unremarkable without hydro ovaries are unremarkable, heart rates 182 beats per minute. Discharge Plan Departure Patient Disposition: Home Clinical Impression: UTI (urinary tract infection), Activity Restrictions/Additional Instructions: Call Sunday morning to set up follow up with your provider. You do have a urine culture pending, these typically take 48 hours to result if shows resistance to the antibiotics you are on you will be contacted to change them. Take oral antibiotics until completed. You can continue Tylenol up to a 1000 mg every 6 hours if inadequate for pain management you can take 1-2 tablets of oxycodone every 6 hours as needed. This medication can make you sleepy do not drive, perform hazardous activities or make any major decisions while taking it. This medication will make you constipated please take a stool softener once to twice daily until stools are soft and regular. [facility] [place] Please return for fevers, worsening symptoms, persistent vomiting, lightheadedness or passing out, worsening abdominal back or flank pain, difficulty with bowel movements, vaginal bleeding or other new or concerning changes. Prescriptions: New cephalexin 500 mg capsule 500 mg PO Q6H 7 Days Qty: 28 0RF oxycodone 5 mg tablet 5 mg PO Q6H PRN (Reason: pain) Qty: 5 0RF No Action fluticasone propionate [Flonase Allergy Relief] 50 mcg/actuation spray,suspension 1 spray intranasal Q12H Qty: 16 0RF Rx Instructions: administer into each nostril acetaminophen [Tylenol Extra Strength] 500 mg Tablet 1,000 mg PO Q6H PRN (Reason: Pain) doxycycline hyclate 100 mg tablet 100 mg PO BID Qty: 20 0RF diphenhydramine HCl 50 mg Capsule 50 mg PO BID PNV cmb#95-ferrous fumarate-FA [] 28 mg iron- 800 mcg Tablet 1 tab PO Q OTHER DAY Patient Comments: Unsure of exact lidocaine [Lidoderm] 5 % adhesive patch,medicated 1 patch topical DAILY Qty: 15 0RF Rx Instructions: leave on most painful area for up to 12 hrs albuterol sulfate 90 mcg/actuation HFA aerosol inhaler 2 puff inhalation Q4H PRN (Reason: cough) promethazine 25 mg tablet 25 mg PO Q6H PRN (Reason: nausea and vomiting) Qty: 30 0RF Referrals: Miscellaneous,Doctor, MD [Primary Care Provider] - Stand Alone Forms: Patient Portal/API, Work Release Note
[2024-03-29] MEDS: SODIUM CHLORIDE 0.9% 1,000 ML 1000 ML IV (16:49)
[2024-03-29] MEDS: OXYCODONE IR 5 MG TABLET PO (16:49)
[2024-03-29 16:54] LABS: Bacteria Urine None Seen; RBC Urine None Seen (0-5/HPF); Squamous Epithelial Cell Urine 1-5 /HPF (0-5/HPF); Urine Volume 10mL (spun); WBC Urine 0-1/HPF (0-5/HPF)
[2024-03-29 16:55] LABS: Culture Indicated Urine Cult Not Indicated
[2024-03-29 16:59] VITALS: BP 119/59; PULSE 70; RESP 16; O2SAT 100
[2024-03-29] MEDS: cephALEXin 250 MG CAPSULE 500 MG PO ×2 (17:06→17:53)
[2024-03-29 18:02] VITALS: BP 128/73; PULSE 83; RESP 16; O2SAT 100
== END 2024-03-29 18:03 | disposition home or self-care (01) ==
PROVIDERS: Emergency Provider Emergency Medicine
DX: O23.41 Unspecified infection of urinary tract in pregnancy, first trimester (principal); N39.0 Urinary tract infection, site not specified; Z3A.11 11 weeks gestation of pregnancy
CPT/HCPCS: 36415; 76801; 80053; 81003; 81015; 83690; 84702; 85025; 87086; 99284

== ENCOUNTER 2024-04-20 07:13 | Emergency (ER) | payer OTHER, MEDICAID, SELFPAY ==
[2023-10-01 13:30] VITALS: BMI 43.5
[2024-04-20] VITALS (21 sets, daily range): BP systolic 107–135; BP diastolic 56–85; PULSE 77–120; RESP 18; TEMP 37.2; O2SAT 96–100; BMI 44.6
--- NOTE | 2024-04-20 07:34 | ED.HA ---
HPI - Headache General Chief Complaint: Headache Stated Complaint: severe migraine- vomitting 14 wks Time Seen by Provider: 04/20/24 07:21 History of Present Illness HPI Narrative: 28-year-old female currently she believes about 14 weeks 4 days, SAB 4 history, due date 10/15/2024, care by Michael, with history of recurrent headaches for years, often worse during her pregnancies, has had atraumatic bitemporal headache typical of her recent/previous headaches, since yesterday afternoon, her last medication she took 5:00 a.m. this morning included oral Tylenol 1000 mg and Benadryl 50 mg and Reglan 10 mg and butane caffeine product that she says is reportedly safe during , however these medicines are not helping her current headache. She often has IV Dilaudid rescue at this stage. On med review she has also had Phenergan in the past, has not taken this so far. She has no shaking or seizure activity. She has no weakness or numbness to face arm or leg. She has not had any visual spots, she has not taking blood pressures. Regarding her she has not having any vaginal bleeding, nor leaking of fluid, nor abdominal cramping. She denies fevers or chills. She denies trauma injury or new activities. No photophobia or neck pain. Related Data Home Medications Medication Instructions Recorded Confirmed acetaminophen 500 mg tablet 1,000 mg PO Q6H PRN Pain 01/13/20 10/01/23 (Tylenol Extra Strength) diphenhydramine HCl 50 mg capsule 50 mg PO BID 03/26/23 10/01/23 vit no.95-ferrous 1 tab PO Q OTHER DAY 03/26/23 10/01/23 fumarate 28 mg-folic acid 800 mcg tablet () albuterol sulfate 90 mcg/actuation 2 puff inhalation Q4H PRN cough 10/03/23 10/03/23 aerosol inhaler Previous Rx's Medication Instructions Recorded lidocaine 5 % topical patch 1 patch topical DAILY #15 ea 03/28/23 (Lidoderm) fluticasone propionate 50 1 spray intranasal Q12H #16 grams 05/23/23 mcg/actuation nasal spray,suspension (Flonase Allergy Relief) promethazine 25 mg tablet 25 mg PO Q6H PRN nausea and 12/31/23 vomiting #30 tabs Allergies Allergy/AdvReac Type Severity Reaction Status Date / Time No Known Drug Allergies Allergy Verified 03/29/24 14:51 Review of Systems Review of Systems Narrative: see HPI Patient History Medical History Abdominal pain Pyelonephritis (~06/2019) Fusion of toes of right foot Sebaceous cyst Surgical History Hx of foot surgery (08/25/20) Hx of foot surgery S/P hardware removal S/P foot surgery, right (09/12/19) Hx of cholecystectomy Hx of eye surgery History of bunionectomy of left great toe History of bunionectomy of right great toe S/P foot surgery, right Social History household members: family and children Smoking Status: Former smoker alcohol intake: former Smoking Status: Former smoker alcohol intake frequency: 0-2 drinks per day Substance Use Type: marijuana Exam Narrative Exam Narrative: GENERAL: Well-developed patient, in mild distress. HEAD: Atraumatic. Normocephalic. EYES: Pupils equal round and reactive. Extraocular motions intact. No scleral icterus. No injection or drainage. ENT: Nose without bleeding, purulent drainage. Throat without erythema, tonsillar hypertrophy or exudate. Airway patent. NECK: Trachea midline. Non tender CARDIOVASCULAR: Regular rate and rhythm without murmurs, gallops, or rubs. RESPIRATORY: Clear to auscultation. Breath sounds equal bilaterally. No wheezes, rales, or rhonchi. GASTROINTESTINAL: Abdomen soft, non-tender, nondistended. EXTREMITIES: No edema or joint tenderness. BACK: Nontender without deformity or crepitance. No flank tenderness. NEURO: AOx3. Nonfocal neuro exam SKIN: No rash or erythema of visible areas Initial Vital Signs Initial Vital Signs: Vital Signs Pulse Rate 86 04/20/24 07:26 Pulse Oximetry 98 04/20/24 07:26 Course Orders Ordered: ED Orders 04/20/24 11:15 COVID19 -Nasal RAPID Stat 04/20/24 13:28 CBC Auto Diff [Complete Blood Count AUTO DIFF] Stat CMP [Comprehensive Metabolic Panel] Stat Uric Acid Stat 04/20/24 13:31 Urinalysis and Microscopic Stat Urine Culture Stat Discontinued Medications Diphenhydramine HCl (Diphenhydramine 50 Mg/Ml Vial) 25 mg IV NOW ONE Stop: 04/20/24 11:01 Last Admin: 04/20/24 11:06 Dose: 25 mg Documented By: DYLON Diphenhydramine HCl (Diphenhydramine 50 Mg/Ml Vial) 25 mg IV NOW ONE Stop: 04/20/24 11:03 Last Admin: 04/20/24 11:06 Dose: Not Given Documented By: DYLON Diphenhydramine HCl (Diphenhydramine 50 Mg/Ml Vial) 25 mg IV NOW ONE Stop: 04/20/24 12:52 Last Admin: 04/20/24 13:00 Dose: 25 mg Documented By: DYLON Hydromorphone HCl (Hydromorphone 0.5 Mg Inj) 0.5 mg IV NOW ONE Stop: 04/20/24 07:51 Last Admin: 04/20/24 08:01 Dose: 0.5 mg Documented By: DYLON Hydromorphone HCl (Hydromorphone 0.5 Mg Inj) 0.5 mg IV NOW ONE Stop: 04/20/24 09:38 Last Admin: 04/20/24 09:42 Dose: 0.5 mg Documented By: DYLON Sodium Chloride (Normal Saline 0.9%) 1,000 mls @ 1,000 mls/hr IV BOLUS ONE Stop: 04/20/24 08:53 Last Infusion: 04/20/24 09:43 Dose: Infused Documented By: Admin: 04/20/24 08:01 Dose: 1,000 mls/hr Documented By: DYLON Sodium Chloride (Normal Saline 0.9%) 1,000 mls @ 1,000 mls/hr IV BOLUS ONE Stop: 04/20/24 11:59 Last Infusion: 04/20/24 12:29 Dose: Infused Documented By: Admin: 04/20/24 11:06 Dose: 1,000 mls/hr Documented By: DYLON Metoclopramide HCl (Metoclopramide 10 Mg/2 Ml Inj) 10 mg IV NOW ONE Stop: 04/20/24 11:00 Last Admin: 04/20/24 11:06 Dose: 10 mg Documented By: DYLON Metoclopramide HCl (Metoclopramide 10 Mg/2 Ml Inj) 10 mg IV NOW ONE Stop: 04/20/24 11:03 Last Admin: 04/20/24 11:06 Dose: Not Given Documented By: DYLON Ondansetron HCl (Ondansetron 4 Mg/2 Ml Inj) 4 mg IV NOW ONE Stop: 04/20/24 08:32 Last Admin: 04/20/24 08:35 Dose: 4 mg Documented By: DYLON Prochlorperazine (Prochlorperazine 10 Mg/2 Ml Vial) 5 mg IV NOW ONE Stop: 04/20/24 12:52 Last Admin: 04/20/24 13:01 Dose: 5 mg Documented By: DYLON Promethazine HCl (Promethazine 25 Mg Tablet) 25 mg PO NOW ONE Stop: 04/20/24 08:16 Last Admin: 04/20/24 08:05 Dose: 25 mg Documented By: DYLON Vital Signs Vital signs: Vital Signs - 8 hr 04/20/24 10:30 04/20/24 10:30 04/20/24 11:00 Pulse Rate 90 Respiratory Rate Blood Pressure 110/63 115/65 Pulse Oximetry 98 04/20/24 11:00 04/20/24 11:30 04/20/24 11:30 Pulse Rate 97 H 98 H Respiratory Rate Blood Pressure 126/75 Pulse Oximetry 99 99 04/20/24 12:00 04/20/24 12:00 04/20/24 12:30 Pulse Rate 90 Respiratory Rate 18 Blood Pressure 128/60 Pulse Oximetry 100 04/20/24 12:41 04/20/24 12:42 04/20/24 12:42 Pulse Rate 99 H 98 H Respiratory Rate Blood Pressure 135/74 Pulse Oximetry 100 100 04/20/24 13:00 04/20/24 13:11 04/20/24 13:11 Pulse Rate 96 H 99 H Respiratory Rate Blood Pressure 135/72 Pulse Oximetry 97 99 04/20/24 13:30 04/20/24 13:30 04/20/24 14:00 Pulse Rate 106 H Respiratory Rate Blood Pressure 135/70 115/62 Pulse Oximetry 98 04/20/24 14:00 04/20/24 14:30 04/20/24 14:30 Pulse Rate 87 88 Respiratory Rate Blood Pressure 119/80 Pulse Oximetry 100 99 MDM - Headache Lab Data 04/20/24 13:28 04/20/24 13:28 Labs: Lab Results 04/20/24 04/20/24 04/20/24 Range/Units 11:15 13:28 13:31 WBC 8.2 (4.5-11.0) X10^3/uL RBC 4.20 (4.0-5.2) X10^6/uL Hgb 11.4 L (12.0-16.0) g/dL Hct 33.6 L (36-46) % MCV 80.1 (80-100) fL MCH 27.1 (26-34) PG MCHC 33.9 (30-36) % RDW 15.3 H (11.6-14.8) % Plt Count 219 (150-400) X10^3/uL Neut % (Auto) 68.5 (50-75) % Lymph % (Auto) 24.3 L (25-40) % [place] % (Auto) 5.4 (3-14) % Eos % (Auto) 1.4 L (2-4) % Baso % (Auto) 0.4 (0-2) % Neut # (Auto) 5600 (4424-2538) /uL Lymph # (Auto) 2000 (6315-4088) /uL [place] # (Auto) 400 (0-900) /uL Eos # (Auto) 100 (0-450) /uL Baso # (Auto) 0 (0-100) /uL Sodium 136 L (137-145) mmol/L Potassium 4.2 (3.4-5.1) mmol/L Chloride 111 H (98-107) mmol/L Carbon Dioxide 20 L (22-32) mmol/L BUN 4 L (7-17) mg/dL Creatinine 0.49 L (0.52-1.04) mg/dL Estimated GFR > 60 (>60) mL/min BUN/Creatinine Ratio 8.2 (6-22) Glucose 90 (70-100) mg/dL Uric Acid 4.5 (2.5-6.2) mg/dL Calcium 8.9 (8.4-10.2) mg/dL Total Bilirubin 0.3 (0.2-1.3) mg/dL AST 19 (14-36) IU/L ALT 17 (<35) IU/L Alkaline Phosphatase 61 (38-126) U/L Total Protein 6.6 (6.3-8.2) g/dL Albumin 3.6 (3.5-5.0) g/dL Globulin 3.0 (1.7-4.1) g/dL Albumin/Globulin Ratio 1.2 (1.0-2.8) Urine Color Yellow Urine Appearance Clear Urine pH 5.5 (4.5-8.0) Ur Specific [place] 1.025 (1.000-1.035) Urine Protein Negative (Negative) Urine Glucose (UA) Negative (Negative) g/dL Urine Ketones 2+ H (NEGATIVE) Urine Occult Blood Negative (Negative) Urine Nitrate Negative (Negative) Urine Bilirubin Negative (NEGATIVE) Urine Urobilinogen 0.2 (0.2) E.U./dL Ur Leukocyte Esterase Negative (NEGATIVE) Urine RBC 0-1/hpf (0-5/HPF) Urine WBC 1-5/hpf (0-5/HPF) Ur Squamous Epith Cells 10-30 /hpf H D (0-5/HPF) Urine Bacteria Occasional (0-1) (None) Ur Culture Indicated? Specimen cultured Vol Urine Centrifuged 10ml (spun) SARS-CoV-2 (PCR) Negative (Negative) Urine Dip Bedside Urine Glucose Negative Bedside Urine Bilirubin - Negative Bedside Urine Ketone ++ 40 Urine Specific [place] 1.020 Bedside Urine Occult Blood - Negative Bedside Urine pH 6.0 Bedside Urine Protein - Negative Bedside Urine Urobilinogen - Negative Bedside Urine Nitrite - Negative Bedside Urine Leukocytes - Negative Esterase MDM Narrative Medical decision making narrative: Current 28-year-old multigravida, 14 weeks' gestation by her report, with recurrent headaches, sometimes worse during her previous pregnancies, 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 On review of her medications she has had Phenergan in the past, would like to try IV Phenergan as well. She has also had fluid boluses in the past, we will add as well. Afebrile, nonfocal neuro exam. Headache seems typical over recurring headache problems. No nuchal rigidity, doubt meningitis. Blood pressure not elevated, DTRs normal, does not seem consistent with preeclampsia. We will give symptomatic therapy for now, hold on labs. Patient agrees with this plan. Injectable Phenergan not available per pharmacy query, only p.o./CA formulations, oral Phenergan dose ordered 1100, had transient improvement now increased headache again, has been 6 hours since her self administered doses at home, we will repeat via parenteral route, IV Reglan/Benadryl ordered Covid negative 1230, still having pain, we will add IV Compazine/Benadryl, we will send preeclampsia screening labs although her blood pressure is not particularly elevated. CBC, CMP, uric acid, urinalysis pending. Could consider CT head, and/or lumbar puncture, though she appears nontoxic at this time Labs not consistent with preeclampsia Patient had significant improvement and now resolution of headache symptoms after IV Compazine, requesting to go home. She seems to have no ill effects from the Compazine after previous Phenergan and Reglan. Patient advised to follow up with her obstetrics provider for next regularly scheduled care visit. Continue her maintenance headache regimen for now. Return precautions discussed Critical Care Time Critical Care Time Critical Care Time: Yes Total Critical Care Time: 35 Attestation: The high probability of a clinically significant, sudden or life threatening deterioration of the [cerebrovascular, neurologic, obstetric, cardiopulmonary] system(s) required my full and direct attention, intervention and personal management. The aggregate critical care time was [31] minutes. This time is in addition to time spent performing reported procedures but includes the following: [x] Data Review and interpretation [x] Patient assessment and monitoring of vital signs [x] Documentation [x] Medication orders and management Discharge Plan Departure Patient Disposition: Home Clinical Impression: Headache, Activity Restrictions/Additional Instructions: History of recurrent headaches, current , prior worsening headaches during previous pregnancies, presenting with headache refractory to usual oral headache medications taken earlier this morning. Various medications were used in the emergency department including IV Reglan, oral Phenergan, then eventually IV Compazine. There was slow but eventual/total resolution of your headache. Preeclampsia studies were sent since your headache seemed difficult to control, those were unremarkable. Follow up with your regular obstetrics provider. Continue your headache maintenance regimen. Return earlier to this/nearest emergency department for any change worsening symptoms or any concerns prior Prescriptions: No Action fluticasone propionate [Flonase Allergy Relief] 50 mcg/actuation spray,suspension 1 spray intranasal Q12H Qty: 16 0RF Rx Instructions: administer into each nostril acetaminophen [Tylenol Extra Strength] 500 mg Tablet 1,000 mg PO Q6H PRN (Reason: Pain) diphenhydramine HCl 50 mg Capsule 50 mg PO BID PNV cmb#95-ferrous fumarate-FA [] 28 mg iron- 800 mcg Tablet 1 tab PO Q OTHER DAY Patient Comments: Unsure of exact lidocaine [Lidoderm] 5 % adhesive patch,medicated 1 patch topical DAILY Qty: 15 0RF Rx Instructions: leave on most painful area for up to 12 hrs albuterol sulfate 90 mcg/actuation HFA aerosol inhaler 2 puff inhalation Q4H PRN (Reason: cough) promethazine 25 mg tablet 25 mg PO Q6H PRN (Reason: nausea and vomiting) Qty: 30 0RF Referrals: Miscellaneous,Doctor, MD [Primary Care Provider] - Stand Alone Forms: Patient Portal/API
[2024-04-20] MEDS: HYDROMORPHONE 0.5 MG INJ IV ×2 (08:01→09:42)
[2024-04-20] MEDS: SODIUM CHLORIDE 0.9% 1,000 ML 1000 ML IV ×2 (08:01→11:06)
[2024-04-20] MEDS: PROMETHAZINE 25 MG TABLET PO (08:05)
[2024-04-20] MEDS: ONDANSETRON 4 MG/2 ML INJ IV (08:35)
[2024-04-20] MEDS: diphenhydrAMINE 50 MG/ML VIAL 25 MG IV ×2 (11:06→13:00)
[2024-04-20] MEDS: METOCLOPRAMIDE 10 MG/2 ML INJ IV (11:06)
[2024-04-20 11:37] LABS: COVID19 -Nasal RAPID Negative (Negative)
[2024-04-20] MEDS: PROCHLORPERAZINE 10 MG/2 ML VIAL 5 MG IV (13:01)
[2024-04-20 13:35] LABS: Add Manual Diff / Slide Review NO; Basophils Absolute Auto 0 /uL (0-100); Basophils Percent Auto 0.4 % (0-2); Eosinophils Absolute Auto 100 /uL (0-450); Eosinophils Percent Auto 1.4 % (2-4); Hematocrit 33.6 % (36-46); Hemoglobin 11.4 g/dL (12.0-16.0); Lymphocytes Absolute Auto 2000 /uL (1100-4500); Lymphocytes Percent Auto 24.3 % (25-40); Mean Corpuscular HGB Conc 33.9 % (30-36); Mean Corpuscular Hemoglobin 27.1 PG (26-34); Mean Corpuscular Volume 80.1 fL (80-100); Monocytes Absolute Auto 400 /uL (0-900); Monocytes Percent Auto 5.4 % (3-14); Neutrophils Absolute Auto 5600 /uL (1500-7000); Neutrophils Percent Auto 68.5 % (50-75); Platelet Count 219 X10^3/uL (150-400); Red Cell Distribution Width 15.3 % (11.6-14.8); White Blood Cell Count 8.2 X10^3/uL (4.5-11.0)
[2024-04-20 13:47] LABS: Alanine Aminotransferase 17 IU/L (<35); Albumin 3.6 g/dL (3.5-5.0); Albumin Globulin Ratio 1.2 (1.0-2.8); Alkaline Phosphatase 61 U/L (38-126); Aspartate Aminotransferase 19 IU/L (14-36); BUN Creatinine Ratio 8.2 (6-22); Bilirubin Total 0.3 mg/dL (0.2-1.3); Blood Urea Nitrogen 4 mg/dL (7-17); Calcium 8.9 mg/dL (8.4-10.2); Carbon Dioxide 20 mmol/L (22-32); Chloride 111 mmol/L (98-107); Estimated Glomerular Filt Rate > 60 mL/min (>60); Glucose 90 mg/dL (70-100); HEMOLYSIS < 15 (0-50); Potassium 4.2 mmol/L (3.4-5.1); Sodium 136 mmol/L (137-145); Total Protein 6.6 g/dL (6.3-8.2); Uric Acid 4.5 mg/dL (2.5-6.2)
[2024-04-20 13:53] LABS: Appearance Urine UA CLEAR; Bilirubin Urine UA NEGATIVE (NEGATIVE); Color Urine UA YELLOW; Glucose Urine UA NEGATIVE (Negative); Ketones Urine UA 2+ (NEGATIVE); Leukocyte Esterase Urine UA NEGATIVE (NEGATIVE); Nitrite Urine UA NEGATIVE (Negative); Occult Blood Urine UA NEGATIVE (Negative); Protein Urine UA NEGATIVE (Negative); Specific Gravity Urine UA 1.025 (1.000-1.035); Urobilinogen Urine UA 0.2 E.U./dL (0.2)
[2024-04-20 13:54] LABS: pH Urine UA 5.5 (4.5-8.0)
[2024-04-20 14:00] LABS: Bacteria Urine Occasional (0-1); RBC Urine 0-1/HPF (0-5/HPF); Urine Volume 10mL (spun); WBC Urine 1-5/HPF (0-5/HPF)
[2024-04-20 14:01] LABS: Culture Indicated Urine Specimen Cultured; Squamous Epithelial Cell Urine 10-30 /HPF (0-5/HPF)
== END 2024-04-20 14:44 | disposition home or self-care (01) ==
PROVIDERS: Emergency Provider Emergency Medicine
DX: R51.9 Headache, unspecified (principal); Z3A.14 14 weeks gestation of pregnancy; Z11.52 Encounter for screening for COVID-19
CPT/HCPCS: 36415; 80053; 81001; 81003; 84550; 85025; 87086; 87635; 96361; 96374; 96375; 96376; 99284; J0780; J1170; J1200; J2405; J2765

== ENCOUNTER 2024-06-11 11:40 | Emergency (ER) | payer OTHER, SELFPAY ==
[2023-10-01 13:30] VITALS: BMI 43.5
[2024-06-11 11:45] VITALS: BP 129/61; PULSE 90; RESP 16; TEMP 36.3; O2SAT 98; BMI 43.7
== END 2024-06-11 12:59 | disposition left against medical advice (07) ==
PROVIDERS: Emergency Provider Physician Assistant
DX: Z53.21 Procedure and treatment not carried out due to patient leaving prior to being seen by health care provider (principal)
CPT/HCPCS: 99281

== ENCOUNTER 2024-07-13 19:39 | Emergency (ER) | payer OTHER, MEDICAID, SELFPAY ==
[2023-10-01 13:30] VITALS: BMI 43.5
[2024-07-13 19:50] VITALS: BP 135/76; PULSE 105; RESP 18; TEMP 36.9; O2SAT 97; BMI 43.7
--- NOTE | 2024-07-13 20:40 | DI.RAD.S_ITS ---
PROCEDURE: XR FOOT RT MIN 3V INDICATIONS: injury to right middle toe TECHNIQUE: 3 views of the foot were acquired. COMPARISON: [facility] [place], [place], XR FOOT 3+ VIEWS RIGHT, 12/13/2021, 9:36. FINDINGS: Bones: Postsurgical changes are seen from 1st metatarsophalangeal and 1st interphalangeal joint arthrodesis. Fracture of the 2nd most proximal 1st metatarsal screw most likely present on the prior exam. Prior arthrodesis of the 3rd proximal and distal interphalangeal joints with a single metal screw. Mild osseous remodeling at the 3rd distal phalangeal tuft adjacent to the screw head. A metal screw is seen in the 2nd metatarsal head. Chronic osseous fusion of the 2nd proximal and distal interphalangeal joints. Soft tissues: No suspicious soft tissue calcifications. Mild soft tissue edema in the 3rd toe. IMPRESSION: 1. No acute osseous fracture. 2. Chronic postsurgical changes throughout the forefoot. Chronically fractured screw is seen at the distal 1st metatarsal. Approved by: Zeyad Tao M.D. on 07/13/2024 at 21:19
[2024-07-13 20:50] VITALS: PULSE 93; O2SAT 96
--- NOTE | 2024-07-13 20:50 | ED.LOWEXIN ---
HPI - Extremity Injury (Lower) General Chief Complaint: Extremity Injury, Lower Stated Complaint: R Foot Injury, Concerns about screws/plates Time Seen by Provider: 07/13/24 20:50 Source: patient Mode of arrival: Ambulatory History of Present Illness HPI Narrative: Patient is a 28-year-old female who is approximately 26 and 4 days presents to the ED for evaluation of right toe pain. States that she kicked her toe on a coffee table prior to arrival. Does have history of several foot surgeries due to bunion and hammertoe correction. Therefore she decided come into the ED for further evaluation treatment. Denies any other symptoms was able to stand bear weight ambulate immediately after the event. Related Data Home Medications Medication Instructions Recorded Confirmed acetaminophen 500 mg tablet 1,000 mg PO Q6H PRN Pain 01/13/20 10/01/23 (Tylenol Extra Strength) diphenhydramine HCl 50 mg capsule 50 mg PO BID 03/26/23 10/01/23 vit no.95-ferrous 1 tab PO Q OTHER DAY 03/26/23 10/01/23 fumarate 28 mg-folic acid 800 mcg tablet () albuterol sulfate 90 mcg/actuation 2 puff inhalation Q4H PRN cough 10/03/23 10/03/23 aerosol inhaler Previous Rx's Medication Instructions Recorded lidocaine 5 % topical patch 1 patch topical DAILY #15 ea 03/28/23 (Lidoderm) fluticasone propionate 50 1 spray intranasal Q12H #16 grams 05/23/23 mcg/actuation nasal spray,suspension (Flonase Allergy Relief) promethazine 25 mg tablet 25 mg PO Q6H PRN nausea and 12/31/23 vomiting #30 tabs Allergies Allergy/AdvReac Type Severity Reaction Status Date / Time No Known Drug Allergies Allergy Verified 06/11/24 11:51 Review of Systems Review of Systems Narrative: General: Denies fever, chills, weight loss HEENT: Denies headache, eye drainage, eye irritation, head trauma, sore throat, voice change Cardiovascular: Denies any chest pain, palpitations, shortness of breath, tachycardia Respiratory: Denies any shortness of breath, cough, wheeze, stridor GI/: Denies any abdominal pain, nausea, vomiting, diarrhea, bright red blood per rectum, melanotic stools, urinary frequency, urinary retention, dysuria, hematuria MSK: Positive 2nd and 3rd toe pain on the right Skin: Denies any rashes, lesions, discoloration Neuro: Denies any headache, lightheadedness, dizziness, fainting, weakness Psych: Denies SI/HI Patient History Medical History Abdominal pain Pyelonephritis (~06/2019) Fusion of toes of right foot Sebaceous cyst Surgical History Hx of foot surgery (08/25/20) Hx of foot surgery S/P hardware removal S/P foot surgery, right (09/12/19) Hx of cholecystectomy Hx of eye surgery History of bunionectomy of left great toe History of bunionectomy of right great toe S/P foot surgery, right Social History household members: family and children Smoking Status: Former smoker alcohol intake: former Smoking Status: Former smoker alcohol intake frequency: 0-2 drinks per day Substance Use Type: marijuana Exam Narrative Exam Narrative: General: Cooperative, comfortable, well-developed, not in acute distress HEENT: Normocephalic, atraumatic, PERRLA, normal sclera, eyelids normal, Neck: Active full range of motion, atraumatic Chest: Normal to inspection, negative crepitus, no overlying erythema ecchymosis Respiratory: Normal respiratory effort, not in acute respiratory distress, clear to auscultation bilaterally negative cough, wheeze, tachypnea, rhonchi, rales Cardiology: Regular rate rhythm negative gallop, murmur, rubs GI/: Normal to inspection, soft, nonrigid, no tenderness to palpation, exam deferred MSK: Full range of active range of motion of all 4 extremities, patient neurovascularly intact bilateral lower extremities, there is some tenderness to palpation of the tip of the 2nd and 3rd right toes, there are well-healed scars indicative of previous surgeries that patient has had corrective surgeries for. Skin: No rashes lesions noted Neuro: Alert awake oriented x3, moves all 4 extremities spontaneously, cranial nerves intact, able to answer all questions appropriately follows commands appropriately Psych: Cooperative, negative suicidal or homicidal ideations Initial Vital Signs Initial Vital Signs: Vital Signs Temperature 98.4 F 07/13/24 19:50 Pulse Rate 105 H 07/13/24 19:50 Respiratory Rate 18 07/13/24 19:50 Blood Pressure 135/76 07/13/24 19:50 Pulse Oximetry 97 07/13/24 19:50 Oxygen Delivery Method Room Air 07/13/24 19:50 Course Orders Ordered: ED Orders 07/13/24 20:40 XR foot RT min 3V Stat Vital Signs Vital signs: Vital Signs - 8 hr 07/13/24 19:50 07/13/24 20:50 07/13/24 20:52 Temperature 98.4 F Pulse Rate 105 H 93 H 97 H Respiratory Rate 18 Blood Pressure 135/76 Pulse Oximetry 97 96 97 Oxygen Delivery Method Room Air 07/13/24 20:52 07/13/24 21:00 Temperature Pulse Rate 98 H Respiratory Rate Blood Pressure 124/76 Pulse Oximetry 97 Oxygen Delivery Method Room Air MDM - Extremity Injury (Lower) Differential Diagnosis Differential diagnosis: Likely other (Contusion, fracture) Imaging Data Extremity x-ray #1: Radiologist's Impression: [address] [address] XRay Report Signed Patient: Asia Vera MR#: [id number] : 1995 Acct:[id number] Age/Sex: 28 / F Date of Service: 07/13/24 Loc: ED Accession Number: [id number] Procedure: XR foot RT min 3V Ordering Provider: Gutierrez Skinner D.O. PROCEDURE: XR FOOT RT MIN 3V INDICATIONS: injury to right middle toe TECHNIQUE: 3 views of the foot were acquired. COMPARISON: [facility], XR FOOT 3+ VIEWS RIGHT, 12/13/2021, 9:36. FINDINGS: Bones: Postsurgical changes are seen from 1st metatarsophalangeal and 1st interphalangeal joint arthrodesis. Fracture of the 2nd most proximal 1st metatarsal screw most likely present on the prior exam. Prior arthrodesis of the 3rd proximal and distal interphalangeal joints with a single metal screw. Mild osseous remodeling at the 3rd distal phalangeal tuft adjacent to the screw head. A metal screw is seen in the 2nd metatarsal head. Chronic osseous fusion of the 2nd proximal and distal interphalangeal joints. Soft tissues: No suspicious soft tissue calcifications. Mild soft tissue edema in the 3rd toe. IMPRESSION: 1. No acute osseous fracture. 2. Chronic postsurgical changes throughout the forefoot. Chronically fractured screw is seen at the distal 1st metatarsal. MDM Narrative Medical decision making narrative: Patient is a 28-year-old female proximally 26 weeks and 4 days presents for 2nd and 3rd right toe pain, states that she kicked a coffee table prior to arrival. Does have a history of multiple corrective surgeries due to history of bunions and hammertoe. Patient did have x-ray performed here did not show any acute fractures. Patient was given strict return precautions she verbalized understanding of this and agrees to being discharged home with outpatient follow up. Informed her to follow up with her primary care doctor or strip presser in outpatient setting. Discharge Plan Departure Patient Disposition: Home Clinical Impression: Contusion of toe Activity Restrictions/Additional Instructions: Please read the discharge instructions sheet carefully and bring all papers to all doctor follow-up visits, as it may contain information that your doctor may want to see. Disease processes change and evolve, if your symptoms worsen or if you develop any new symptoms that are concerning to you please return for evaluation. Your evaluation today does not show any evidence of any life-threatening/serious illnesses requiring admission to the hospital or surgery. Please follow-up with your doctor for re-evaluation in approximately 1 day. Seek immediate medical attention for any worrisome symptoms. Prescriptions: No Action fluticasone propionate [Flonase Allergy Relief] 50 mcg/actuation spray,suspension 1 spray intranasal Q12H Qty: 16 0RF Rx Instructions: administer into each nostril acetaminophen [Tylenol Extra Strength] 500 mg Tablet 1,000 mg PO Q6H PRN (Reason: Pain) diphenhydramine HCl 50 mg Capsule 50 mg PO BID PNV cmb#95-ferrous fumarate-FA [] 28 mg iron- 800 mcg Tablet 1 tab PO Q OTHER DAY Patient Comments: Unsure of exact lidocaine [Lidoderm] 5 % adhesive patch,medicated 1 patch topical DAILY Qty: 15 0RF Rx Instructions: leave on most painful area for up to 12 hrs albuterol sulfate 90 mcg/actuation HFA aerosol inhaler 2 puff inhalation Q4H PRN (Reason: cough) promethazine 25 mg tablet 25 mg PO Q6H PRN (Reason: nausea and vomiting) Qty: 30 0RF Referrals: Miscellaneous,Doctor, MD [Primary Care Provider] - Stand Alone Forms: Patient Portal/API/Survey
[2024-07-13 20:52] VITALS: BP 124/76; PULSE 97; O2SAT 97
[2024-07-13 21:00] VITALS: PULSE 98; O2SAT 97
== END 2024-07-13 21:31 | disposition home or self-care (01) ==
PROVIDERS: Emergency Provider Student in an Organized Health Care Education/Training Program
DX: S90.121A Contusion of right lesser toe(s) without damage to nail, initial encounter (principal); W22.8XXA Striking against or struck by other objects, initial encounter
CPT/HCPCS: 73630; 99281; 99283

== ENCOUNTER 2024-08-07 03:55 | Emergency (ER) | payer OTHER, MEDICAID, SELFPAY ==
[2023-10-01 13:30] VITALS: BMI 43.5
[2024-08-07 04:17] VITALS: BP 142/71; PULSE 88; RESP 20; TEMP 36.5; O2SAT 100; BMI 43.9
--- NOTE | 2024-08-07 04:22 | ED_ITS ---
HPI - Headache General Chief Complaint: Headache Stated Complaint: MIGRAINE 30 weeks Time Seen by Provider: 08/07/24 04:02 History of Present Illness HPI Narrative: 28-year-old female at 30 weeks gestational age presents for 3 days of migraine headache. Not improved with Fioricet. Denies vaginal bleeding, loss of fluids, contractions. Related Data Home Medications Medication Instructions Recorded Confirmed acetaminophen 500 mg tablet 1,000 mg PO Q6H PRN Pain 01/13/20 10/01/23 (Tylenol Extra Strength) diphenhydramine HCl 50 mg capsule 50 mg PO BID 03/26/23 10/01/23 vit no.95-ferrous 1 tab PO Q OTHER DAY 03/26/23 10/01/23 fumarate 28 mg-folic acid 800 mcg tablet () albuterol sulfate 90 mcg/actuation 2 puff inhalation Q4H PRN cough 10/03/23 10/03/23 aerosol inhaler Previous Rx's Medication Instructions Recorded lidocaine 5 % topical patch 1 patch topical DAILY #15 ea 03/28/23 (Lidoderm) fluticasone propionate 50 1 spray intranasal Q12H #16 grams 05/23/23 mcg/actuation nasal spray,suspension (Flonase Allergy Relief) promethazine 25 mg tablet 25 mg PO Q6H PRN nausea and 12/31/23 vomiting #30 tabs Allergies Allergy/AdvReac Type Severity Reaction Status Date / Time No Known Drug Allergies Allergy Verified 06/11/24 11:51 Patient History Medical History Abdominal pain Pyelonephritis (~06/2019) Fusion of toes of right foot Sebaceous cyst Surgical History Hx of foot surgery (08/25/20) Hx of foot surgery S/P hardware removal S/P foot surgery, right (09/12/19) Hx of cholecystectomy Hx of eye surgery History of bunionectomy of left great toe History of bunionectomy of right great toe S/P foot surgery, right Social History household members: family and children Smoking Status: Former smoker alcohol intake: former Smoking Status: Former smoker alcohol intake frequency: 0-2 drinks per day Exam Initial Vital Signs Initial Vital Signs: Vital Signs Temperature 97.7 F 08/07/24 04:17 Pulse Rate 88 08/07/24 04:17 Respiratory Rate 20 08/07/24 04:17 Blood Pressure 142/71 H 08/07/24 04:17 Pulse Oximetry 100 08/07/24 04:17 Oxygen Delivery Method Room Air 08/07/24 04:17 Const: Awake, alert, no acute distress, obese Cardiac: regular rate, regular rhythm RESP: unlabored, clear bilaterally, no wheezing GI: Soft, nontender, nondistended Skin: Warm, Dry, intact, no rashes Neuro: AO x3, CN II-XII grossly intact, moves all extremities Course Orders Ordered: Sodium Chloride (Normal Saline 0.9%) 1,000 mls @ 1,000 mls/hr IV BOLUS ONE Stop: 08/07/24 05:20 Last Admin: 08/07/24 04:35 Dose: 1,000 mls/hr Documented By: MARGOT Discontinued Medications Diphenhydramine HCl (Diphenhydramine 50 Mg/Ml Vial) 50 mg IV NOW ONE Stop: 08/07/24 04:22 Last Admin: 08/07/24 04:37 Dose: 50 mg Documented By: MARGOT Acetaminophen (Ofirmev) 1,000 mg in 100 mls @ 400 mls/hr IV NOW ONE Stop: 08/07/24 04:35 Last Admin: 08/07/24 04:47 Dose: Not Given Documented By: MARGOT Metoclopramide HCl (Metoclopramide 10 Mg/2 Ml Inj) 10 mg IV NOW ONE Stop: 08/07/24 04:22 Last Admin: 08/07/24 04:37 Dose: 10 mg Documented By: MARGOT Vital Signs Vital signs: Vital Signs - 8 hr 08/07/24 04:17 Temperature 97.7 F Pulse Rate 88 Respiratory Rate 20 Blood Pressure 142/71 H Pulse Oximetry 100 Oxygen Delivery Method Room Air MDM - Headache MDM Narrative Medical decision making narrative: Migraine in . Not improved with Fioricet. Migraine cocktail ordered. Patient refused IV Tylenol. After medications were hung via IV the patient stated that she wanted to leave. She was stated that she would go to her OB team in [facility] because she would be 'more comfortable' there. Medications stopped and patient discharged. Initial BP just slightly over normal, BP on DC 118/62. Discharge Plan Departure Patient Disposition: Home Clinical Impression: Migraine Instructions: DI for Migraine Activity Restrictions/Additional Instructions: Follow up with your OB as stated Prescriptions: No Action fluticasone propionate [Flonase Allergy Relief] 50 mcg/actuation spray,suspension 1 spray intranasal Q12H Qty: 16 0RF Rx Instructions: administer into each nostril acetaminophen [Tylenol Extra Strength] 500 mg Tablet 1,000 mg PO Q6H PRN (Reason: Pain) diphenhydramine HCl 50 mg Capsule 50 mg PO BID PNV cmb#95-ferrous fumarate-FA [] 28 mg iron- 800 mcg Tablet 1 tab PO Q OTHER DAY Patient Comments: Unsure of exact lidocaine [Lidoderm] 5 % adhesive patch,medicated 1 patch topical DAILY Qty: 15 0RF Rx Instructions: leave on most painful area for up to 12 hrs albuterol sulfate 90 mcg/actuation HFA aerosol inhaler 2 puff inhalation Q4H PRN (Reason: cough) promethazine 25 mg tablet 25 mg PO Q6H PRN (Reason: nausea and vomiting) Qty: 30 0RF Referrals: Shikha Murphy DO [Primary Care Provider] - Stand Alone Forms: Patient Portal/API/Survey
[2024-08-07] MEDS: SODIUM CHLORIDE 0.9% 1,000 ML 1000 ML IV (04:35)
[2024-08-07] MEDS: diphenhydrAMINE 50 MG/ML VIAL IV (04:37)
[2024-08-07] MEDS: METOCLOPRAMIDE 10 MG/2 ML INJ IV (04:37)
--- NOTE | 2024-08-07 04:55 | PC.NURSE ---
Pt and male health and wellness advisor call RN to room stating I want to leave. I'm going to go find my OB. I don't want to be overdosed on Tylenol. Dr. Garcia made aware.
[2024-08-07 04:59] VITALS: BP 118/62; PULSE 74; RESP 22; O2SAT 97
== END 2024-08-07 04:59 | disposition home or self-care (01) ==
PROVIDERS: Emergency Provider Emergency Medicine; PCP Family Medicine
DX: O26.893 Other specified pregnancy related conditions, third trimester (principal); G43.909 Migraine, unspecified, not intractable, without status migrainosus; Z3A.30 30 weeks gestation of pregnancy
CPT/HCPCS: 96374; 96375; 99283; 99284; J0134; J1200; J2765

== ENCOUNTER 2024-12-03 16:27 | Emergency (ER) | payer OTHER, SELFPAY ==
[2023-10-01 13:30] VITALS: BMI 43.5
[2024-12-03 16:32] VITALS: BP 140/78; PULSE 100; RESP 16; TEMP 36.6; O2SAT 100; BMI 43.4
--- NOTE | 2024-12-03 17:06 | DI.RAD.S_ITS ---
PROCEDURE: XR FOOT RT MIN 3V INDICATIONS: a screw in right 3rd toe TECHNIQUE: 3 views of the foot were acquired. COMPARISON: [facility], , XR FOOT RT MIN 3V, 07/13/2024, 20:36. FINDINGS: Bones: No acute fractures or dislocations. No suspicious bony lesions. Stable postsurgical changes of the right 1st ray with arthrodesis of the 1st tarsometatarsal, metatarsophalangeal, and interphalangeal joints. No evidence for hardware complication. Stable surgical screw at the head of the 2nd metatarsal. Stable postsurgical changes of arthrodesis across the right 3rd toe with retrograde partially cannulated screw. No evidence for hardware complication. Stable postoperative alignment. Soft tissues: No tibiotalar joint effusion. Achilles tendon appears normal. IMPRESSION: Right foot without acute fracture or dislocation. Stable postsurgical changes of the right 1st ray and right 3rd toe. No evidence for hardware complication. If there are persistent symptoms or clinical suspicion for pathology, then repeat radiographs or advanced imaging (CT or MRI) may be considered for further evaluation. Dictated by: Joel Kellogg M.D. on 12/03/2024 at 18:36 Approved by: Joel Kellogg M.D. on 12/03/2024 at 18:38
[2024-12-03 17:28] VITALS: BP 107/55; PULSE 97; O2SAT 98
[2024-12-03 17:30] VITALS: BP 107/60; PULSE 100; O2SAT 99
[2024-12-03 18:00] VITALS: BP 122/56; PULSE 98; O2SAT 100
[2024-12-03 18:12] LABS: Add Manual Diff / Slide Review NO; Basophils Absolute Auto 0 /uL (0-100); Basophils Percent Auto 0.4 % (0-2); Eosinophils Absolute Auto 300 /uL (0-450); Hematocrit 39.2 % (36-46); Hemoglobin 12.8 g/dL (12.0-16.0); Lactate (Lactic Acid) 1.1 mmol/L (0.7-2.1); Lymphocytes Absolute Auto 2000 /uL (1100-4500); Lymphocytes Percent Auto 23.9 % (25-40); Mean Corpuscular HGB Conc 32.7 % (30-36); Mean Corpuscular Hemoglobin 27.7 PG (26-34); Mean Corpuscular Volume 84.7 fL (80-100); Monocytes Absolute Auto 400 /uL (0-900); Monocytes Percent Auto 4.4 % (3-14); Neutrophils Absolute Auto 5700 /uL (1500-7000); Neutrophils Percent Auto 67.3 % (50-75); Platelet Count 304 X10^3/uL (150-400); Red Blood Cell Count 4.62 X10^6/uL (4.0-5.2); Red Cell Distribution Width 14.9 % (11.6-14.8); White Blood Cell Count 8.4 X10^3/uL (4.5-11.0)
[2024-12-03 18:13] LABS: Alanine Aminotransferase 39 IU/L (<35); Albumin 4.5 g/dL (3.5-5.0); Albumin Globulin Ratio 1.3 (1.0-2.8); Alkaline Phosphatase 81 U/L (38-126); Aspartate Aminotransferase 34 IU/L (14-36); BUN Creatinine Ratio 22.4 (6-22); Bilirubin Total 0.3 mg/dL (0.2-1.3); Blood Urea Nitrogen 15 mg/dL (7-17); Calcium 9.3 mg/dL (8.4-10.2); Carbon Dioxide 23 mmol/L (22-32); Chloride 106 mmol/L (98-107); Estimated Glomerular Filt Rate > 60 mL/min (>60); Globulin 3.5 g/dL (1.7-4.1); Glucose 125 mg/dL (70-100); HEMOLYSIS 20 (0-50); Potassium 3.9 mmol/L (3.4-5.1); Sodium 139 mmol/L (137-145)
--- NOTE | 2024-12-03 19:27 | ED.EXTPRO ---
HPI - Extremity Problem General Chief complaint: Extremity Problem,Nontraumatic Stated complaint: Metal screw trying to come out rt big toe Time Seen by Provider: 12/03/24 19:26 Mode of arrival: Ambulatory History of Present Illness HPI Narrative: 29-year-old female without any significant past medical history presents to the emergency department from home for evaluation of right toe pain. She states that several months ago she had internal fixation of a broken toe, she states that over the past few weeks she noticed swelling to the 3rd toe, denies any new trauma, she states that she initially went to an outside hospital was told that there might have been possible hardware issues but was started on cephalexin, she states that after she completed the course of antibiotics it did improve however it has been several days since then and she feels like the symptoms/redness swelling has came back. She denies any other symptoms such as headache visual disturbances chest pain shortness breath fever chills nausea vomiting abdominal pain or any other GI/ symptoms time. Related Data Home Medications Medication Instructions Recorded Confirmed acetaminophen 500 mg tablet 1,000 mg PO Q6H PRN Pain 01/13/20 10/01/23 (Tylenol Extra Strength) diphenhydramine HCl 50 mg capsule 50 mg PO BID 03/26/23 10/01/23 vit no.95-ferrous 1 tab PO Q OTHER DAY 03/26/23 10/01/23 fumarate 28 mg-folic acid 800 mcg tablet () albuterol sulfate 90 mcg/actuation 2 puff inhalation Q4H PRN cough 10/03/23 10/03/23 aerosol inhaler Previous Rx's Medication Instructions Recorded lidocaine 5 % topical patch 1 patch topical DAILY #15 ea 03/28/23 (Lidoderm) fluticasone propionate 50 1 spray intranasal Q12H #16 grams 05/23/23 mcg/actuation nasal spray,suspension (Flonase Allergy Relief) promethazine 25 mg tablet 25 mg PO Q6H PRN nausea and 12/31/23 vomiting #30 tabs sulfamethoxazole 800 2 tab PO BID 14 days #56 tabs 12/03/24 mg-trimethoprim 160 mg tablet (Bactrim DS) Allergies Allergy/AdvReac Type Severity Reaction Status Date / Time No Known Drug Allergies Allergy Verified 12/03/24 16:32 Review of Systems Review of Systems Narrative: General: Denies fever, chills, weight loss HEENT: Denies headache, eye drainage, eye irritation, head trauma, sore throat, voice change Cardiovascular: Denies any chest pain, palpitations, tachycardia Respiratory: Denies any shortness of breath, cough, wheeze, stridor GI/: Denies any abdominal pain, nausea, vomiting, diarrhea, bright red blood per rectum, melanotic stools, urinary frequency, urinary retention, dysuria, hematuria MSK: 3rd toe swelling pain Skin: Denies any rashes, lesions, discoloration Neuro: Denies any headache, lightheadedness, dizziness, fainting, weakness Psych: Denies SI/HI Patient History Medical History Abdominal pain Pyelonephritis (~06/2019) Fusion of toes of right foot Sebaceous cyst Surgical History Hx of foot surgery (08/25/20) Hx of foot surgery S/P hardware removal S/P foot surgery, right (09/12/19) Hx of cholecystectomy Hx of eye surgery History of bunionectomy of left great toe History of bunionectomy of right great toe S/P foot surgery, right Social History household members: family and children Smoking Status: Unknown if ever smoked alcohol intake: former Smoking Status: Unknown if ever smoked alcohol intake frequency: 0-2 drinks per day Exam Narrative Exam Narrative: General: Cooperative, well-developed, not in acute distress HEENT: Normocephalic, atraumatic, PERRLA, normal sclera, eyelids normal Neck: Active full range of motion, atraumatic Chest: Normal to inspection, negative crepitus, no overlying erythema ecchymosis Respiratory: Normal respiratory effort, not in acute respiratory distress, clear to auscultation bilaterally negative cough, wheeze, tachypnea, rhonchi, rales Cardiology: Regular rate rhythm negative gallop, murmur, rubs GI/: No tenderness to palpation, soft, non rigid, normal to inspection, exam deferred MSK: Full active range of motion in all 4 extremities, atraumatic, patient with erythematous right 3rd toe no streaking present, otherwise neurovascularly intact no tenderness to palpation of any bony prominences Skin: No rashes or lesions noted Neuro: Alert awake oriented x3, moves all 4 extremities spontaneously, cranial nerves intact, able to answer all questions appropriately follows commands appropriately Psych: Cooperative, negative suicidal or homicidal ideations Initial Vital Signs Initial Vital Signs: Vital Signs Temperature 97.8 F 12/03/24 16:32 Pulse Rate 100 H 12/03/24 16:32 Respiratory Rate 16 12/03/24 16:32 Blood Pressure 140/78 12/03/24 16:32 Pulse Oximetry 100 12/03/24 16:32 Oxygen Delivery Method Room Air 12/03/24 16:32 Course Orders Ordered: ED Orders 12/03/24 17:06 XR foot RT min 3V Stat 12/03/24 17:22 Complete Blood Count AUTO DIFF Stat Comprehensive Metabolic Panel Stat Lactate (Lactic Acid) Stat 12/03/24 18:18 Blood Culture Stat Vital Signs Vital signs: Vital Signs - 8 hr 12/03/24 16:32 12/03/24 17:28 12/03/24 17:28 Temperature 97.8 F Pulse Rate 100 H 97 H Respiratory Rate 16 Blood Pressure 140/78 107/55 L Pulse Oximetry 100 98 Oxygen Delivery Method Room Air 12/03/24 17:30 12/03/24 17:30 12/03/24 18:00 Temperature Pulse Rate 100 H 98 H Respiratory Rate Blood Pressure 107/60 Pulse Oximetry 99 100 Oxygen Delivery Method 12/03/24 18:00 Temperature Pulse Rate Respiratory Rate Blood Pressure 122/56 L Pulse Oximetry Oxygen Delivery Method MDM - Extremity (Nontraumatic) Lab Data 12/03/24 17:22 12/03/24 17:22 Labs: Lab Results 12/03/24 Range/Units 17:22 WBC 8.4 (4.5-11.0) X10^3/uL RBC 4.62 (4.0-5.2) X10^6/uL Hgb 12.8 (12.0-16.0) g/dL Hct 39.2 (36-46) % MCV 84.7 (80-100) fL MCH 27.7 (26-34) PG MCHC 32.7 (30-36) % RDW 14.9 H (11.6-14.8) % Plt Count 304 (150-400) X10^3/uL Neut % (Auto) 67.3 (50-75) % Lymph % (Auto) 23.9 L (25-40) % [place] % (Auto) 4.4 (3-14) % Eos % (Auto) 4.0 (2-4) % Baso % (Auto) 0.4 (0-2) % Neut # (Auto) 5700 (8633-7888) /uL Lymph # (Auto) 2000 (5737-1882) /uL [place] # (Auto) 400 (0-900) /uL Eos # (Auto) 300 (0-450) /uL Baso # (Auto) 0 (0-100) /uL Sodium 139 (137-145) mmol/L Potassium 3.9 (3.4-5.1) mmol/L Chloride 106 (98-107) mmol/L Carbon Dioxide 23 (22-32) mmol/L BUN 15 (7-17) mg/dL Creatinine 0.67 (0.52-1.04) mg/dL Estimated GFR > 60 (>60) mL/min BUN/Creatinine Ratio 22.4 H (6-22) Glucose 125 H (70-100) mg/dL Lactate 1.1 (0.7-2.1) mmol/L Calcium 9.3 (8.4-10.2) mg/dL Total Bilirubin 0.3 (0.2-1.3) mg/dL AST 34 (14-36) IU/L ALT 39 H (<35) IU/L Alkaline Phosphatase 81 (38-126) U/L Total Protein 8.0 (6.3-8.2) g/dL Albumin 4.5 (3.5-5.0) g/dL Globulin 3.5 (1.7-4.1) g/dL Albumin/Globulin Ratio 1.3 (1.0-2.8) Imaging Data Extremity x-ray #1: Radiologist's Impression: [address] [address] XRay Report Signed Patient: Asia Vera MR#: [id number] : 1995 Acct:[id number] Age/Sex: 29 / F Date of Service: 12/03/24 Loc: ED Accession Number: [id number] Procedure: XR foot RT min 3V Ordering Provider: Gerda Jennings D.O. PROCEDURE: XR FOOT RT MIN 3V INDICATIONS: a screw in right 3rd toe TECHNIQUE: 3 views of the foot were acquired. COMPARISON: [facility], , XR FOOT RT MIN 3V, 07/13/2024, 20:36. FINDINGS: Bones: No acute fractures or dislocations. No suspicious bony lesions. Stable postsurgical changes of the right 1st ray with arthrodesis of the 1st tarsometatarsal, metatarsophalangeal, and interphalangeal joints. No evidence for hardware complication. Stable surgical screw at the head of the 2nd metatarsal. Stable postsurgical changes of arthrodesis across the right 3rd toe with retrograde partially cannulated screw. No evidence for hardware complication. Stable postoperative alignment. Soft tissues: No tibiotalar joint effusion. Achilles tendon appears normal. IMPRESSION: Right foot without acute fracture or dislocation. Stable postsurgical changes of the right 1st ray and right 3rd toe. No evidence for hardware complication. If there are persistent symptoms or clinical suspicion for pathology, then repeat radiographs or advanced imaging (CT or MRI) may be considered for further evaluation. MDM Narrative Medical decision making narrative: 29-year-old female without any significant past medical history comes to the ED from home for evaluation of right 3rd toe swelling redness pain states that she had surgical fixation several months ago and had a course of oral antibiotics for infection several weeks ago, however she states after completing this the symptoms came back. On exam 3rd toe is erythematous however no streaking noted no appreciable abscess noted, the toenail does not appear to be ingrown. X-ray without any acute findings stable hardware. Patient will be sent home with oral antibiotics and instructed to follow up with her scheduled appointment with her surgeon on 12/18/2024. She was given strict return precautions she verbalized understanding of this and agrees to being discharged home with outpatient follow up Discharge Plan Departure Patient Disposition: Home Clinical Impression: Infection of toe Activity Restrictions/Additional Instructions: Please follow up with your surgeon for your scheduled appointment Please read the discharge instructions sheet carefully and bring all papers to all doctor follow-up visits, as it may contain information that your doctor may want to see. Disease processes change and evolve, if your symptoms worsen or if you develop any new symptoms that are concerning to you please return for evaluation. Your evaluation today does not show any evidence of any life-threatening/serious illnesses requiring admission to the hospital or surgery. Please follow-up with your doctor for re-evaluation in approximately 1 day. Seek immediate medical attention for any worrisome symptoms. *If you do not have a primary care provider please contact the [facility] Resource line at [phone]. They will ask some questions about your medical history and help get you set up with a doctor in the community. Prescriptions: New sulfamethoxazole-trimethoprim [Bactrim DS] 800-160 mg tablet 2 tab PO BID 14 Days Qty: 56 0RF No Action fluticasone propionate [Flonase Allergy Relief] 50 mcg/actuation spray,suspension 1 spray intranasal Q12H Qty: 16 0RF Rx Instructions: administer into each nostril acetaminophen [Tylenol Extra Strength] 500 mg Tablet 1,000 mg PO Q6H PRN (Reason: Pain) diphenhydramine HCl 50 mg Capsule 50 mg PO BID PNV cmb#95-ferrous fumarate-FA [] 28 mg iron- 800 mcg Tablet 1 tab PO Q OTHER DAY Patient Comments: Unsure of exact lidocaine [Lidoderm] 5 % adhesive patch,medicated 1 patch topical DAILY Qty: 15 0RF Rx Instructions: leave on most painful area for up to 12 hrs albuterol sulfate 90 mcg/actuation HFA aerosol inhaler 2 puff inhalation Q4H PRN (Reason: cough) promethazine 25 mg tablet 25 mg PO Q6H PRN (Reason: nausea and vomiting) Qty: 30 0RF Referrals: Shikha Murphy DO [Primary Care Provider] - Stand Alone Forms: Patient Portal/API/Survey
[2024-12-03 19:49] VITALS: BP 127/70; PULSE 87; RESP 14; O2SAT 100
== END 2024-12-03 20:04 | disposition home or self-care (01) ==
PROVIDERS: Emergency Provider Student in an Organized Health Care Education/Training Program; PCP Family Medicine
DX: L08.9 Local infection of the skin and subcutaneous tissue, unspecified (principal)
CPT/HCPCS: 36415; 73630; 80053; 83605; 85025; 87040; 99283; 99284

== ENCOUNTER 2024-12-10 14:01 | Emergency (ER) | payer OTHER, SELFPAY ==
[2023-10-01 13:30] VITALS: BMI 43.5
[2024-12-10 14:34] VITALS: BP 142/82; PULSE 72; RESP 17; TEMP 36.5; O2SAT 100; BMI 43.4
--- NOTE | 2024-12-10 15:13 | ED.EXTPRO ---
HPI - Extremity Problem <Mariah Richardson PA-C - Last Filed: 12/10/24 18:14> General Chief complaint: Extremity Problem,Nontraumatic Stated complaint: infected toe since 11/18, anitbiotics dont work Time Seen by Provider: 12/10/24 15:04 Source: patient Mode of arrival: Ambulatory History of Present Illness HPI Narrative: Ms. Vera is a pleasant 29-year-old female, currently 2 months and who presents to the emergency department for right 3rd toe pain and infection since 11/18/2024. Patient states she has a history of multiple foot surgeries due to bunion and hammertoe correction by Dr. Albert. On 11/18/2024 patient woke up and noticed that her right 3rd toe was painful and red, she does have a history of a surgical pin in this toe. An urgent Care started her on cephalexin which she states did not help at all. She came to the emergency department on 12/03/2024 and was discharged home with a course of Bactrim for toe infection which she is currently still taking. Reports that the toe continues to only get more red swollen and painful and today the toe actually started draining. She has plans to have surgery with her application manager to remove the screw into a washout however this is currently delayed because of insurance reasons. She called her surgeon who advised she come to the emergency department. At this time she has some bloody/clear drainage from the top of the right 3rd toe and pain and swelling of this toe. She is no fevers but reports chills. She denies any other pain or concerns. She is currently taking Percocet at home if needed for severe pain. Related Data Home Medications Medication Instructions Recorded Confirmed acetaminophen 500 mg tablet 1,000 mg PO Q6H PRN Pain 01/13/20 10/01/23 (Tylenol Extra Strength) diphenhydramine HCl 50 mg capsule 50 mg PO BID 03/26/23 10/01/23 vit no.95-ferrous 1 tab PO Q OTHER DAY 03/26/23 10/01/23 fumarate 28 mg-folic acid 800 mcg tablet () albuterol sulfate 90 mcg/actuation 2 puff inhalation Q4H PRN cough 10/03/23 10/03/23 aerosol inhaler Previous Rx's Medication Instructions Recorded lidocaine 5 % topical patch 1 patch topical DAILY #15 ea 03/28/23 (Lidoderm) fluticasone propionate 50 1 spray intranasal Q12H #16 grams 05/23/23 mcg/actuation nasal spray,suspension (Flonase Allergy Relief) promethazine 25 mg tablet 25 mg PO Q6H PRN nausea and 12/31/23 vomiting #30 tabs sulfamethoxazole 800 2 tab PO BID 14 days #56 tabs 12/03/24 mg-trimethoprim 160 mg tablet (Bactrim DS) doxycycline hyclate 100 mg capsule 100 mg PO BID 7 days #14 caps 12/10/24 Allergies Allergy/AdvReac Type Severity Reaction Status Date / Time No Known Drug Allergies Allergy Verified 12/03/24 16:32 Review of Systems <Mariah Richardson PA-C - Last Filed: 12/10/24 18:14> Review of Systems ROS Unobtainable: All systems reviewed & are unremarkable except as noted in HPI and below Patient History <Mariah Richardson PA-C - Last Filed: 12/10/24 18:14> Medical History Abdominal pain Pyelonephritis (~06/2019) Fusion of toes of right foot Sebaceous cyst Surgical History Hx of foot surgery (08/25/20) Hx of foot surgery S/P hardware removal S/P foot surgery, right (09/12/19) Hx of cholecystectomy Hx of eye surgery History of bunionectomy of left great toe History of bunionectomy of right great toe S/P foot surgery, right Social History household members: family and children alcohol intake: former alcohol intake frequency: 0-2 drinks per day Exam <Mariah Richardson PA-C - Last Filed: 12/10/24 18:14> Narrative Exam Narrative: GENERAL: 29 year old patient appears stated age. Well-developed patient, in no acute distress. HEAD: Atraumatic. Normocephalic. ENT: Nose without bleeding, purulent drainage. NECK: Trachea midline. Cervical ROM intact. CARDIOVASCULAR: Regular rate and rhythm. RESPIRATORY: ?Nonlabored respirations. ?Speaking in clear, full sentences. ?Clear to auscultation. Breath sounds equal bilaterally. No wheezes, rales, or rhonchi. ? EXTREMITIES: right 3rd toe erythematous on the dorsal aspect with serosanguineous drainage overlying the DIP joint. She continues to have brisk capillary refill and sensation intact to light touch on the distal toe. Tenderness to palpation of the dorsal toe. No streaking erythema on the dorsal or plantar aspect of the foot. Strong DP and PT pulses palpable bilaterally. NEURO: AOx3. ?Clear speech. ?Moves all 4 extremities appropriately. SKIN: Erythema and drainage of dorsal right 3rd toe described above. Initial Vital Signs Initial Vital Signs: Vital Signs Temperature 97.7 F 12/10/24 14:34 Pulse Rate 72 12/10/24 14:34 Respiratory Rate 17 12/10/24 14:34 Blood Pressure 142/82 H 12/10/24 14:34 Pulse Oximetry 100 12/10/24 14:34 Oxygen Delivery Method Room Air 12/10/24 14:34 <dArian Escobar MD - Last Filed: 12/10/24 19:29> Initial Vital Signs Initial Vital Signs: Vital Signs Temperature 97.7 F 12/10/24 14:34 Pulse Rate 72 12/10/24 14:34 Respiratory Rate 17 12/10/24 14:34 Blood Pressure 142/82 H 12/10/24 14:34 Pulse Oximetry 100 12/10/24 14:34 Oxygen Delivery Method Room Air 12/10/24 14:34 Course <Mariah Richardson PA-C - Last Filed: 12/10/24 18:14> Orders Ordered: ED Orders 12/10/24 15:23 XR toe RT min 2V Stat 12/10/24 15:38 CBC Auto Diff [Complete Blood Count AUTO DIFF] Stat CMP [Comprehensive Metabolic Panel] Stat CRP [C-Reactive Protein Quant] Stat ESR [Erythrocyte Sedimentation Rate] Stat Lactate (Lactic Acid) Stat 12/10/24 15:42 Wound Culture and Gram Stain Stat 12/10/24 16:41 Blood Culture Stat Discontinued Medications Bacitracin (Bacitracin Oint 0.9 Gm Pckt) 1 applic TOP NOW ONE Stop: 12/10/24 17:34 Last Admin: 12/10/24 17:42 Dose: 1 applic Documented By: STEVE Doxycycline Hyclate (Doxycycline Hyclate 100 Mg Tablet) 100 mg PO NOW ONE Stop: 12/10/24 17:34 Last Admin: 12/10/24 17:42 Dose: 100 mg Documented By: STEVE Vital Signs Vital signs: Vital Signs - 8 hr 12/10/24 14:34 12/10/24 18:04 Temperature 97.7 F 97.9 F Pulse Rate 72 81 Respiratory Rate 17 19 Blood Pressure 142/82 H 129/82 Pulse Oximetry 100 100 Oxygen Delivery Method Room Air <Adrian Escobar MD - Last Filed: 12/10/24 19:29> Orders Ordered: ED Orders 12/10/24 15:23 XR toe RT min 2V Stat 12/10/24 15:38 CBC Auto Diff [Complete Blood Count AUTO DIFF] Stat CMP [Comprehensive Metabolic Panel] Stat CRP [C-Reactive Protein Quant] Stat ESR [Erythrocyte Sedimentation Rate] Stat Lactate (Lactic Acid) Stat 12/10/24 15:42 Wound Culture and Gram Stain Stat 12/10/24 16:41 Blood Culture Stat Discontinued Medications Bacitracin (Bacitracin Oint 0.9 Gm Pckt) 1 applic TOP NOW ONE Stop: 12/10/24 17:34 Last Admin: 12/10/24 17:42 Dose: 1 applic Documented By: STEVE Doxycycline Hyclate (Doxycycline Hyclate 100 Mg Tablet) 100 mg PO NOW ONE Stop: 12/10/24 17:34 Last Admin: 12/10/24 17:42 Dose: 100 mg Documented By: STEVE Vital Signs Vital signs: Vital Signs - 8 hr 12/10/24 14:34 12/10/24 18:04 Temperature 97.7 F 97.9 F Pulse Rate 72 81 Respiratory Rate 17 19 Blood Pressure 142/82 H 129/82 Pulse Oximetry 100 100 Oxygen Delivery Method Room Air MDM - Extremity (Nontraumatic) <Mariah Richardson PA-C - Last Filed: 12/10/24 18:14> Medical Records Attestation: I reviewed the patient's medical records. Medical records narrative: ED visit on 12/03/2024 for infection of right 3rd toe. Lab Data 12/10/24 15:38 12/10/24 15:38 Labs: Lab Results 12/10/24 Range/Units 15:38 WBC 3.7 L (4.5-11.0) X10^3/uL RBC 4.67 (4.0-5.2) X10^6/uL Hgb 13.2 (12.0-16.0) g/dL Hct 39.2 (36-46) % MCV 83.9 (80-100) fL MCH 28.2 (26-34) PG MCHC 33.6 (30-36) % RDW 14.9 H (11.6-14.8) % Plt Count 215 (150-400) X10^3/uL Neut % (Auto) 36.7 L (50-75) % Lymph % (Auto) 50.0 H (25-40) % [place] % (Auto) 10.2 (3-14) % Eos % (Auto) 2.7 (2-4) % Baso % (Auto) 0.4 (0-2) % Neut # (Auto) 1400 L (9912-7316) /uL Lymph # (Auto) 1800 (5234-7699) /uL [place] # (Auto) 400 (0-900) /uL Eos # (Auto) 100 (0-450) /uL Baso # (Auto) 0 (0-100) /uL ESR 35 H (0-20) MM/HR Sodium 138 (137-145) mmol/L Potassium 4.1 (3.4-5.1) mmol/L Chloride 108 H (98-107) mmol/L Carbon Dioxide 18 L (22-32) mmol/L BUN 11 (7-17) mg/dL Creatinine 0.58 (0.52-1.04) mg/dL Estimated GFR > 60 (>60) mL/min BUN/Creatinine Ratio 19.0 (6-22) Glucose 100 (70-100) mg/dL Lactate 0.9 (0.7-2.1) mmol/L Calcium 9.2 (8.4-10.2) mg/dL Total Bilirubin 0.7 (0.2-1.3) mg/dL AST 45 H (14-36) IU/L ALT 40 H (<35) IU/L Alkaline Phosphatase 61 (38-126) U/L C-Reactive Protein 0.6 (<1.0) mg/dL Total Protein 8.6 H (6.3-8.2) g/dL Albumin 4.8 (3.5-5.0) g/dL Globulin 3.8 (1.7-4.1) g/dL Albumin/Globulin Ratio 1.3 (1.0-2.8) MDM Narrative Medical decision making narrative: 29-year-old female, currently 2 months and who presents to the emergency department for right 3rd toe pain and infection since 11/18/2024. Differential diagnosis includes but is not limited to cellulitis, abscess, osteomyelitis, open fracture, etc. On exam the patient is in no acute distress, nontoxic appearing, vital signs all within normal limits. Her right 3rd toe is extremely erythematous, tender and has serosanguineous drainage. She was supposed to have surgery to remove screw that is likely coming out of the toe however this was delayed because of insurance. Patient is here because oral antibiotics are not improving and today it started draining. We will obtain CBC, CMP, inflammatory markers, x-ray toe, consult ortho. Blood culture from 12/03/2024 negaitve. Discussed case with the patient's surgeon, Dr. Albert. She has an outpatient appointment with the patient tomorrow in office and is hoping to take her to the operating room on Sunday to remove the pin and take a bone biopsy. States the patient should be appropriate to go home if there are no signs of systemic infection or need for emergent surgery. Reports that if patient is tolerating Bactrim she can stay on it or we could switch to doxycycline. She recommends consultation with on-call orthopedic doctor if admission is necessary. Labs reveal slightly decreased WBC count of 3.7, platelets 215. ESR 35. CRP of 0.6. X-ray right 3rd toe reveals findings suspicious for osteomyelitis of the distal tuft of the distal phalanx of the 3rd toe, with surgical hardware intact. On-call orthopedic surgeon, Dr. Rodriguez consulted at 4:50pm. States that patient can be managed outpatient for possible osteomyelitis with previous plan of screw removal and bone biopsy with her surgeon. States that patient does not need to be admitted to hospital at this time as there is no elevated white blood cell count, no fevers, no signs of systemic infection. No need for CT or MRI as this will not change plan. After shared decision-making with on-call surgeon, ED attending physician, patient - we will have patient follow up with her application manager tomorrow as scheduled with hopes for surgery on Sunday. We will switch patient from Bactrim to doxycycline. Wound dressing applied in the emergency department. We discussed strict ED return precautions. Patient verbalized understanding of all information and is agreeable to this plan. She is stable for discharge home. <Adrian Escobar MD - Last Filed: 12/10/24 19:29> Lab Data Labs: Lab Results 12/10/24 Range/Units 15:38 WBC 3.7 L (4.5-11.0) X10^3/uL RBC 4.67 (4.0-5.2) X10^6/uL Hgb 13.2 (12.0-16.0) g/dL Hct 39.2 (36-46) % MCV 83.9 (80-100) fL MCH 28.2 (26-34) PG MCHC 33.6 (30-36) % RDW 14.9 H (11.6-14.8) % Plt Count 215 (150-400) X10^3/uL Neut % (Auto) 36.7 L (50-75) % Lymph % (Auto) 50.0 H (25-40) % [place] % (Auto) 10.2 (3-14) % Eos % (Auto) 2.7 (2-4) % Baso % (Auto) 0.4 (0-2) % Neut # (Auto) 1400 L (9209-3410) /uL Lymph # (Auto) 1800 (2036-1140) /uL [place] # (Auto) 400 (0-900) /uL Eos # (Auto) 100 (0-450) /uL Baso # (Auto) 0 (0-100) /uL ESR 35 H (0-20) MM/HR Sodium 138 (137-145) mmol/L Potassium 4.1 (3.4-5.1) mmol/L Chloride 108 H (98-107) mmol/L Carbon Dioxide 18 L (22-32) mmol/L BUN 11 (7-17) mg/dL Creatinine 0.58 (0.52-1.04) mg/dL Estimated GFR > 60 (>60) mL/min BUN/Creatinine Ratio 19.0 (6-22) Glucose 100 (70-100) mg/dL Lactate 0.9 (0.7-2.1) mmol/L Calcium 9.2 (8.4-10.2) mg/dL Total Bilirubin 0.7 (0.2-1.3) mg/dL AST 45 H (14-36) IU/L ALT 40 H (<35) IU/L Alkaline Phosphatase 61 (38-126) U/L C-Reactive Protein 0.6 (<1.0) mg/dL Total Protein 8.6 H (6.3-8.2) g/dL Albumin 4.8 (3.5-5.0) g/dL Globulin 3.8 (1.7-4.1) g/dL Albumin/Globulin Ratio 1.3 (1.0-2.8) Discharge Plan Departure Patient Disposition: Home Clinical Impression: Infection of toe Instructions: DI for Osteomyelitis Activity Restrictions/Additional Instructions: Dear Ms. Vera, Today you were evaluated for infection and drainage of your right 3rd toe. We obtained a wound culture of the drainage and it will be growing in the lab. We also obtained blood cultures, checked an x-ray and lab work. At this time your x-rays are concerning for possible infection of the bone of the toe. I consulted with both your surgeon and our on-call orthopedic surgeon, Dr. Rodriguez. The necessary treatment is for you to proceed with surgery as scheduled. We are changing your antibiotic in the meantime. Please keep the toe clean, dry, covered with a bandage or dressing at all times. Please stop taking the previously prescribed Bactrim and start taking the newly prescribed doxycycline. Please be aware that antibiotics can cause stomach upset, so it can be helpful to incorporate probiotics anterior diet while taking antibiotics such as Activia yogurt. Please return to the emergency department if you develop fevers, redness spreading up the leg, or any other concerns. Please follow up with your primary care doctor within the next 2-3 days for ER follow-up. (If you do not have a PCP you can call [phone]. ?to schedule an appointment with an [facility] Primary Care Provider) IF YOU DEVELOP ANY NEW OR WORSENING SYMPTOMS, RETURN TO THE ER! Please read the attached instructions, they highlight more specific treatments and interventions for you at home. Thank you for letting me participate in your care, Mariah Richardson PA-C Prescriptions: New doxycycline hyclate 100 mg capsule 100 mg PO BID 7 Days Qty: 14 0RF No Action fluticasone propionate [Flonase Allergy Relief] 50 mcg/actuation spray,suspension 1 spray intranasal Q12H Qty: 16 0RF Rx Instructions: administer into each nostril acetaminophen [Tylenol Extra Strength] 500 mg Tablet 1,000 mg PO Q6H PRN (Reason: Pain) diphenhydramine HCl 50 mg Capsule 50 mg PO BID PNV cmb#95-ferrous fumarate-FA [] 28 mg iron- 800 mcg Tablet 1 tab PO Q OTHER DAY Patient Comments: Unsure of exact lidocaine [Lidoderm] 5 % adhesive patch,medicated 1 patch topical DAILY Qty: 15 0RF Rx Instructions: leave on most painful area for up to 12 hrs albuterol sulfate 90 mcg/actuation HFA aerosol inhaler 2 puff inhalation Q4H PRN (Reason: cough) promethazine 25 mg tablet 25 mg PO Q6H PRN (Reason: nausea and vomiting) Qty: 30 0RF sulfamethoxazole-trimethoprim [Bactrim DS] 800-160 mg tablet 2 tab PO BID 14 Days Qty: 56 0RF Referrals: Shikha Murphy DO [Primary Care Provider] - Nandini Albert DPM [Physician] - (concern for 3rd right toe osteo) Stand Alone Forms: Patient Portal/API/Survey ED Sign-out <Adrian Escobar MD - Last Filed: 12/10/24 19:29> Cosign ED Attending Cosignature Attestation: I was immediately available in the department for consultation. This documentation has been reviewed and I agree with assessment and plan. Supervised by Adrian Escobar MD
--- NOTE | 2024-12-10 15:23 | DI.RAD.S_ITS ---
PROCEDURE: XR TOE RT MIN 2V INDICATIONS: 3rd toe red draining, hx hardware TECHNIQUE: 3 views of the 2nd through 4th toe(s) acquired. COMPARISON: [facility], CR, XR TOE RT MIN 2V, 05/23/2020, 23:57. FINDINGS: Bones: No fractures or dislocations. Great toe MTP fusion hardware and IP fusion hardware intact with no evidence of hardware failure or loosening. 2nd toe distal metatarsal head screw intact with no hardware failure loosening. 3rd toe cannulated screw bridges the PIP and DIP joints. The screws intact. There is significant lucency at the distal tuft of the distal phalanx of the 3rd toe suggesting possible osteomyelitis. No suspicious bony lesions. Soft tissues: No suspicious soft tissue densities. IMPRESSION: Findings are suspicious for osteomyelitis of the distal tuft of the distal phalanx of the 3rd toe, with surgical hardware intact. Dictated by: Phil Valentino M.D. on 12/10/2024 at 15:51 Approved by: Phil Valentino M.D. on 12/10/2024 at 15:56
[2024-12-10 15:58] LABS: Add Manual Diff / Slide Review NO; Basophils Absolute Auto 0 /uL (0-100); Basophils Percent Auto 0.4 % (0-2); Eosinophils Absolute Auto 100 /uL (0-450); Eosinophils Percent Auto 2.7 % (2-4); Hematocrit 39.2 % (36-46); Hemoglobin 13.2 g/dL (12.0-16.0); Lymphocytes Absolute Auto 1800 /uL (1100-4500); Mean Corpuscular HGB Conc 33.6 % (30-36); Mean Corpuscular Hemoglobin 28.2 PG (26-34); Mean Corpuscular Volume 83.9 fL (80-100); Monocytes Absolute Auto 400 /uL (0-900); Monocytes Percent Auto 10.2 % (3-14); Neutrophils Absolute Auto 1400 /uL (1500-7000); Neutrophils Percent Auto 36.7 % (50-75); Platelet Count 215 X10^3/uL (150-400); Red Blood Cell Count 4.67 X10^6/uL (4.0-5.2); Red Cell Distribution Width 14.9 % (11.6-14.8); White Blood Cell Count 3.7 X10^3/uL (4.5-11.0)
[2024-12-10 16:10] LABS: Lactate (Lactic Acid) 0.9 mmol/L (0.7-2.1)
[2024-12-10 16:11] LABS: Alanine Aminotransferase 40 IU/L (<35); Albumin 4.8 g/dL (3.5-5.0); Albumin Globulin Ratio 1.3 (1.0-2.8); Alkaline Phosphatase 61 U/L (38-126); Aspartate Aminotransferase 45 IU/L (14-36); Bilirubin Total 0.7 mg/dL (0.2-1.3); Blood Urea Nitrogen 11 mg/dL (7-17); Calcium 9.2 mg/dL (8.4-10.2); Carbon Dioxide 18 mmol/L (22-32); Chloride 108 mmol/L (98-107); Estimated Glomerular Filt Rate > 60 mL/min (>60); Globulin 3.8 g/dL (1.7-4.1); Glucose 100 mg/dL (70-100); Potassium 4.1 mmol/L (3.4-5.1); Sodium 138 mmol/L (137-145); Total Protein 8.6 g/dL (6.3-8.2)
[2024-12-10 16:12] LABS: HEMOLYSIS 92 (0-50)
[2024-12-10 16:14] LABS: C-Reactive Protein Quant 0.6 mg/dL (<1.0)
[2024-12-10 16:44] LABS: Erythrocyte Sedimentation Rate 35 MM/HR (0-20)
[2024-12-10] MEDS: DOXYCYCLINE HYCLATE 100 MG TABLET PO (17:42)
[2024-12-10] MEDS: BACITRACIN OINT 0.9 GM PCKT 1 APPLIC TOP (17:42)
[2024-12-10 18:04] VITALS: BP 129/82; PULSE 81; RESP 19; TEMP 36.6; O2SAT 100
--- NOTE | 2024-12-10 18:05 | PC.NURSE ---
Toe dressed w/ clean dressing per provider request.
== END 2024-12-10 19:00 | disposition home or self-care (01) ==
PROVIDERS: Emergency Provider Physician Assistant; PCP Family Medicine
DX: L08.9 Local infection of the skin and subcutaneous tissue, unspecified (principal)
CPT/HCPCS: 36415; 73660; 80053; 83605; 85025; 85651; 86140; 87040; 87070; 87075; 87077; 87147; 87186; 87205; 99284

== ENCOUNTER 2024-12-17 12:53 | Day surgery (SDC) | payer OTHER, SELFPAY ==
[2023-10-01 13:30] VITALS: BMI 43.5
[2024-12-15 12:23] VITALS: BMI 42.7
[2024-12-17 13:40] VITALS: BMI 44.6
[2024-12-17] MEDS: LACTATED RINGERS 1,000 ML 42 ML IV (13:52)
[2024-12-17] MEDS: SCOPOLAMINE 1 PATCH TOP (13:57)
--- NOTE | 2024-12-17 14:50 | PM.PREOP ---
Pre-operative Note Interval Note History & Physical reviewed/Exam performed by Physician: Yes Changes to H&P: No
[2024-12-17] MEDS: CEFAZOLIN 2 GM/100 ML PREMIX 100 ML IV (14:57)
--- NOTE | 2024-12-17 15:07 | SUR.OPER ---
Supine on padded OR bed, torso on foam wedge, head on pillow which is supported by stacked blankets, bump to right hip, arms secured on pillow-padded arm boards at <90 degrees abduction, legs uncrossed, safety belt at waist.
[2024-12-17] MEDS: BUPIVACAINE 0.5% (PF) 30 ML VIAL INJ (15:14)
[2024-12-17 15:45] VITALS: BP 115/68; PULSE 68; RESP 13; TEMP 36.6; O2SAT 97
[2024-12-17 15:50] VITALS: BP 112/70; PULSE 72; RESP 15; O2SAT 98
[2024-12-17 15:55] VITALS: BP 109/70; PULSE 76; RESP 12; O2SAT 99
--- NOTE | 2024-12-17 15:56 | P.OP_ITS ---
Operative Date/Time/Diagnoses Date of procedure: 12/17/24 Time of procedure: 14:57 Pre-op diagnosis: Right third toe retained orthopedic hardware with contusion. Post-op diagnosis: same Procedure & Clinicians Procedure: Right third toe hardware removal and biopsy bone distal phalanx third toe. Same procedure as scheduled: Yes Indications: 29-year-old female presents for removal of retained screw in the right 3rd toe. In July she contused the toe and since then it is been swollen and increasingly uncomfortable. There had recently been some fluid she states that was expressed from the toe tip under the nail and then on the top where the former surgical incision was. She has been through 3 rounds of antibiotics through various visits to urgent care and emergency room and decision has been made to remove the screw, take a bone biopsy of the distal phalanx, and a irrigate the area. Consent was reviewed and given, there were no contraindications to the procedure at this time. Surgeon: Nandini Albert Click Yes if Unassisted: Yes Anesthesia Type: General Operative Notes Closure Type: primary Specimen(s): other (Third toe right foot distal phalanx bone biopsied and sent for aerobic and anaerobic culture. ) Estimated Blood Loss (mL): 20 Blood products transfused: none Tourniquet time (min): 0 Procedure in detail: The patient was brought to the operating room and placed on the operating table in the supine position. A small bump was placed under the ipsilateral hip. She was well supported and appropriately aligned. After induction of general anesthesia, anesthesia was delivered to the 3rd toe area using the recorded injectables. The foot and ankle were prepped and draped in the usual aseptic manner. Incision was made in a horizontal fashion across the tip of the 3rd toe. Gentle dissection was carried down revealing the head of the screw. The screw was easily accessible but did not appear loose. The tow motor driver was used to manually remove the screw and it was evaluated to be unbroken and in good condition. This was passed from the field. Next, a small amount of bone in a couple of parts was gently removed with some pituitary forceps from the tip of the distal phalanx. This was sent for aerobic and anaerobic culture. There is not appear to be any loose bone on gentle pressure and evaluation of the area. Next, there had been a small area of dehiscence on the dorsal aspect of the former proximal interphalangeal joint. The prior incision was used to be the guide to open this back up. It was shown to have no abscess or purulent discharge. The skin in this area had just dehisced and had a little blister or some type of skin event such as an abrasion that it caused the skin to be removed in this 2-3 mm vertical zone. The area was irrigated with normal saline as well as the tip of the toe where the screw had been removed. Pressure was placed verified no purulent discharge or discharge in general besides the bleeding was noted. Of nylon was used to close both incisions. The a lightly compressive dressing consisting of Xeroform 4x4s Kerlix and Coban was placed on the foot. She was transferred to the PACU with vital signs stable and vascular status intact. Complications: none Post-operative Condition: stable Disposition: PACU Plan for aftercare: Following a period of postoperative monitoring, the patient will be discharged to home on written and oral postoperative instructions including keeping the dressing dry and intact, no greater than 50% weight to the surgical foot, icing behind the knee rather than on the toes and elevating the foot when seated home. DVT prevention techniques have been reviewed. For the 1st postoperative visit the dressing will be changed and close to the 3rd postoperative week we will likely remove the sutures. She is still on her doxycycline and is taking that orally. She desired a note for work for her as well as a temporary parking placard for herself. I will have my assistant manager of operations contact her when this is available.
[2024-12-17 16:00] VITALS: BP 118/72; PULSE 76; RESP 18; TEMP 36.6; O2SAT 99
[2024-12-17] MEDS: ACETAMINOPHEN 325 MG TABLET 650 MG PO (16:03)
[2024-12-17] MEDS: OXYCODONE/ACETAMINOPHEN 5/325 TABLET 1 TAB PO (16:04)
[2024-12-17 16:15] VITALS: BP 116/74; PULSE 78; RESP 14; O2SAT 98
== END 2024-12-17 16:30 | disposition home or self-care (01) ==
PROVIDERS: PCP Student in an Organized Health Care Education/Training Program; Referring Provider Podiatrist; Visit Provider Podiatrist
PROC: (CPT 20680; principal; 2024-12-17 14:30)
DX: T84.84XA Pain due to internal orthopedic prosthetic devices, implants and grafts, initial encounter (principal); T81.31XA Disruption of external operation (surgical) wound, not elsewhere classified, initial encounter
CPT/HCPCS: 20680; 81025; 87070; 87075; 87077; 87147; 87186; 87205; J0690; J1100; J2250; J2405; J2704; J3010